=== PATIENT | female | born 1980 | race Caucasian/White ===

== ENCOUNTER 2021-12-07 13:24 | Emergency (ER) | payer BC, SELFPAY ==
[2021-12-07 13:33] VITALS: BP 139/78; PULSE 56; RESP 18; TEMP 36.6; O2SAT 97; BMI 22.7
--- NOTE | 2021-12-07 13:46 | CRLHL7_ITS ---
For Patients: As a result of the Century Cures Act, medical imaging exams and procedure reports are released immediately into your electronic medical record. You may view this report before your referring provider. If you have questions, please contact your health care provider. INDICATION: COMPARISON: none TECHNIQUE: A CT volumetric acquisition was performed of the brain without IV contrast. Please note that all CT scans at this facility use dose modulation, iterative reconstruction, and/or weight-based dosing when appropriate to reduce radiation dose to as low as reasonably achievable. FINDINGS: The CT images reveal a normal appearance of the cerebral ventricles and basal cisterns. There is no evidence of intracranial hemorrhage, tissue infarction or mass effect. The mastoid air cells and middle ear cavities are clear. The calvarium appears intact. There is normal aeration of the visualized paranasal sinuses. IMPRESSION: Negative head CT. Please note that all CT scans at this facility use dose modulation, iterative reconstruction, and/or weight-based dosing when appropriate to reduce radiation dose to as low as reasonably achievable. Dictated by Bethel Kessler MD @ 12/07/2021 2:31:30 PM (Electronically Signed)
--- NOTE | 2021-12-07 13:47 | ED.GENADULT ---
HPI - General Adult General Chief complaint: Neuro Symptoms/Altered Deficit Stated complaint: Seizure, MS related Time Seen by Provider: 12/07/21 13:27 History of Present Illness HPI narrative: Pt is a 41 year old woman with a history of MS as well as vestibular migraines who presents with frontal headache as well as a 1 second episode of not being able to speak. Speech difficulty has resolved but headache persists. No other neurological symptoms and the headache is typical for her migraines. Pt took Tylenol for her Headache with no improvement. No nause vomiting or photophobia. Related Data Allergies Allergy/AdvReac Type Severity Reaction Status Date / Time codeine Allergy Verified 12/07/21 13:32 Iodinated Contrast Media Allergy Verified 12/07/21 13:32 Review of Systems Status of ROS: Reports: 10 or more systems reviewed and unremarkable except as noted in History and below PFSH PFS Social History Smoking Status: Current every day smoker What tobacco products do you use: cigarettes Do you use any of these nicotine containing products: None How often do you have a drink containing alcohol: never How often do you have six or more drinks on one occasion: Never AUDIT-C Alcohol total score: 0 Non-prescribed substance use: denies use Exam Narrative: Exam Narrative: EXAM GENERAL: Patient appears comfortable and well. EYES: No scleral icterus. THYROID: no thyroid nodules or thyromegaly. LYMPH: No supraclavicular or cervical lymphadenopathy. SKIN: Visible skin seen during exam normal or with benign process only. EXT: No dependent lower extremity pedal edema. HEART: Regular rate and rhythm with no murmurs, rubs, or gallops. LUNGS: Clear to auscultation bilaterally with no crackles or wheezes. ABD: Soft, non tender, non distended. PSYCH: Good eye contact, speech is not pressured. Neurological cranial nerves 2-12 grossly intact need Const: Vital Signs, click to edit/add: Vital Signs - 24 hr 12/07/21 13:33 Temperature 97.8 F Pulse Rate [Pulse Oximeter] 56 L Respiratory Rate 18 Blood Pressure [Le ft Upper Arm] 139/78 Pulse Oximetry 97 Oxygen Delivery Me thod Room Air Course Course Hospital Course: IV started. patient given 30 mg of IV Toradol. CT of the head stat CBC UA Basic metabolic panel pending. Reevaluation(s) Reevaluation #1: Pt feeling better with no return of Neurological Symptoms. Head CT CBC and Basic Panel unremarkable upon my review. Time: 14:55 Vital Signs Vital signs: Initial Vital Signs Temperature 97.8 F 12/07/21 13:33 Temperature Source Temporal Artery Scan 12/07/21 13:33 Pulse Rate 56 L 12/07/21 13:33 Pulse Rhythm 12/07/21 13:33 Respiratory Rate 18 12/07/21 13:33 Blood Pressure 139/78 12/07/21 13:33 Blood Pressure Mean 98 12/07/21 13:33 Pulse Oximetry 97 12/07/21 13:33 Oxygen Delivery Method 12/07/21 13:33 Vital Signs Temperature 97.8 F 12/07/21 13:33 Pulse Rate 56 L 12/07/21 13:33 Respiratory Rate 18 12/07/21 13:33 Blood Pressure 139/78 12/07/21 13:33 Pulse Oximetry 97 12/07/21 13:33 Oxygen Delivery Method 12/07/21 13:33 Temperature 97.8 F 12/07/21 13:33 Pulse Rate 56 L 12/07/21 13:33 Respiratory Rate 18 12/07/21 13:33 Blood Pressure 139/78 12/07/21 13:33 Pulse Oximetry 97 12/07/21 13:33 Oxygen Delivery Method 12/07/21 13:33 Medical Decision Making MDM Narrative Medical decision making narrative: Pt presents with headache and brief 1 second aphasia. Workup unremarkable as above. Pt feeling fine and would like to go back to work. Symptoms likely related to MS or Vestibular Migraines Advised pt Neuro follow up needed Lab Data Labs: Lab Results 12/07/21 12/07/21 Range/Units 13:59 13:59 WBC 4.95 (4.50-11.00) K/uL RBC 4.11 (4.00-5.20) m/uL Hgb 12.4 (12.0-16.0) gm/dL Hct 37.1 (33.0-51.0) % MCV 90 (80-100) fL MCH 30 (26-34) pg MCHC 33 (32-36) gm/dL RDW Coeff of Alfredo 13.6 (11.5-15.5) % Plt Count 289 (140-440) K/uL Neut % (Auto) 84.5 H (42.0-72.0) % Lymph % (Auto) 4.0 L (20-44) % [place] % (Auto) 8.7 (0.0-11.0) % Eos % (Auto) 2.2 (0.0-7.0) % Baso % (Auto) 0.4 (0.0-3.0) % Neut # (Auto) 4.20 (1.7-7.0) K/uL Lymph # (Auto) 0.20 L (0.90-2.90) K/uL [place] # (Auto) 0.40 (0.00-0.90) K/UL Eos # (Auto) 0.11 (0.00-0.50) K/uL Baso # (Auto) 0.02 (0.00-0.30) K/uL Abs Immat Gran (auto) 0.01 (0.00-0.30) K/uL Sodium 135 (135-149) mmol/L Potassium 3.9 (3.6-5.1) mmol/L Chloride 103 (96-114) mmol/L Carbon Dioxide 27 (20-32) mmol/L BUN 13 (5-24) mg/dL Creatinine 0.9 (0.5-1.5) mg/dL Estimated Creat Clear 71.03 Estimated GFR 82 ml/min Glucose 93 (60-115) mg/dL Calcium 8.3 L (8.4-10.6) mg/dL Discharge Plan Discharge Clinical Impression: Migraine Patient Disposition: Home, Self-Care Condition: Stable Instructions: Migraine Headache (ED) Additional Instructions: Resume previous Meds Report any changes in symptoms Follow up with your Neurologist Activity Level: No Restrictions Discharge Diet: Regular Stand Alone Forms: General [employer] Info Instructions
[2021-12-07 14:10] LABS: Basophils Absolute Auto 0.02 K/uL (0.00-0.30); Basophils Percent Auto 0.4 % (0.0-3.0); Eosinophils Absolute Auto 0.11 K/uL (0.00-0.50); Eosinophils Percent Auto 2.2 % (0.0-7.0); Hematocrit 37.1 % (33.0-51.0); Hemoglobin* 12.4 gm/dL (12.0-16.0); Immature Granulocytes Abs Auto 0.01 K/uL (0.00-0.30); Mean Corpuscular HGB Conc 33 gm/dL (32-36); Mean Corpuscular Hemoglobin 30 pg (26-34); Mean Corpuscular Volume 90 fL (80-100); Monocytes Percent Auto 8.7 % (0.0-11.0); Neutrophils Percent Auto 84.5 % (42.0-72.0); Platelet Count* 289 K/uL (140-440); RDW Coefficient of Variation % 13.6 % (11.5-15.5); Red Blood Count 4.11 m/uL (4.00-5.20); White Blood Count* 4.95 K/uL (4.50-11.00)
[2021-12-07 14:17] LABS: Slide Review Reflex No
[2021-12-07 14:25] LABS: Chloride* 103 mmol/L (96-114); Potassium* 3.9 mmol/L (3.6-5.1); Sodium* 135 mmol/L (135-149)
[2021-12-07] MEDS: KETOROLAC 30 MG/ML inj IM (14:25)
[2021-12-07 14:28] LABS: Blood Urea Nitrogen* 13 mg/dL (5-24); Carbon Dioxide* 27 mmol/L (20-32); Creatinine* 0.9 mg/dL (0.5-1.5); Est. Creatinine Clearance* 71.03; Estimated Glomerular Filt Rate 82 ml/min
[2021-12-07 14:29] LABS: Calcium* 8.3 mg/dL (8.4-10.6); Glucose* 93 mg/dL (60-115)
[2021-12-07 14:30] VITALS: BP 132/83; PULSE 52; O2SAT 98
== END 2021-12-07 15:18 | disposition home or self-care (01) ==
PROVIDERS: Emergency Provider Internal Medicine
DX: R51.9 Headache, unspecified (principal)
CPT/HCPCS: 36415; 70450; 80048; 85025; 96372; 99283; 99284; J1885

== ENCOUNTER 2022-01-06 16:05 | Outpatient (CLI) | payer BC, SELFPAY | END 2022-01-06 16:06 | disposition home or self-care (01) | DX: R30.0 Dysuria (principal); M54.50 Low back pain, unspecified | CPT/HCPCS: 87086 ==

== ENCOUNTER 2022-02-09 15:12 | Outpatient (CLI) | payer BC, SELFPAY | END 2022-02-09 15:13 | disposition home or self-care (01) | PROVIDERS: Visit Provider Physician Assistant | DX: Z01.419 Encounter for gynecological examination (general) (routine) without abnormal findings (principal); N93.8 Other specified abnormal uterine and vaginal bleeding; Z12.4 Encounter for screening for malignant neoplasm of cervix | CPT/HCPCS: 84443; 87624; 88175 ==

== ENCOUNTER 2022-02-13 15:52 | Outpatient (CLI) | payer BC, SELFPAY ==
--- NOTE | 2022-02-13 16:00 | CRLHL7_ITS ---
For Patients: As a result of the Century Cures Act, medical imaging exams and procedure reports are released immediately into your electronic medical record. You may view this report before your referring provider. If you have questions, please contact your health care provider. INDICATION: ABNORMAL UTERINE BLEEDING COMPARISON: none TECHNIQUE: 2D bartlett scale and color Doppler images were acquired of the pelvis using a transabdominal and transvaginal approach. FINDINGS: Sonographic images demonstrate a normal size and smooth outer contour of the uterus. Uterus measures 9.8 cm in length by 5.6 cm in AP diameter by 6.1 cm in transverse dimension. The myometrium has a heterogeneous echotexture. Posterior uterine fundal intramural fibroid is present measuring 1.3 x 1.0 x 1.4 cm. An anterior mid intramural fibroid is also present measuring 1.6 x 1.3 x 1.6 cm. The endometrial lining appears diffusely thickened and measures 16 mm in composite thickness. The right ovary measures 2.9 x 1.7 x 1.8 cm in size and the left ovary measures 4.7 x 3.0 x 2.8 cm. The ovaries demonstrate normal arterial and venous blood flow on color Doppler analysis. Complex left ovarian cyst is present with hypoechoic internal echoes measuring 3.3 x 2.2 x 2.4 cm. Moderate pelvic free fluid is present. IMPRESSION: Diffusely thickened endometrium measuring 16 millimeters. At least 2 intramural fibroids measuring up to 1.6 cm. Hemorrhagic left ovarian cyst measuring 3.3 cm with moderate pelvic free fluid. Dictated by Bethel Kessler MD @ 02/16/2022 8:55:58 AM (Electronically Signed)
== END 2022-02-13 15:53 | disposition home or self-care (01) ==
LOC: US 15:53
PROVIDERS: Visit Provider Physician Assistant
DX: N93.9 Abnormal uterine and vaginal bleeding, unspecified (principal); D25.1 Intramural leiomyoma of uterus; R93.89 Abnormal findings on diagnostic imaging of other specified body structures; N83.202 Unspecified ovarian cyst, left side
CPT/HCPCS: 76830; 76856; 93976

== ENCOUNTER 2022-03-24 13:50 | Outpatient (CLI) | payer BC, SELFPAY | END 2022-03-24 13:51 | disposition home or self-care (01) | LOC: NFLDREF 13:52 | PROVIDERS: Visit Provider Family Medicine | DX: L65.9 Nonscarring hair loss, unspecified (principal) | CPT/HCPCS: 84443 ==

== ENCOUNTER 2022-03-31 18:36 | Emergency (ER) | payer BC, SELFPAY ==
[2022-03-31 18:55] VITALS: BP 129/79; PULSE 69; RESP 18; TEMP 36.6; O2SAT 97; BMI 23.2
--- NOTE | 2022-03-31 19:11 | ED.BACK ---
HPI - Back Pain/Injury General Chief Complaint: Back Injury/Pain Stated Complaint: Lower Back Pain Time Seen by Provider: 03/31/22 18:43 History of Present Illness HPI Narrative: This 42-year-old female comes in reporting pain in her right lower back since yesterday. She does not report any injury event or strenuous activity. She does not have a prior history of back pain specifically but does state that she has multiple sclerosis. She also reports a history of urinary tract infections. She does not report any symptoms of dysuria. She was seen yesterday at the [facility] if for some maneuvers to treat vertigo symptoms. There was no injury event in that appointment that triggered these symptoms. She states that the pain seems to be worse when moving to a sitting or standing position. Related Data Home Medications Medication Instructions Recorded Confirmed amantadine HCl 100 mg capsule 100 mg PO QDAY 01/06/22 03/24/22 erenumab-aooe 140 mg/mL 140 mg subcut 01/06/22 03/24/22 subcutaneous auto-injector (Aimovig Autoinjector) fexofenadine 180 mg tablet 180 mg PO Q24H 01/06/22 03/24/22 fingolimod 0.5 mg capsule (Gilenya) 0.5 mg PO QDAY 01/06/22 03/24/22 fluoxetine 20 mg capsule 40 mg PO TID 01/06/22 03/24/22 Allergies Allergy/AdvReac Type Severity Reaction Status Date / Time codeine Allergy Severe Anaphylaxis Verified 03/31/22 19:24 Iodinated Contrast Media Allergy Intermediate Hives Verified 03/31/22 19:24 Review of Systems Status of ROS: Reports: 10 or more systems reviewed and unremarkable except as noted in History and below Narrative: Constitutional: No fevers, no weight gain or loss. Eyes: No discharge. No vision changes. HENT: No congestion, no sore throat, no ear pain. Cardiovascular: No chest pain, no palpitations. Respiratory: No shortness of breath, no wheezes, no cough. Gastrointestinal: No abdominal pain, no vomiting, no diarrhea. Genitourinary: No dysuria, no hematuria. Musculoskeletal: Normal range of motion. Right lower back pain as described above. Skin: No rashes, no pruritis. Neurological: No dizziness, weakness, sensory change, speech change. Endo/Heme/Allergies: No bruising or bleeding. No polydipsia. Pysch: no suicidality, no anxiety, no insomnia. All other systems reviewed and are negative. 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 E cigarette use. No alcohol use. No recreational drug use. No concerns for safety or abuse. Smoking Status: Current every day smoker What tobacco products do you use: cigarettes Smoking quit date/years: >15 years ago Do you use any of these nicotine containing products: None Second hand tobacco smoke exposure: Yes How often do you have a drink containing alcohol: never How often do you have six or more drinks on one occasion: Never AUDIT-C Alcohol total score: 0 Non-prescribed substance use: denies use Little interest or pleasure in doing things: not at all Feeling down, depressed, or hopeless: not at all Exam Narrative: Exam Narrative: Constitutional: Well-developed, well-nourished, no acute distress. HEENT: Normocephalic, atraumatic. Neck: Normal range of motion. Nontender. Supple. Heart: Regular. No murmurs. Normal rate. Intact distal pulses. Lungs: Clear to auscultation. No chest discomfort. No wheezes, rhonchi, or rales. Abdomen: Normal bowel sounds. Nontender. No rebound tenderness. Genitalia: Deferred. Back: No midline tenderness. Normal range of motion. Tenderness in the right lower back. No pain when percussing over the right kidney. Extremities: Normal range of motion. No injury. Skin: Intact. No rash. Warm. No erythema or pallor. Neurologic: No altered sensation. No weakness. Alert and oriented. Psychiatric: No suicidality. No anxiety or depression. No insomnia. Nursing notes and vitals signs are reviewed. Const: Vital Signs, click to edit/add: Vital Signs - 24 hr 03/31/22 18:55 Temperature 97.8 F Pulse Rate [Right Pulse Oximeter] 69 Respiratory Rate 18 Blood Pressure [Ri ght Upper Arm] 129/79 Pulse Oximetry 97 Oxygen Delivery Me thod Room Air Course Vital Signs Vital signs: Initial Vital Signs Temperature 97.8 F 03/31/22 18:55 Temperature Source Temporal Artery Scan 03/31/22 18:55 Pulse Rate 69 03/31/22 18:55 Respiratory Rate 18 03/31/22 18:55 Blood Pressure 129/79 03/31/22 18:55 Blood Pressure Mean 95 03/31/22 18:55 Blood Pressure Position Sitting 03/31/22 18:55 Pulse Oximetry 97 03/31/22 18:55 Oxygen Delivery Method 03/31/22 18:55 Vital Signs Temperature 97.8 F 03/31/22 18:55 Pulse Rate 69 03/31/22 18:55 Respiratory Rate 18 03/31/22 18:55 Blood Pressure 129/79 03/31/22 18:55 Pulse Oximetry 97 03/31/22 18:55 Oxygen Delivery Method 03/31/22 18:55 Temperature 97.8 F 03/31/22 18:55 Pulse Rate 69 03/31/22 18:55 Respiratory Rate 18 03/31/22 18:55 Blood Pressure 129/79 03/31/22 18:55 Pulse Oximetry 97 03/31/22 18:55 Oxygen Delivery Method 03/31/22 18:55 MDM - Back Pain/Injury MDM Narrative Medical decision making narrative: This patient comes in with right-sided low back pain. She states that she does have recurrent urinary tract infections. She did take a peridium tablet earlier today. He urinalysis results show evidence of nitrites but her microscopic white blood cell and red blood cell counts are normal. This does appear to be a urinary tract infection and results can be skewed with the peridium that she took earlier. She received a prescription for Keflex and Toradol. Lab Data Labs: Lab Results 03/31/22 Range/Units 19:11 Urine Color [place] A (Yellow) Urine Appearance Cloudy A (Clear) Urine pH 6.0 (5.0-8.5) Ur Specific [place] 1.010 (1.000-1.030) Urine Protein Negative (Negative) Urine Glucose (UA) Trace A (Negative) Urine Ketones Negative (Negative) Urine Blood 2+ A (Negative) Urine Nitrite Positive A (Negative) Urine Bilirubin Negative (Negative) Urine Urobilinogen 1.0 (0.2-1.0) Ur Leukocyte Esterase Negative (Negative) Urine RBC 0-2 (0-2) Urine WBC 0-2 (0-5) Ur Squamous Epith Cells Few (None-Few) Urine Bacteria Few A (None) Discharge Plan Discharge Clinical Impression: Urinary tract infection Patient Disposition: Home, Self-Care Condition: Stable Additional Instructions: Take medication as prescribed. Follow up with MD or return if worsening. Prescriptions: No Action amantadine HCl 100 mg capsule 100 mg PO QDAY Aimovig Autoinjector 140 mg/mL auto-injector 140 mg subcut Gilenya 0.5 mg capsule 0.5 mg PO QDAY fexofenadine 180 mg tablet 180 mg PO Q24H fluoxetine 20 mg capsule 40 mg PO TID Follow Up/Referrals: Provider,Not a Local [Primary Care Provider] - Stand Alone Forms: [employer] Info Instructions
[2022-03-31 19:48] LABS: Appearance Urine Cloudy (Clear); Bilirubin Urine Negative (Negative); Blood Urine 2+ (Negative); Color Urine Orange (Yellow); Glucose Urine Trace (Negative); Ketones Urine Negative (Negative); Leukocyte Esterase Urine Negative (Negative); Nitrite Urine Positive (Negative); Protein Urine Negative (Negative)
[2022-03-31 20:15] VITALS: BP 118/78; PULSE 69; RESP 18; TEMP 36.6
[2022-03-31 20:18] LABS: Bacteria Urine Few; RBC Urine 0-2 (0-2); Squamous Epithelial Cell Urine Few (None-Few); WBC Urine 0-2 (0-5)
[2022-03-31 20:40] VITALS: BP 118/78; PULSE 69; RESP 18; TEMP 36.6; O2SAT 97
== END 2022-03-31 20:32 | disposition home or self-care (01) ==
PROVIDERS: Emergency Provider Emergency Medicine Emergency Medical Services
DX: N39.0 Urinary tract infection, site not specified (principal)
CPT/HCPCS: 81001; 87086; 99283; 99284

== ENCOUNTER 2022-04-16 07:48 | Day surgery (SDC) | payer BC, SELFPAY ==
--- NOTE | 2022-04-16 08:01 | SUR.PREOP ---
HOme COVID negative confirmed by advertising copywriter.
[2022-04-16 08:18] VITALS: BMI 23.3
[2022-04-16 08:40] VITALS: BP 126/70; PULSE 80; RESP 16; TEMP 37; O2SAT 97
[2022-04-16] MEDS: SODIUM CHLORIDE 0.9 % (FLUSH) 10 ML SYRINGE IVF (08:43)
[2022-04-16] MEDS: LACTATED RINGERS 1000 ML 1,000 ML 100 ML IV (08:43)
[2022-04-16 08:44] LABS: Hemoglobin* 12.4 gm/dL (12.0-16.0)
--- NOTE | 2022-04-16 08:58 | P.GYNPRC_ITS ---
Procedure Note Time Seen by Provider: 08:30 Date Seen: 04/16/22 Procedure Details: Preoperative diagnosis: 42 year-old with with abnormal uterine bleeding likely 2/2 to fibroids. Postoperative diagnosis: Same Procedure: Hysteroscopy, dilation and curettage. Anesthesia: Conscious sedation with paracervical block. Surgeon: Nicole Noe MD Estimated blood loss: <5 mL UOP: 20 mL Fluid deficit: 300 mL Specimen: Endometrial curettings to pathology. Findings: Exam under anesthesia: Cervix palpates normal. Uterus: retroverted position, 8 week size, mobile, without nodularity/masses palpable. Adnexa were without fullness or nodularity. On hysteroscopy: Fluffy endometrium without obvious polyps or fibroid. Procedure: Chinedu was taken to the operating where conscious sedation was found to be adequate. She was placed in the dorsal lithotomy position. An exam under a nesthesia was performed with findings stated above. She was then prepped and draped in normal sterile manner. A bivalve metal speculum was placed in the vaginal canal. The cervix and vaginal canal appear normal. A paracervical block was placed using 1% Lidocaine: 4-5 mL injected at the 12, 4 and 8 o'clock positions on the cervix. The anterior lip of the cervix was then grasped with a long tenaculum clamp. The cervix was dilated to [place] 6. The uterus sounded to 9 cm. The hysteroscope advanced into the uterus and a diagnostic hysteroscopy was performed with findings stated above. Normal saline was used as the insufflation medium. The hysteroscope was then removed. A sharp curettage was performed until a gritty texture was noted. The hysteroscope was then readvanced into the uterus and documented a normal appearing uterine cavity. Fluid deficit at the end of the procedure 300 mL. The hysteroscope and tenaculum clamp were removed from the uterus and cervix. Excellent hemostasis noted. Nothing was used for hemostasis. The patient tolerated the procedure well. Sponge, lap and instruments counts were correct at the end of the procedure. The patient was awakened from anesthesia and taken to the recovery area in stable condition.
[2022-04-16 09:07] LABS: HCG Qualitative Serum* Negative (Negative)
[2022-04-16] MEDS: LIDOCAINE 0.5%-EPI 1:200,000 50 ML VIAL INJECTION (09:38)
--- NOTE | 2022-04-16 09:38 | SUR.OPER ---
Glasses sent back with patient in there chart.
--- NOTE | 2022-04-16 10:21 | W.ANESCHARGE ---
Anesthesia Charges Start Date/Time Anesthesia Start Date: 04/16/22 Anesthesia Start Time: 09:16 Stop Date/Time Anesthesia Stop Date: 04/16/22 Anesthesia Stop Time: 10:20 Summary Emergency: No
[2022-04-16 10:22] VITALS: BP 124/69; PULSE 60; RESP 16; TEMP 36.9; O2SAT 98
[2022-04-16 10:30] VITALS: BP 142/77; PULSE 48; RESP 16; O2SAT 100
--- NOTE | 2022-04-16 10:37 | W.ANESCHARGE ---
Anesthesia Charges Start Date/Time Anesthesia Start Date: 04/16/22 Anesthesia Start Time: 09:16 Stop Date/Time Anesthesia Stop Date: 04/16/22 Anesthesia Stop Time: 10:20 Summary Emergency: No
[2022-04-16 10:45] VITALS: BP 153/76; PULSE 50; RESP 16; TEMP 36.9; O2SAT 100
[2022-04-16 11:00] VITALS: BP 143/75; PULSE 45; RESP 16; O2SAT 100
[2022-04-16 11:15] VITALS: BP 144/70; PULSE 50; RESP 16; TEMP 36.9; O2SAT 100
== END 2022-04-16 11:41 | disposition home or self-care (01) ==
PROVIDERS: PCP Family Medicine; Visit Provider Obstetrics & Gynecology
PROC: 0UDB8ZZ Extraction of Endometrium, Via Natural or Artificial Opening Endoscopic (ICD-10-PCS; CPT 58558; principal; 2022-04-16 08:45)
DX: N93.8 Other specified abnormal uterine and vaginal bleeding (principal)
CPT/HCPCS: 58558; 00952; 36415; 81025; 84703; 85018; 88305; J1100; J1885; J2250; J2405; J2704; J3010; J3490; J7120

== ENCOUNTER 2022-05-28 19:48 | Emergency (ER) | payer BC, SELFPAY ==
[2022-05-28 19:55] VITALS: BP 131/77; PULSE 61; RESP 16; TEMP 36.1; O2SAT 99
--- NOTE | 2022-05-28 20:04 | ED.GENADULT ---
HPI - General Adult General Time Seen by Provider: 20:04 <Sonia Dueñas MD - Last Filed: 06/03/22 01:46> Date Seen: 05/28/22 <Sonia Dueñas MD - Last Filed: 06/03/22 01:46> Chief complaint: Abdominal Pain <Sonia Dueñas MD - Last Filed: 06/03/22 01:46> Stated complaint: UTI <Sonia Dueñas MD - Last Filed: 06/03/22 01:46> Time Seen by Provider: 05/28/22 19:52 <Sonia Dueñas MD - Last Filed: 06/03/22 01:46> Source: patient and RN notes reviewed <Sonia Dueñas MD - Last Filed: 06/03/22 01:46> Mode of arrival: ambulatory <Sonia Dueñas MD - Last Filed: 06/03/22 01:46> Limitations: no limitations <Sonia Dueñas MD - Last Filed: 06/03/22 01:46> History of Present Illness HPI narrative: Patient is a 42-year-old female ambulatory into the ED with pelvic discomfort. About a day and half to 2 days ago she started having some lower abdominal pain, felt like she had to urinate but was only going small amounts. She has had UTIs before and this feels similar. She has noted no blood in her urine. She has had no flank pain, no nausea or vomiting, no change in stooling, no fevers or chills. She does have underlying MS. She also reports that she had a D&C here about 3 weeks ago for bleeding for 2 months. She states the bleeding has diminished but she is still bleeding daily but much less. She is using about a tampon a day now. She also has had a history of ovarian cysts per report. Her significant other has had a vasectomy, denies any chance for . She does feel something is going on in the pelvic area. Review of a pelvic ultrasound done on 02/13/22 with impressions below: Diffusely thickened endometrium measuring 16 millimeters. At least 2 intramural fibroids measuring up to 1.6 cm. Hemorrhagic left ovarian cyst measuring 3.3 cm with moderate pelvic free fluid. Patient proceeded to have a hysteroscopy and D&C on 04/16/2022 here at [place]. The pathology showed menstrual changes, nothing concerning. In review of her records she had a normal TSH in both January and February of last year. Thus, do not feel that TSH needs to be repeated tonight. <Sonia Dueñas MD - Last Filed: 06/03/22 01:46> Related Data Home medications: Home Medications Medication Instructions Recorded Confirmed amantadine HCl 100 mg capsule 100 mg PO QDAY 01/06/22 05/01/22 erenumab-aooe 140 mg/mL 140 mg subcut 01/06/22 05/01/22 subcutaneous auto-injector (Aimovig Autoinjector) fexofenadine 180 mg tablet 180 mg PO Q24H 01/06/22 05/01/22 fingolimod 0.5 mg capsule (Gilenya) 0.5 mg PO QDAY 01/06/22 05/01/22 Previous Rx's Medication Instructions Recorded fluoxetine 20 mg capsule 60 mg PO QDAY #90 caps 04/02/22 <Sonia Dueñas MD - Last Filed: 06/03/22 01:46> Allergies/adverse reactions: Allergies Allergy/AdvReac Type Severity Reaction Status Date / Time codeine Allergy Severe Anaphylaxis Verified 05/01/22 11:41 Iodinated Contrast Media Allergy Intermediate Hives Verified 05/01/22 11:41 <Sonia Dueñas MD - Last Filed: 06/03/22 01:46> Review of Systems Status of ROS: Reports: 6 or more systems reviewed and unremarkable except as noted in History and below <Sonia Dueñas MD - Last Filed: 06/03/22 01:46> [facility] Medical History: Medical History Alopecia 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 E cigarette use. No alcohol use. No recreational drug use. No concerns for safety or abuse. Smoking Status: Current every day smoker What tobacco products do you use: cigarettes Smoking quit date/years: >15 years ago Do you use any of these nicotine containing products: None Second hand tobacco smoke exposure: Yes How often do you have a drink containing alcohol: monthly or less How often do you have six or more drinks on one occasion: Never AUDIT-C Alcohol total score: 1 Non-prescribed substance use: denies use Caffeine: Yes Little interest or pleasure in doing things: not at all Feeling down, depressed, or hopeless: not at all <Sonia Dueñas MD - Last Filed: 06/03/22 01:46> Exam Const: Vital Signs, click to edit/add: Vital Signs - 24 hr 05/28/22 19:55 Temperature 96.9 F L Pulse Rate [Left P ulse Oximeter] 61 Respiratory Rate 16 Blood Pressure [Ri ght Upper Arm] 131/77 Pulse Oximetry 99 Oxygen Delivery Me thod Room Air <Sonia Dueñas MD - Last Filed: 06/03/22 01:46> Vital Signs, click to edit/add: Vital Signs - 24 hr 05/28/22 19:55 Temperature 96.9 F L Pulse Rate [Left P ulse Oximeter] 61 Respiratory Rate 16 Blood Pressure [Ri ght Upper Arm] 131/77 Pulse Oximetry 99 Oxygen Delivery Me thod Room Air <Brianne Saez MD - Last Filed: 05/28/22 22:20> Documenting provider has reviewed patient's vital signs: yes <Sonia Dueñas MD - Last Filed: 06/03/22 01:46> Common normals: no apparent distress, oriented x3, no limitations, healthy appearing, alert and well nourished <Sonia Dueñas MD - Last Filed: 06/03/22 01:46> General appearance: cooperative, comfortable, well kempt and well developed <Sonia Dueñas MD - Last Filed: 06/03/22 01:46> Nutritional appearance: thin <Sonia Dueñas MD - Last Filed: 06/03/22 01:46> HENMT: Common normals: normocephalic, head/scalp atraumatic and hearing grossly normal bilaterally <Sonia Dueñas MD - Last Filed: 06/03/22 01:46> Head and scalp: normocephalic and atraumatic <Sonia Dueñas MD - Last Filed: 06/03/22 01:46> Eye: Common normals: PERRL, EOMs intact bilaterally, conjunctivae normal and no scleral icterus <Sonia Dueñas MD - Last Filed: 06/03/22 01:46> Conjunctiva: conjunctiva(e) normal <Sonia Dueñas MD - Last Filed: 06/03/22 01:46> Pupil: PERRL <Sonia Dueñas MD - Last Filed: 06/03/22 01:46> Neck & C-Spine: Common normals: full ROM, no lymphadenopathy, supple, no meningeal signs, no JVD and thyroid normal <Sonia Dueñas MD - Last Filed: 06/03/22 01:46> Thyroid: thyroid normal <Sonia Dueñas MD - Last Filed: 06/03/22 01:46> Resp: Common normals: normal respiratory effort, no retractions, no use of accessory muscles and clear to auscultation bilaterally <MD Uriah Holman Last Filed: 06/03/22 01:46> Auscultation: clear to auscultation bilaterally <Sonia Dueñas MD - Last Filed: 06/03/22 01:46> Cardio: Common normals: no JVD, regular rate, regular rhythm, S1 normal heart sound, S2 normal heart sound, no gallops, no clicks, no murmurs and no rub <Sonia Dueñas MD - Last Filed: 06/03/22 01:46> Rate: regular rate <Sonia Dueñas MD - Last Filed: 06/03/22 01:46> Rhythm: regular rhythm <Sonia Dueñas MD - Last Filed: 06/03/22 01:46> Heart sounds: S1 normal and S2 normal <Sonia Dueñas MD - Last Filed: 06/03/22 01:46> GI: Common normals: Normal to inspection, nondistended, normoactive bowel sounds present, soft to palpation, no hepatosplenomegaly and no masses <MD Uriah Holman Last Filed: 06/03/22 01:46> Palpation: soft and no hepatosplenomegaly <Sonia Dueñas MD - Last Filed: 06/03/22 01:46> Other: She has some mild suprapubic tenderness without rebound or guarding, has more concentrated tenderness in the left lower quadrant in the pelvic area but do not appreciate any mass. Right lower quadrant seemingly not tender at all. <MD Uriah Holman Last Filed: 06/03/22 01:46> : Common normals: no CVA tenderness <Sonia Dueñas MD - Last Filed: 06/03/22 01:46> Bladder/kidney exam: no CVA tenderness <MD Uriah Holman Last Filed: 06/03/22 01:46> Back & Pelvis: Common normals: no CVA tenderness <MD Uriah Holman Last Filed: 06/03/22 01:46> Neuro: Common normals: oriented x3 <MD Uriah Holman Last Filed: 06/03/22 01:46> Sensorium/orientation: alert <Sonia Dueñas MD - Last Filed: 06/03/22 01:46> Meningeal signs: no meningeal signs <Sonia Dueñas MD - Last Filed: 06/03/22 01:46> Psych: Appearance: well kempt <Sonia Dueñas MD - Last Filed: 06/03/22 01:46> Course Course Hospital Course: Urinary tract infection is certainly in the diagnosis. With multiple sclerosis I did think of neurogenic bladder and we can have nursing staff just perform a bladder scan quickly to rule out urinary retention. She has had a history of ovarian cyst in with the concentrated left lower quadrant tenderness, do think that is a possibility here. She had a D and C at the end of March, do think a pelvic ultrasound is in order to rule out underlying pathology. Will do appropriate labs, she has already given us a specimen for urinalysis. She is hemodynamically stable and comfortable. She had use some Advil earlier but declines any need for pain medicine at this time. <Sonia Dueñas MD - Last Filed: 06/03/22 01:46> Reevaluation(s) Reevaluation #1: Nursing staff reports postvoid residual less than 2 mL, thus no retention. <Sonia Dueñas MD - Last Filed: 06/03/22 01:46> Time: 20:22 <Sonia Dueñas MD - Last Filed: 06/03/22 01:46> Reevaluation #2: Am signing this patient off to Dr. Saez to follow up the ultrasound and possible antibiotics if there are no other findings to suggest something else other than UTI. She except sign-out. Will let the patient know of the plan. HCG qualitative and the pelvic ultrasound as well as a urine culture are pending. <Sonia Dueñas MD - Last Filed: 06/03/22 01:46> Time: 21:07 <Sonia Dueñas MD - Last Filed: 06/03/22 01:46> Vital Signs Vital signs: Initial Vital Signs Temperature 96.9 F L 05/28/22 19:55 Temperature Source Temporal Artery Scan 05/28/22 19:55 Pulse Rate 61 05/28/22 19:55 Pulse Rhythm 05/28/22 19:55 Respiratory Rate 16 05/28/22 19:55 Blood Pressure 131/77 05/28/22 19:55 Blood Pressure Mean 95 05/28/22 19:55 Blood Pressure Position Sitting 05/28/22 19:55 Pulse Oximetry 99 05/28/22 19:55 Oxygen Delivery Method 05/28/22 19:55 Vital Signs Temperature 96.9 F L 05/28/22 19:55 Pulse Rate 61 05/28/22 19:55 Respiratory Rate 16 05/28/22 19:55 Blood Pressure 131/77 05/28/22 19:55 Pulse Oximetry 99 05/28/22 19:55 Oxygen Delivery Method 05/28/22 19:55 Temperature 96.9 F L 05/28/22 19:55 Pulse Rate 61 05/28/22 19:55 Respiratory Rate 16 05/28/22 19:55 Blood Pressure 131/77 05/28/22 19:55 Pulse Oximetry 99 05/28/22 19:55 Oxygen Delivery Method 05/28/22 19:55 <Sonia Dueñas MD - Last Filed: 06/03/22 01:46> Initial Vital Signs Temperature 96.9 F L 05/28/22 19:55 Temperature Source Temporal Artery Scan 05/28/22 19:55 Pulse Rate 61 05/28/22 19:55 Pulse Rhythm 05/28/22 19:55 Respiratory Rate 16 05/28/22 19:55 Blood Pressure 131/77 05/28/22 19:55 Blood Pressure Mean 95 05/28/22 19:55 Blood Pressure Position Sitting 05/28/22 19:55 Pulse Oximetry 99 05/28/22 19:55 Oxygen Delivery Method 05/28/22 19:55 Vital Signs Temperature 96.9 F L 05/28/22 19:55 Pulse Rate 61 05/28/22 19:55 Respiratory Rate 16 05/28/22 19:55 Blood Pressure 131/77 05/28/22 19:55 Pulse Oximetry 99 05/28/22 19:55 Oxygen Delivery Method 05/28/22 19:55 Temperature 96.9 F L 05/28/22 19:55 Pulse Rate 61 05/28/22 19:55 Respiratory Rate 16 05/28/22 19:55 Blood Pressure 131/77 05/28/22 19:55 Pulse Oximetry 99 05/28/22 19:55 Oxygen Delivery Method 05/28/22 19:55 <Brianne Saez MD - Last Filed: 05/28/22 22:20> Medical Decision Making MDM Narrative Medical decision making narrative: Counseled patient on findings. Consistent with urinary tract infection. Culture ordered. Will start Keflex. Discussed imaging findings with patient. She still has a thickened endometrium, signs of a polyp. She will make a follow-up as soon as possible with her supervisor electron tube processing discuss long-term plan. Alarm symptoms reviewed as indications to come back to the ED. If still symptomatic after 48 hours, would be suspicious of her gynecological issues actually causing the pain. <Brianne Saez MD - Last Filed: 05/28/22 22:20> Lab Data Lab results reviewed: Yes I reviewed the patient's lab results <Sonia Dueñas MD - Last Filed: 06/03/22 01:46> Labs: Lab Results 05/28/22 05/28/22 05/28/22 Range/Units 20:03 20:26 20:26 WBC 4.79 (4.50-11.00) K/uL RBC 4.44 (4.00-5.20) m/uL Hgb 13.6 (12.0-16.0) gm/dL Hct 40.1 (33.0-51.0) % MCV 90 (80-100) fL MCH 31 (26-34) pg MCHC 34 (32-36) gm/dL RDW Coeff of Alfredo 15.3 (11.5-15.5) % Plt Count 294 (140-440) K/uL Neut % (Auto) 86.0 H (42.0-72.0) % Lymph % (Auto) 3.3 L (20-44) % [place] % (Auto) 9.0 (0.0-11.0) % Eos % (Auto) 1.3 (0.0-7.0) % Baso % (Auto) 0.2 (0.0-3.0) % Neut # (Auto) 4.10 (1.7-7.0) K/uL Lymph # (Auto) 0.20 L (0.90-2.90) K/uL [place] # (Auto) 0.40 (0.00-0.90) K/UL Eos # (Auto) 0.06 (0.00-0.50) K/uL Baso # (Auto) 0.01 (0.00-0.30) K/uL Sodium 136 (135-149) mmol/L Potassium 3.7 (3.6-5.1) mmol/L Chloride 103 (96-114) mmol/L Carbon Dioxide 25 (20-32) mmol/L BUN 14 (5-24) mg/dL Creatinine 1.0 (0.5-1.5) mg/dL Estimated GFR 72 ml/min Glucose 86 (60-115) mg/dL Lactate (0.5-1.9) mmol/L Calcium 8.9 (8.4-10.6) mg/dL HCG, Qual (Negative) Urine Color Yellow (Yellow) Urine Appearance Clear (Clear) Urine pH 7.0 (5.0-8.5) Ur Specific [place] 1.025 (1.000-1.030) Urine Protein Trace A (Negative) Urine Glucose (UA) Negative (Negative) Urine Ketones Trace A (Negative) Urine Blood 3+ A (Negative) Urine Nitrite Negative (Negative) Urine Bilirubin Negative (Negative) Urine Urobilinogen 0.2 (0.2-1.0) Ur Leukocyte Esterase Trace A (Negative) Urine RBC 5-10 A (0-2) Urine WBC 5-10 A (0-5) Ur Squamous Epith Cells Few (None-Few) Urine Bacteria Many A (None) 05/28/22 05/28/22 Range/Units 20:26 20:26 WBC (4.50-11.00) K/uL RBC (4.00-5.20) m/uL Hgb (12.0-16.0) gm/dL Hct (33.0-51.0) % MCV (80-100) fL MCH (26-34) pg MCHC (32-36) gm/dL RDW Coeff of Alfredo (11.5-15.5) % Plt Count (140-440) K/uL Neut % (Auto) (42.0-72.0) % Lymph % (Auto) (20-44) % [place] % (Auto) (0.0-11.0) % Eos % (Auto) (0.0-7.0) % Baso % (Auto) (0.0-3.0) % Neut # (Auto) (1.7-7.0) K/uL Lymph # (Auto) (0.90-2.90) K/uL [place] # (Auto) (0.00-0.90) K/UL Eos # (Auto) (0.00-0.50) K/uL Baso # (Auto) (0.00-0.30) K/uL Sodium (135-149) mmol/L Potassium (3.6-5.1) mmol/L Chloride (96-114) mmol/L Carbon Dioxide (20-32) mmol/L BUN (5-24) mg/dL Creatinine (0.5-1.5) mg/dL Estimated GFR ml/min Glucose (60-115) mg/dL Lactate 0.9 (0.5-1.9) mmol/L Calcium (8.4-10.6) mg/dL HCG, Qual Negative (Negative) Urine Color (Yellow) Urine Appearance (Clear) Urine pH (5.0-8.5) Ur Specific [place] (1.000-1.030) Urine Protein (Negative) Urine Glucose (UA) (Negative) Urine Ketones (Negative) Urine Blood (Negative) Urine Nitrite (Negative) Urine Bilirubin (Negative) Urine Urobilinogen (0.2-1.0) Ur Leukocyte Esterase (Negative) Urine RBC (0-2) Urine WBC (0-5) Ur Squamous Epith Cells (None-Few) Urine Bacteria (None) <Sonia Dueñas MD - Last Filed: 06/03/22 01:46> Lab Results 05/28/22 05/28/22 05/28/22 Range/Units 20:03 20:26 20:26 WBC 4.79 (4.50-11.00) K/uL RBC 4.44 (4.00-5.20) m/uL Hgb 13.6 (12.0-16.0) gm/dL Hct 40.1 (33.0-51.0) % MCV 90 (80-100) fL MCH 31 (26-34) pg MCHC 34 (32-36) gm/dL RDW Coeff of Alfredo 15.3 (11.5-15.5) % Plt Count 294 (140-440) K/uL Neut % (Auto) 86.0 H (42.0-72.0) % Lymph % (Auto) 3.3 L (20-44) % [place] % (Auto) 9.0 (0.0-11.0) % Eos % (Auto) 1.3 (0.0-7.0) % Baso % (Auto) 0.2 (0.0-3.0) % Neut # (Auto) 4.10 (1.7-7.0) K/uL Lymph # (Auto) 0.20 L (0.90-2.90) K/uL [place] # (Auto) 0.40 (0.00-0.90) K/UL Eos # (Auto) 0.06 (0.00-0.50) K/uL Baso # (Auto) 0.01 (0.00-0.30) K/uL Sodium 136 (135-149) mmol/L Potassium 3.7 (3.6-5.1) mmol/L Chloride 103 (96-114) mmol/L Carbon Dioxide 25 (20-32) mmol/L BUN 14 (5-24) mg/dL Creatinine 1.0 (0.5-1.5) mg/dL Estimated GFR 72 ml/min Glucose 86 (60-115) mg/dL Lactate (0.5-1.9) mmol/L Calcium 8.9 (8.4-10.6) mg/dL HCG, Qual (Negative) Urine Color Yellow (Yellow) Urine Appearance Clear (Clear) Urine pH 7.0 (5.0-8.5) Ur Specific [place] 1.025 (1.000-1.030) Urine Protein Trace A (Negative) Urine Glucose (UA) Negative (Negative) Urine Ketones Trace A (Negative) Urine Blood 3+ A (Negative) Urine Nitrite Negative (Negative) Urine Bilirubin Negative (Negative) Urine Urobilinogen 0.2 (0.2-1.0) Ur Leukocyte Esterase Trace A (Negative) Urine RBC 5-10 A (0-2) Urine WBC 5-10 A (0-5) Ur Squamous Epith Cells Few (None-Few) Urine Bacteria Many A (None) 02/02/23 02/02/23 Range/Units 20:26 20:26 WBC (4.50-11.00) K/uL RBC (4.00-5.20) m/uL Hgb (12.0-16.0) gm/dL Hct (33.0-51.0) % MCV (80-100) fL MCH (26-34) pg MCHC (32-36) gm/dL RDW Coeff of Alfredo (11.5-15.5) % Plt Count (140-440) K/uL Neut % (Auto) (42.0-72.0) % Lymph % (Auto) (20-44) % [place] % (Auto) (0.0-11.0) % Eos % (Auto) (0.0-7.0) % Baso % (Auto) (0.0-3.0) % Neut # (Auto) (1.7-7.0) K/uL Lymph # (Auto) (0.90-2.90) K/uL [place] # (Auto) (0.00-0.90) K/UL Eos # (Auto) (0.00-0.50) K/uL Baso # (Auto) (0.00-0.30) K/uL Sodium (135-149) mmol/L Potassium (3.6-5.1) mmol/L Chloride (96-114) mmol/L Carbon Dioxide (20-32) mmol/L BUN (5-24) mg/dL Creatinine (0.5-1.5) mg/dL Estimated GFR ml/min Glucose (60-115) mg/dL Lactate 0.9 (0.5-1.9) mmol/L Calcium (8.4-10.6) mg/dL HCG, Qual Negative (Negative) Urine Color (Yellow) Urine Appearance (Clear) Urine pH (5.0-8.5) Ur Specific [place] (1.000-1.030) Urine Protein (Negative) Urine Glucose (UA) (Negative) Urine Ketones (Negative) Urine Blood (Negative) Urine Nitrite (Negative) Urine Bilirubin (Negative) Urine Urobilinogen (0.2-1.0) Ur Leukocyte Esterase (Negative) Urine RBC (0-2) Urine WBC (0-5) Ur Squamous Epith Cells (None-Few) Urine Bacteria (None) <Brianne Saez MD - Last Filed: 05/28/22 22:20> Imaging Data Pelvic ultrasound: Attestation: I have reviewed the pertinent imaging results. <Brianne Saez MD - Last Filed: 05/28/22 22:20> My impression: Thickened endometrium <Brianne aSez MD - Last Filed: 05/28/22 22:20> Radiologist's impression: IMPRESSION: Multi fibroid uterus with a 2 cm right fundal submucosal fibroid. Distended endometrium with several echogenic foci within the fundal portion. These may represent polyps. Consider direct visualization for further evaluation. Unremarkable ovaries without evidence for torsion or adnexal mass. Small amount of free fluid in the pelvic cul-de-sac, likely physiologic. <Brianne Saez MD - Last Filed: 05/28/22 22:20> Critical Care Time Critical Care Time Critical Care Time: No <Sonia Dueñas MD - Last Filed: 06/03/22 01:46> Discharge Plan Discharge Clinical Impression: UTI (urinary tract infection) <Sonia Dueñas MD - Last Filed: 06/03/22 01:46> Patient Disposition: Home, Self-Care <Sonia Dueñas MD - Last Filed: 06/03/22 01:46> Condition: Stable <Sonia Dueñas MD - Last Filed: 06/03/22 01:46> Instructions: Urinary Tract Infection in Women (DC) <Sonia Dueñas MD - Last Filed: 06/03/22 01:46> Additional Instructions: As we discussed, your symptoms seem most consistent with a bladder infection in your urine is suspicious for this. We will culture this and if we need to change her antibiotic, we will call. There are also several findings on your ultrasound that make me concerned that your still going to have issues with bleeding. It looks like there is a polyp, you still have a fibroid and the lining of the uterus is still a little thick even after your procedure. Please make a follow-up with her supervisor electron tube processing to discuss this. It is not urgent but you guys should start to work on a long-term plan. It is okay to take Tylenol and/or ibuprofen and [id number] Uristat or similar medications to help with the discomfort. I Encourage you to drink plenty of fluids for a goal of clear looking urine. If you are not improving over the next couple days, are worsening with fever/increasing urinary symptoms/abdominal pain, do recommend re-evaluation. hospital superintendent your antibiotics from the vending machine in the lobby with the code that you have been given. <Sonia Dueñas MD - Last Filed: 06/03/22 01:46> Activity Level: Activity as Tolerated <Sonia Dueñas MD - Last Filed: 06/03/22 01:46> Activity as Tolerated <Brianne Saez MD - Last Filed: 05/28/22 22:20> Discharge Diet: Regular <Sonia Dueñas MD - Last Filed: 06/03/22 01:46> Regular <Brianne Saez MD - Last Filed: 05/28/22 22:20> Prescriptions: No Action amantadine HCl 100 mg capsule 100 mg PO QDAY Aimovig Autoinjector 140 mg/mL auto-injector 140 mg subcut Gilenya 0.5 mg capsule 0.5 mg PO QDAY fexofenadine 180 mg tablet 180 mg PO Q24H fluoxetine 20 mg capsule 60 mg PO QDAY Qty: 90 0RF Rx Instructions: Patient to take 3 caps by mouth daily <Sonia Dueñas MD - Last Filed: 06/03/22 01:46> Follow Up/Referrals: Bethel Yang MD [Staff Physician] - <Sonia Dueñas MD - Last Filed: 06/03/22 01:46> Stand Alone Forms: MyHealth Info Instructions <Sonia Dueñas MD - Last Filed: 06/03/22 01:46>
[2022-05-28 20:09] LABS: Appearance Urine Clear (Clear); Bilirubin Urine Negative (Negative); Blood Urine 3+ (Negative); Color Urine Yellow (Yellow); Glucose Urine Negative (Negative); Ketones Urine Trace (Negative); Leukocyte Esterase Urine Trace (Negative); Nitrite Urine Negative (Negative); Protein Urine Trace (Negative); Specific Gravity Urine 1.025 (1.000-1.030); Urobilinogen Urine 0.2 (0.2-1.0)
--- NOTE | 2022-05-28 20:13 | CRLHL7_ITS ---
For Patients: As a result of the Century Cures Act, medical imaging exams and procedure reports are released immediately into your electronic medical record. You may view this report before your referring provider. If you have questions, please contact your health care provider. INDICATION: TECHNIQUE: Ultrasound pelvis transabdominal and transvaginal for better assessment or to better visualize the endometrium. Real-time sonographic images with spectral and color Doppler imaging of the ovaries were obtained. COMPARISON: Pelvic ultrasound 02/13/2022. FINDINGS: Uterus: 9.6 x 6.0 x 6.6 cm. 2 cm right fundal submucosal fibroid. 1.4 cm left fundal intramural fibroid. Retroflexed position. Endometrium: Transvaginal imaging was performed to better evaluate the endometrium. Endometrial thickness measures 1.7 cm. Contains several echogenic foci throughout the fundal portion with questionable associated internal vascular flow. Right ovary measures 5.0 x 2.2 x 3.9 cm. Left ovary measures 5.0 x 1.6 x 2.4 cm. No ovarian or adnexal masses. Normal arterial and venous blood flow is demonstrated in both ovaries. Cul-de-sac: Small amount of simple free fluid in the pelvic cul-de-sac.. IMPRESSION: Multi fibroid uterus with a 2 cm right fundal submucosal fibroid. Distended endometrium with several echogenic foci within the fundal portion. These may represent polyps. Consider direct visualization for further evaluation. Unremarkable ovaries without evidence for torsion or adnexal mass. Small amount of free fluid in the pelvic cul-de-sac, likely physiologic. Dictated by Stanley Gamez MD @ 05/28/2022 10:07:32 PM (Electronically Signed)
[2022-05-28 20:24] LABS: Squamous Epithelial Cell Urine Few (None-Few)
[2022-05-28 20:25] LABS: Bacteria Urine Many
[2022-05-28 20:30] LABS: Lactate* 0.9 mmol/L (0.5-1.9)
[2022-05-28 20:32] LABS: Basophils Absolute Auto 0.01 K/uL (0.00-0.30); Basophils Percent Auto 0.2 % (0.0-3.0); Eosinophils Absolute Auto 0.06 K/uL (0.00-0.50); Eosinophils Percent Auto 1.3 % (0.0-7.0); Hematocrit 40.1 % (33.0-51.0); Hemoglobin* 13.6 gm/dL (12.0-16.0); Immature Granulocytes Abs Auto 0.01 K/uL (0.00-0.30); Immature Granulocytes Pct Auto 0.2 %; Lymphocytes Percent Auto 3.3 % (20-44); Mean Corpuscular HGB Conc 34 gm/dL (32-36); Mean Corpuscular Hemoglobin 31 pg (26-34); Mean Corpuscular Volume 90 fL (80-100); Platelet Count* 294 K/uL (140-440); RDW Coefficient of Variation % 15.3 % (11.5-15.5); Red Blood Count 4.44 m/uL (4.00-5.20); White Blood Count* 4.79 K/uL (4.50-11.00)
[2022-05-28 20:34] LABS: Slide Review Reflex No
[2022-05-28 20:45] LABS: Chloride* 103 mmol/L (96-114); Sodium* 136 mmol/L (135-149)
[2022-05-28 20:46] LABS: Potassium* 3.7 mmol/L (3.6-5.1)
[2022-05-28 20:48] LABS: Carbon Dioxide* 25 mmol/L (20-32); Estimated Glomerular Filt Rate 72 ml/min
[2022-05-28 20:49] LABS: Blood Urea Nitrogen* 14 mg/dL (5-24); Calcium* 8.9 mg/dL (8.4-10.6); Glucose* 86 mg/dL (60-115)
[2022-05-28 21:13] LABS: HCG Qualitative Serum* Negative (Negative)
== END 2022-05-28 22:31 | disposition home or self-care (01) ==
PROVIDERS: Emergency Provider Family Medicine
DX: N39.0 Urinary tract infection, site not specified (principal)
CPT/HCPCS: 36415; 76830; 76856; 80048; 81001; 83605; 84703; 85025; 87086; 93976; 99284; 99285

== ENCOUNTER 2022-06-23 15:10 | Outpatient (CLI) | payer BC, SELFPAY | END 2022-06-23 15:11 | disposition home or self-care (01) | LOC: NFLDREF 15:12 | PROVIDERS: PCP Family Medicine; Visit Provider Family Medicine | DX: R30.0 Dysuria (principal) | CPT/HCPCS: 87086 ==

== ENCOUNTER 2022-08-19 11:18 | Emergency (ER) | payer BC, SELFPAY ==
[2022-08-19 11:42] VITALS: BP 132/84; PULSE 58; RESP 16; TEMP 36.6; O2SAT 99; BMI 23.9
--- NOTE | 2022-08-19 12:06 | ED.DENTAL ---
HPI - Dental/Oral General Chief complaint: Dental/Oral/Mouth Injury/Pain Stated complaint: tooth ache Time Seen by Provider: 08/19/22 11:42 History of Present Illness HPI Narrative: This 42-year-old female comes in reporting left lower posterior dental pain over the past couple weeks but much worse in the past day. She states that she has had pain like this in the past and did benefit from an antibiotic. She attempted to call her dentist for an appointment and was told that there were no appointments available until 2 months from now. So she came to the emergency department. She does not report any fevers. She has otherwise been in good health. Related Data Home Medications Medication Instructions Recorded Confirmed amantadine HCl 100 mg capsule 100 mg PO QDAY 01/06/22 06/23/22 erenumab-aooe 140 mg/mL 140 mg subcut 01/06/22 06/23/22 subcutaneous auto-injector (Telespree Autoinjector) fexofenadine 180 mg tablet 180 mg PO Q24H 01/06/22 06/23/22 fingolimod 0.5 mg capsule ([employer]) 0.5 mg PO QDAY 01/06/22 06/23/22 Previous Rx's Medication Instructions Recorded fluoxetine 20 mg capsule 60 mg PO QDAY #270 caps 06/23/22 amoxicillin 500 mg capsule 500 mg PO TID 10 days #30 caps 08/19/22 ketorolac 10 mg tablet 10 mg PO Q8H 5 days #15 tabs 08/19/22 Allergies Allergy/AdvReac Type Severity Reaction Status Date / Time codeine Allergy Severe Anaphylaxis Verified 06/23/22 14:28 Iodinated Contrast Media Allergy Intermediate Hives Verified 06/23/22 14:28 Review of Systems Status of ROS: Reports: 10 or more systems reviewed and unremarkable except as noted in History and below Narrative: Constitutional: No fevers, no weight gain or loss. Eyes: No discharge. No vision changes. HENT: No congestion, no sore throat. She reports dental pain on the left side that seems to radiate a bit toward her ear. Cardiovascular: No chest pain, no palpitations. Respiratory: No shortness of breath, no wheezes, no cough. Gastrointestinal: No abdominal pain, no vomiting, no diarrhea. Genitourinary: No dysuria, no hematuria. Musculoskeletal: Normal range of motion. Skin: No rashes, no pruritis. Neurological: No dizziness, weakness, sensory change, speech change. Endo/Heme/Allergies: No bruising or bleeding. No polydipsia. Pysch: no suicidality, no anxiety, no insomnia. All other systems reviewed and are negative. [facility] Medical History (Updated 08/19/22 @ 12:10 by Isaak Sainz MD) Demyelinating disease of central nervous system ?G37.9 - Demyelinating disease of central nervous system, unspecified (ICD-10) Depression with anxiety ?F41.8 - Other specified anxiety disorders (ICD-10) Dysfunctional uterine bleeding ?N93.8 - Other specified abnormal uterine and vaginal bleeding (ICD-10) History of CVA (cerebrovascular accident) (2017) ?Z86.73 - Personal history of transient ischemic attack (TIA), and cerebral infarction without residual deficits (ICD-10) Multiple sclerosis (2017) ?G35 - Multiple sclerosis (ICD-10) Tobacco abuse ?Z72.0 - Tobacco use (ICD-10) Vestibular migraine (2020) ?G43.809 - Other migraine, not intractable, without status migrainosus (ICD-10) Surgical History (Updated 06/23/22 @ 16:43 by Zakiya Hirsch MD) History of (2011) ?Z98.891 - History of uterine scar from previous surgery (ICD-10) History of dilation and curettage (~03/2022) ?Z98.890 - Other specified postprocedural states (ICD-10) Family History Family/Other Adopted Social History (Updated 06/23/22 @ 16:45 by Zakiya Hirsch MD) 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 Walks a lot at work over 10,000 steps daily College degree. No alcohol use. No recreational drug use. No concerns for safety or abuse. Smoking Status: Current every day smoker What tobacco products do you use: cigarettes Smoking quit date/years: >15 years ago Do you use any of these nicotine containing products: None Second hand tobacco smoke exposure: Yes How often do you have a drink containing alcohol: monthly or less How often do you have six or more drinks on one occasion: Never AUDIT-C Alcohol total score: 1 Non-prescribed substance use: denies use Caffeine: Yes Little interest or pleasure in doing things: not at all Feeling down, depressed, or hopeless: not at all Exam Narrative: Exam Narrative: Constitutional: Well-developed, well-nourished, no acute distress. HEENT: Normocephalic, atraumatic. Dental exam shows no sign of fractured tooth or obvious sign of abscess. Neck: Normal range of motion. Nontender. Supple. Heart: Regular. No murmurs. Normal rate. Intact distal pulses. Lungs: Clear to auscultation. No chest discomfort. No wheezes, rhonchi, or rales. Abdomen: Normal bowel sounds. Nontender. No rebound tenderness. Genitalia: Deferred. Back: No midline tenderness. Normal range of motion. Extremities: Normal range of motion. No injury. Skin: Intact. No rash. Warm. No erythema or pallor. Neurologic: No altered sensation. No weakness. Alert and oriented. Psychiatric: No suicidality. No anxiety or depression. No insomnia. Nursing notes and vitals signs are reviewed. Const: Vital Signs, click to edit/add: Vital Signs - 24 hr 08/19/22 11:42 Temperature 97.9 F Pulse Rate [Left P ulse Oximeter] 58 L Respiratory Rate 16 Blood Pressure [Le ft Upper Arm] 132/84 Pulse Oximetry 99 Oxygen Delivery Me thod Room Air Course Vital Signs Vital signs: Initial Vital Signs Temperature 97.9 F 08/19/22 11:42 Temperature Source Temporal Artery Scan 08/19/22 11:42 Pulse Rate 58 L 08/19/22 11:42 Pulse Rhythm Regular 08/19/22 11:42 Pulse Strength 3+ Normal 08/19/22 11:42 Respiratory Rate 16 08/19/22 11:42 Blood Pressure 132/84 08/19/22 11:42 Blood Pressure Mean 100 08/19/22 11:42 Blood Pressure Position Sitting 08/19/22 11:42 Pulse Oximetry 99 08/19/22 11:42 Oxygen Delivery Method Room Air 08/19/22 11:42 Vital Signs Temperature 97.9 F 08/19/22 11:42 Pulse Rate 58 L 08/19/22 11:42 Respiratory Rate 16 08/19/22 11:42 Blood Pressure 132/84 08/19/22 11:42 Pulse Oximetry 99 08/19/22 11:42 Oxygen Delivery Method Room Air 08/19/22 11:42 Temperature 97.9 F 08/19/22 11:42 Pulse Rate 58 L 08/19/22 11:42 Respiratory Rate 16 08/19/22 11:42 Blood Pressure 132/84 08/19/22 11:42 Pulse Oximetry 99 08/19/22 11:42 Oxygen Delivery Method Room Air 08/19/22 11:42 MDM - Dental/Oral MDM Narrative Medical decision making narrative: This patient comes in with dental pain as described above. She did attempt to get into her dentist but no appointments were available for a couple months according to her report. She did agree to a E nerve block of the inferior alveolar nerve. Using bupivacaine 0.25% a total of 1 mL was injected into this area. The patient also received prescription for amoxicillin and Toradol. She understands that she will need to connect with a dentist for more accurate and long-lasting diagnosis and treatment. Discharge Plan Discharge Clinical Impression: Pain, dental Patient Disposition: Home, Self-Care Condition: Unchanged Additional Instructions: Take medication as needed and indicated. Follow up with dentist as soon as possible. Prescriptions: New amoxicillin 500 mg capsule 500 mg PO TID 10 Days Qty: 30 0RF ketorolac 10 mg tablet 10 mg PO Q8H 5 Days Qty: 15 0RF No Action amantadine HCl 100 mg capsule 100 mg PO QDAY Aimovig Autoinjector 140 mg/mL auto-injector 140 mg subcut Gilenya 0.5 mg capsule 0.5 mg PO QDAY fexofenadine 180 mg tablet 180 mg PO Q24H fluoxetine 20 mg capsule 60 mg PO QDAY Qty: 270 4RF Rx Instructions: Patient to take 3 caps by mouth daily Follow Up/Referrals: Zakiya Hirsch MD [Primary Care Provider] - Stand Alone [facility] Info [facility]
== END 2022-08-19 12:22 | disposition home or self-care (01) ==
LOC: ED 12:15
PROVIDERS: Emergency Provider Emergency Medicine Emergency Medical Services; PCP Family Medicine
DX: K08.89 Other specified disorders of teeth and supporting structures (principal)
CPT/HCPCS: 99283; 99284

== ENCOUNTER 2022-08-20 14:32 | Emergency (ER) | payer BC, SELFPAY ==
[2022-08-20 15:08] VITALS: BP 129/82; PULSE 64; RESP 16; TEMP 36.3; O2SAT 99; BMI 23.9
--- NOTE | 2022-08-20 17:39 | ED.DENTAL ---
HPI - Dental/Oral General Chief complaint: Dental/Oral/Mouth Injury/Pain Stated complaint: Tooth pain Time Seen by Provider: 08/20/22 15:16 History of Present Illness HPI Narrative: This 42-year-old female has dental pain in the left lower posterior part of her mandible. She was seen by me yesterday with similar circumstances and did receive a dental block using Marcaine. She was able to arrange an appointment with a dentist tomorrow but returns today requesting a repeat injection. She has been taking Toradol and [id number] medications for symptomatic relief. Related Data Home Medications Medication Instructions Recorded Confirmed amantadine HCl 100 mg capsule 100 mg PO QDAY 01/06/22 06/23/22 erenumab-aooe 140 mg/mL 140 mg subcut 01/06/22 06/23/22 subcutaneous auto-injector (Aimovig Autoinjector) fexofenadine 180 mg tablet 180 mg PO Q24H 01/06/22 06/23/22 fingolimod 0.5 mg capsule ([employer]) 0.5 mg PO QDAY 01/06/22 06/23/22 Previous Rx's Medication Instructions Recorded fluoxetine 20 mg capsule 60 mg PO QDAY #270 caps 06/23/22 amoxicillin 500 mg capsule 500 mg PO TID 10 days #30 caps 08/19/22 ketorolac 10 mg tablet 10 mg PO Q8H 5 days #15 tabs 08/19/22 Allergies Allergy/AdvReac Type Severity Reaction Status Date / Time codeine Allergy Severe Anaphylaxis Verified 06/23/22 14:28 Iodinated Contrast Media Allergy Intermediate Hives Verified 06/23/22 14:28 Review of Systems Status of ROS: Reports: 10 or more systems reviewed and unremarkable except as noted in History and below Narrative: Constitutional: No fevers, no weight gain or loss. Eyes: No discharge. No vision changes. HENT: No congestion, no sore throat. Dental pain as described above. Cardiovascular: No chest pain, no palpitations. Respiratory: No shortness of breath, no wheezes, no cough. Gastrointestinal: No abdominal pain, no vomiting, no diarrhea. Genitourinary: No dysuria, no hematuria. Musculoskeletal: Normal range of motion. Skin: No rashes, no pruritis. Neurological: No dizziness, weakness, sensory change, speech change. Endo/Heme/Allergies: No bruising or bleeding. No polydipsia. Pysch: no suicidality, no anxiety, no insomnia. All other systems reviewed and are negative. [facility] Medical History (Updated 08/20/22 @ 17:42 by Isaak Sainz MD) Demyelinating disease of central nervous system ?G37.9 - Demyelinating disease of central nervous system, unspecified (ICD-10) Depression with anxiety ?F41.8 - Other specified anxiety disorders (ICD-10) Dysfunctional uterine bleeding ?N93.8 - Other specified abnormal uterine and vaginal bleeding (ICD-10) History of CVA (cerebrovascular accident) (2017) ?Z86.73 - Personal history of transient ischemic attack (TIA), and cerebral infarction without residual deficits (ICD-10) Multiple sclerosis (2017) ?G35 - Multiple sclerosis (ICD-10) Tobacco abuse ?Z72.0 - Tobacco use (ICD-10) Vestibular migraine (2020) ?G43.809 - Other migraine, not intractable, without status migrainosus (ICD-10) Surgical History (Updated 06/23/22 @ 16:43 by Zakiya Hirsch MD) History of (2011) ?Z98.891 - History of uterine scar from previous surgery (ICD-10) History of dilation and curettage (~03/2022) ?Z98.890 - Other specified postprocedural states (ICD-10) Family History Family/Other Adopted Social History (Updated 06/23/22 @ 16:45 by Zakiya Hirsch MD) 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 Walks a lot at work over 10,000 steps daily College degree. No alcohol use. No recreational drug use. No concerns for safety or abuse. Smoking Status: Current every day smoker What tobacco products do you use: cigarettes Smoking quit date/years: >15 years ago Do you use any of these nicotine containing products: None Second hand tobacco smoke exposure: Yes How often do you have a drink containing alcohol: monthly or less How often do you have six or more drinks on one occasion: Never AUDIT-C Alcohol total score: 1 Non-prescribed substance use: denies use Caffeine: Yes Little interest or pleasure in doing things: not at all Feeling down, depressed, or hopeless: not at all service: No Exam Narrative: Exam Narrative: Constitutional: Well-developed, well-nourished, no acute distress. HEENT: Normocephalic, atraumatic. Pain in the left lower row of teeth posteriorly. No sign of abscess. Neck: Normal range of motion. Nontender. Supple. Heart: Intact distal pulses. Lungs: No chest discomfort. No wheezes, rhonchi, or rales. Abdomen: Nontender. Back: Normal range of motion. Extremities: Normal range of motion. No injury. Skin: Intact. No rash. Warm. No erythema or pallor. Neurologic: No altered sensation. No weakness. Alert and oriented. Psychiatric: No suicidality. No anxiety or depression. No insomnia. Nursing notes and vitals signs are reviewed. Const: Vital Signs, click to edit/add: Vital Signs - 24 hr 08/20/22 15:08 Temperature 97.3 F L Pulse Rate [Pulse Oximeter] 64 Respiratory Rate 16 Blood Pressure [Ri ght Upper Arm] 129/82 Pulse Oximetry 99 Oxygen Delivery Me thod Room Air Course Vital Signs Vital signs: Initial Vital Signs Temperature 97.3 F L 08/20/22 15:08 Temperature Source Temporal Artery Scan 08/20/22 15:08 Pulse Rate 64 08/20/22 15:08 Respiratory Rate 16 08/20/22 15:08 Blood Pressure 129/82 08/20/22 15:08 Blood Pressure Mean 97 08/20/22 15:08 Blood Pressure Position Sitting 08/20/22 15:08 Pulse Oximetry 99 08/20/22 15:08 Oxygen Delivery Method Room Air 08/20/22 15:08 Vital Signs Temperature 97.3 F L 08/20/22 15:08 Pulse Rate 64 08/20/22 15:08 Respiratory Rate 16 08/20/22 15:08 Blood Pressure 129/82 08/20/22 15:08 Pulse Oximetry 99 08/20/22 15:08 Oxygen Delivery Method Room Air 08/20/22 15:08 Temperature 97.3 F L 08/20/22 15:08 Pulse Rate 64 08/20/22 15:08 Respiratory Rate 16 08/20/22 15:08 Blood Pressure 129/82 08/20/22 15:08 Pulse Oximetry 99 08/20/22 15:08 Oxygen Delivery Method Room Air 08/20/22 15:08 MDM - Dental/Oral MDM Narrative Medical decision making narrative: This patient comes in with dental pain requesting a dental block injection again. She does have an appointment with a dentist tomorrow. I did inject around the left inferior alveolar nerve using Marcaine 0.25%. This brought sufficient anesthesia. Discharge Plan Discharge Clinical Impression: Pain, dental Patient Disposition: Home, Self-Care Condition: Improved Additional Instructions: Continue with current medications as prescribed. Follow-up with dentist tomorrow as scheduled. Prescriptions: No Action amantadine HCl 100 mg capsule 100 mg PO QDAY Aimovig Autoinjector 140 mg/mL auto-injector 140 mg subcut Gilenya 0.5 mg capsule 0.5 mg PO QDAY fexofenadine 180 mg tablet 180 mg PO Q24H fluoxetine 20 mg capsule 60 mg PO QDAY Qty: 270 4RF Rx Instructions: Patient to take 3 caps by mouth daily amoxicillin 500 mg capsule 500 mg PO TID 10 Days Qty: 30 0RF ketorolac 10 mg tablet 10 mg PO Q8H 5 Days Qty: 15 0RF Follow Up/Referrals: Zakiya Hirsch MD [Primary Care Provider] - Stand Alone Forms: [employer] [facility] [employer] Info Instructions
[2022-08-20 17:57] VITALS: BP 145/94; PULSE 55; RESP 16; O2SAT 99
== END 2022-08-20 18:00 | disposition home or self-care (01) ==
LOC: ED 17:51
PROVIDERS: Emergency Provider Emergency Medicine Emergency Medical Services; PCP Family Medicine
DX: K08.89 Other specified disorders of teeth and supporting structures (principal)
CPT/HCPCS: 64450; 99283; 99284

== ENCOUNTER 2023-01-19 15:11 | Outpatient (CLI) | payer BC, SELFPAY | END 2023-01-19 15:12 | disposition home or self-care (01) | PROVIDERS: PCP Family Medicine; Visit Provider Internal Medicine | DX: R63.5 Abnormal weight gain (principal) | CPT/HCPCS: 80053; 80061; 84443 ==

== ENCOUNTER 2023-04-29 10:49 | Emergency (ER) | payer BC, SELFPAY ==
[2023-04-29 11:05] VITALS: BP 121/79; PULSE 65; RESP 16; TEMP 37.8; O2SAT 96; BMI 29.2
[2023-04-29 12:06] LABS: PCR FLU A Negative PCR FLU A (Negative); PCR FLU B Negative PCR FLU B (Negative); PCR RSV Negative PCR RSV (Negative)
[2023-04-29 12:12] LABS: SARS PCR* POSITIVE SARS-CoV-2 (Negative)
--- NOTE | 2023-04-29 12:45 | ED.GENADULT ---
HPI - General Adult General Chief complaint: Cough Stated complaint: body aches Time Seen by Provider: 04/29/23 12:38 History of Present Illness HPI narrative: This 43-year-old female comes in reporting generalized malaise with cough that began yesterday. She did test for COVID yesterday at home with a negative result. She arrives here with normal vital signs. Her temperature is borderline at 100.0? F. she has multiple sclerosis. She reports generalized aches and pains. Related Data Home Medications Medication Instructions Recorded Confirmed amantadine HCl 100 mg capsule 100 mg PO QDAY 01/06/22 04/29/23 erenumab-aooe 140 mg/mL 140 mg subcut 01/06/22 01/19/23 subcutaneous auto-injector (Aimovig Autoinjector) fexofenadine 180 mg tablet 180 mg PO Q24H 01/06/22 04/29/23 fingolimod 0.5 mg capsule ([employer]) 0.5 mg PO QDAY 01/06/22 04/29/23 Previous Rx's Medication Instructions Recorded fluoxetine 20 mg capsule 60 mg (3 x 20 mg) PO QDAY #270 caps 06/23/22 ketorolac 10 mg tablet 10 mg PO Q8H 5 days #15 tabs 08/19/22 methylprednisolone 4 mg tablets in See Rx Instructions PO .COMPLEX 04/29/23 a dose pack (Medrol (Colton)) #21 ea tramadol 50 mg tablet 50 mg PO Q6H PRN pain #20 tabs 04/29/23 Allergies Allergy/AdvReac Type Severity Reaction Status Date / Time codeine Allergy Severe Anaphylaxis Verified 04/29/23 11:12 Iodinated Contrast Media Allergy Intermediate Hives Verified 04/29/23 11:12 Review of Systems Status of ROS: Reports: 10 or more systems reviewed and unremarkable except as noted in History and below Narrative: Constitutional: No fevers, no weight gain or loss. Eyes: No discharge. No vision changes. HENT: No congestion, no sore throat, no ear pain. Cardiovascular: No chest pain, no palpitations. Respiratory: No shortness of breath, no wheezes. She reports a cough. Gastrointestinal: No abdominal pain, no vomiting, no diarrhea. Genitourinary: No dysuria, no hematuria. Musculoskeletal: Normal range of motion. Skin: No rashes, no pruritis. Neurological: No dizziness, weakness, sensory change, speech change. Endo/Heme/Allergies: No bruising or bleeding. No polydipsia. Pysch: no suicidality, no anxiety, no insomnia. All other systems reviewed and are negative. [facility] Medical History (Updated 04/29/23 @ 12:48 by Isaak Sainz MD) Weight gain ?R63.5 - Abnormal weight gain (ICD-10) Tobacco abuse ?Z72.0 - Tobacco use (ICD-10) Demyelinating disease of central nervous system ?G37.9 - Demyelinating disease of central nervous system, unspecified (ICD-10) Dysfunctional uterine bleeding ?N93.8 - Other specified abnormal uterine and vaginal bleeding (ICD-10) History of CVA (cerebrovascular accident) (2017) ?Z86.73 - Personal history of transient ischemic attack (TIA), and cerebral infarction without residual deficits (ICD-10) Vestibular migraine (2020) ?G43.809 - Other migraine, not intractable, without status migrainosus (ICD-10) Depression with anxiety ?F41.8 - Other specified anxiety disorders (ICD-10) Multiple sclerosis (2018) ?G35 - Multiple sclerosis (ICD-10) Surgical History (Updated 06/23/22 @ 16:43 by Zakiya Hirsch MD) History of dilation and curettage (~03/2022) ?Z98.890 - Other specified postprocedural states (ICD-10) History of (2011) ?Z98.891 - History of uterine scar from previous surgery (ICD-10) Family History Family/Other Adopted Social History (Updated 06/23/22 @ 16:45 by Zakiya Hirsch MD) 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 Walks a lot at work over 10,000 steps daily College degree. No alcohol use. No recreational drug use. No concerns for safety or abuse. Smoking Status: Former smoker Do you use any of these nicotine containing products: None Second hand tobacco smoke exposure: No How often do you have a drink containing alcohol: never How often do you have six or more drinks on one occasion: Never AUDIT-C Alcohol total score: 0 Non-prescribed substance use: denies use Caffeine: Yes Little interest or pleasure in doing things: not at all Feeling down, depressed, or hopeless: not at all service: No Exam Narrative: Exam Narrative: Constitutional: Well-developed, well-nourished, no acute distress. HEENT: Normocephalic, atraumatic. Neck: Normal range of motion. Nontender. Supple. Heart: Regular. No murmurs. Normal rate. Intact distal pulses. Lungs: Clear to auscultation. No chest discomfort. No wheezes, rhonchi, or rales. Abdomen: Normal bowel sounds. Nontender. No rebound tenderness. Genitalia: Deferred. Back: No midline tenderness. Normal range of motion. Extremities: Normal range of motion. No injury. Skin: Intact. No rash. Warm. No erythema or pallor. Neurologic: No altered sensation. No weakness. Alert and oriented. Psychiatric: No suicidality. No anxiety or depression. No insomnia. Nursing notes and vitals signs are reviewed. Const: Vital Signs, click to edit/add: Vital Signs - 24 hr 04/29/23 11:05 Temperature 100.0 F H Pulse Rate [Right Pulse Oximeter] 65 Respiratory Rate 16 Blood Pressure [Ri ght Upper Arm] 121/79 Pulse Oximetry 96 Oxygen Delivery Me thod Room Air Course Vital Signs Vital signs: Initial Vital Signs Temperature 100.0 F H 04/29/23 11:05 Temperature Source Temporal Artery Scan 04/29/23 11:05 Pulse Rate 65 04/29/23 11:05 Respiratory Rate 16 04/29/23 11:05 Blood Pressure 121/79 04/29/23 11:05 Blood Pressure Mean 93 04/29/23 11:05 Blood Pressure Position Sitting 04/29/23 11:05 Pulse Oximetry 96 04/29/23 11:05 Oxygen Delivery Method Room Air 04/29/23 11:05 Vital Signs Temperature 100.0 F H 04/29/23 11:05 Pulse Rate 65 04/29/23 11:05 Respiratory Rate 16 04/29/23 11:05 Blood Pressure 121/79 04/29/23 11:05 Pulse Oximetry 96 04/29/23 11:05 Oxygen Delivery Method Room Air 01/04/24 11:05 Temperature 100.0 F H 04/29/23 11:05 Pulse Rate 65 04/29/23 11:05 Respiratory Rate 16 04/29/23 11:05 Blood Pressure 121/79 04/29/23 11:05 Pulse Oximetry 96 04/29/23 11:05 Oxygen Delivery Method Room Air 04/29/23 11:05 Medical Decision Making MDM Narrative Medical decision making narrative: This patient comes in with upper respiratory symptoms and generalized malaise. Nasal pharyngeal swab returns positive for COVID. The patient has reassuring vital signs. She did receive a prescription for Medrol Dosepak and tramadol. A return to work note is also provided. Lab Data Labs: Lab Results 04/29/23 Range/Units 11:13 SARS-CoV-2 (PCR) POSITIVE SARS-CoV-2 A (Negative) Influenza Type A (PCR) Negative PCR FLU A (Negative) Influenza Type B (PCR) Negative PCR FLU B (Negative) RSV (PCR) Negative PCR RSV (Negative) Discharge Plan Discharge Clinical Impression: COVID-19 Patient Disposition: Home, Self-Care Condition: Stable Additional Instructions: Take medications as prescribed. Use [id number] medicines also as needed and directed. Follow up with MD return if worsening. Prescriptions: New tramadol 50 mg tablet 50 mg PO Q6H PRN (Reason: pain) Qty: 20 0RF methylprednisolone [Medrol (Colton)] 4 mg tablets,dose pack See Rx Instructions .ROUTE .COMPLEX Qty: 21 0RF Rx Instructions: orally per package directions No Action amantadine HCl 100 mg capsule 100 mg PO QDAY Aimovig Autoinjector 140 mg/mL auto-injector 140 mg subcut Gilenya 0.5 mg capsule 0.5 mg PO QDAY fexofenadine 180 mg tablet 180 mg PO Q24H fluoxetine 20 mg capsule 60 mg PO QDAY Qty: 270 4RF Rx Instructions: Patient to take 3 caps by mouth daily ketorolac 10 mg tablet 10 mg PO Q8H 5 Days Qty: 15 0RF Follow Up/Referrals: Zakiya Hirsch MD [Primary Care Provider] - Stand Alone [facility]
== END 2023-04-29 12:59 | disposition home or self-care (01) ==
PROVIDERS: Emergency Provider Emergency Medicine Emergency Medical Services; PCP Family Medicine
DX: U07.1 COVID-19 (principal)
CPT/HCPCS: 87631; 99283; 99284

== ENCOUNTER 2023-08-29 22:08 | Emergency (ER) | payer BC, SELFPAY ==
[2023-08-29 22:23] VITALS: BP 133/82; PULSE 57; RESP 18; TEMP 36.4; O2SAT 99; BMI 27.5
[2023-08-29 22:44] LABS: Appearance Urine Clear (Clear); Bilirubin Urine Negative (Negative); Blood Urine Negative (Negative); Color Urine Yellow (Yellow); Glucose Urine Negative (Negative); Ketones Urine Trace (Negative); Leukocyte Esterase Urine Negative (Negative); Nitrite Urine Negative (Negative); Protein Urine Negative (Negative); Specific Gravity Urine >= 1.030 (1.000-1.030); Urobilinogen Urine 0.2 (0.2-1.0); pH Urine 5.5 (5.0-8.5)
[2023-08-29 22:51] LABS: Calcium Oxalate Crystals Urine Many; RBC Urine 0-2 (0-2); WBC Urine 0-2 (0-5)
--- NOTE | 2023-08-30 00:01 | ED.GENADULT ---
HPI - General Adult General Chief complaint: Back Injury/Pain Stated complaint: Lower back pain, suspected kidney infection Time Seen by Provider: 08/29/23 23:31 History of Present Illness HPI narrative: Low mid intense back pain, started a couple hours ago. Fells she may have a UTI . 43-year-old woman presenting to the emergency department complaint of low back pain. Denies radicular pain. Admittedly seems to be worse with movement. No trauma. Seems to have begun with a rotational movement? Frequency? No dysuria but thinks that must be having urinary tract infection. No fever. No hematuria. History of multiple sclerosis Related Data Home Medications ?Medication ?Instructions ?Recorded ?Confirmed amantadine HCl 100 mg capsule 100 mg PO QDAY 01/06/22 08/29/23 erenumab-aooe 140 mg/mL 140 mg subcut .1 01/06/22 08/29/23 subcutaneous auto-injector (Aimovig Autoinjector) fexofenadine 180 mg tablet 180 mg PO Q24H 01/06/22 08/29/23 fingolimod 0.5 mg capsule (NonaboxenProdigo Solutions) 0.5 mg PO QDAY 01/06/22 08/29/23 Previous Rx's ?Medication ?Instructions ?Recorded fluoxetine 20 mg capsule 60 mg (3 x 20 mg) PO QDAY #270 caps 06/23/22 ketorolac 10 mg tablet 10 mg PO Q8H 5 days #15 tabs 08/19/22 methylprednisolone 4 mg tablets in See Rx Instructions PO .COMPLEX 04/29/23 a dose pack (Medrol (Colton)) #21 ea tramadol 50 mg tablet 50 mg PO Q6H PRN pain #20 tabs 04/29/23 Allergies Allergy/AdvReac Type Severity Reaction Status Date / Time codeine Allergy Severe Anaphylaxis Verified 08/29/23 22:28 Iodinated Contrast Media Allergy Intermediate Hives Verified 08/29/23 22:28 Review of Systems Status of ROS: Reports: 6 or more systems reviewed and unremarkable except as noted in History and below [facility] Medical History (Updated 09/14/23 @ 00:00 by Background Daemon) Weight gain ?R63.5 - Abnormal weight gain (ICD-10) Tobacco abuse ?Z72.0 - Tobacco use (ICD-10) Demyelinating disease of central nervous system ?G37.9 - Demyelinating disease of central nervous system, unspecified (ICD-10) Dysfunctional uterine bleeding ?N93.8 - Other specified abnormal uterine and vaginal bleeding (ICD-10) History of CVA (cerebrovascular accident) (2017) ?Z86.73 - Personal history of transient ischemic attack (TIA), and cerebral infarction without residual deficits (ICD-10) Vestibular migraine (2020) ?G43.809 - Other migraine, not intractable, without status migrainosus (ICD-10) Depression with anxiety ?F41.8 - Other specified anxiety disorders (ICD-10) Multiple sclerosis (2018) ?G35 - Multiple sclerosis (ICD-10) Surgical History History of dilation and curettage (~03/2022) ?Z98.890 - Other specified postprocedural states (ICD-10) History of (2011) ?Z98.891 - History of uterine scar from previous surgery (ICD-10) Family History Family/Other Adopted Social History (Updated 06/23/22 @ 16:45 by Zakiya Hirsch MD) 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 Walks a lot at work over 10,000 steps daily College degree. No alcohol use. No recreational drug use. No concerns for safety or abuse. Smoking Status: Former smoker Do you use any of these nicotine containing products: None Second hand tobacco smoke exposure: No How often do you have a drink containing alcohol: never How often do you have six or more drinks on one occasion: Never AUDIT-C Alcohol total score: 0 Non-prescribed substance use: denies use Caffeine: Yes Little interest or pleasure in doing things: not at all Feeling down, depressed, or hopeless: not at all service: No Exam Narrative: Exam Narrative: Pleasant. Appears little uncomfortable. Breathing easily. Heart is in slower rate. Lungs appear to be clear. Abdomen is soft and be little sore in the right mid abdomen but most sore in the area surrounding and within the right sacroiliac joint. No piriformis pain. No greater trochanter pain. Skin is warm and dry without evidence of trauma, rash, erythema. No swelling. Raising the right leg causes more discomfort. Const: Vital Signs, click to edit/add: Vital Signs - 24 hr 08/29/23 22:23 Temperature 97.5 F L Pulse Rate [Pulse Oximeter] 57 L Respiratory Rate 18 Blood Pressure [Ri ght Upper Arm] 133/82 Pulse Oximetry 99 Oxygen Delivery Me thod Room Air Documenting provider has reviewed patient's vital signs: yes Course Vital Signs Vital signs: Initial Vital Signs Temperature 97.5 F L 08/29/23 22:23 Temperature Source Temporal Artery Scan 08/29/23 22:23 Pulse Rate 57 L 08/29/23 22:23 Pulse Rhythm Regular 08/29/23 22:23 Respiratory Rate 18 08/29/23 22:23 Blood Pressure 133/82 08/29/23 22:23 Blood Pressure Mean 99 08/29/23 22:23 Blood Pressure Position Sitting 08/29/23 22:23 Pulse Oximetry 99 08/29/23 22:23 Oxygen Delivery Method Room Air 08/29/23 22:23 Vital Signs Temperature 97.5 F L 08/29/23 22:23 Pulse Rate 57 L 08/29/23 22:23 Respiratory Rate 18 08/29/23 22:23 Blood Pressure 133/82 08/29/23 22:23 Pulse Oximetry 99 08/29/23 22:23 Oxygen Delivery Method Room Air 08/29/23 22:23 Temperature 98.0 F 08/30/23 00:29 Pulse Rate 65 08/30/23 00:29 Respiratory Rate 18 08/30/23 00:29 Blood Pressure 125/78 08/30/23 00:29 Pulse Oximetry 99 08/30/23 00:28 Oxygen Delivery Method Room Air 08/30/23 00:28 Medications Administered Medications: Discontinued Medications Generic Name Dose Route Start Last Admin Trade Name Freq PRN Reason Stop Dose Admin Ibuprofen 600 mg 08/30/23 00:17 08/30/23 00:24 Ibuprofen 200 Mg Tablet PO 08/30/23 00:18 600 mg ONCE ONE Administration Lidocaine 1 patch 08/30/23 00:15 08/30/23 00:20 Lidocaine 5% Patch TRANSDERMA 08/30/23 00:16 1 patch ONCE ONE Administration Protocol Medical Decision Making MDM Narrative Medical decision making narrative: I think this pain is more musculoskeletal. Understand concerns given history of MS that might have urinary tract infection. Mechanism of exacerbation seems to also apply SI joint. Does not have radicular symptoms to suggest more discogenic in origin. Without trauma I do not think necessitates imaging at this time. She would also like to avoid prednisone as does like how makes her feel and I think reserve more for MS flares. Urinalysis is resulted without evidence of infection. Given ibuprofen and placed lidocaine patch See patient discharge plan for further discussion/plan Medical Records Medical records reviewed: Yes I reviewed the patient's medical records Lab Data Lab results reviewed: Yes I reviewed the patient's lab results Labs: Lab Results 08/29/23 Range/Units 22:35 Urine Color Yellow (Yellow) Urine Appearance Clear (Clear) Urine pH 5.5 (5.0-8.5) Ur Specific [place] >= 1.030 (1.000-1.030) Urine Protein Negative (Negative) Urine Glucose (UA) Negative (Negative) Urine Ketones Trace A (Negative) Urine Blood Negative (Negative) Urine Nitrite Negative (Negative) Urine Bilirubin Negative (Negative) Urine Urobilinogen 0.2 (0.2-1.0) Ur Leukocyte Esterase Negative (Negative) Urine RBC 0-2 (0-2) Urine WBC 0-2 (0-5) Ur Squamous Epith Cells None (None-Few) Calcium Oxalate Crystal Many A (None) Urine Bacteria None (None) Discharge Plan Discharge Clinical Impression: Pain of right sacroiliac joint Patient Disposition: Home, Self-Care Condition: Stable Additional Instructions: If this lidocaine patch is helpful, you can purchase more [id number]. Can take up to 800 mg of ibuprofen or up to 1000 mg of acetaminophen per dose. Alternative to the ibuprofen might be up to 500 mg naproxen per dose 2 times daily. I prescribed a small quantity of [place] from [facility]. Remember that each tablet of [place] contains 325 mg of acetaminophen. Also prescribing Flexeril from [facility]. Understandably you would prefer not to have any prednisone. See handout on sacroiliac joint pain. Consider doing these exercises regularly for some weeks. Consider ice packs to this area as I think that is a joint that is the origin of your pain. Might apply them 2 - 3 times daily over the next few days. Prescriptions: No Action amantadine HCl 100 mg capsule 100 mg PO QDAY Aimovig Autoinjector 140 mg/mL auto-injector 140 mg subcut .1 Gilenya 0.5 mg capsule 0.5 mg PO QDAY fexofenadine 180 mg tablet 180 mg PO Q24H fluoxetine 20 mg capsule 60 mg PO QDAY Qty: 270 4RF Rx Instructions: Patient to take 3 caps by mouth daily ketorolac 10 mg tablet 10 mg PO Q8H 5 Days Qty: 15 0RF tramadol 50 mg tablet 50 mg PO Q6H PRN (Reason: pain) Qty: 20 0RF methylprednisolone [Medrol (Colton)] 4 mg tablets,dose pack See Rx Instructions .ROUTE .COMPLEX Qty: 21 0RF Rx Instructions: orally per package directions Follow Up/Referrals: Zakiya Hirsch MD [Primary Care Provider] - Stand Alone Forms: [facility] Info Instructions
[2023-08-30] MEDS: LIDOCAINE 5% PATCH 1 PATCH TRANSDERMA (00:20)
[2023-08-30] MEDS: IBUPROFEN 200 MG TABLET 600 MG PO (00:24)
[2023-08-30 00:28] VITALS: BP 125/78; PULSE 65; RESP 18; TEMP 36.7; O2SAT 99
[2023-08-30 00:29] VITALS: BP 125/78; PULSE 65; RESP 18; TEMP 36.7
--- OUTSIDE RECORDS SUMMARY | 2023-08-30 00:32 | XMS_ITS | Encounter Summary ---
Author Name Unknown Organization [facility] Address [address] [place] [address] Care Team Providers Care Inpatient Pharmacist Name Role Phone Elsewhere, Pcp Primary Care Provider Unavailabl e Encounter Details Date Type Department Care Team (Late st Contact Info) Description 06/09/2017 Historic Ophthalmology HX ARZ NO MAPPING Jacques Alejandre M.D. 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 - 06/09/2017 12:29 PM MST Result Type: OPH Subsequent Visit Result Date: 09 June 2017 12:29 MST Result Status: Auth (Verified) Result Title: Ophthalmology Note* Performed By: Hill HAMILTON (Ophthalmology)Jacques on 09 June 2017 12:38 MST Verified By: Hill HAMILTON (Ophthalmology)Jacques on 09 June 2017 12:38 MST *Final* Ophthalmology Note* Patient: ADIA ALVAREZ Age: 37 years Sex: Female : 1980 Author: Hill HAMILTON (Ophthalmology)Jacques Visit Information Visit type: Ophthalmology Visit Information 09-Jun-2017 12:26 MST Ophthalmology Visit Type Other: 4 Mo Gilenya use. Pt states I notice no VA problems . Physical Examination Oph Visual Acuity Distance 09-Jun-2017 12:26 [facility] Distance Acuity Right 20/20 Distance Acuity Left 20/20 Distance Correction Right With glasses Distance Correction Left With glasses Pupil Size Right 09-Jun-2017 12:26 [facility] Pupil Size Right 4mm Pupil Reactivity Right 09-Jun-2017 12:26 [facility] Pupil Reactivity Right 2+ Pupil Size Left 09-Jun-2017 12:26 [facility] Pupil Size Left 4mm Pupil Reactivity Left 09-Jun-2017 12:26 [facility] Pupil Reactivity Left 2+ Afferent Pupil Defect Right 09-Jun-2017 12:26 [facility] APD Right No afferent defect Afferent Pupil Defect Left 09-Jun-2017 12:26 [facility]ST APD Left No afferent defect Motility Ocular Motility 09-Jun-2017 12:26 [facility] Ocular Motility full in both eyes and the eyes are straight Visual claros Oph Visual Field 09-Jun-2017 12:26 [facility] Visual Field Other: SEE HVF Oph Intraocular Pressure 09-Jun-2017 12:26 [facility] IOP Right 12 IOP Left 12 IOP Instrument Used Right Applanation IOP Instrument Used Left Applanation Oph Dilation 09-Jun-2017 12:26 [facility] Dilation Right Eye 1% tropicamide, 2.5% phenylephrine Dilation Left Eye 1% tropicamide, 2.5% phenylephrine Mental status exam/ ready to learn: Oriented to person, place and time, Alert and appears ready to learn. Slit lamp exam: Right eye Conjunctiva: Normal conjunctiva, lids and lashes. Cornea: normal tear film, clear epithelium, stroma and clear endothelium. Anterior chamber: Normal anterior chamber and iris with no cell or flare. Iris: Normal iris. Lens: Clear lens, normal capsule, cortex and nucleus. Vitreous: Normal vitreous. . Left eye Conjunctiva: Normal conjunctiva, lids and lashes. Cornea: normal tear film, clear epithelium, stroma and clear endothelium. Anterior chamber: Normal anterior chamber and iris with no cell or flare. Iris: Normal iris. Lens: Clear lens, normal capsule, cortex and nucleus. Vitreous: Normal vitreous. . Fundus exam: Right eye Optic nerve: Normal optic nerve with good rim. Macula: Normal macula and RPE. Retinal vessels: Normal retinal vessels. Peripheral retina: Normal peripheral retina. . Left eye Optic nerve: Normal optic nerve with good rim. Macula: Normal macula and RPE. Retinal vessels: Normal retinal vessels. Peripheral retina: Normal peripheral retina. . Optic nerve drawing: . Assessment Gilenya Use no retinal abnormalities monitor for change Disc @ risk ?prior episode of neuritis OD stable findings/vision recheck 6 mos. This document has images extracted. Reference: [id number] AL MERCHANDISING MANAGER documented in this encounter Plan of Treatment Upcoming Encounters Date Type Department Care Team (Late st Contact Info) Description 08/31/2023 8:30 AM CDT Infusion Department of Infusion Therapy in [address] [phone] Norma Vu M.D., Ph.D. [address] [place] [phone] documented as of this encounter Visit Diagnoses Not on filedocumented in this encounter Additional Health Concerns Infection Onset Date Last Indicated Resolved Time Protective Environment 05/14/2023 05/14/2023 documented as of this encounter Care Teams Inpatient Pharmacist Relationship Specialty Start Date End Date Elsewhere, Pcp PCP - General Internal Medicine 03/30/23 documented as of this encounter
--- OUTSIDE RECORDS SUMMARY | 2023-08-30 00:32 | XMS_ITS | Encounter Summary ---
Author Name Unknown Organization [facility] Address [address] [place] [address] Care Team Providers Care Smoke Tester Name Role Phone Elsewhere, Pcp Primary Care Provider Unavailabl e Encounter Details Date Type Department Care Team (Late st Contact Info) Description 12/09/2017 Historic Ophthalmology HX ARZ NO MAPPING Meli Serrano O.D. [address] [place] [address] Social History Tobacco Use Types Packs/Day Years Used Date Smoking Tobacco: Every Day Sex and Gender Information Value Date Recorded Sex Assigned at Female 03/24/2018 11:07 AM LOPPER Gender Identity Female 05/22/2020 11:48 AM LOPPER Sexual Orientation Straight 03/24/2018 11 :07 AM LOPPER documented as of this encounter Consult Notes * Meli Serrano O.D. - 12/09/2017 11:01 AM MST Result Type: OPH Consult Result Date: 09 December 2017 11:01 MST Result Status: Auth (Verified) Result Title: Ophthalmology Note* Performed By: Meli Serrano OD on 09 December 2017 11:19 MST Verified By: Meli Serrano OD on 09 December 2017 11:19 MST *Final* Ophthalmology Note* Patient: ADIA BEARD Age: 37 years Sex: Female : 1980 Author: Meli Serrano OD Visit Information Visit type: Ophthalmology Visit Information 09-Dec-2017 10:43 MST Ophthalmology Visit Type Other: Eye exam for MS History of Present Illness pt is taking high risk med Gilenya. no complaints. no gtts. pt would like an updated glasses rx. . Histories Current medications: (Selected) Outpatient Medications Ordered Perform Medication Reconciliation: 1 Each, MISC, ONCE Prescriptions Prescribed Gilenya 0.5 mg oral capsule: 0.5 mg, 1 Cap, PO, Daily, 90 Cap, 1 Refill(s) diclofenac sodium 50 mg oral enteric coated tablet: 50 mg, 1 Tab, PO, ONCE, with food may repeat in4 hours do not take on more than 8 days per month, PRN: Headache, 30 Tab, 0 Refill(s) naratriptan 2.5 mg oral tablet: 2.5 mg, 1 Tab, PO, Daily, may repeat dose once in 4 hours, PRN: formigraine headache, 9 Tab, 11 Refill(s) prochlorperazine 5 mg oral tablet: See Instructions, 1 Tab PO TID PRN do not take more than 3 days per week., PRN: Dizziness, 36 Tab, 3 Refill(s) sertraline 25 mg oral tablet: See Instructions, Start 1/2 tab PO daily. Increase by 1/2 tab q7d to 2 tab daily. If needed and tolerated, increase by 1 tab q14 days to max 4 tabs daily., 180 Tab, 5 Refill(s) Documented Medications Documented fexofenadine 180 mg oral tablet: 180 mg, 1 Tab, PO, Daily, otc allergy med. Allergies: Allergic Reactions (Selected) Severity Not Documented Contrast Dye- No reactions were documented. Tylenol with Codeine- No reactions were documented.. Family History: Patient was adopted. . Procedure history: No active procedure history items have been selected or recorded.. Social History Social & Psychosocial Habits Tobacco 10/06/2016 Use_REQUIRED: Current every day smoker Type: Cigarettes Previous treatment: None Ready to change: Yes Concerns about tobacco use in household: No . Problem list: Problems (ST) No Active or Resolved Problems , No Active or Resolved Problems . Physical Examination Oph Visual Acuity Distance 09-Dec-2017 10:43 MST Distance Acuity Right 20/20, -1 Distance Acuity Left 20/20, -1 Distance Correction Right With glasses Distance Correction Left With glasses Eyeglass/Contact lens measurements Oph Single Vision Measurement 09-Dec-2017 10:43 MST Distance Right -3.75 +2.50 x 171 Distance Left -2.25 +1.75 x 010 , Oph Manifest Refraction 09-Dec-2017 10:43 MST Manifest Refraction Right -4.00 +2.50 x 167 = 20/25 Manifest Refraction Left -2.25 +1.75 x 007 = 20/25 Pupil Size Right 09-Dec-2017 10:43 MST Pupil Size Right 4mm Pupil Reactivity Right 09-Dec-2017 10:43 MST Pupil Reactivity Right 3+ Pupil Size Left 09-Dec-2017 10:43 MST Pupil Size Left 4mm Pupil Reactivity Left 09-Dec-2017 10:43 MST Pupil Reactivity Left 3+ Afferent Pupil Defect Right 09-Dec-2017 10:43 MST APD Right No afferent defect Afferent Pupil Defect Left 09-Dec-2017 10:43 MST APD Left No afferent defect Motility Ocular Motility 09-Dec-2017 10:43 MST Ocular Motility full in both eyes and the eyes are straight Visual claros Oph Visual Field 09-Dec-2017 10:43 MST Visual Field normal by confrontation Oph Intraocular Pressure 09-Dec-2017 10:43 MST IOP Right 15 IOP Left 16 IOP Instrument Used Right Applanation IOP Instrument Used Left Applanation Oph Dilation 09-Dec-2017 10:43 MST Dilation Right Eye 1% tropicamide, 2.5% phenylephrine Dilation Left Eye 2.5% phenylephrine, 1% tropicamide Slit lamp exam: Right eye Conjunctiva: Normal [...] lens, normal capsule, cortex and nucleus. Vitreous: + peripheral floaters. . Fundus exam: Right eye Optic nerve: Normal optic nerve with good rim, Cup to disc ratio 0.1. Macula: Normal macula and RPE. Retinal vessels: Normal retinal vessels. Peripheral retina: Normal peripheral retina. . Left eye Optic nerve: Normal optic nerve with good rim, Cup to disc ratio 0.1. Macula: Normal macula and RPE. Retinal vessels: Normal retinal vessels. Peripheral retina: Normal peripheral retina. . Assessment Problem List All Problems High Risk Medication / SNOMED CT [id number] / Confirmed Plan Return to clinic: Gilenya Use no retinal abnormalities, normal macula on HRT today monitor for change Disc @ risk ?prior episode of neuritis OS RNFL thinning on HRT, temporal OS stable findings/vision recheck 6 mos, DFE, HRT. Refractive error: OD: -4.00+2.49x454 OS: -2.25+1.08g137 . Reference: [id number] documented in this encounter Plan of Treatment Upcoming Encounters Date Type Department Care Team (Late st Contact Info) Description 08/31/2023 8:30 AM CDT Infusion Department of Infusion Therapy in [address] [phone] Norma Vu M.D., Ph.D. [address] [place] [phone] documented as of this encounter Visit Diagnoses Not on filedocumented in this encounter Additional Health Concerns Infection Onset Date Last Indicated Resolved Time Protective Environment 05/14/2023 05/14/2023 documented as of this encounter Care Teams Smoke Tester Relationship Specialty Start Date End Date Elsewhere, Pcp PCP - General Internal Medicine 03/30/23 documented as of this encounter
--- OUTSIDE RECORDS SUMMARY | 2023-08-30 00:32 | XMS_ITS | Encounter Summary ---
Author Name Unknown Organization [facility] Address [address] [place] [address] Care Team Providers Care Tank Truck Loader Name Role Phone Elsewhere, Pcp Primary Care Provider Unavailabl e Encounter Details Date Type Department Care Team (Late st Contact Info) Description 05/13/2023 Orders Only Department of Neurology in [place], [place] [address] [place] [phone] Norma Vu M.D., Ph.D. [address] [place] [phone] Social History Tobacco Use Types Packs/Day Years Used Date Smoking Tobacco: Former Cigarettes 0.5 27 0 05/28/1999 - 07/06/2022 Smokeless Tobacco: Never Alcohol Use Standard Drinks/Week Comments Not Currently 0 (1 standard drink = 0.6 oz pur e alcohol) Humiliation, Afraid, Rape, and Kick questionnair e Answer Date Recorded Within the last year, have y ou been afraid of your partner or ex-partner? No 02/19/2022 Within the last year, have y ou been humiliated or emotionally abused in other ways by your partner or ex-partner? No Within the last year, have y ou been kicked, hit, slapped, or otherwise physically hurt by your partner or ex-partner? No 02/19/2022 Within the last year, have y ou been raped or forced to have any kind of sexual activity by your partner or ex-partner? No 02/19/2022 Social Connection and Isolat ion Panel [NHANES] Answer Date Recorded In a typical week, how many times do you talk on the phone with family, friends, or neighbors? More than three times a week 02/19/2022 How often do you get togethe r with friends or relatives? Patient declined 02/19/2022 How often do you attend chur ch or yarsani services? Patient declined 02/19/2022 Do you belong to any clubs o r organizations such as mormonism groups, unions, fraternal or athletic groups, or school groups? No 02/19/2022 How often do you attend meet ings of the clubs or organizations you belong to? Never 02/19/2022 Are you , , di vorced, , never , or living with a partner? 02/19/2022 AUDIT-C Answer Date Recorded Q1: How often do you have a drink containing alc ohol? Never 02/19/2022 Average Number of Drinks Not on file 022 Frequency of Binge Drinking Not on file 01/25 Overall Financial Resource Strain (CARDIA) Answe r Date Recorded How hard is it for you to pa y for the very basics like food, housing, medical care, and heating? Not hard at all 03/31/2023 [facility] - Occupational Stress Questionnaire Answer Date Recorded Do you feel stress - tense, restless, nervous, or anxious, or unable to sleep at night because your mind is troubled all the time - these days? Not at all 02/19/2022 Exercise Vital Sign Answer Date Recorde d On average, how many days pe r week do you engage in moderate to strenuous exercise (like a brisk walk)? 7 days 03/31/2023 On average, how many minutes do you engage in exercise at this level? 150+ min 03/31/2023 Hunger Vital Sign Answer Date Recorded Within the past 12 months, y ou worried that your food would run out before you got the money to buy more. Never true 03/31/20 23 Within the past 12 months, t he food you bought just didn't last and you didn't have money to get more. Never true 03/31/2023 PRAPARE - Transportation Answer Date Re corded In the past 12 months, has l ack of transportation kept you from medical appointments or from getting medications? No 09/2022 In the past 12 months, has l ack of transportation kept you from meetings, work, or from getting things needed for daily living? No 03/31/2023 Nutrition Answer Date Recorded Nutrition: EVOO Fat Source No 03/31 On average, how many serving s of fruits and vegetables do you eat per day (serving size is equal to 1 cup or approximately the size of a tennis ball)? 0-2 03/31/2023 Dental Answer Date Recorded Dental: Regular Dentist No 02/20/20 Employment Answer Date Recorded Employment status Employed and actively working without restrictions 03/31/2023 Housing Stability Answer Date Recorded What is your living situation today? I have a [facility] place to live 03/31/2023 Education Answer Date Recorded What is the highest level of school you have completed or the highest degree you have received? Associate degree: occupational, technical, or vocational program 10/01/2018 Sex and Gender Information Value Date Recorded Sex Assigned at Female 03/24/2018 11:07 AM LINE DIRECTOR Gender Identity Female 05/22/2020 11:48 AM LINE DIRECTOR Sexual Orientation Straight 03/24/2018 11 :07 AM LINE DIRECTOR documented as of this encounter Plan of Treatment Upcoming Encounters Date Type Department Care Team (Late st Contact Info) Description 08/31/2023 8:30 AM CDT Infusion Department of Infusion Therapy in [address] [phone] Norma Vu M.D., Ph.D. [address] [place] [phone] documented as of this encounter Visit Diagnoses Not on filedocumented in this encounter Additional Health Concerns Infection Onset Date Last Indicated Resolved Time Protective Environment 05/14/2023 05/14/2023 documented as of this encounter Care Teams Tank Truck Loader Relationship Specialty Start Date End Date Elsewhere, Pcp PCP - General Internal Medicine 03/30/23 documented as of this encounter
--- OUTSIDE RECORDS SUMMARY | 2023-08-30 00:32 | XMS_ITS | Encounter Summary ---
Author Name Unknown Organization [facility] Address [address] [place] [address] Care Team Providers Care Histopathologist Name Role Phone Elsewhere, Pcp Primary Care Provider Unavailabl e Reason for Visit * Reason Comments Med Refill Encounter Details Date Type Department Care Team (Late st Contact Info) Description 07/06/2023 Refill Department of Neurology in [place], [place] [address] [place] [phone] Norma Vu M.D., Ph.D. [address] [place] [phone] Med Refill Social History Tobacco Use Types Packs/Day Years [...] often do you attend chur ch or adventism services? Patient declined 02/19/2022 Do you belong to any clubs o r organizations such as sikh groups, unions, fraternal or athletic groups, or [...] and heating? Not hard at all 03/31/2023 [facility] - Occupational Stress [...] medical appointments or from getting medications? No 12/0 09/2022 In the past 12 months, has [...] your living situation today? I have a [facility] place to live 03/31/2023 Education Answer Date Recorded What is the highest level of school you have completed or the highest degree you have received? Associate degree: occupational, technical, or vocational program 10/01/2018 Sex and Gender Information Value Date Recorded Sex Assigned at Female 03/24/2018 11:07 AM DEICER REPAIRER Gender Identity Female 05/22/2020 11:48 AM DEICER REPAIRER Sexual Orientation Straight 03/24/2018 11 :07 AM DEICER REPAIRER documented as of this encounter Plan of Treatment Upcoming Encounters Date Type Department Care Team (Late st Contact Info) Description 08/31/2023 8:30 AM CDT Infusion Department of Infusion Therapy in [address] [phone] Norma Vu M.D., Ph.D. [address] [place] [phone] documented as of this encounter Visit Diagnoses Diagnosis Fatigue Dizziness documented in this encounter Additional Health Concerns Infection Onset Date Last Indicated Resolved Time Protective Environment 05/14/2023 05/14/2023 documented as of this encounter Care Teams Histopathologist Relationship Specialty Start Date End Date Elsewhere, Pcp PCP - General Internal Medicine 03/30/23 documented as of this encounter
--- OUTSIDE RECORDS SUMMARY | 2023-08-30 00:32 | XMS_ITS | Encounter Summary ---
Author Name Unknown Organization [facility] Address [address] [place] [address] Care Team Providers Care Volleyball Player Name Role Phone Elsewhere, Pcp Primary Care Provider Unavailabl e Encounter Details Date Type Department Care Team (Late st Contact Info) Description 02/05/2017 Historic Ophthalmology HX ARZ NO MAPPING Jacques Alejnadre M.D. [address] [place] [address] Social History Tobacco Use Types Packs/Day Years Used Date Smoking Tobacco: Never Assessed Sex and Gender Information Value Date Recorded Sex Assigned at Female 03/24/2018 11:07 AM CABIN SERVICE AGENT Gender Identity Female 05/22/2020 11:48 AM CABIN SERVICE AGENT Sexual Orientation Straight 03/24/2018 11 :07 AM CABIN SERVICE AGENT documented as of this encounter Consult Notes * Jacques Alejandre M.D. - 02/05/2017 1:52 PM MST Result Type: OPH Consult Result Date: 05 February 2017 13:52 MST Result Status: Auth (Verified) Result Title: Ophthalmology Note* Performed By: Hill HAMILTON (Ophthalmology)Jacques on 05 February 2017 14:01 MST Verified By: Hill HAMILTON (Ophthalmology)Jacques on 05 February 2017 14:01 MST *Final* Ophthalmology Note* Patient: ADIA ALVAREZ Age: 36 years Sex: Female : 1980 Author: Hill HAMILTON (Ophthalmology)Jacques Visit Information Visit type: Ophthalmology Visit Information 05-Feb-2017 13:10 MST Ophthalmology Visit Type Other: Last exam 1 yr. Gilenya use for 2.5mo. Pt states I notice no VA problems . Physical Examination Oph Visual Acuity Distance 05-Feb-2017 13:10 [facility] Distance Acuity Right 20/20 Distance Acuity Left 20/20 Distance Correction Right With glasses Distance Correction Left With glasses Pupil Size Right 05-Feb-2017 13:10 [facility] Pupil Size Right 4mm Pupil Reactivity Right 05-Feb-2017 13:10 [facility] Pupil Reactivity Right 2+ Pupil Size Left 05-Feb-2017 13:10 [facility] Pupil Size Left 4mm Pupil Reactivity Left 05-Feb-2017 13:10 [facility] Pupil Reactivity Left 2+ Afferent Pupil Defect Right 05-Feb-2017 13:10 [facility] APD Right No afferent defect Afferent Pupil Defect Left 05-Feb-2017 13:10 [facility] APD Left No afferent defect Motility Ocular Motility 05-Feb-2017 13:10 [facility] Ocular Motility full in both eyes and the eyes are straight Visual claros Oph Visual Field 05-Feb-2017 13:10 [facility] Visual Field normal by confrontation Oph Intraocular Pressure 05-Feb-2017 13:10 [facility] IOP Right 16 IOP Left 16 IOP Instrument Used Right Applanation IOP Instrument Used Left Applanation Oph Dilation 05-Feb-2017 13:10 [facility] Dilation Right Eye 1% tropicamide, 2.5% phenylephrine [...] @ risk ?prior episode of neuritis OD disc pix taken as baseline recheck 4 mos. This document has images extracted. Reference: [id number] documented in this encounter Plan of Treatment Upcoming Encounters Date Type Department Care Team (Late st Contact Info) Description 08/31/2023 8:30 AM CDT Infusion Department of Infusion Therapy in [address] [phone] Norma Vu M.D., Ph.D. [address] [place] [phone] documented as of this encounter Visit Diagnoses Not on filedocumented in this encounter Additional Health Concerns Infection Onset Date Last Indicated Resolved Time Protective Environment 05/14/2023 05/14/2023 documented as of this encounter Care Teams Volleyball Player Relationship Specialty Start Date End Date Elsewhere, Pcp PCP - General Internal Medicine 03/30/23 documented as of this encounter
--- OUTSIDE RECORDS SUMMARY | 2023-08-30 00:32 | XMS_ITS | Referral Summary ---
Author Name Unknown Organization [facility] Address [address] [place] [address] Care Team Providers Care Cement Sprayer Helper Name Role Phone Elsewhere, Pcp Primary Care Provider Unavailabl e Source Comments Patient records contain information from all sites at [facility]. For routine questions regarding patient records, call [phone] during business hours, M-F 8:00 AM - 5:00 PM Central Time. Record requests for emergency care only can be directed to [phone] at any time.[facility] Encounters Date Type Department Care Team Description 07/06/2023 Refill Department of Neurology in [place], [place] [address] [place] [phone] Norma Vu M.D., Ph.D. Med Refill from Last 3 Months Allergies Active Allergy Reactions Criticality Noted Date Comments Acetaminophen-Codeine Anaphylaxis High 01/12/2022 Trouble breathing Codeine Angioedema (Reselect Reaction) Medium 09/03/2016 None specified Diatrizoate Meglumine Hives (Reselect Reaction) 05/14/2014 Pt got one hive on belly from [facility] 350-pt can be pre treated and given VISI for future exams Iodinated Contrast Media Other (see comments) Medium None specified Medications Medication Sig Dispensed Refills Start Date End Date Status fexofenadine (ASHLEY) 180 mg tablet Take 1 tablet by mouth daily. 09/03/2016 Active diclofenac sodium (VOLTAREN) 50 mg EC tablet Take 1 tablet as needed for up to 1 dose. May repeat in 4 hours. Do not take more than 8 days in a month. Take with food. 20 tablet 3 02/20/2019 Active sertraline (ZOLOFT) 100 mg tablet Take 1 tablet (100 mg total) by mouth daily. 90 tablet 1 06/12/2019 Active Additional Information Patient not taking.Reported on 03/30/2023 naratriptan (AMERGE) 2.5 mg tablet TAKE 1 TABLET ORALLY AT ONSET OF MIGRAINE, MAY REPEAT DOSE ONCE IN 4 HOURS FOR MIGRAINE.MAXIMUM 10 DAYS PER MONTH. 24 tablet 1 07/12/2019 Active FLUoxetine (PROzac) 40 mg capsule Take 1 capsule (40 mg total) by mouth daily. 30 capsule 3 07/30/2020 Active Additional Information Patient not taking.Reported on 03/30/2023 FLUoxetine (PROzac) 20 mg capsule Take 3 capsules (60 mg total) by mouth daily. 90 capsule 04/13/2022 Active fingolimod (GILENYA) 0.5 mg capsule TAKE ONE CAPSULE BY MOUTH ONCE DAILY 30 capsule 10 10/20/2022 Active Aimovig Autoinjector 140 mg/mL injection INJECT THE CONTENTS OF 1 AUTOINJECTOR PEN UNDER THE SKIN EVERY 30 DAYS 3 mL 3 01/14/2023 Active amantadine (SYMMETREL) 100 mg tablet Take 1 tablet (100 mg total) by mouth daily. 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 Patient declined 02/19/2022 Do you belong to any clubs o r organizations such as jew groups, unions, fraternal or athletic groups, or [...] and heating? Not hard at all 03/31/2023 [facility] - Occupational [...] the money to buy more. Never true 12/06/20 23 Within the past 12 months, t [...] your living situation today? I have a [facility] place to live 03/31/2023 Education Answer Date Recorded What is the highest level of school you have completed or the highest degree you have received? Associate degree: occupational, technical, or vocational program 10/01/2018 Sex and Gender Information Value Date Recorded Sex Assigned at Female 03/24/2018 11:07 AM DIRECTOR DECISION SUPPORT Gender Identity Female 05/22/2020 11:48 AM DIRECTOR DECISION SUPPORT Sexual Orientation Straight 03/24/2018 11 :07 AM DIRECTOR DECISION SUPPORT Last Filed Vital Signs Vital Sign Reading Time Taken Comments Blood Pressure 122/81 10/06/2018 10:48 AM MST Pulse 60 10/06/2018 10:48 AM MST Temperature 36.9 ??C (98.4 ??F) 03/30/2022 3:06 PM CS T Respiratory Rate 16 08/13/2017 3:40 PM MST Oxygen Saturation - - Inhaled Oxygen Concentration - - Weight 78 kg (171 lb 15.3 oz) 03/31/2023 2:55 PM DIRECTOR DECISION SUPPORT Height 162.5 cm (5' 3.98) 03/31/2023 2:55 PM CS T Body Mass Index 29.54 03/31/2023 2:55 PM DIRECTOR DECISION SUPPORT Plan of Treatment Upcoming Encounters Date Type Department Care Team (Late st Contact Info) Description 08/31/2023 8:30 AM CDT Infusion Department of Infusion Therapy in [address] [phone] Norma Vu M.D., Ph.D. [address] [place] [address] Procedures Procedure Name Priority Date/Time Associated Diagnosis Comments HCV AB SCRN W/REFLEX TO HCV PCR, S Routine 03/31/2023 4:36 PM DIRECTOR DECISION SUPPORT Multiple Sclerosis (HCC) HIV-1/-2 AG AND AB SCREEN, PLASMA Routine 03/31/2023 4:36 PM DIRECTOR DECISION SUPPORT Multiple Sclerosis (HCC) LIPID PANEL, S Routine 03/31/2023 4:36 PM DIRECTOR DECISION SUPPORT Multiple Sclerosis (HCC) from Last 3 Months or Most Recently Relevant to Health Maintenance Results * HIV-1/-2 Ag and Ab Screen, Plasma (03/31/2023 4:36 PM DIRECTOR DECISION SUPPORT) HIV-1/-2 Ag and Ab Screen, P Negative Negative 03/31/2023 8:46 PM DIRECTOR DECISION SUPPORT [facility] Comment: Negative result does not rule out HIV infection. If exposure to HIV infection occurred <14 days ago, contact the laboratory to request addition of HIV-1/HIV-2 RNA detection, Plasma (HIP12). Blood (Blood, Venous) 03/31/2023 4:36 PM DIRECTOR DECISION SUPPORT 03/31/2023 8:05 PM DIRECTOR DECISION SUPPORT Norma uV M.D., Ph.D. LAB MICROBIOL OGY - BLOOD ORDERABLES [facility] [address] [place] [address] [facility] [address] [place] [address] * (ABNORMAL) Lipid Panel (03/31/2023 4:36 PM DIRECTOR DECISION SUPPORT) Pathologist [facility] Triglycerides 447(H) mg/dL 03/31/2023 5:24 PM DIRECTOR DECISION SUPPORT [facility] Comment: ----REFERENCE VALUE---- Normal: <150 mg/dL Borderline High: 150-199 mg/dL High: 200-499 mg/dL Very High: > or =500 mg/dL Cholesterol, Total 286(H) mg/dL 2022 5:24 PM DIRECTOR DECISION SUPPORT [facility] Comment: ----REFERENCE VALUE---- Desirable: < 200 mg/dL Borderline High: 200 - 239 mg/dL High: > or = 240 mg/dL Cholesterol, LDL, Calculated 148(H) mg/dL 03/31/2023 5:24 PM DIRECTOR DECISION SUPPORT [facility] Comment: ----REFERENCE VALUE---- Desirable: <100 mg/dL Above Desirable: 100-129 mg/dL Borderline High: 130-159 mg/dL High: 160-189 mg/dL Very High: >=190 mg/dL ----ADDITIONAL INFORMATION---- LDL cholesterol calculated using the Obrien/NIH equation. Cholesterol, HDL, S 55 >=50 mg/dL 03/31/2023 5:24 PM DIRECTOR DECISION SUPPORT DTL Cholesterol, Non-HDL, Calculated 231(H) mg/dL 03/31/2023 5:24 PM DIRECTOR DECISION SUPPORT [facility] Comment: ----REFERENCE VALUE---- Desirable: <130 mg/dL Above Desirable: 130-159 mg/dL Borderline High: 160-189 mg/dL High: 190-219 mg/dL Very High: > or =220 mg/dL Fasting (8 HR or more) No 03/31/2023 4:53 PM DIRECTOR DECISION SUPPORT DTL Blood (Blood, Venous) 03/31/2023 4:36 PM DIRECTOR DECISION SUPPORT 03/31/2023 4:53 PM DIRECTOR DECISION SUPPORT Norma Vu M.D., Ph.D. LAB BLOOD ADD -ON [facility] [address] [place] [address], [place] [facility] [address] [place] [address] * HCV Ab Scrn w/Reflex to HCV PCR, Serum (03/31/2023 4:36 PM DIRECTOR DECISION SUPPORT) HCV Ab Screen, S Negative Negative 03/31/2023 10:10 PM DIRECTOR DECISION SUPPORT [facility] Comment:Arznws-og-bodula rat io is <1.00. Blood (Blood, Venous) 03/31/2023 4:36 PM DIRECTOR DECISION SUPPORT 03/31/2023 8:05 PM DIRECTOR DECISION SUPPORT Norma Vu M.D., Ph.D. LAB MICROBIOL OGY - BLOOD ORDERABLES [facility] [address] [place] [address] [facility] [address] [place] [address] from Last 3 Months or Most Recently Relevant to Health Maintenance Additional Health Concerns Infection Onset Date Last Indicated Protective Environment 05/14/2023 4 Care Teams Cement Sprayer Helper Relationship Specialty Start Date End Date Elsewhere, Pcp PCP - General Internal Medicine 03/30/23
--- OUTSIDE RECORDS SUMMARY | 2023-08-30 00:32 | XMS_ITS ---
Author Name Unknown Organization [facility] Address [address] [place] [address] Care Team Providers Care Filling Mixer Name Role Phone Unavailable Unavailable Unavailable Surgery Details Not on file Complications Check Surgery Details section. Procedure Estimated Blood Loss Check Surgery Details section. Procedure Findings Check Surgery Details section. Procedure Specimens Taken Check Surgery Details section.
--- OUTSIDE RECORDS SUMMARY | 2023-08-30 00:32 | XMS_ITS | Clinical Summary ---
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 For routine questions regarding patient records, call [phone] during business hours, M-F 8:00 AM - 5:00 PM Central Time. Record requests for emergency care only can be directed to [phone] at any time.[facility] Allergies Active Allergy Reactions Criticality Noted Date [...] 04/15/2023 Demyelinating Disease Central Nervous System Other Custodial Current Drug Therapy 11/03/2018 Encounters Date Type Department Care Team Description 07/06/2023 Refill Department of Neurology in [place], [place] [address] [place] [address] Norma Vu M.D., Ph.D. Med Refill from Last 3 Months Social History Tobacco Use Types Packs/Day Years [...] How often do you attend chur or holiness services? Patient declined 02/19/2022 Do you belong to any clubs o r organizations such as yarsani groups, unions, fraternal or athletic groups, or [...] and heating? Not hard at all 03/31/2023 [facility] [place] [facility] - Occupational Stress [...] your living situation today? I have a [facility] place to live 03/31/2023 Education Answer Date Recorded What is the highest level of school you have completed or the highest degree you have received? Associate degree: occupational, technical, or vocational program 10/01/2018 Sex and Gender Information Value Date Recorded Sex Assigned at Female 03/24/2018 11:07 AM INFORMATION WRITER Gender Identity Female 05/22/2020 11:48 AM INFORMATION WRITER Sexual Orientation Straight 03/24/2018 11 :07 AM INFORMATION WRITER Last Filed Vital Signs Vital Sign Reading Time Taken Comments Blood Pressure 122/81 10/06/2018 10:48 AM MST Pulse 60 10/06/2018 10:48 AM MST Temperature 36.9 ??C (98.4 ??F) 03/30/2022 3:06 PM CS T Respiratory Rate 16 08/13/2017 3:40 PM MST Oxygen Saturation - - Inhaled Oxygen Concentration - - Weight 78 kg (171 lb 15.3 oz) 03/31/2023 2:55 PM INFORMATION WRITER Height 162.5 cm (5' 3.98) 03/31/2023 2:55 PM CS T Body Mass Index 29.54 03/31/2023 2:55 PM INFORMATION WRITER Plan of Treatment Upcoming Encounters Date Type Department Care Team (Late st Contact Info) Description 08/31/2023 8:30 AM CDT Infusion Department of Infusion Therapy in [address] [id number] Norma Vu M.D., Ph.D. [address] [place] [address] Health Maintenance Due Date Last Done Comments Mammogram 1980 COVID-19 Vaccine (#1) 1985 Pneumococcal vaccine (0-64 years) (1 of 2 - PCV) 1986 Hepatitis B Vaccines (1 of 3 - 19+ 3-dose series) 1999 Zoster Vaccines (1 of 2) 1999 Cervical Cancer Screening 01/18/2017 01/18/2014 Influenza Vaccine (#1) 2023 01/18/2014, 2005 Depression Screening (Annual PHQ-2) 04/26/2023 Lipid (Cholesterol) Screening 03/31/2028 03/31/2023 DTaP,Tdap,and Td Vaccines (8 - Td or Tdap) 04/10/2032 04/10/2022, 07/23/2011, 11/15/1985, Additional history exists HIV Screening Completed 03/31/2023 Hepatitis C Screening Completed 03/31/2023 HPV Vaccines Aged Out No longer eligi ble based on patient's age to complete this topic Procedures Procedure Name Priority Date/Time Associated Diagnosis Comments HCV AB SCRN W/REFLEX TO HCV PCR, S Routine 03/31/2023 4:36 PM INFORMATION WRITER Multiple Sclerosis (HCC) HIV-1/-2 AG AND AB SCREEN, PLASMA Routine 03/31/2023 4:36 PM INFORMATION WRITER Multiple Sclerosis (HCC) LIPID PANEL, S Routine 03/31/2023 4:36 PM INFORMATION WRITER Multiple Sclerosis (HCC) from Last 3 Months or Most Recently Relevant to Health Maintenance Results * HIV-1/-2 Ag and Ab Screen, Plasma (03/31/2023 4:36 PM INFORMATION WRITER) HIV-1/-2 Ag and Ab Screen, P Negative Negative 03/31/2023 8:46 PM INFORMATION WRITER [facility] Comment: Negative result does not rule out HIV infection. If exposure to HIV infection occurred <14 days ago, contact the laboratory to request addition of HIV-1/HIV-2 RNA detection, Plasma (HIP12). Blood (Blood, Venous) 03/31/2023 4:36 PM INFORMATION WRITER 03/31/2023 8:05 PM INFORMATION WRITER Norma Vu M.D., Ph.D. LAB MICROBIOL OGY - BLOOD ORDERABLES [facility] [address] [place] [address] [facility] [address] [place] [address] * (ABNORMAL) Lipid Panel (03/31/2023 4:36 PM INFORMATION WRITER) Triglycerides 447(H) mg/dL 03/31/2023 5:24 PM INFORMATION WRITER DTL Comment: ----REFERENCE VALUE---- Normal: <150 mg/dL Borderline High: 150-199 mg/dL High: 200-499 mg/dL Very High: > or =500 mg/dL Cholesterol, Total 286(H) mg/dL 2022 5:24 PM INFORMATION WRITER DTL Comment: ----REFERENCE VALUE---- Desirable: < 200 mg/dL Borderline High: 200 - 239 mg/dL High: > or = 240 mg/dL Cholesterol, LDL, Calculated 148(H) mg/dL 03/31/2023 5:24 PM INFORMATION WRITER DTL Comment: ----REFERENCE VALUE---- Desirable: <100 mg/dL Above Desirable: 100-129 mg/dL Borderline High: 130-159 mg/dL High: 160-189 mg/dL Very High: >=190 mg/dL ----ADDITIONAL INFORMATION---- LDL cholesterol calculated using the Obrien/NIH equation. Cholesterol, HDL, S 55 >=50 mg/dL 03/31/2023 5:24 PM INFORMATION WRITER DTL Cholesterol, Non-HDL, Calculated 231(H) mg/dL 03/31/2023 5:24 PM INFORMATION WRITER DTL Comment: ----REFERENCE VALUE---- Desirable: <130 mg/dL Above Desirable: 130-159 mg/dL Borderline High: 160-189 mg/dL High: 190-219 mg/dL Very High: > or =220 mg/dL Fasting (8 HR or more) No 03/31/2023 4:53 PM INFORMATION WRITER DTL Blood (Blood, Venous) 03/31/2023 4:36 PM INFORMATION WRITER 03/31/2023 4:53 PM INFORMATION WRITER Norma Vu M.D., Ph.D. LAB BLOOD ADD -ON Performing Organization Address City/[facility]/ZIP Co de Phone Number [facility] [address] [place] [address], [facility] [place] [address] [place] [address] * HCV Ab Scrn w/Reflex to HCV PCR, Serum (03/31/2023 4:36 PM INFORMATION WRITER) Pathologist [facility] HCV Ab Screen, S Negative Negative 03/31/2023 10:10 PM INFORMATION WRITER [facility] Comment:Rzzfgp-rx-hbusri rat io is <1.00. Blood (Blood, Venous) 03/31/2023 4:36 PM INFORMATION WRITER 03/31/2023 8:05 PM INFORMATION WRITER Norma Vu M.D., Ph.D. LAB MICROBIOL OGY - BLOOD ORDERABLES Performing Organization Address City/[facility]/[place]UST Co de Phone Number [facility] [address] [place] [address] [facility] [address] [place] [phone] from Last 3 Months or Most Recently Relevant to Health Maintenance Additional Health Concerns Infection Onset Date Last Indicated Protective Environment 05/14/2023 4 Care Teams [employer] Experimental Mechanic Relationship Specialty Start Date End Date Elsewhere, Pcp PCP - General Internal Medicine 03/30/23
== END 2023-08-30 00:34 | disposition home or self-care (01) ==
LOC: ED 08-30 00:31
PROVIDERS: Emergency Provider Family Medicine; PCP Family Medicine
DX: M53.3 Sacrococcygeal disorders, not elsewhere classified (principal)
CPT/HCPCS: 81001; 99283; 99284; A9270

== ENCOUNTER 2023-09-25 14:56 | Outpatient (CLI) | payer BC, SELFPAY ==
--- OUTSIDE RECORDS SUMMARY | 2023-10-11 00:59 | XMS_ITS | Clinical Summary ---
Author Organization [facility] Address [address] [place] [address] Care Team Providers Care Com Writer Name Role Phone Elsewhere, Pcp Primary Care Provider Unavailabl e Source Comments Patient records contain information from all sites at [facility]. For routine questions regarding patient records, call [phone] during business hours, M-F 8:00 AM - 5:00 PM Central Time. Record requests for emergency care only can be directed to [phone] at any time.[facility] Allergies Active Allergy Reactions Criticality Noted Date [...] tablet Take 1 tablet by mouth daily. 7 Active naratriptan (AMERGE) 2.5 mg tablet TAKE 1 TABLET ORALLY AT ONSET OF MIGRAINE, MAY REPEAT DOSE ONCE IN 4 HOURS FOR MIGRAINE.MAXIMUM 10 DAYS PER MONTH. 24 tablet 1 0 Active FLUoxetine (PROzac) 20 mg capsule Take 3 capsules (60 mg total) by mouth daily. 90 capsule 2 Active Aimovig Autoinjector 140 mg/mL injection INJECT THE CONTENTS OF 1 AUTOINJECTOR PEN UNDER THE SKIN EVERY 30 DAYS 3 mL 3 3 Active cyclobenzaprine (FLEXERIL) 10 mg tablet Take 10 mg by mouth 3 (three) times a day as needed for muscle spasms. Active amantadine (SYMMETREL) 100 mg capsuleIndicatio ns:Fatigue,Dizzi ness take one capsule by mouth once daily 30 capsule 2 4 Active prochlorperazine (COMPAZINE) 10 mg tabletIndication s:Migraine Headache Take 1 tablet (10 mg total) by mouth 3 (three) times a day as needed for nausea (or headache rescue). 20 tablet 11 4 10/07/19 25 Active naratriptan (AMERGE) 2.5 mg tabletIndication s:Chronic Migraine Take 1 tablet (2.5 mg total) by mouth 2 (two) times a day as needed (severe headache). Limit use to no more than 9 days a month. 12 tablet 3 4 Active diclofenac sodium (VOLTAREN) 50 mg EC tablet Take 1 tablet as needed for up to 1 dose. May repeat in 4 hours. Do not take more than 8 days in a month. Take with food. 20 tablet 3 9 10/07/19 24 Discontinued(Th erapy completed) sertraline (ZOLOFT) 100 mg tablet Take 1 tablet (100 mg total) by mouth daily. 90 tablet 1 0 10/07/19 24 Discontinued(Th erapy completed) FLUoxetine (PROzac) 40 mg capsule Take 1 capsule (40 mg total) by mouth daily. 30 capsule 3 1 10/07/19 24 Discontinued(Du plicate order) fingolimod (GILENYA) 0.5 mg capsule TAKE ONE CAPSULE BY MOUTH ONCE DAILY 30 capsule 10 3 09/14/19 24 Discontinued(Al ternate therapy) amantadine (SYMMETREL) 100 mg tablet Take 1 tablet (100 mg total) by mouth daily. 30 tablet 2 3 10/07/19 24 Discontinued(Du plicate order) amantadine (SYMMETREL) 100 mg capsuleIndicatio ns:Fatigue,Dizzi ness take one capsule by mouth once daily 30 capsule 2 4 10/04/19 24 Discontinued HYDROcodone-acet aminophen (NORCO) 5-325 mg per tablet Take 1-2 tablets by mouth every 4 (four) hours as needed for pain. 10/07/19 24 Discontinued(Th erapy completed) Active Problems Problem Noted Date Diagnosed Date Multiple Sclerosis 04/15/2023 Demyelinating Disease Central Nervous System Other Snf Current Drug Therapy 11/03/2018 Encounters Date Type Department Care Team Description 10/08/2023 Clinical Communication Department of Neurology in [place], [place] [address] [place] [address] Manuel Alonzo M.D. 10/07/2023 1:00 PM CDT Comprehensive Visit Department of Neurology in [place], [place] [address] [place] [address] Norma uV M.D., Ph.D. Cornelio Perdomo M.D. Headache Unspecified; Chronic Migraine; Vertigo Benign Paroxysmal Positional Bilateral; Neuralgia; Migraine Headache 10/04/2023 Orders Only Department of Neurology in [place], [place] [address] [place] [address] Norma Vu M.D., Ph.D. Migraine Headache (Primary Dx) 09/30/2023 Refill Department of Neurology in [place], [place] [address] [place] [address] Norma Vu M.D., Ph.D. Med Refill 09/14/2023 10:00 AM CDT Infusion Department of Infusion Therapy in [address] [phone] Norma Vu M.D., Ph.D. Multiple Sclerosis (HCC) (Primary Dx) 08/31/2023 8:30 AM CDT Infusion Department of Infusion Therapy in [address] [address] Norma Vu M.D., Ph.D. Multiple Sclerosis (HCC) (Primary Dx) from Last 3 Months Social History Tobacco [...] declined 02/19/2022 How often do you attend [facility] or taoism services? Patient declined 02/19/2022 Do you belong to any clubs o r organizations such as restoration groups, unions, fraternal or athletic groups, or [...] and heating? Not hard at all 03/31/2023 PHQ-2 Answer Date Recorded PHQ-2 Score 0 10/07/2023 [facility] of Occupat ional Health - [...] things needed for daily living? No 03/31/2023 Depression Answer Date Recor ded PHQ-9 Total Score (max 27) 8 10/06 Nutrition Answer Date Recorded On average, how many serving s of [...] Sex Assigned at Female 03/24/2018 11:07 AM GOVERNOR ASSEMBLER Gender Identity Female 05/22/2020 11:48 AM GOVERNOR ASSEMBLER Sexual Orientation Straight 03/24/2018 11 :07 AM GOVERNOR ASSEMBLER Last Filed Vital Signs Vital Sign Reading Time Taken Comments Blood Pressure 129/86 10/07/2023 12:30 PM CDT Pulse 78 10/07/2023 12:30 PM CDT Temperature 36.6 ??C (97.9 ??F) 09/14/2023 10:10 AM C DT Respiratory Rate 16 09/14/2023 2:34 PM CDT Oxygen Saturation 97% 09/14/2023 10:10 AM CDT Inhaled Oxygen Concentration - - Weight 81.7 kg (180 lb 1.9 oz) 10/07/2023 12:30 PM CDT Height 163.8 cm (5' 4.49) 10/07/2023 12:30 PM C DT Body Mass Index 30.45 10/07/2023 12:30 PM CDT Plan of Treatment Upcoming Encounters Date Type Department Care Team (Late st Contact Info) Description 10/21/2023 9:00 AM CDT Appointment Department of Radiology in [address] [phone] Cornelio Perdomo M.D. [address] [place] [phone] Discharge Disposition: Home or Self Care Health Maintenance Due Date Last Done Comments Mammogram 1980 COVID-19 Vaccine (#1) 1985 Pneumococcal vaccine (0-64 years) (1 of 2 - PCV) 1986 Hepatitis B Vaccines (1 of 3 - 19+ 3-dose series) 1999 Zoster Vaccines (1 of 2) 1999 Cervical Cancer Screening 01/18/2017 01/18/2014 Influenza Vaccine (#1) 2023 01/18/2014, 2005 Lipid (Cholesterol) Screening 03/31/2028 03/31/2023 DTaP,Tdap,and Td Vaccines (8 - Td or Tdap) 04/10/2032 04/10/2022, 07/23/2011, 11/15/1985, Additional history exists HIV Screening Completed 03/31/2023 Hepatitis C Screening Completed 03/31/2023 Depression Screening (Annual PHQ-2) Completed 10/07/2023 HPV Vaccines Aged Out No longer eligi ble based on patient's age to complete this topic Procedures Procedure Name Priority Date/Time Associated Diagnosis Comments HCV AB SCRN W/REFLEX TO HCV PCR, S Routine 03/31/2023 4:36 PM GOVERNOR ASSEMBLER Multiple Sclerosis (HCC) HIV-1/-2 AG AND AB SCREEN, PLASMA Routine 03/31/2023 4:36 PM GOVERNOR ASSEMBLER Multiple Sclerosis (HCC) LIPID PANEL, S Routine 03/31/2023 4:36 PM GOVERNOR ASSEMBLER Multiple Sclerosis (HCC) from Last 3 Months or Most Recently Relevant to Health Maintenance Results * HIV-1/-2 Ag and Ab Screen, Plasma (03/31/2023 4:36 PM GOVERNOR ASSEMBLER) Pathologist [facility] HIV-1/-2 Ag and Ab Screen, P Negative Negative 03/31/2023 8:46 PM GOVERNOR ASSEMBLER [facility] Comment: Negative result does not rule out HIV infection. If exposure to HIV infection occurred <14 days ago, contact the laboratory to request addition of HIV-1/HIV-2 RNA detection, Plasma (HIP12). Blood (Blood, Venous) 03/31/2023 4:36 PM GOVERNOR ASSEMBLER 03/31/2023 8:05 PM GOVERNOR ASSEMBLER Norma Vu M.D., Ph.D. LAB MICROBIOL OGY - BLOOD ORDERABLES [facility] [address] [place] [address] [facility] [address] [place] [address] * (ABNORMAL) Lipid Panel (03/31/2023 4:36 PM GOVERNOR ASSEMBLER) Pathologist [facility] Triglycerides 447(H) mg/dL 03/31/2023 5:24 PM GOVERNOR ASSEMBLER DTL Comment: ----REFERENCE VALUE---- Normal: <150 mg/dL Borderline High: 150-199 mg/dL High: 200-499 mg/dL Very High: > or =500 mg/dL Cholesterol, Total 286(H) mg/dL 2022 5:24 PM GOVERNOR ASSEMBLER DTL Comment: ----REFERENCE VALUE---- Desirable: < 200 mg/dL Borderline High: 200 - 239 mg/dL High: > or = 240 mg/dL Cholesterol, LDL, Calculated 148(H) mg/dL 03/31/2023 5:24 PM GOVERNOR ASSEMBLER DTL Comment: ----REFERENCE VALUE---- Desirable: <100 mg/dL Above Desirable: 100-129 mg/dL Borderline High: 130-159 mg/dL High: 160-189 mg/dL Very High: >=190 mg/dL ----ADDITIONAL INFORMATION---- LDL cholesterol calculated using the Obrien/NIH equation. Cholesterol, HDL, S 55 >=50 mg/dL 03/31/2023 5:24 PM GOVERNOR ASSEMBLER DTL Cholesterol, Non-HDL, Calculated 231(H) mg/dL 03/31/2023 5:24 PM GOVERNOR ASSEMBLER DTL Comment: ----REFERENCE VALUE---- Desirable: <130 mg/dL Above Desirable: 130-159 mg/dL Borderline High: 160-189 mg/dL High: 190-219 mg/dL Very High: > or =220 mg/dL Fasting (8 HR or more) No 03/31/2023 4:53 PM GOVERNOR ASSEMBLER DT Blood (Blood, Venous) 03/31/2023 4:36 PM GOVERNOR ASSEMBLER 03/31/2023 4:53 PM GOVERNOR ASSEMBLER Norma Vu M.D., Ph.D. LAB BLOOD ADD -ON [facility] [address] [place] [address], [facility] [address] [place] [address] * HCV Ab Scrn w/Reflex to HCV PCR, Serum (03/31/2023 4:36 PM GOVERNOR ASSEMBLER) HCV Ab Screen, S Negative Negative 03/31/2023 10:10 PM GOVERNOR ASSEMBLER [facility] Comment:Ivqjhm-sl-txlvdv rat io is <1.00. Blood (Blood, Venous) 03/31/2023 4:36 PM GOVERNOR ASSEMBLER 03/31/2023 8:05 PM GOVERNOR ASSEMBLER Norma Vu M.D., Ph.D. LAB MICROBIOL OGY - BLOOD ORDERABLES [facility] [address] [place] [address] [facility] [address] [place] [address] from Last 3 Months or Most Recently Relevant to Health Maintenance Additional Health Concerns Infection Onset Date Last Indicated Protective Environment 05/14/2023 Care Teams Com Writer Relationship Specialty Start Date End Date Elsewhere, Pcp PCP - General Internal Medicine 03/30/23
--- OUTSIDE RECORDS SUMMARY | 2023-10-11 01:00 | XMS_ITS | Encounter Summary ---
Author Organization [facility] Address [address] [place] [id number] Care Team Providers Care Hand Baseball Sewer Name Role Phone Elsewhere, Pcp Primary Care Provider Unavailabl e Reason for Visit * Reason Comments Outpatient Infusion Ocrevus * Episode Based Medications (Routine) - Authorized Specialty Diagnoses / Procedures Referred By Contac t Referred To Contact Diagnoses Multiple Sclerosis (HCC) Procedures OR OCRELIZUMAB 1 MG INJ Norma Vu M.D., Ph.D. [address] [place] [phone] [facility] Region Referral ID Status Reason Start Date Expiration Date V isits Requested Visits Authorized [id number] Authorized 05/13/2023 04/25/2024 4 4 Encounter Details Date Type Department Care Team (Late st Contact Info) Description 09/14/2023 10:00 AM CDT Infusion Department of Infusion Therapy in [address] [phone] Norma Vu M.D., Ph.D. [address] [place] [phone] Multiple Sclerosis (HCC) (Primary Dx) Social History [...] declined 02/19/2022 How often do you attend [facility] or rastafarian services? Patient declined 02/19/2022 Do you belong to any clubs o r organizations such as amish groups, unions, fraternal or athletic groups, or [...] and heating? Not hard at all 03/31/2023 [facility] [place] Occup[facility] ional Health - Occupational Stress [...] living? No 03/31/2023 Nutrition Answer Date Recorded On average, how [...] your living situation today? I have a [facility] place to live 03/31/2023 Education Answer Date Recorded What is the highest level of school you have completed or the highest degree you have received? Associate degree: occupational, technical, or vocational program 10/01/2018 Sex and Gender Information Value Date Recorded Sex Assigned at Female 03/24/2018 11:07 AM TILE MECHANIC HELPER Gender Identity Female 05/22/2020 11:48 AM TILE MECHANIC HELPER Sexual Orientation Straight 03/24/2018 11 :07 AM TILE MECHANIC HELPER documented as of this encounter Last Filed [...] AM CDT Appointment Department of Radiology in [address] [phone] Cornelio Perdomo M.D. [address] [place] [address] Discharge Disposition: Home or Self Care documented as of this encounter Visit Diagnoses [...] documented as of this encounter Care Teams Hand Baseball Sewer Relationship Specialty Start Date End Date Elsewhere, Pcp PCP - General Internal Medicine 03/30/23 documented as of this encounter
--- OUTSIDE RECORDS SUMMARY | 2023-10-11 01:00 | XMS_ITS | Encounter Summary ---
Author Organization [facility] Address [address] [place] [address] Care Team Providers Care Marketing Agent Name Role Phone Elsewhere, Pcp Primary Care Provider Unavailabl e Reason for Visit * Reason Comments Med Refill Encounter Details Date Type Department Care Team (Late st Contact Info) Description 07/06/2023 Refill Department of Neurology in [place], [place] [address] [place] [phone] Norma Vu M.D., Ph.D. [address] [place] [address] Med Refill Social History Tobacco Use Types [...] often do you attend chur ch or yazidism services? Patient declined 02/19/2022 Do you belong to any clubs o r organizations such as taoism groups, unions, fraternal or athletic groups, or [...] and heating? Not hard at all 03/31/2023 [facility] Occupat ionme Health - Occupational Stress Questionnaire Answer Date [...] your living situation today? I have a [facility] place to live 03/31/2023 Education Answer Date Recorded What is the highest level of school you have completed or the highest degree you have received? Associate degree: occupational, technical, or vocational program 10/01/2018 Sex and Gender Information Value Date Recorded Sex Assigned at Female 03/24/2018 11:07 AM APARTMENT HOTEL MANAGER Gender Identity Female 05/22/2020 11:48 AM APARTMENT HOTEL MANAGER Sexual Orientation Straight 03/24/2018 11 :07 AM APARTMENT HOTEL MANAGER documented as of this encounter Plan of Treatment Upcoming Encounters Date Type Department Care Team (Late st Contact Info) Description 10/21/2023 9:00 AM CDT Appointment Department of Radiology in [address] [phone] Cornelio Perdomo M.D. [address] [place] [phone] Discharge Disposition: Home or Self Care documented as of this encounter Visit Diagnoses Diagnosis Fatigue Dizziness documented in this encounter Additional Health Concerns Infection Onset Date Last Indicated Resolved Time Protective Environment 05/14/2023 05/14/2023 documented as of this encounter Care Teams Marketing Agent Relationship Specialty Start Date End Date Elsewhere, Pcp PCP - General Internal Medicine 03/30/23 documented as of this encounter
--- OUTSIDE RECORDS SUMMARY | 2023-10-11 01:00 | XMS_ITS | Encounter Summary ---
Author Organization [facility] Address [address] [place] [phone] Care Team Providers Care Set Up Operator Name Role Phone Elsewhere, Pcp Primary Care Provider Unavailabl e Reason for Visit * Reason Comments Outpatient Infusion ocrevus * Episode Based Medications (Routine) - Authorized Specialty Diagnoses / Procedures Referred By Contac t Referred To Contact Diagnoses Multiple Sclerosis (HCC) Procedures [place] OCRELIZUMAB 1 MG INJ Norma Vu M.D., Ph.D. [address] [place] [phone] [facility] Region Referral ID Status Reason Start Date Expiration Date V isits Requested Visits Authorized [id number] Authorized 05/13/2023 04/25/2024 4 4 Encounter Details Date Type Department Care Team (Late st Contact Info) Description 08/31/2023 8:30 AM CDT Infusion Department of Infusion Therapy in [address] [phone] Norma Vu M.D., Ph.D. [address] [place] [phone] Multiple Sclerosis (HCC) (Primary Dx) Social History [...] declined 02/19/2022 How often do you attend [facility] or taoist services? Patient declined 02/19/2022 Do you belong to any clubs o r organizations such as bahai groups, unions, fraternal or athletic groups, or [...] and heating? Not hard at all 03/31/2023 [facility] of Occupat ional Health - Occupational Stress [...] your living situation today? I have a [facility] place to live 03/31/2023 Education Answer Date Recorded What is the highest level of school you have completed or the highest degree you have received? 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 * Ocrelizumab (By injection) (Cypriot) documented in this encounter Plan of Treatment Upcoming Encounters Date Type Department Care Team (Late st Contact Info) Description 10/21/2023 9:00 AM CDT Appointment Department of Radiology in [address] [phone] Cornelio Perdomo M.D. [address] [place] [address] Discharge Disposition: Home or Self Care documented [...] documented as of this encounter Care Teams Set Up Operator Relationship Specialty Start Date End Date Elsewhere, Pcp PCP - General Internal Medicine 03/30/23 documented as of this encounter
--- OUTSIDE RECORDS SUMMARY | 2023-10-11 01:00 | XMS_ITS | Encounter Summary ---
Author Organization [facility] Address [address] [place] [address] Care Team Providers Care Grain Mixer Name Role Phone Elsewhere, Pcp Primary Care Provider Unavailabl e Encounter Details Date Type Department Care Team (Late st Contact Info) Description 02/05/2017 Historic Ophthalmology HX ARZ NO MAPPING Jacques Alejandre M.D. 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 This document has images extracted. Reference: [id number] documented in this encounter Plan of Treatment Upcoming Encounters Date Type Department Care Team (Late st Contact Info) Description 10/21/2023 9:00 AM CDT Appointment Department of Radiology in [address] [phone] Cornelio Perdomo M.D. [address] [place] [phone] Discharge Disposition: Home or Self Care documented as of this encounter Visit Diagnoses Not on filedocumented in this encounter Additional Health Concerns Infection Onset Date Last Indicated Resolved Time Protective Environment 05/14/2023 05/14/2023 documented as of this encounter Care Teams Grain Mixer Relationship Specialty Start Date End Date Elsewhere, Pcp PCP - General Internal Medicine 03/30/23 documented as of this encounter
--- OUTSIDE RECORDS SUMMARY | 2023-10-11 01:00 | XMS_ITS | Encounter Summary ---
Author Organization [facility] Address [address] [place] [address] Care Team Providers Care Manager Surgery Name Role Phone Elsewhere, Pcp Primary Care Provider Unavailabl e Reason for Referral * Outpatient (Routine) - Authorized Specialty Diagnoses / Procedures Referred By Suma zamora Referred To Contact Diagnoses Neuralgia Procedures PM Nerve Block injection Supraorbital; Non-Guided PM Nerve Block injection Supraorbital; Non-Guided Cornelio Perdomo M.D. [address] [place] [phone] [facility] Referral ID Status Reason Start Date Expiration Date V isits Requested Visits Authorized [id number] Authorized 10/07/2023 10/06/2024 1 1 * Outpatient (Routine) - Authorized Specialty Diagnoses / Procedures Referred By Suma zamora Referred To Contact Diagnoses Neuralgia Procedures PM Nerve Block injection Other; auriculotempral; Non-Guided; Left PM Nerve Block injection Other; auriculotempral; Non-Guided; Right Cornelio Perdomo M.D. [address] [place] [phone] [facility] Referral ID Status Reason Start Date Expiration Date V isits Requested Visits Authorized [id number] Authorized 10/07/2023 10/06/2024 1 1 * Outpatient (Routine) - Authorized Specialty Diagnoses / Procedures Referred By Contac t Referred To Contact Neurology Diagnoses Headache Unspecified Chronic Migraine Vertigo Neuralgia Migraine Headache Cornelio Perdomo M.D. [address] [place] [phone] [facility] Referral ID Status Reason Start Date Expiration Date V isits Requested Visits Authorized [id number] Authorized 10/07/2023 04/07/2025 1 1 * Medication Prior Authorization - Pending Review Specialty Diagnoses / Procedures Referred By Contac t Referred To Contact Diagnoses Chronic Migraine Cornelio Perdomo M.D. [address] [place] [phone] Referral ID Status Reason Start Date Expiration Date V isits Requested Visits Authorized [id number] Pending Review 10/07/2023 10/06/2024 1 1 * Outpatient (Routine) - Authorized Specialty Diagnoses / Procedures Referred By Contac t Referred To Contact Diagnoses Vertigo Procedures Vestibular rehabilitation therapy PT/OT Cornelio Perdomo M.D. [address] [place] [phone] [facility] Referral ID Status Reason Start Date Expiration Date V isits Requested Visits Authorized [id number] Authorized 10/07/2023 10/06/2024 1 1 * MRI/CAT/PET Scan (Routine) - Authorized Specialty Diagnoses / Procedures Referred By Contac t Referred To Contact Radiology Diagnoses Headache Unspecified Procedures MR Brain Venogram without and with IV Contrast Cornelio Perdomo M.D. [address] [place] [phone] [facility] Referral ID Status Reason Start Date Expiration Date V isits Requested Visits Authorized [id number] Authorized 10/07/2023 10/06/2024 1 1 * MRI/CAT/PET Scan (Routine) - Authorized Specialty Diagnoses / Procedures Referred By Suma zamora Referred To Contact Radiology Diagnoses Headache Unspecified Procedures MR Brain without and with IV Contrast Cornelio Perdomo M.D. [address] [place] [phone] [facility] Referral ID Status Reason Start Date Expiration Date V isits Requested Visits Authorized [id number] Authorized 10/07/2023 10/06/2024 1 1 Reason for Visit * Outpatient (Routine) - Closed Specialty Diagnoses / Procedures Referred By Suma zamora Referred To Contact Neurology Diagnoses Migraine Headache Norma Vu M.D., Ph.D. [address] [place] [phone] [facility] Referral ID Status Reason Start Date Expiration Date Visits Re quested Visits Authorized [id number] Closed 10/04/2023 04/04/2025 1 1 Encounter Details Date Type Department Care Team (Latest Contact Info) Description 10/07/2023 1:00 PM CDT Comprehensive Visit Department of Neurology in [place], [place] [address] [place] [phone] Norma Vu M.D., Ph.D. [address] [place] [phone] Cornelio Perdomo M.D. [address] [place] [phone] Headache Unspecified; Chronic Migraine; Vertigo Benign Paroxysmal Positional Bilateral; Neuralgia; Migraine Headache Social History Tobacco Use Types Packs/Day Years [...] declined 02/19/2022 How often do you attend [facility] or [employer] services? Patient declined 02/19/2022 Do you belong to any clubs o r organizations such as gnosticist groups, unions, fraternal or athletic groups, or [...] Answer Date Recorded PHQ-2 Score 0 10/07/2023 [facility] - Occupational Stress [...] your living situation today? I have a [facility] place to live 03/31/2023 Education Answer Date Recorded What is the highest level of school you have completed or the highest degree you have received? Associate degree: occupational, technical, or vocational program 10/01/2018 Sex and Gender Information Value Date Recorded Sex Assigned at Female 03/24/2018 11:07 AM [employer] Gender Identity Female 05/22/2020 11:48 AM [employer] Sexual Orientation Straight 03/24/2018 11 :07 AM [employer] documented as of this encounter Last Filed Vital Signs Vital Sign Reading Time Taken Comments Blood Pressure 129/86 10/07/2023 12:30 PM CDT Pulse 78 10/07/2023 12:30 PM CDT Temperature - - Respiratory Rate - - Oxygen Saturation - - Inhaled Oxygen Concentration - - Weight 81.7 kg (180 lb 1.9 oz) 10/07/2023 12:30 PM CDT Height 163.8 cm (5' 4.49) 10/07/2023 12:30 PM C DT Body Mass Index 30.45 10/07/2023 12:30 PM CDT documented in this encounter Progress Notes * Zeferino Jerome - 10/07/2023 1:00 PM CDT SUBJECTIVE CHIEF COMPLAINT / REASON FOR VISIT: Ms. Beard is a 43 y.o.right handed female who was evaluated today for headaches. HISTORY OF PRESENT ILLNESS: Past medical history is significant for BPPV, multiple sclerosis, and chronic migraine. She has been on AIMOVIG for over a year now and this has been very effective for her, effectively reducing her migraines and headaches to 0 or 1 a month. Recently, she transitioned from fingolimod toOcrevus for multiple sclerosis treatment. Her first dose of Ocrevus was on 08/30 and after that, she began experiencing a continuous moderate to severe headache that has not disappeared. She has taken Advil 800mg every day and tried Naratriptan once during this time. The only relief she has gotten was two weeks ago, when she was sent to the ED for vertigo symptoms and received a migraine cocktail. Unfortunately, the next day her headache symptoms came back. She describes her current headache as localizing to the left temporal region. This sometimes spreads to the frontal region, but never is bilateral or on the right. Pain is worsened with bright lightsand movement, but not with sound, smell, Valsalva maneuvers, or positional change. She does not have associated nausea apart from the vertigo episode two weeks ago. She usually has visual auras before the start of her migraines, but this current headache was not associated with a visual aura. It ispressure-like at times and throbbing at other times. Regarding her dizziness, she has had problems with BPPV in the past. After being treated with the Kathy maneuver in 03/2022, she says her symptoms had improved immensely. However, two weeks ago whileat work she had sudden onset vertigo and dizziness. She vomited multiple times and was sent to the ED. She was given an unknown cocktail of medications and her symptoms improved. However, since then biju moreno returns when she lays supine. These episodes last between 30-60 seconds before resolving. She does not experience vertigo when she turns from side to side in bed however. At baseline, she is not dizzy or lightheaded. Her headaches began to occur about 3 week(s) ago.In describing the headaches today, she says they tend to start bilaterally and tend to start in the frontal region. The quality of the head pain is pressure-like with throbbing. She estimates the maximal intensity of her headaches to be 8 out of 10 on a scale in which 0 out of ten signifies no pain and 10 out of 10 signifies the worst pain imaginable. The headaches are sometimes associated with nausea, vomiting, sensitivity to light and sensitivity to sound and no cranial autonomic symptoms. She experiences vertigo. Once established, her headaches are generally worsened by coughing/sneezing/bending over/straining and routine mental activity (e.g. concentrating, reading). Untreated or ineffectively treated headaches may persist for 7 day(s) and the most severe headaches may last up to 2 day(s). Ms. Beard experiences a visual disturbance prior to or in the early phase of her headaches that last more than 1 hour but less than 3 hours. Patient reports that she experiences mixing up words or having difficulty expressing thoughts at the start of headaches and it lasts for more than 1 hour but less than 3 hours.At times during her headaches and on the same side as the head pain she experiences none of these. The patient notes that flickering or glaring lights tends to trigger her headaches. The patient rates the severity and disability of average headaches as 3 out of 3 in severity. Over the past 4 weeks she reports having a headache for 20 days out of 28. CURRENT HEADACHE TREATMENTS: The patient has used the following headache acute treatments in the last 4 weeks: ibuprofen (Advil, Motrin) at a dose of 400 to 2400 mg daily for headaches only. Naratriptan (Amerge) at a dose of less than 2.5 mg less often than monthly for headaches only. The patient has used the following headache preventative treatments in the last 4 weeks: Fluoxetine (Prozac, Sarafem) at a dose of less than 40 mg. Taken for More than 1 Year. Improvement noted? - Yes. Tolerated? - Yes. Magnesium at a dose of 400mg. Taken for More than 1 Year. Improvement noted? - Yes. Tolerated? - Yes. Erenumab (Aimovig) at a dose of 140 mg monthly. Taken for more than 1 year. Improvement noted? - Yes. Tolerated? - Yes. Non medication treatments tried include Aimovig. PRIOR HEADACHE TREATMENTS: The patient has tried the following acute (abortive) treatments in the past: acetaminophen (Tylenol) for headaches only. The patient has tried following headache preventative treatments in the past: Amitriptyline (Vanatrip, Elavil, Endep) Improvement noted? - No. Nortriptyline (Pamelor, Aventyl HCL) Improvement noted? - No. Protriptyline (Vivactil) Improvement noted? - No. Topiramate (Topamax) Taken for days. Tolerated? - No. Sertaline (Zoloft) at a dose of 50 to 200 mg. Taken for more than 1 year. Venlafaxine (Effexor) Tolerated? - No. Botulinum toxin (Botox) at a dose of don't know. Taken for days. Improvement noted? - No. Tolerated? - No. The following portions of the patient's history were reviewed and updated as appropriate: current medications, family history, medical history, social history, surgical history, and problem list. REVIEW OF SYSTEMS: REVIEW OF SYSTEMS OBJECTIVE PHYSICAL EXAM For details of the neurologic examination, please see the neurologic examination form. Mental Status Patient is awake, alert, oriented to person, time and place, and able to engage in the history and examination. There are no concerns for problems with expressive or receptive language, attention span or concentration, recent/remote memory, or fund of knowledge. General Appearance: Appears stated age no apparent distress. Language: Normal Motor Speech: Normal Reflexes Right Left Corneal V,VII Snout Sucking 0 Pharynx IX, X 0 Jaw V 0 Biceps C56 0 0 Brachioradialis C56 0 0 Triceps C678 0 Roshan Epigastric T6-9 Hypogastric T11-L1 Cremasteric L12 0 Quadriceps L234 0 0 Gastroc. Soleus 0 Clonus (ankle) Hamstr. Int L45 S12 Hamstr. Ext L5 S12 Anal S34 Bulbocav. S34 withdrawal Babinski flexor Chaddock General Motor Survey Face: Normal Posture: Normal Walk on toes: 0 on the right and 0 on the left Walk on heels: 0 on the right and 0 on the left Arm swin on the right and 0 on the left Drift: 0 on the right and 0 on the left Gait: Normal Straight away: 0 On turns: 0 Tandem: 0 Station: Standin Romber Sittin Coordination: Pzozaf-Gftq-Xrlzli with Eyes Open: 0 on the right and 0 on the left Gynhxe-Ysst-Sxcpng with Eyes Closed: 0 on the right and 0 on the left Heel to knee: 0 on the right and 0 on the left Alternating Motion Rate: Hands: 0 on the right and 0 on the left Fingers: 0 on the right and 0 on the left Feet: 0 on the right and 0 on the left Muscle Tone: Head/Neck: 0 Term: 0 Move: 0 Static: 0 Rest: 0 Right Upper Extremity: 0 Term: 0 Move: 0 Static: 0 Rest: 0 Right Lower Extremity: 0 Term: 0 Move: 0 Static: 0 Rest: 0 Left Upper Extremity: 0 Term: 0 Move: 0 Static: 0 Rest: 0 Left Lower Extremity: 0 Term: 0 Move: 0 Static: 0 Rest: 0 Cranial Nerves Visual Acuity: 0 on the right and 0 on the left Fundus: normal on the right and normal on the left Ptosis: 0 on the right and 0 on the left III-IV-: normal on the right and normal on the left Field Confrontation: Field Confrontation Comments: Normal Nystagmus: Nystagmus Comments: None Eye Movements: Eye Movement Comments: Normal Right PUPILS Left Size Shape REFLEXES 0 Light 0 Consensual Accommodation Hearin on the right and 0 on the left Muscle: All normal in strength and size Right Left Comment Fascic Size Strength Strength Size Fascic Comment 0 Temporal-Masseter 0 Pterygoid 0 Forehead 0 0 Orbic oculi 0 0 Mouth (retraction) 0 0 Palate-Pharynx 0 0 Sternomastoid 0 0 Trapezius 0 0 Tongue 0 Neck flexors Neck extensors Right Left Comment Fascic Size Strength Strength Size Fascic Comment Muscle Bulk Uppers 0 Ext rotat. (supraascap) 0 Pector. Ollie. (pector) 0 Deltoid (axill) 0 0 Biceps (musculocut.) 0 Brachioradial (radial) Supinator (radial) Pronator teres (median) 0 Triceps (radial) 0 Wrist ext. (radial) Wrist flex. (med & uln) 0 Digit ext. (radial) 0 Digit flex. (med. & uln) 0 Thenar (med) 0 0 Hypothenar (uln) 0 0 Interossei (uln) 0 Abdomen Rectal sphinct. Right Left Comment Fascic Size Strength Strength Size Fascic Comment Muscle Bulk Lowers 0 Iliopsoas (femoral) 0 0 Adduct. thigh (obtur) 0 0 Abduct. thigh (sup glut) 0 Gluteus max. (inf glut) 0 Quadriceps (femor) 0 0 Hamstrings (sciat) 0 0 Anter. tibial (peron) 0 0 Toe ext. (peron) 0 0 Ext. ryan. long (peron) 0 0 Peronei (peron) 0 0 Post. tibial (tib) 0 Toe flex. (tib) 0 Gastroc. Soleus (tib) 0 Sensory Large and small fiber modalities normal except as noted below or on the image Papito-Hallpike maneuver was positive bilaterally with associated onset of vertical nystagmus. ASSESSMENT / PLAN Ms. Beard is a 43 y.o. female presenting with new onset headache in the setting of MS, chronic migraine previously well-controlled on Aimovig, and BPPV. Treatment Recommendations over the next few months: For further investigation of Ms. Beard's headaches or comorbid disorders I am suggesting additional testing which includes: MRI Brain and MRV Cerebral Recommended therapies for acute treatment of moderate to severe headache: Naratriptan (Amerge) and Prochlorperazine Preventative therapies recommended: Erenumab (Aimovig) This is a new-onset headache that has some similarities with her previous migraine. However, given the unrelenting nature of this headache and slightly different presentation, we will want to rule out secondary causes of headache, including cerebral venous sinus thrombosis and CSF leak. We have ordered a MRI brain and MRV and will follow up with her on those results. In the meantime, she should continue her Aimovig as it has been extremely effective for her chronicmigraine in the past. We have refilled her prescription for naratriptan, which she can try up to 9 days in a month. We have prescribed compazine, which can be helpful in aborting migraines as well. Finally, we have ordered a supraorbital nerve block to target the location of her headache. If her headache does not improve with these methods, she can consider DHE injections. If she has associated autonomic symptoms, we can consider indomethacin for potential hemicrania continua diagnosis. 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 We have given her a handout on Kathy maneuvers for treatment and have referredher to vestibular rehab. Patient education: The patient was ready to learn and had no apparent learning barriers. Their learning preferences include listening. The diagnosis and treatment plans were explained and the patientexpressed understanding of the content. documented in this encounter Consult Notes * Cornelio Perdomo M.D. - 10/07/2023 1:00 PM CDT SUBJECTIVE REFERRAL SOURCE Norma Vu M.D., Ph.D. CHIEF COMPLAINT / REASON FOR VISIT Ms. Beard is a 43 y.o.right handed female who was evaluated today for headaches. 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 I have reviewed the patient's history of present illness, past medical and surgical history, medication, allergies, social history, family history, and the comprehensive impression and plan extensively with Luly Jerome. In addition, I have had the opportunity to interview and examine the patient myself. We have discussed the patient's care in detail and I agree with the assessment and recommendations as outlined in the clinical note for today's date. HISTORY OF PRESENT ILLNESS She reports a longstanding history of chronic migraine. She has been on Aimovig since 2018 and has noted significant reduction of her migraines. She was having daily migraines prior to Aimovig. Whileon Aimovig she had been experiencing, at most, one or two mild headache days per month. However on August 30 she developed a headache that has been constant ever since (with the exception of one day after she received treatment in an emergency department). The headache is relatively similar to her prior experience of migraines. Her headaches are left-sided over the temporal and frontal region. Pain is pressure- like in quality and sometimes throbbing. Headaches will reach a 5-6/10 in intensity and may be associated with photophobia and nausea. She denies phonophobia, osmophobia, or vomiting. Headaches are worsened by activity. She denies Valsalva headache, postural headaches, fever, chills, sweats, or unintended weight loss.She denies tinnitus or pulsatile tinnitus She has been experiencing vertigo with lying supine. This will last from 30-60 seconds. She has a prior history of benign paroxysmal positional vertigo. She has been employing the Kathy maneuver at home however this has not been helpful. Her headaches began to occur about 3 week(s) ago.In describing the headaches today, she says they tend to start bilaterally and tend to start in the frontal region. The quality of the head pain is pressure-like with throbbing. She estimates the maximal intensity of her headaches to be 8 out of 10 on a scale in which 0 out of ten signifies no pain and 10 out of 10 signifies the worst pain imaginable. The headaches are sometimes associated with nausea, vomiting, sensitivity to light and sensitivity to sound and no cranial autonomic symptoms. She experiences vertigo. Once established, her headaches are generally worsened by coughing/sneezing/bending over/straining and routine mental activity (e.g. concentrating, reading). Untreated or ineffectively treated headaches may persist for 7 day(s) and the most severe headaches may last up to 2 day(s). Ms. Beard experiences a visual disturbance prior to or in the early phase of her headaches that last more than 1 hour but less than 3 hours. Patient reports that she experiences mixing up words or having difficulty expressing thoughts at the start of headaches and it lasts for more than 1 hour but less than 3 hours.At times during her headaches and on the same side as the head pain she experiences none of these. The patient notes that flickering or glaring lights tends to trigger her headaches. The patient rates the severity and disability of average headaches as 3 out of 3 in severity. Over the past 4 weeks she reports having a headache for 20 days out of 28. CURRENT HEADACHE TREATMENTS: The patient has used the following headache acute treatments in the last 4 weeks: ibuprofen (Advil, Motrin) at a dose of 400 to 2400 mg daily for headaches only. The patient has used the following headache preventative treatments in the last 4 weeks: Fluoxetine (Prozac, Sarafem) at a dose of less than 40 mg. Taken for More than 1 Year. Improvement noted? - Yes. Tolerated? - Yes. Magnesium at a dose of 400mg. Taken for More than 1 Year. Improvement noted? - No. Tolerated? - No. Erenumab (Aimovig) at a dose of 140 mg monthly. Taken for more than 1 year. Improvement noted? - Yes. Tolerated? - Yes. PRIOR HEADACHE TREATMENTS: The patient has tried the following acute (abortive) treatments in the past: Naratriptan (Amerge) at a dose of 2.5 to 7.5 mg less often than monthly for headaches only. Rizatriptan (Maxalt) at a dose of 10 to 30 mg 1 to 2 days per week for headaches only. The patient has tried following headache preventative treatments in the past: Amitriptyline (Vanatrip, Elavil, Endep) at a dose of 40 to 150 mg. Taken for 1 - 2 months. Improvement noted? - No. Tolerated? - No. Nortriptyline (Pamelor, Aventyl HCL) at a dose of 40 to 100 mg. Taken for 1 - 2 months. Improvementnoted? - No. Tolerated? - No. Protriptyline (Vivactil) at a dose of 10 to 60 mg. Taken for 1 - 2 months. Improvement noted? - No.Tolerated? - No. Gabapentin (Neurontin) at a dose of less than 900 mg. Taken for 1 - 2 months. Improvement noted? - No. Tolerated? - No. Topiramate (Topamax) at a dose of 75 to 200 mg. Taken for 2 - 12 months. Improvement noted? - No. Tolerated? - No. Venlafaxine (Effexor) at a dose of 37.5 to 150 mg. Taken for 2 - 12 months. Improvement noted? - No. Tolerated? - No. Botulinum toxin (Botox) at a dose of more than 150 units. Taken for 2 - 12 months. Improvement noted? - No. Tolerated? - Yes. The following portions of the patient's history were reviewed and updated as appropriate: allergies, current medications, family history, medical history, social history, surgical history, and problem list. OBJECTIVE PHYSICAL EXAMINATION I have reviewed vital signs as recorded in the EPIC record. On limited neurologic examination there did not appear to be any papilledema. There is prominent tenderness over the left supraorbital and left auriculotemporal nerves. Papito-Hallpike maneuver is positive bilaterally. ASSESSMENT / PLAN Ms. Beard's clinical history and neurological examination today suggest that she suffers from the following diagnoses for which I am suggesting the listed diagnostics and therapy: #1 New onset daily headache, side locked to the left, migraine features, rule out secondary causes,possible developing new daily persistent headache versus chronic migraine #2 Chronic Migraine #3 Vertigo Benign Paroxysmal Positional Bilateral #4 Neuralgia #5 Migraine Headache The presence of the above comorbid diagnoses increases the complexity of the management of the patient's headaches. Mrs. Beard is a 43-year-old lady with longstanding history of chronic migraine which has been verywell controlled on Aimovig. However she is experienced daily headaches since August 30 which may be indicative of a superimposed new daily persistent headache. However secondary causes need to be ruled out. Treatment Recommendations over the next few months: For further investigation of Ms. Churchs headaches or comorbid disorders I am suggesting additional testing which includes: MRI Brain and MRV Cerebral, left supraorbital and auriculotemporal nerve blocks and vestibular rehab for suspected bilateral BPPV. Recommended therapies for acute treatment of moderate to severe headache: Naratriptan (Amerge) and Prochlorperazine Preventative therapies recommended: Erenumab (Aimovig) I would suggest she continue Aimovig 140 mg monthly. I will see her back after testing. Could consider indomethacin to rule out hemicrania continua the above treatment strategies are not effective. Ms. Beard was given written instructions for the dosing and titration and the common side effects of these medications. I attempted to answer any questions that she had regarding her headaches and the proposed treatment. Patient education: The patient was ready to learn and had no apparent learning barriers. Their learning preferences include listening. The diagnosis and treatment plans were explained and the patientexpressed understanding of the content. documented in this encounter Plan of Treatment Upcoming Encounters Date Type Department Care Team ([facility] st Contact Info) Description 10/21/2023 9:00 AM CDT Appointment Department of Radiology in [address] [phone] Cornelio Perdomo M.D. [address] [place] [address] Discharge Disposition: Home or Self Care Scheduled Orders Name Type Priority Associated Diagnoses Orde r Schedule MR Brain without and with IV Contrast Imaging RAD - Routine (most inpatients and all outpatients) Headache Unspecified Expected: 10/07/2023, Expires: 10/06/2024 MR Brain Venogram without and with IV Contrast Imaging RAD - Routine (most inpatients and all outpatients) Headache Unspecified Expected: 10/07/2023, Expires: 01/06/2025 Scheduled Referrals Name Type Priority Associated Diagnoses Orde r Schedule Neurology office visit (clinic) Outpatient Referral Routine Headache Unspecified Chronic Migraine Vertigo Benign Paroxysmal Positional Bilateral Neuralgia Migraine Headache Expected: 10/07/2023 (Approximate), Expires: 01/06/2025 documented as of this encounter Visit Diagnoses Diagnosis Headache Unspecified Chronic Migraine Vertigo Benign Paroxysmal Positional Bilateral Neuralgia Migraine Headache documented in this encounter Additional Health Concerns Infection Onset Date Last Indicated Resolved Time Protective Environment 05/14/2023 05/14/2023 Assessment Noted Time PHQ-9 Depression Total Score: 8 10/07/19 24 12:30 PM CDT documented as of this encounter Care Teams Manager Surgery Relationship Specialty Start Date End Date Elsewhere, Pcp PCP - General Internal Medicine 03/30/23 documented as of this encounter
--- OUTSIDE RECORDS SUMMARY | 2023-10-11 01:00 | XMS_ITS | Encounter Summary ---
Author Organization [facility] Address [address] [place] [address] Care Team Providers Care Parts Counter Associate Name Role Phone Elsewhere, Pcp Primary Care Provider Unavailabl e Encounter Details Date Type Department Care Team (Late st Contact Info) Description 10/08/2023 Clinical Communication Department of Neurology in [place], [place] [address] [place] [address] Manuel Alonzo M.D. [address] [place] [phone] Social History Tobacco Use Types Packs/Day Years [...] How often do you attend chur or latter day services? Patient declined 02/19/2022 Do you belong to any clubs o r organizations such as restorationism groups, unions, fraternal or athletic groups, or [...] Answer Date Recorded PHQ-2 Score 0 10/07/2023 [facility] of Occupat ional Health - Occupational Stress [...] your living situation today? I have a [facility] place to live 03/31/2023 Education Answer Date Recorded What is the highest level of school you have completed or the highest degree you have received? Associate degree: occupational, technical, or vocational program 10/01/2018 Sex and Gender Information Value Date Recorded Sex Assigned at Female 03/24/2018 11:07 AM MONOGRAM MAKER Gender Identity Female 05/22/2020 11:48 AM MONOGRAM MAKER Sexual Orientation Straight 03/24/2018 11 :07 AM MONOGRAM MAKER documented as of this encounter Plan of Treatment Upcoming Encounters Date Type Department Care Team (Late st Contact Info) Description 10/21/2023 9:00 AM CDT Appointment Department of Radiology in [address] [phone] Cornelio Perdomo M.D. [address] [place] [phone] Discharge Disposition: Home or Self Care documented as of this encounter Visit Diagnoses Not on filedocumented in this encounter Additional Health Concerns Infection Onset Date Last Indicated Resolved Time Protective Environment 05/14/2023 05/14/2023 Assessment Noted Time PHQ-9 Depression Total Score: 8 10/07/19 24 12:30 PM CDT documented as of this encounter Care Teams Parts Counter Associate Relationship Specialty Start Date End Date Elsewhere, Pcp PCP - General Internal Medicine 03/30/23 documented as of this encounter
--- OUTSIDE RECORDS SUMMARY | 2023-10-11 01:00 | XMS_ITS | Encounter Summary ---
Author Organization [facility] Address [address] [place] [address] Care Team Providers Care Veterinary Practice Manager Name Role Phone Elsewhere, Pcp Primary Care Provider Unavailabl e Reason for Visit * Reason Comments Med Refill Encounter Details Date Type Department Care Team (Late st Contact Info) Description 09/30/2023 Refill Department of Neurology in [place], [place] [address] [place] [phone] Norma Vu M.D., Ph.D. [address] [place] [address] Med Refill Social History Tobacco Use Types [...] often do you attend chur ch or zoroastrian services? Patient declined 02/19/2022 Do you belong to any clubs o r organizations such as jewish groups, unions, fraternal or athletic groups, or [...] and heating? Not hard at all 03/31/2023 [facility] of Occupat ionma Health - Occupational Stress Questionnaire Answer Date [...] your living situation today? I have a [facility] place to live 03/31/2023 Education Answer Date Recorded What is the highest level of school you have completed or the highest degree you have received? Associate degree: occupational, technical, or vocational program 10/01/2018 Sex and Gender Information Value Date Recorded Sex Assigned at Female 03/24/2018 11:07 AM HOLLOCK MAKER Gender Identity Female 05/22/2020 11:48 AM HOLLOCK MAKER Sexual Orientation Straight 03/24/2018 11 :07 AM HOLLOCK MAKER documented as of this encounter Plan of Treatment Upcoming Encounters Date Type Department Care Team (Late st Contact Info) Description 10/21/2023 9:00 AM CDT Appointment Department of Radiology in [address] [phone] Cornelio Perdomo M.D. [address] [place] [address] Discharge Disposition: Home or Self Care documented as of this encounter Visit Diagnoses Diagnosis Fatigue Dizziness documented in this encounter Additional Health Concerns Infection Onset Date Last Indicated Resolved Time Protective Environment 05/14/2023 05/14/2023 documented as of this encounter Care Teams Veterinary Practice Manager Relationship Specialty Start Date End Date Elsewhere, Pcp PCP - General Internal Medicine 03/30/23 documented as of this encounter
--- OUTSIDE RECORDS SUMMARY | 2023-10-11 01:00 | XMS_ITS | Encounter Summary ---
Author Organization [facility] Address [address] [place] [address] Care Team Providers Care Table Maker Name Role Phone Elsewhere, Pcp Primary Care Provider Unavailabl e Encounter Details Date Type Department Care Team (Late st Contact Info) Description 06/09/2017 Historic Ophthalmology HX ARZ NO MAPPING Jacques Alejandre M.D. [address] [place] [address] Social History Tobacco Use Types Packs/Day Years Used Date Smoking Tobacco: Never Assessed Sex and Gender Information Value Date Recorded Sex Assigned at Female 03/24/2018 11:07 AM CIVIL ENGINEERING DESIGN DRAFTSPERSON Gender Identity Female 05/22/2020 11:48 AM CIVIL ENGINEERING DESIGN DRAFTSPERSON Sexual Orientation Straight 03/24/2018 11 :07 AM CIVIL ENGINEERING DESIGN DRAFTSPERSON documented as of this encounter Progress Notes [...] Examination Oph Visual Acuity Distance 09-Jun-2017 12:26 [facility] Distance Acuity Right 20/20 Distance Acuity Left 20/20 Distance Correction Right With glasses Distance Correction Left With glasses Pupil Size Right 09-Jun-2017 12:26 [facility] Pupil Size Right 4mm Pupil Reactivity Right 09-Jun-2017 12:26 [facility] Pupil Reactivity Right 2+ Pupil Size Left 09-Jun-2017 12:26 [facility] Pupil Size Left 4mm Pupil Reactivity Left 09-Jun-2017 12:26 [facility] Pupil Reactivity Left 2+ Afferent Pupil Defect Right 09-Jun-2017 12:26 [facility] APD Right No afferent defect Afferent Pupil Defect Left 09-Jun-2017 12:26 [facility] APD Left No afferent defect Motility Ocular Motility 09-Jun-2017 12:26 [facility] Ocular Motility full in both eyes and the eyes are straight Visual claros Oph Visual Field 09-Jun-2017 12:26 [facility] Visual Field Other: SEE HVF Oph Intraocular Pressure 09-Jun-2017 12:26 [facility] IOP Right 12 IOP Left 12 IOP Instrument Used Right Applanation IOP Instrument Used Left Applanation Oph Dilation 09-Jun-2017 12:26 [facility] Dilation Right Eye 1% tropicamide, 2.5% phenylephrine [...] mos. This document has images extracted. Reference: [id number] L ENGINEERING DESIGN DRAFTSPERSON documented in this encounter Plan of Treatment Upcoming Encounters Date Type Department Care Team (Late st Contact Info) Description 10/21/2023 9:00 AM CDT Appointment Department of Radiology in [address] [phone] Cornelio Perdomo M.D. [address] [place] [phone] Discharge Disposition: Home or Self Care documented as of this encounter Visit Diagnoses Not on filedocumented in this encounter Additional Health Concerns Infection Onset Date Last Indicated Resolved Time Protective Environment 05/14/2023 05/14/2023 documented as of this encounter Care Teams Table Maker Relationship Specialty Start Date End Date Elsewhere, Pcp PCP - General Internal Medicine 03/30/23 documented as of this encounter
--- OUTSIDE RECORDS SUMMARY | 2023-10-11 01:00 | XMS_ITS | Referral Summary ---
Author Organization [facility] Address [address] [place] [address] Care Team Providers Care Yard Switcher Name Role Phone Elsewhere, Pcp Primary Care Provider Unavailabl e Source Comments Patient records contain information from all sites at [facility]. For routine questions regarding patient records, call [phone] during business hours, M-F 8:00 AM - 5:00 PM Central Time. Record requests for emergency care only can be directed to [phone] at any time.[facility] Encounters Date Type Department Care Team Description 10/08/2023 Clinical Communication Department of Neurology in [place], [place] [address] [place] [address] Manuel Alonzo M.D. 10/07/2023 1:00 PM CDT Comprehensive Visit Department of Neurology in [place], [place] [address] [place] [address] Norma Vu M.D., Ph.D. Cornelio Perdomo M.D. Headache Unspecified; Chronic Migraine; Vertigo Benign Paroxysmal Positional Bilateral; Neuralgia; Migraine Headache 10/04/2023 Orders Only Department of Neurology in [place], [place] [address] [place] [address] Norma Vu M.D., Ph.D. Migraine Headache (Primary Dx) 09/30/2023 Refill Department of Neurology in [place], [place] [address] [place] [address] Norma Vu M.D., Ph.D. Med Refill 09/14/2023 10:00 AM CDT Infusion Department of Infusion Therapy in [address] [phone] Norma Vu M.D., Ph.D. Multiple Sclerosis (HCC) (Primary Dx) 08/31/2023 8:30 AM CDT Infusion Department of Infusion Therapy in [address] [address] Norma Vu M.D., Ph.D. Multiple Sclerosis (HCC) (Primary Dx) from Last 3 Months Allergies Active Allergy [...] food. 20 tablet 3 9 10/07/19 24 Discontinued( erapy completed) sertraline (ZOLOFT) 100 mg tablet Take 1 tablet (100 mg total) by mouth daily. 90 tablet 1 0 10/07/19 24 Discontinued( erapy completed) FLUoxetine (PROzac) 40 mg capsule [...] hours as needed for pain. 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 or presybeterian services? Patient declined 02/19/2022 Do you belong to any clubs o r organizations such as latter day groups, unions, fraternal or athletic groups, or [...] Answer Date Recorded PHQ-2 Score 0 10/07/2023 [facility] of Occupat ional Health - Occupational [...] your living situation today? I have a [facility] place to live 03/31/2023 Education Answer Date Recorded What is the highest level of school you have completed or the highest degree you have received? Associate degree: occupational, technical, or vocational program 10/01/2018 Sex and Gender Information Value Date Recorded Sex Assigned at Female 03/24/2018 11:07 AM ASSURANCE SOURCING MANAGER Gender Identity Female 05/22/2020 11:48 AM ASSURANCE SOURCING MANAGER Sexual Orientation Straight 03/24/2018 11 :07 AM ASSURANCE SOURCING MANAGER Last Filed Vital Signs Vital Sign Reading [...] CDT Appointment Department of Radiology in [address] [phone] Cornelio Perdomo M.D. [address] [place] [phone] Discharge Disposition: Home or Self Care Procedures Procedure Name Priority Date/Time Associated Diagnosis Comments HCV AB SCRN W/REFLEX TO HCV PCR, S Routine 03/31/2023 4:36 PM ASSURANCE SOURCING MANAGER Multiple Sclerosis (HCC) HIV-1/-2 AG AND AB SCREEN, PLASMA Routine 03/31/2023 4:36 PM ASSURANCE SOURCING MANAGER Multiple Sclerosis (HCC) LIPID PANEL, S Routine 03/31/2023 4:36 PM ASSURANCE SOURCING MANAGER Multiple Sclerosis (HCC) from Last 3 Months or Most Recently Relevant to Health Maintenance Results * HIV-1/-2 Ag and Ab Screen, Plasma (03/31/2023 4:36 PM ASSURANCE SOURCING MANAGER) HIV-1/-2 Ag and Ab Screen, P Negative Negative 03/31/2023 8:46 PM ASSURANCE SOURCING MANAGER [facility] Comment: Negative result does not rule out HIV infection. If exposure to HIV infection occurred <14 days ago, contact the laboratory to request addition of HIV-1/HIV-2 RNA detection, Plasma (HIP12). Blood (Blood, Venous) 03/31/2023 4:36 PM ASSURANCE SOURCING MANAGER 03/31/2023 8:05 PM ASSURANCE SOURCING MANAGER Norma Vu M.D., Ph.D. LAB MICROBIOL OGY - BLOOD ORDERABLES [facility] [address] [place] [address] [facility] [address] [place] [address] * (ABNORMAL) Lipid Panel (03/31/2023 4:36 PM ASSURANCE SOURCING MANAGER) Triglycerides 447(H) mg/dL 03/31/2023 5:24 PM ASSURANCE SOURCING MANAGER DTL Comment: ----REFERENCE VALUE---- Normal: <150 mg/dL Borderline High: 150-199 mg/dL High: 200-499 mg/dL Very High: > or =500 mg/dL Cholesterol, Total 286(H) mg/dL 2022 5:24 PM ASSURANCE SOURCING MANAGER DTL Comment: ----REFERENCE VALUE---- Desirable: < 200 mg/dL Borderline High: 200 - 239 mg/dL High: > or = 240 mg/dL Cholesterol, LDL, Calculated 148(H) mg/dL 03/31/2023 5:24 PM ASSURANCE SOURCING MANAGER DTL Comment: ----REFERENCE VALUE---- Desirable: <100 mg/dL Above Desirable: 100-129 mg/dL Borderline High: 130-159 mg/dL High: 160-189 mg/dL Very High: >=190 mg/dL ----ADDITIONAL INFORMATION---- LDL cholesterol calculated using the Obrien/NIH equation. Cholesterol, HDL, S 55 >=50 mg/dL 03/31/2023 5:24 PM ASSURANCE SOURCING MANAGER DTL Cholesterol, Non-HDL, Calculated 231(H) mg/dL 03/31/2023 5:24 PM ASSURANCE SOURCING MANAGER DTL Comment: ----REFERENCE VALUE---- Desirable: <130 mg/dL Above Desirable: 130-159 mg/dL Borderline High: 160-189 mg/dL High: 190-219 mg/dL Very High: > or =220 mg/dL Fasting (8 HR or more) No 03/31/2023 4:53 PM ASSURANCE SOURCING MANAGER DTL Blood (Blood, Venous) 03/31/2023 4:36 PM ASSURANCE SOURCING MANAGER 03/31/2023 4:53 PM ASSURANCE SOURCING MANAGER Norma Vu M.D., Ph.D. LAB BLOOD ADD -ON [facility] [address] [place] [address], [facility] DTL [facility] [address] [place] [address] * HCV Ab Scrn w/Reflex to HCV PCR, Serum (03/31/2023 4:36 PM ASSURANCE SOURCING MANAGER) HCV Ab Screen, S Negative Negative 03/31/2023 10:10 PM ASSURANCE SOURCING MANAGER [facility] Comment:Huqtkc-[id number] rat io is <1.00. Blood (Blood, Venous) 03/31/2023 4:36 PM ASSURANCE SOURCING MANAGER 03/31/2023 8:05 PM ASSURANCE SOURCING MANAGER Norma Vu M.D., Ph.D. LAB MICROBIOL OGY - BLOOD ORDERABLES [facility] [address] [place] [address] [facility] [address] [place] [address] from Last 3 Months or Most Recently Relevant to Health Maintenance Additional Health Concerns Infection Onset Date Last Indicated Protective Environment 05/14/2023 4 Care Teams Yard Switcher Relationship Specialty Start Date End Date Elsewhere, Pcp PCP - General Internal Medicine 12/5/23
--- OUTSIDE RECORDS SUMMARY | 2023-10-11 01:00 | XMS_ITS ---
Author Organization [facility] Address [address] [place] [address] Care Team Providers Care Supervisor Abattoir Name Role Phone Unavailable Unavailable Unavailable Surgery Details Not on file Complications Check Surgery Details section. Procedure Estimated Blood Loss Check Surgery Details section. Procedure Findings Check Surgery Details section. Procedure Specimens Taken Check Surgery Details section.
--- OUTSIDE RECORDS SUMMARY | 2023-10-11 01:00 | XMS_ITS | Encounter Summary ---
Author Organization [facility] Address [address] [place] [address] Care Team Providers Care Finance Accounting Internship Name Role Phone Elsewhere, Pcp Primary Care Provider Unavailabl e Encounter Details Date Type Department Care Team (Late st Contact Info) Description 12/09/2017 Historic Ophthalmology HX ARZ NO MAPPING Meli Serrano O.D. [address] [place] [address] Social History Tobacco Use Types Packs/Day Years Used Date Smoking Tobacco: Every Day Sex and Gender Information Value Date Recorded Sex Assigned at Female 03/24/2018 11:07 AM WINDOW SYSTEMS ADMINISTRATOR Gender Identity Female 05/22/2020 11:48 AM WINDOW SYSTEMS ADMINISTRATOR Sexual Orientation Straight 03/24/2018 11 :07 AM WINDOW SYSTEMS ADMINISTRATOR documented as of this encounter Consult Notes [...] Medications Ordered Perform Medication Reconciliation: 1 [facility] Prescriptions Prescribed Gilenya 0.5 mg oral [...] Problems High Risk Medication / SNOMED CT [id number] / Confirmed Plan Return to clinic: Gilenya Use no retinal abnormalities, normal macula on HRT today monitor for change Disc @ risk ?prior episode of neuritis OS RNFL thinning on HRT, temporal OS stable findings/vision recheck 6 mos, DFE, HRT. Refractive error: OD: [id number] OS: -[id number] . Reference: [id number] documented in this encounter Plan of Treatment Upcoming Encounters Date Type Department Care Team (Late st Contact Info) Description 10/21/2023 9:00 AM CDT Appointment Department of Radiology in [address] [phone] Cornelio Perdomo M.D. [address] [place] [phone] Discharge Disposition: Home or Self Care documented as of this encounter Visit Diagnoses Not on filedocumented in this encounter Additional Health Concerns Infection Onset Date Last Indicated Resolved Time Protective Environment 05/14/2023 05/14/2023 documented as of this encounter Care Teams Finance Accounting Internship Relationship Specialty Start Date End Date Elsewhere, Pcp PCP - General Internal Medicine 03/30/23 documented as of this encounter
--- OUTSIDE RECORDS SUMMARY | 2023-10-11 01:00 | XMS_ITS | Encounter Summary ---
Author Organization [facility] Address [address] [place] [address] Care Team Providers Care Medical Dermatologist Name Role Phone Elsewhere, Pcp Primary Care Provider Unavailabl e Reason for Referral * Outpatient (Routine) - Closed Specialty Diagnoses / Procedures Referred By Suma t Referred To Contact Neurology Diagnoses Migraine Headache Norma Vu M.D., Ph.D. [address] [place] [phone] [facility] Referral ID Status Reason Start Date Expiration Date Visits Re quested Visits Authorized [id number] Closed 10/04/2023 04/04/2025 1 1 Encounter Details Date Type Department Care Team (Late st Contact Info) Description 10/04/2023 Orders Only Department of Neurology in [place], [place] [address] [place] [phone] Norma Vu M.D., Ph.D. [address] [place] [phone] Migraine Headache (Primary Dx) Social History Tobacco Use Types [...] declined 02/19/2022 How often do you attend [facility] or yazidism services? Patient declined 02/19/2022 Do you belong to any clubs o r organizations such as oriental orthodox groups, unions, fraternal or athletic groups, or [...] and heating? Not hard at all 03/31/2023 [facility] of Occupat ional Health - Occupational Stress [...] your living situation today? I have a [facility] place to live 03/31/2023 Education Answer Date Recorded What is the highest level of school you have completed or the highest degree you have received? Associate degree: occupational, technical, or vocational program 10/01/2018 Sex and Gender Information Value Date Recorded Sex Assigned at Female 03/24/2018 11:07 AM ROCK LOADER Gender Identity Female 05/22/2020 11:48 AM ROCK LOADER Sexual Orientation Straight 03/24/2018 11 :07 AM ROCK LOADER documented as of this encounter Plan of Treatment Upcoming Encounters Date Type Department Care Team (Late st Contact Info) Description 10/21/2023 9:00 AM CDT Appointment Department of Radiology in [address] [phone] Cornelio Perdomo M.D. [address] [place] [address] Discharge Disposition: Home or Self Care Scheduled Referrals Name Type Priority Associated Diagnoses Orde r Schedule Neurology - Headache consult (clinic) Outpatient Referral Routine Migraine Headache Expected: 10/04/2023, Expires: 01/03/2025 documented as of this encounter Visit Diagnoses Diagnosis Migraine Headache- Primary documented in this encounter Additional Health Concerns Infection Onset Date Last Indicated Resolved Time Protective Environment 05/14/2023 05/14/2023 documented as of this encounter Care Teams Medical Dermatologist Relationship Specialty Start Date End Date Elsewhere, Pcp PCP - General Internal Medicine 03/30/23 documented as of this encounter
== END 2023-09-25 14:57 | disposition home or self-care (01) ==
LOC: AMB 10-11 00:56
PROVIDERS: PCP Family Medicine; Visit Provider Family Medicine
DX: R51.9 Headache, unspecified (principal); R42 Dizziness and giddiness
CPT/HCPCS: A0425; A0429

== ENCOUNTER 2023-09-25 15:21 | Emergency (ER) | payer BC, SELFPAY ==
[2023-09-25 15:27] VITALS: BP 128/59; PULSE 61; RESP 18; TEMP 35.7; O2SAT 92; BMI 29.2
--- NOTE | 2023-09-25 15:43 | ED_ITS ---
HPI - General Adult General Time Seen by Provider: 15:44 Date Seen: 09/25/23 Chief complaint: Dizziness/Vertigo Stated complaint: Dizziness Time Seen by Provider: 09/25/23 15:27 Source: patient, EMS and RN notes reviewed Mode of arrival: EMS Limitations: no limitations History of Present Illness HPI narrative: Patient is a 43-year-old female brought in by ambulance from work at [employer] where she developed headache and dizziness, described as spinning type sensation. She has history of his tubular migraines. She was working, developed headache, the dizziness ensued after and was severe. She did have an emesis prior to me seeing her, headache is now resolved. She still feeling dizzy. These vestibular migraines have been diagnosed, seemed to have worsened since she started a new injectable medicine for her multiple sclerosis. She had that about 1-2 weeks ago. She was on Aimovig which was helping her vestibular migraines but the new medicine maybe seems to be blocking it some. No noted visual or hearing changes. As far as her MS, denies any baseline underlying chronic neurologic changes. She notes no numbness tingling weakness. This seems to be typical for her vestibular migraine. Did ask her how about a history of a TIA that listed in 2018 in the chart, cannot find any further information on this, her MS was also listed that year. She cannot give me any further details on this, is unaware that she has ever had a stroke. She knows that she has the MS and vestibular migraines. Has not been sick with anything, no fevers or chills. Nursing staff let me know that patient did not want to get out of clothes into gown as movement makes her feel worse. She had emesis after moving from EMS stretcher to ED bed. She admits that she has been having increased headaches as of late thought to be due to medication issues, just has been using Tylenol and ibuprofen. She does have a history of vestibular migraines but has not had 1 for a while now, the headache she has been having as of late have not been vestibular in nature. The headache started in than when she was just sitting there, had severe dizziness or spinning sensation and was significantly symptomatic from it. Holding still did help. Related Data Home Medications ?Medication ?Instructions ?Recorded ?Confirmed amantadine HCl 100 mg capsule 100 mg PO QDAY 01/06/22 08/29/23 erenumab-aooe 140 mg/mL 140 mg subcut .1 01/06/22 08/29/23 subcutaneous auto-injector (Aimovig Autoinjector) fexofenadine 180 mg tablet 180 mg PO Q24H 01/06/22 08/29/23 fingolimod 0.5 mg capsule ([employer]) 0.5 mg PO QDAY 01/06/22 08/29/23 Previous Rx's ?Medication ?Instructions ?Recorded ketorolac 10 mg tablet 10 mg PO Q8H 5 days #15 tabs 08/19/22 methylprednisolone 4 mg tablets in See Rx Instructions PO .COMPLEX 04/29/23 a dose pack (Medrol ([place])) #21 ea tramadol 50 mg tablet 50 mg PO Q6H PRN pain #20 tabs 04/29/23 fluoxetine 20 mg capsule 60 mg (3 x 20 mg) PO QDAY #270 caps 09/23/23 Allergies Allergy/AdvReac Type Severity Reaction Status Date / Time codeine Allergy Severe Anaphylaxis Verified 08/29/23 22:28 Iodinated Contrast Media Allergy Intermediate Hives Verified 08/29/23 22:28 Review of Systems Status of ROS: Reports: 6 or more systems reviewed and unremarkable except as noted in History and below [facility] Medical History Weight gain ?R63.5 - Abnormal weight gain (ICD-10) Tobacco abuse ?Z72.0 - Tobacco use (ICD-10) Demyelinating disease of central nervous system ?G37.9 - Demyelinating disease of central nervous system, unspecified (ICD- 10) Dysfunctional uterine bleeding ?N93.8 - Other specified abnormal uterine and vaginal bleeding (ICD-10) History of CVA (cerebrovascular accident) (2018) ?Z86.73 - Personal history of transient ischemic attack (TIA), and cerebral infarction without residual deficits (ICD-10) Vestibular migraine (2020) ?G43.809 - Other migraine, not intractable, without status migrainosus (ICD- 10) Depression with anxiety ?F41.8 - Other specified anxiety disorders (ICD-10) Multiple sclerosis (2018) ?G35 - Multiple sclerosis (ICD-10) Surgical History History of dilation and curettage (~03/2022) ?Z98.890 - Other specified postprocedural states (ICD-10) History of (2011) ?Z98.891 - History of uterine scar from previous surgery (ICD-10) Family History Family/Other Adopted Social History 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 Walks a lot at work over 10,000 steps daily College degree. No alcohol use. No recreational drug use. No concerns for safety or abuse. Smoking Status: Former smoker Do you use any of these nicotine containing products: None Second hand tobacco smoke exposure: No How often do you have a drink containing alcohol: never How often do you have six or more drinks on one occasion: Never AUDIT-C Alcohol total score: 0 Non-prescribed substance use: denies use Caffeine: Yes Little interest or pleasure in doing things: not at all Feeling down, depressed, or hopeless: not at all service: No Exam Const: Vital Signs, click to edit/add: Vital Signs - 24 hr 09/25/23 15:27 09/25/23 17:22 09/25/23 18:44 Temperature 96.3 F L Pulse Rate [Pulse Oximeter] 61 64 61 Respiratory Rate 18 16 16 Blood Pressure [Ri t Upper Arm] 128/59 L 123/66 133/80 Pulse Oximetry 92 64 L 99 Oxygen Delivery Me thod Room Air Room Air Room Air This 43-year-old female is alert, interactive, no apparent distress. She was in itially keep her eyes closed, had an emesis bag. She has glasses, she will open her eyes, pupils are equal and round, extraocular muscles intact, note no nystagmus. Symmetrical facial function, speech is normal. Neck is supple. Lungs are clear, good air entry. CV regular rate and rhythm, no murmur, normal S1-S2, no S3-S4. Abdomen is soft, nontender. Strength is 5/5 and symmetric in hands arms, shoulders. Strength is 5/5 and symmetric throughout her feet, ankles and legs. She has normal light touch sensation. No tremor or dysmetria noted at this time. Did not have ask her to ambulate at this point. Documenting provider has reviewed patient's vital signs: yes Course Course ED Course: Will establish an IV, treat patient symptomatically with Zofran for nausea, 2.5 mg IV Valium for presumed vestibular migraine. Will give her some IV fluids with this. We will see how she responds. We do not have any capacity to do MRI here at this time. Patient also has MS, possible history of a CVA before. May need to consider talking to Neurology and neuro imaging potentially if she does not improve at these minimal treatments for vestibular migraine. Reevaluation(s) Time of Reevaluation #1: 16:38 Reevaluation #1: Patient is still feeling some dizziness, this is confirmed as a spinning sensation, overall improved. Is certainly not as bad as when it 1st came on. Her headache is gone. Nausea has improved, just had an emesis about 5 minutes ago. The Zofran was given about a 1/2 hour ago, 2.5 mg Valium given about almost an hour ago. She is better but still having the spinning sensation. She can lift her head off the pillow now without making her feel significantly worse. Headache is still gone. Will give her a subsequent 2.5 mg Valium IV, no concern for any airway compromise or sedation at this point. Will also give her some oral meclizine. Will touch base with Neurology. Time of Reevaluation #2: 16:56 Reevaluation #2: Reviewed with patient that we will be proceeding with head imaging as recommended by Neurology. She was in agreement with this plan. She will need hydrocortisone and Benadryl ordered as she has IV contrast allergy with hives. Time of Reevaluation #3: 18:09 Reevaluation #3: Patient is feeling much better, she is looking at her phone. Reviewed with her that her head CT shows no acute abnormality. She is wondering if she needs to complete the CTA , reviewed with her that this is the only way we can make sure that there is no thrombosis. I cannot force her to do the testing but it is recommended by Neurology. She does agree to stay and have this done. Additional Reevaluation(s): 7:48 p.m.: Reviewed normal pre them CTA reports with patient. She has been up ambulatory in the ER, feeling better. We will discharge to home. Discussed follow-up, she feels like she will likely contact her neurologist this coming week. Consultations Consultation #1: Spoke with Stroke Neurology Dr. Lorenzo at [place]. Reviewed the case with her. She does believe that this is probably software support representative of a vestibular migraine but did recommend that I proceed with head CT and then CT angio of her head and neck just to ensure no occlusion and posterior circulation. Reviewed with her that I do not have MRI capacity at this time. Time: 16:48 Vital Signs Vital signs: Initial Vital Signs Temperature 96.3 F L 09/25/23 15:27 Temperature Source Temporal Artery Scan 09/25/23 15:27 Pulse Rate 61 09/25/23 15:27 Respiratory Rate 18 09/25/23 15:27 Blood Pressure 128/59 L 09/25/23 15:27 Blood Pressure Mean 82 09/25/23 15:27 Blood Pressure Position Supine 09/25/23 15:27 Pulse Oximetry 92 09/25/23 15:27 Oxygen Delivery Method Room Air 09/25/23 15:27 Vital Signs Temperature 96.3 F L 09/25/23 15:27 Pulse Rate 61 09/25/23 15:27 Respiratory Rate 18 09/25/23 15:27 Blood Pressure 128/59 L 09/25/23 15:27 Pulse Oximetry 92 09/25/23 15:27 Oxygen Delivery Method Room Air 09/25/23 15:27 Temperature 96.3 F L 09/25/23 15:27 Pulse Rate 61 09/25/23 18:44 Respiratory Rate 16 09/25/23 18:44 Blood Pressure 133/80 09/25/23 18:44 Pulse Oximetry 99 09/25/23 18:44 Oxygen Delivery Method Room Air 09/25/23 18:44 Medications Administered Medications: Discontinued Medications Generic Name Dose Route Start Last Admin Trade Name Freq PRN Reason Stop Dose Admin Diazepam 2.5 mg 09/25/23 15:44 09/25/23 16:05 Diazepam 5 Mg/Ml Inj IV 09/25/23 15:45 2.5 mg ONCE ONE Administration Diazepam 2.5 mg 09/25/23 16:40 09/25/23 17:51 Diazepam 5 Mg/Ml Inj IV 09/25/23 16:41 Not Given ONCE ONE Diphenhydramine HCl 50 mg 09/25/23 17:07 09/25/23 17:49 Diphenhydramine 50 Mg/Ml Inj IVP 09/25/23 17:08 50 mg ONCE ONE Administration Hydrocortisone Sodium Succinate 200 mg 09/25/23 17:07 09/25/23 17:42 Hydrocortisone Sod Succinate 50 Mg/Ml Inj IVP 09/25/23 17:08 200 mg ONCE ONE Administration Lactated Ringer's 1,000 mls @ 1,000 mls/hr 09/25/23 15:44 09/25/23 17:06 Lactated Ringers 1000 Ml IV 09/25/23 16:43 Infused .Q1H ONE Infusion Meclizine HCl 25 mg 09/25/23 16:40 09/25/23 17:35 Meclizine Hcl 25 Mg Tablet PO 09/25/23 16:41 25 mg ONCE ONE Administration Ondansetron HCl 4 mg 09/25/23 15:57 09/25/23 16:05 Ondansetron 2 Mg/Ml Inj IVP 09/25/23 15:58 4 mg ONCE ONE Administration Medical Decision Making Lab Data Lab results reviewed: Yes I reviewed the patient's lab results Labs: Lab Results 09/25/23 Range/Units 16:05 WBC 7.76 (4.50-11.00) K/uL RBC 4.37 (4.00-5.20) m/uL Hgb 11.3 L (12.0-16.0) gm/dL Hct 35.4 (33.0-51.0) % MCV 81 (80-100) fL MCH 26 (26-34) pg MCHC 32 (32-36) gm/dL RDW Coeff of Alfredo 14.9 (11.5-15.5) % Plt Count 389 (140-440) K/uL Neut % (Auto) 87.1 H (42.0-72.0) % Lymph % (Auto) 5.2 L (20-44) % [place] % (Auto) 5.7 (0.0-11.0) % Eos % (Auto) 1.4 (0.0-7.0) % Baso % (Auto) 0.3 (0.0-3.0) % Neut # (Auto) 6.80 (1.7-7.0) K/uL Lymph # (Auto) 0.40 L (0.90-2.90) K/uL [place] # (Auto) 0.40 (0.00-0.90) K/UL Eos # (Auto) 0.11 (0.00-0.50) K/uL Baso # (Auto) 0.02 (0.00-0.30) K/uL Abs Immat Gran (auto) 0.02 (0.00-0.30) K/uL Imm/Tot Granulo (auto) 0.3 % Sodium 135 (135-149) mmol/L Potassium 3.6 (3.6-5.1) mmol/L Chloride 105 (96-114) mmol/L Carbon Dioxide 21 (20-32) mmol/L Anion Gap 9 (7-15) mEq/L BUN 12 (5-24) mg/dL Creatinine 0.9 (0.5-1.5) mg/dL Estimated Creat Clear 69.60 Estimated GFR 81 ml/min Glucose 121 H (60-115) mg/dL Calcium 8.6 (8.4-10.6) mg/dL Magnesium 2.3 (1.5-2.6) mg/dL Total Bilirubin 0.5 (0.1-1.5) mg/dL AST 25 (12-35) U/L ALT 20 (4-35) U/L Alkaline Phosphatase 109 (40-150) U/L Total Protein 7.7 (6.0-8.3) g/dL Albumin 4.6 (3.3-5.0) g/dL Imaging Data CT scan - head: Attestation: I have reviewed the pertinent imaging results. Radiologist's impression: Patient: ADIA ALVAREZ Facility:?[facility] Patient ID:?[id number] Site Patient ID:?[id number]. Site :?[id number] Study:?CT-Head W/O-09/25/2023 5:19:17 PM Ordering Physician:Dea Scott Final Report: INDICATION: Dizziness. COMPARISON: None available. TECHNIQUE: Noncontrast CT head. FINDINGS: Normal brain parenchymal morphology. No acute intracranial hemorrhage, acute infarct, mass effect, or fracture. No midline shift. No abnormal ventricular dilatation. Normal calvarium and skull base. Visualized paranasal sinuses mastoid air cells are clear. Normal orbits bilaterally. IMPRESSION: 1. No acute intracranial abnormality. Please note that all CT scans at this facility use dose modulation, iterative reconstruction, and/or weight-based dosing when appropriate to reduce radiation dose to as low as reasonably achievable. Dictated by Suresh Wahl MD @ 09/25/2023 5:22:29 PM (Electronic Signature) CT- Other: Attestation: I have reviewed the pertinent imaging results. Radiologist's impression: Patient: ADIA ALVAREZ Facility:?[facility] Patient ID:?[id number] Site Patient ID:?[id number]. Site :?[id number] Study:?CT-Neck Angio W/IV ONLY-09/25/2023 6:43:05 PM Ordering Physician:?Spenser Scott Preliminary Report: INDICATION: Dizziness. COMPARISON: None. FINDINGS: CTA head: 1. Bilateral carotid siphons and mohegan Mcl[place] are patent. 2. Major bilateral intracranial artery circulations patent with no focal high-g rade stenosis, large with occlusion or aneurysm. 3. Patent right dominant vertebrobasilar system. CTA neck: 1. Patent bilateral carotid artery circulations from the origin to the skullbase. No focal stenosis. 2. Patent bilateral vertebral circulations from the origin to the vertebrobasilar junction. No high-grade stenosis or dissection. The right vertebral artery is dominant. Other: Normal soft tissues of the neck. Lung apices are clear. Dictated by Suresh Wahl MD @ 09/25/2023 7:38:38 PM Read by:?Suresh Wahl MD @09/25/2023 7:38:49 PM Discharge Plan Discharge Clinical Impression: Vestibular migraine Patient Disposition: Home, Self-Care Condition: Stable Instructions: Migraine Headache (ED) Additional Instructions: Go home and rest, drink plenty of fluids. It is important to stay hydrated with headache disorders. Follow-up with primary provider next week, possibly your neurologist if you have ongoing concerns with headaches, further issues with vestibular migraine. Activity Level: Activity as Tolerated Prescriptions: No Action amantadine HCl 100 mg capsule 100 mg PO QDAY Aimovig Autoinjector 140 mg/mL auto-injector 140 mg subcut .1 Gilenya 0.5 mg capsule 0.5 mg PO QDAY fexofenadine 180 mg tablet 180 mg PO Q24H ketorolac 10 mg tablet 10 mg PO Q8H 5 Days Qty: 15 0RF tramadol 50 mg tablet 50 mg PO Q6H PRN (Reason: pain) Qty: 20 0RF methylprednisolone [Medrol ([place])] 4 mg tablets,dose pack See Rx Instructions .ROUTE .COMPLEX Qty: 21 0RF Rx Instructions: orally per package directions fluoxetine 20 mg capsule 60 mg PO QDAY Qty: 270 0RF Rx Instructions: Patient to take 3 caps by mouth daily Follow Up/Referrals: Zakiya Hirsch MD [Primary Care Provider] - Stand Alone [facility] Info Instructions
[2023-09-25] MEDS: diazePAM 5 MG/ML inj 2.5 MG IV (16:05)
[2023-09-25] MEDS: ONDANSETRON 2 MG/ML inj 4 MG IVP (16:05)
[2023-09-25] MEDS: LACTATED RINGERS 1000 ML 1,000 ML IV (16:09)
[2023-09-25 16:13] LABS: Basophils Absolute Auto 0.02 K/uL (0.00-0.30); Basophils Percent Auto 0.3 % (0.0-3.0); Eosinophils Absolute Auto 0.11 K/uL (0.00-0.50); Eosinophils Percent Auto 1.4 % (0.0-7.0); Hematocrit 35.4 % (33.0-51.0); Hemoglobin* 11.3 gm/dL (12.0-16.0); Immature Granulocytes Abs Auto 0.02 K/uL (0.00-0.30); Immature Granulocytes Pct Auto 0.3 %; Lymphocytes Percent Auto 5.2 % (20-44); Mean Corpuscular HGB Conc 32 gm/dL (32-36); Mean Corpuscular Hemoglobin 26 pg (26-34); Mean Corpuscular Volume 81 fL (80-100); Monocytes Percent Auto 5.7 % (0.0-11.0); Neutrophils Percent Auto 87.1 % (42.0-72.0); Platelet Count* 389 K/uL (140-440); RDW Coefficient of Variation % 14.9 % (11.5-15.5); Red Blood Count 4.37 m/uL (4.00-5.20); White Blood Count* 7.76 K/uL (4.50-11.00)
[2023-09-25 16:19] LABS: Slide Review Reflex No
[2023-09-25 16:26] LABS: Albumin* 4.6 g/dL (3.3-5.0); Chloride* 105 mmol/L (96-114); Potassium* 3.6 mmol/L (3.6-5.1); Sodium* 135 mmol/L (135-149)
[2023-09-25 16:28] LABS: Bilirubin Total* 0.5 mg/dL (0.1-1.5); Creatinine* 0.9 mg/dL (0.5-1.5); Estimated Glomerular Filt Rate 81 ml/min
[2023-09-25 16:29] LABS: Alanine Aminotransferase* 20 U/L (4-35); Alkaline Phosphatase* 109 U/L (40-150); Aspartate Amino Transferase* 25 U/L (12-35); Blood Urea Nitrogen* 12 mg/dL (5-24); Calcium* 8.6 mg/dL (8.4-10.6); Carbon Dioxide* 21 mmol/L (20-32); Glucose* 121 mg/dL (60-115); Magnesium* 2.3 mg/dL (1.5-2.6); Total Protein* 7.7 g/dL (6.0-8.3)
[2023-09-25 16:31] LABS: Anion Gap 9 mEq/L (7-15)
--- OUTSIDE RECORDS SUMMARY | 2023-09-25 16:34 | XMS_ITS | Encounter Summary ---
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 [address] [place] [address] Med Refill Social History Tobacco Use Types [...] often do you attend chur ch or mandaeism services? Patient declined 02/19/2022 Do you belong to any clubs o r organizations such as confucianism groups, unions, fraternal or athletic groups, or [...] and heating? Not hard at all 03/31/2023 [facility]nc Health - Occupational Stress Questionnaire Answer Date [...] your living situation today? I have a [facility] place to live 03/31/2023 Education Answer Date Recorded What is the highest level of school you have completed or the highest degree you have received? Associate degree: occupational, technical, or vocational program 10/01/2018 Sex and Gender Information Value Date Recorded Sex Assigned at Female 03/24/2018 11:07 AM STATISTICAL METHODS TEACHER Gender Identity Female 05/22/2020 11:48 AM STATISTICAL METHODS TEACHER Sexual Orientation Straight 03/24/2018 11 :07 AM STATISTICAL METHODS TEACHER documented as of this encounter Plan of Treatment Not on file documented as of this encounter Visit Diagnoses Diagnosis Fatigue Dizziness documented in this encounter Additional Health Concerns Infection Onset Date Last Indicated Resolved Time Protective Environment 05/14/2023 05/14/2023 documented as of this encounter Care Teams Defence Force Member Other Ranks Relationship Specialty Start Date End Date Elsewhere, Pcp PCP - General Internal Medicine 03/30/23 documented as of this encounter
--- OUTSIDE RECORDS SUMMARY | 2023-09-25 16:34 | XMS_ITS | Encounter Summary ---
Author Organization [facility] Address [address] [place] [address] Care Team Providers Care Order Manager Name Role Phone Elsewhere, Pcp Primary Care Provider Unavailabl e Encounter Details Date Type Department Care Team (Late st Contact Info) Description 02/05/2017 Historic Ophthalmology HX ARZ NO MAPPING Jacques Alejandre M.D. [address] [place] [address] Social History Tobacco Use Types Packs/Day Years Used Date Smoking Tobacco: Never Assessed Sex and Gender Information Value Date Recorded Sex Assigned at Female 03/24/2018 11:07 AM BAND CUTTING MACHINE OPERATOR Gender Identity Female 05/22/2020 11:48 AM BAND CUTTING MACHINE OPERATOR Sexual Orientation Straight 03/24/2018 11 :07 AM BAND CUTTING MACHINE OPERATOR documented as of this encounter Consult Notes [...] Examination Oph Visual Acuity Distance 05-Feb-2017 13:10 [facility] Distance Acuity Right 20/20 Distance Acuity Left 20/20 Distance Correction Right With glasses Distance Correction Left With glasses Pupil Size Right 05-Feb-2017 13:10 [facility] Pupil Size Right 4mm Pupil Reactivity Right 05-Feb-2017 13:10 [facility] Pupil Reactivity Right 2+ Pupil Size Left 05-Feb-2017 13:10 [facility] Pupil Size Left 4mm Pupil Reactivity Left 05-Feb-2017 13:10 [facility] Pupil Reactivity Left 2+ Afferent Pupil Defect Right 05-Feb-2017 13:10 [facility] APD Right No afferent defect Afferent Pupil Defect Left 05-Feb-2017 13:10 [facility] APD Left No afferent defect Motility Ocular Motility 05-Feb-2017 13:10 [facility] Ocular Motility full in both eyes and the eyes are straight Visual claros Oph Visual Field 05-Feb-2017 13:10 [facility] Visual Field normal by confrontation Oph Intraocular Pressure 05-Feb-2017 13:10 [facility] IOP Right 16 IOP Left 16 IOP Instrument Used Right Applanation IOP Instrument Used Left Applanation Oph Dilation 05-Feb-2017 13:10 [facility] Dilation Right Eye 1% tropicamide, 2.5% [...] mos. This document has images extracted. Reference: [id number] documented in this encounter Plan of Treatment Not on file documented as of this encounter Visit Diagnoses Not on filedocumented in this encounter Additional Health Concerns Infection Onset Date Last Indicated Resolved Time Protective Environment 05/14/2023 05/14/2023 documented as of this encounter Care Teams Order Manager Relationship Specialty Start Date End Date Elsewhere, Pcp PCP - General Internal Medicine 03/30/23 documented as of this encounter
--- OUTSIDE RECORDS SUMMARY | 2023-09-25 16:34 | XMS_ITS ---
Author Organization [facility] Address [address] [place] [address] Care Team Providers Care Service Tech/Welder Name Role Phone Unavailable Unavailable Unavailable Surgery Details Not on file Complications Check Surgery Details section. Procedure Estimated Blood Loss Check Surgery Details section. Procedure Findings Check Surgery Details section. Procedure Specimens Taken Check Surgery Details section.
--- OUTSIDE RECORDS SUMMARY | 2023-09-25 16:34 | XMS_ITS | Encounter Summary ---
Author Organization [facility] Address [address] [place] [address] Care Team Providers Care Golf Professional Name Role Phone Elsewhere, Pcp Primary Care Provider Unavailabl e Encounter Details Date Type Department Care Team (Late st Contact Info) Description 06/09/2017 Historic Ophthalmology HX ARZ NO MAPPING Jacques Alejandre M.D. [address] [place] [address] Social History Tobacco Use Types Packs/Day Years Used Date Smoking Tobacco: Never Assessed Sex and Gender Information Value Date Recorded Sex Assigned at Female 03/24/2018 11:07 AM VOICE INTERCEPT TECHNICIAN Gender Identity Female 05/22/2020 11:48 AM VOICE INTERCEPT TECHNICIAN Sexual Orientation Straight 03/24/2018 11 :07 AM VOICE INTERCEPT TECHNICIAN documented as of this encounter Progress Notes [...] Examination Oph Visual Acuity Distance 09-Jun-2017 12:26 [facility] Distance Acuity Right 20/20 Distance Acuity Left 20/20 Distance Correction Right With glasses Distance Correction Left With glasses Pupil Size Right 09-Jun-2017 12:26 [facility] Pupil Size Right 4mm Pupil Reactivity Right 09-Jun-2017 12:26 [facility] Pupil Reactivity Right 2+ Pupil Size Left 09-Jun-2017 12:26 [facility] Pupil Size Left 4mm Pupil Reactivity Left 09-Jun-2017 12:26 [facility] Pupil Reactivity Left 2+ Afferent Pupil Defect Right 09-Jun-2017 12:26 [facility] APD Right No afferent defect Afferent Pupil Defect Left 09-Jun-2017 12:26 [facility] APD Left No afferent defect Motility Ocular Motility 09-Jun-2017 12:26 [facility] Ocular Motility full in both eyes and the eyes are straight Visual claros Oph Visual Field 09-Jun-2017 12:26 [facility] Visual Field Other: SEE HVF Oph Intraocular Pressure 09-Jun-2017 12:26 [facility] IOP Right 12 IOP Left 12 IOP Instrument Used Right Applanation IOP Instrument Used Left Applanation Oph Dilation 09-Jun-2017 12:26 [facility] Dilation Right Eye 1% tropicamide, 2.5% [...] mos. This document has images extracted. Reference: [id number] E INTERCEPT TECHNICIAN documented in this encounter Plan of Treatment Not on file documented as of this encounter Visit Diagnoses Not on filedocumented in this encounter Additional Health Concerns Infection Onset Date Last Indicated Resolved Time Protective Environment 05/14/2023 05/14/2023 documented as of this encounter Care Teams Golf Professional Relationship Specialty Start Date End Date Elsewhere, Pcp PCP - General Internal Medicine 03/30/23 documented as of this encounter
--- OUTSIDE RECORDS SUMMARY | 2023-09-25 16:34 | XMS_ITS | Encounter Summary ---
Author Organization [facility] Address [address] [place] [id number] Care Team Providers Care Federal Law Clerk Name Role Phone Elsewhere, Pcp Primary Care Provider Unavailabl e Reason for Visit * Reason Comments Outpatient Infusion Ocrevus * Episode Based Medications (Routine) - Authorized Specialty Diagnoses / Procedures Referred By Contac t Referred To Contact Diagnoses Multiple Sclerosis (HCC) Procedures [place] OCRELIZUMAB 1 MG INJ Norma Vu M.D., Ph.D. [address] [place] [phone] [facility] Region Referral ID Status Reason Start Date Expiration Date V isits Requested Visits Authorized [id number] Authorized 05/13/2023 04/25/2024 4 4 Encounter Details Date Type Department Care Team (Late st Contact Info) Description 09/14/2023 10:00 AM CDT Infusion Department of Infusion Therapy in [address] [phone] Norma Vu M.D., Ph.D. [address] [place] [phone] Multiple Sclerosis (HCC) (Primary Dx) Social History Tobacco Use Types Packs/Day Years [...] declined 02/19/2022 [facility] you attend [facility] or [facility] services? Patient declined 02/19/2022 Do you belong to any clubs o r organizations such as sikhism groups, unions, fraternal or athletic groups, or [...] and heating? Not hard at all 03/31/2023 [facility] [place] of Occupat ional Health - Occupational Stress [...] your living situation today? I have a [facility] place to live 03/31/2023 Education Answer Date Recorded What is the highest level of school you have completed or the highest degree you have received? Associate degree: occupational, technical, or vocational program 10/01/2018 Sex and Gender Information Value Date Recorded Sex Assigned at Female 03/24/2018 11:07 AM SALON SHAMPOO ASSISTANT Gender Identity Female 05/22/2020 11:48 AM SALON SHAMPOO ASSISTANT Sexual Orientation Straight 03/24/2018 11 :07 AM SALON SHAMPOO ASSISTANT documented as of this encounter Last Filed Vital Signs Vital Sign Reading Time Taken Comments Blood Pressure 132/73 09/14/2023 2:34 PM CDT Pulse 78 09/14/2023 2:34 PM CDT Temperature 36.6 ??C (97.9 ??F) 09/14/2023 10:10 AM C DT Respiratory Rate 16 09/14/2023 2:34 PM CDT Oxygen Saturation 97% 09/14/2023 10:10 AM CDT Inhaled Oxygen Concentration - - Weight - - Height - - Body Mass Index - - documented in this encounter Plan of Treatment Not on file documented as of this encounter Visit Diagnoses Diagnosis Multiple Sclerosis (HCC)- Primary documented in this encounter Administered Medications Inactive Administered Medications - up to 3 most recent administrations Medication Order MAR Action Action Date Dose Rate Site acetaminophen tablet 650 mg (TYLENOL) 650 mg, oral, Once, On Wed09/14/23 at 1030, For 1 dose Given 09/14/2023 10:16 AM CDT 650 mg diphenhydrAMINE capsule 25 mg (BENADRYL) 25 mg, oral, Once, On Wed09/14/23 at 1030, For 1 dose Given 09/14/2023 10:16 AM CDT 25 mg methylPREDNISolone sod succinate (PF) injection 100 mg (SOLU-Medrol) 100 mg, intravenous, Once, On Wed09/14/23 at 1030, For 1 dose, Activate vial to a final concentration of 62.5 mg/mL Given 09/14/2023 10:21 AM CDT 100 mg ocrelizumab 300 mg in NaCl 0.9% IVPB (OCREVUS) 300 mg, intravenous, Once, On Wed09/14/23 at 1030, For 1 dose, Initial 2 doses: Duration: 2.5 hours or longer. Start at 30 mL per hour, then increase by 30 mL per hour every 30 minutes to a maximum of 180 mL per hour. Handle with care. Do not shake or tube. Administer via 0.2 micron in-line filter. Rate/Dose Change 09/14/2023 1:17 PM CDT 180 mL/hr Rate/Dose Change 09/14/2023 12:47 PM CDT 150 mL /hr Rate/Dose Change 09/14/2023 12:17 PM CDT 120 mL /hr documented in this encounter Additional Health Concerns Infection Onset Date Last Indicated Resolved Time Protective Environment 05/14/2023 05/14/2023 documented as of this encounter Care Teams Federal Law Clerk Relationship Specialty Start Date End Date Elsewhere, Pcp PCP - General Internal Medicine 03/30/23 documented as of this encounter
--- OUTSIDE RECORDS SUMMARY | 2023-09-25 16:34 | XMS_ITS | Referral Summary ---
Author Organization [facility] Address [address] [place] [address] Care Team Providers Care Manager Loan Name Role Phone Elsewhere, Pcp Primary Care Provider Unavailabl e Source Comments Patient records contain information from all sites at [facility]. For routine questions regarding patient records, call [phone] during business hours, M-F 8:00 AM - 5:00 PM Central Time. Record requests for emergency care only can be directed to [phone] at any time.[facility] Encounters Date Type Department Care Team Description 09/14/2023 10:00 AM CDT Infusion Department of Infusion Therapy in [address] [phone] Norma Vu M.D., Ph.D. Multiple Sclerosis (HCC) (Primary Dx) 08/31/2023 8:30 AM CDT Infusion Department of Infusion Therapy in [address] [phone] Norma Vu M.D., Ph.D. Multiple Sclerosis (HCC) (Primary Dx) 07/06/2023 Refill Department of Neurology in [place], [place] [address] [place] [address] Norma Vu M.D., Ph.D. Med Refill from [...] by mouth daily. 90 capsule 04/13/2022 Active Aimovig Autoinjector 140 mg/mL injection INJECT THE CONTENTS OF 1 AUTOINJECTOR PEN UNDER THE SKIN EVERY 30 DAYS 3 mL 3 01/14/2023 Active amantadine (SYMMETREL) 100 mg tablet Take 1 tablet (100 mg total) by mouth daily. 30 tablet 2 03/31/2023 Active amantadine (SYMMETREL) 100 mg capsuleIndication s:Fatigue,Dizzine ss take one capsule by mouth once daily 30 capsule 2 07/12/2023 Active cyclobenzaprine (FLEXERIL) 10 mg tablet Take 10 mg by mouth 3 (three) times a day as needed for muscle spasms. Active HYDROcodone-aceta minophen (NORCO) 5-325 mg per tablet Take 1-2 tablets by mouth every 4 (four) hours as needed for pain. 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 Patient declined 02/19/2022 Do you belong to any clubs o r organizations such as zoroastrianism groups, unions, fraternal or athletic groups, or [...] and heating? Not hard at all 03/31/2023 [facility] [place] of Occupat ional Health - Occupational Stress [...] Date Recorded Dental: Regular Dentist No 02/20/20 22 Employment Answer Date Recorded Employment status Employed and actively working without restrictions 03/31/2023 Housing Stability Answer Date Recorded What is your living situation today? I have a [facility] place to live 03/31/2023 Education Answer Date Recorded What is the highest level of school you have completed or the highest degree you have received? Associate degree: occupational, technical, or vocational program 10/01/2018 Sex and Gender Information Value Date Recorded Sex Assigned at Female 03/24/2018 11:07 AM DRIVING SCHOOL INSTRUCTOR Gender Identity Female 05/22/2020 11:48 AM DRIVING SCHOOL INSTRUCTOR Sexual Orientation Straight 03/24/2018 11 :07 AM DRIVING SCHOOL INSTRUCTOR Last Filed Vital Signs Vital Sign Reading Time Taken Comments Blood Pressure 132/73 09/14/2023 2:34 PM CDT Pulse 78 09/14/2023 2:34 PM CDT Temperature 36.6 ??C (97.9 ??F) 09/14/2023 10:10 AM C DT Respiratory Rate 16 09/14/2023 2:34 PM CDT Oxygen Saturation 97% 09/14/2023 10:10 AM CDT Inhaled Oxygen Concentration - - Weight 78 kg (171 lb 15.3 oz) 03/31/2023 2:55 PM DRIVING SCHOOL INSTRUCTOR Height 162.5 cm (5' 3.98) 03/31/2023 2:55 PM CS T Body Mass Index 29.54 03/31/2023 2:55 PM DRIVING SCHOOL INSTRUCTOR Plan of Treatment Not on file Procedures Procedure Name Priority Date/Time Associated Diagnosis Comments HCV AB SCRN W/REFLEX TO HCV PCR, S Routine 03/31/2023 4:36 PM DRIVING SCHOOL INSTRUCTOR Multiple Sclerosis (HCC) HIV-1/-2 AG AND AB SCREEN, PLASMA Routine 03/31/2023 4:36 PM DRIVING SCHOOL INSTRUCTOR Multiple Sclerosis (HCC) LIPID PANEL, S Routine 03/31/2023 4:36 PM DRIVING SCHOOL INSTRUCTOR Multiple Sclerosis (HCC) from Last 3 Months or Most Recently Relevant to Health Maintenance Results * HIV-1/-2 Ag and Ab Screen, Plasma (03/31/2023 4:36 PM DRIVING SCHOOL INSTRUCTOR) Pathologist [facility] HIV-1/-2 Ag and Ab Screen, P Negative Negative 03/31/2023 8:46 PM DRIVING SCHOOL INSTRUCTOR [facility] Comment: Negative result does not rule out HIV infection. If exposure to HIV infection occurred <14 days ago, contact the laboratory to request addition of HIV-1/HIV-2 RNA detection, Plasma (HIP12). Blood (Blood, Venous) 03/31/2023 4:36 PM DRIVING SCHOOL INSTRUCTOR 03/31/2023 8:05 PM DRIVING SCHOOL INSTRUCTOR Norma Vu M.D., Ph.D. LAB MICROBIOL OGY - BLOOD ORDERABLES [facility]PE [address] [place] [address] [facility] [address] [place] [address] * (ABNORMAL) Lipid Panel (03/31/2023 4:36 PM DRIVING SCHOOL INSTRUCTOR) Triglycerides 447(H) mg/dL 03/31/2023 5:24 PM DRIVING SCHOOL INSTRUCTOR DTL Comment: ----REFERENCE VALUE---- Normal: <150 mg/dL Borderline High: 150-199 mg/dL High: 200-499 mg/dL Very High: > or =500 mg/dL Cholesterol, Total 286(H) mg/dL 2022 5:24 PM DRIVING SCHOOL INSTRUCTOR DTL Comment: ----REFERENCE VALUE---- Desirable: < 200 mg/dL Borderline High: 200 - 239 mg/dL High: > or = 240 mg/dL Cholesterol, LDL, Calculated 148(H) mg/dL 03/31/2023 5:24 PM DRIVING SCHOOL INSTRUCTOR DTL Comment: ----REFERENCE VALUE---- Desirable: <100 mg/dL Above Desirable: 100-129 mg/dL Borderline High: 130-159 mg/dL High: 160-189 mg/dL Very High: >=190 mg/dL ----ADDITIONAL INFORMATION---- LDL cholesterol calculated using the Obrien/NIH equation. Cholesterol, HDL, S 55 >=50 mg/dL 03/31/2023 5:24 PM DRIVING SCHOOL INSTRUCTOR DTL Cholesterol, Non-HDL, Calculated 231(H) mg/dL 03/31/2023 5:24 PM DRIVING SCHOOL INSTRUCTOR DTL Comment: ----REFERENCE VALUE---- Desirable: <130 mg/dL Above Desirable: 130-159 mg/dL Borderline High: 160-189 mg/dL High: 190-219 mg/dL Very High: > or =220 mg/dL Fasting (8 HR or more) No 03/31/2023 4:53 PM DRIVING SCHOOL INSTRUCTOR DTL Blood (Blood, Venous) 03/31/2023 4:36 PM DRIVING SCHOOL INSTRUCTOR 03/31/2023 4:53 PM DRIVING SCHOOL INSTRUCTOR Norma Vu M.D., Ph.D. LAB BLOOD ADD -ON [facility] [address] [place] [address], [place] DTL [facility] [address] [place] [address] * HCV Ab Scrn w/Reflex to HCV PCR, Serum (03/31/2023 4:36 PM DRIVING SCHOOL INSTRUCTOR) Pathologist [facility] HCV Ab Screen, S Negative Negative 03/31/2023 10:10 PM DRIVING SCHOOL INSTRUCTOR [facility] Comment:Sgsxel-jg-ensoih rat io is <1.00. Blood (Blood, Venous) 03/31/2023 4:36 PM DRIVING SCHOOL INSTRUCTOR 03/31/2023 8:05 PM DRIVING SCHOOL INSTRUCTOR Norma Vu M.D., Ph.D. LAB MICROBIOL OGY - BLOOD ORDERABLES [facility] [address] [place] [address] [facility] [address] [place] [address] from Last 3 Months or Most Recently Relevant to Health Maintenance Additional Health Concerns Infection Onset Date Last Indicated Protective Environment 05/14/2023 4 Care Teams Manager Loan Relationship Specialty Start Date End Date Elsewhere, Pcp PCP - General Internal Medicine 03/30/23
--- OUTSIDE RECORDS SUMMARY | 2023-09-25 16:34 | XMS_ITS | Encounter Summary ---
Author Organization [facility] Address [address] [place] [address] Care Team Providers Care Social Security Assessor Name Role Phone Elsewhere, Pcp Primary Care Provider Unavailabl e Encounter Details Date Type Department Care Team (Late st Contact Info) Description 12/09/2017 Historic Ophthalmology HX ARZ NO MAPPING Meli Serrano O.D. [address] [place] [address] Social History Tobacco Use Types Packs/Day Years Used Date Smoking Tobacco: Every Day Sex and Gender Information Value Date Recorded Sex Assigned at Female 03/24/2018 11:07 AM PAPER WRAPPING MACHINE OPERATOR Gender Identity Female 05/22/2020 11:48 AM PAPER WRAPPING MACHINE OPERATOR Sexual Orientation Straight 03/24/2018 11 :07 AM PAPER WRAPPING MACHINE OPERATOR documented as of this encounter [...] 11:19 MST *Final* Ophthalmology Note* Patient: ADIA ALVAREZ [...] Medications Ordered Perform Medication Reconciliation: 1 [facility] Prescriptions Prescribed Gilenya 0.5 mg oral [...] Problems High Risk Medication / SNOMED CT [id number] / Confirmed Plan Return to clinic: Gilenya Use no retinal abnormalities, normal macula on HRT today monitor for change Disc @ risk ?prior episode of neuritis OS RNFL thinning on HRT, temporal OS stable findings/vision recheck 6 mos, DFE, HRT. Refractive error: OD: [id number] OS: -[id number] . Reference: [facility]-[id number] documented in this encounter Plan of Treatment Not on file documented as of this encounter Visit Diagnoses Not on filedocumented in this encounter Additional Health Concerns Infection Onset Date Last Indicated Resolved Time Protective Environment 05/14/2023 05/14/2023 documented as of this encounter Care Teams Social Security Assessor Relationship Specialty Start Date End Date Elsewhere, Pcp PCP - General Internal Medicine 03/30/23 documented as of this encounter
--- OUTSIDE RECORDS SUMMARY | 2023-09-25 16:34 | XMS_ITS | Encounter Summary ---
Author Organization [facility] Address [address] [place] [id number] Care Team Providers Care Mining Detail Draftsperson Name Role Phone Elsewhere, Pcp Primary Care Provider Unavailabl e Reason for Visit * Reason Comments Outpatient Infusion ocrevus * Episode Based Medications (Routine) - Authorized Specialty Diagnoses / Procedures Referred By Contac t Referred To Contact Diagnoses Multiple Sclerosis (HCC) Procedures RI OCRELIZUMAB 1 MG INJ Norma Vu M.D., Ph.D. [address] [place] [phone] [facility] Region Referral ID Status Reason Start Date Expiration Date V isits Requested Visits Authorized [id number] Authorized 05/13/2023 04/25/2024 4 4 Encounter Details Date Type Department Care Team (Late st Contact Info) Description 08/31/2023 8:30 AM CDT Infusion Department of Infusion Therapy in [address] [phone] Norma Vu M.D., Ph.D. [address] [place] [phone] Multiple Sclerosis (HCC) (Primary Dx) Social History [...] declined 02/19/2022 How often do you attend [facility] or zoroastrianism services? Patient declined 02/19/2022 Do you belong to any clubs o r organizations such as tenriism groups, unions, fraternal or athletic groups, or [...] and heating? Not hard at all 03/31/2023 [facility] of Occupat ional Health - Occupational Stress [...] your living situation today? I have a [facility] place to live 03/31/2023 Education Answer Date Recorded What is the highest level of school you have completed or the highest degree you have received? Associate degree: occupational, technical, or vocational program 10/01/2018 Sex and Gender Information Value Date Recorded Sex Assigned at Female 03/24/2018 11:07 AM CLINICAL RESEARCH TECH Gender Identity Female 05/22/2020 11:48 AM CLINICAL RESEARCH TECH Sexual Orientation Straight 03/24/2018 11 :07 AM CLINICAL RESEARCH TECH documented as of this encounter Last Filed Vital Signs Vital Sign Reading Time Taken Comments Blood Pressure 134/77 08/31/2023 12:40 PM CDT Pulse 62 08/31/2023 12:40 PM CDT Temperature 37 ??C (98.6 ??F) 08/31/2023 8:45 AM CDT Respiratory Rate 16 08/31/2023 12:40 PM CDT Oxygen Saturation 97% 08/31/2023 12:40 PM CDT Inhaled Oxygen Concentration - - Weight - - Height - - Body Mass Index - - documented in this encounter Patient Instructions * Attachments The following attachments cannot be sent through Care Everywhere. * Ocrelizumab (By injection) (Rwandan) documented in this encounter Plan of Treatment Not on file documented as of this encounter Visit Diagnoses Diagnosis Multiple Sclerosis (HCC)- Primary documented in this encounter Administered Medications Inactive Administered Medications - up to 3 most recent administrations Medication Order MAR Action Action Date Dose Rate Site acetaminophen tablet 650 mg (TYLENOL) 650 mg, oral, Once, On Wed08/31/23 at 0915, For 1 dose Given 08/31/2023 9:01 AM CDT 650 mg diphenhydrAMINE capsule 25 mg (BENADRYL) 25 mg, oral, Once, On Wed08/31/23 at 0915, For 1 dose Given 08/31/2023 9:01 AM CDT 25 mg methylPREDNISolone sod succinate (PF) injection 100 mg (SOLU-Medrol) 100 mg, intravenous, Once, On Wed08/31/23 at 0915, For 1 dose, Activate vial to a final concentration of 62.5 mg/mL Given 08/31/2023 9:14 AM CDT 100 mg ocrelizumab 300 mg in NaCl 0.9% IVPB (OCREVUS) 300 mg, intravenous, Once, On Wed08/31/23 at 0915, For 1 dose, Initial 2 doses: Duration: 2.5 hours or longer. Start at 30 mL per hour, then increase by 30 mL per hour every 30 minutes to a maximum of 180 mL per hour. Handle with care. Do not shake or tube. Administer via 0.2 micron in-line filter. Rate/Dose Change 08/31/2023 12:20 PM CDT 180 mL/hr Rate/Dose Change 08/31/2023 11:50 AM CDT 150 mL /hr Rate/Dose Change 08/31/2023 11:20 AM CDT 120 mL /hr documented in this encounter Additional Health Concerns Infection Onset Date Last Indicated Resolved Time Protective Environment 05/14/2023 05/14/2023 documented as of this encounter Care Teams Mining Detail Draftsperson Relationship Specialty Start Date End Date Elsewhere, Pcp PCP - General Internal Medicine 03/30/23 documented as of this encounter
--- OUTSIDE RECORDS SUMMARY | 2023-09-25 16:34 | XMS_ITS | Clinical Summary ---
Author Organization [facility] Address [address] [place] [address] Care Team Providers Care Outside Sales Executive Name Role Phone Elsewhere, Pcp Primary Care Provider Unavailabl e Source Comments Patient records contain information from all sites at [facility]. For routine questions regarding patient records, call [phone] during business hours, M-F 8:00 AM - 5:00 PM Central Time. Record requests for emergency care only can be directed to [phone] at any time.[facility] Allergies Active Allergy Reactions Criticality Noted Date [...] MOUTH ONCE DAILY 30 capsule 10 10/20/2022 Discontinue d(Alternate therapy) Active Problems Problem Noted Date Diagnosed Date Multiple Sclerosis 04/15/2023 Demyelinating Disease Central Nervous System Other Custodial Current Drug Therapy 11/03/2018 Encounters Date Type Department Care Team Description 09/14/2023 10:00 AM CDT Infusion Department of Infusion Therapy in [address] [phone] Norma Vu M.D., Ph.D. Multiple Sclerosis (HCC) (Primary Dx) 08/31/2023 8:30 AM CDT Infusion Department of Infusion Therapy in [address] [address] Norma Vu M.D., Ph.D. Multiple Sclerosis (HCC) (Primary Dx) 07/06/2023 Refill Department of Neurology in [place], [place] [address] [place] [address] Norma Vu M.D., Ph.D. Med Refill from [...] declined 02/19/2022 How often do you attend [facility] or quaker services? Patient declined 02/19/2022 Do you belong to any clubs o r organizations such as moravian groups, unions, fraternal or athletic groups, or [...] and heating? Not hard at all 03/31/2023 [facility] of Occupat ional Health - Occupational Stress [...] your living situation today? I have a [facility] place to live 03/31/2023 Education Answer Date Recorded What is the highest level of school you have completed or the highest degree you have received? Associate degree: occupational, technical, or vocational program 10/01/2018 Sex and Gender Information Value Date Recorded Sex Assigned at Female 03/24/2018 11:07 AM ZINC PLATE CUTTER Gender Identity Female 05/22/2020 11:48 AM ZINC PLATE CUTTER Sexual Orientation Straight 03/24/2018 11 :07 AM ZINC PLATE CUTTER Last Filed Vital Signs Vital Sign Reading Time Taken Comments Blood Pressure 132/73 09/14/2023 2:34 PM CDT Pulse 78 09/14/2023 2:34 PM CDT Temperature 36.6 ??C (97.9 ??F) 09/14/2023 10:10 AM C DT Respiratory Rate 16 09/14/2023 2:34 PM CDT Oxygen Saturation 97% 09/14/2023 10:10 AM CDT Inhaled Oxygen Concentration - - Weight 78 kg (171 lb 15.3 oz) 03/31/2023 2:55 PM ZINC PLATE CUTTER Height 162.5 cm (5' 3.98) 03/31/2023 2:55 PM CS T Body Mass Index 29.54 03/31/2023 2:55 PM ZINC PLATE CUTTER Plan of Treatment Health Maintenance Due Date Last Done Comments [...] HCV PCR, S Routine 03/31/2023 4:36 PM ZINC PLATE CUTTER Multiple Sclerosis (HCC) HIV-1/-2 AG AND AB SCREEN, PLASMA Routine 03/31/2023 4:36 PM ZINC PLATE CUTTER Multiple Sclerosis (HCC) LIPID PANEL, S Routine 03/31/2023 4:36 PM ZINC PLATE CUTTER Multiple Sclerosis (HCC) from Last 3 Months or Most Recently Relevant to Health Maintenance Results * HIV-1/-2 Ag and Ab Screen, Plasma (03/31/2023 4:36 PM ZINC PLATE CUTTER) [facility] HIV-1/-2 Ag and Ab Screen, P Negative Negative 03/31/2023 8:46 PM ZINC PLATE CUTTER [facility] Comment: Negative result does not rule out HIV infection. If exposure to HIV infection occurred <14 days ago, contact the laboratory to request addition of HIV-1/HIV-2 RNA detection, Plasma (HIP12). Blood (Blood, Venous) 03/31/2023 4:36 PM ZINC PLATE CUTTER 03/31/2023 8:05 PM ZINC PLATE CUTTER Norma Vu M.D., Ph.D. LAB MICROBIOL OGY - BLOOD ORDERABLES [facility] [address] [place] [address] [facility] [address] [place] [address] * (ABNORMAL) Lipid Panel (03/31/2023 4:36 PM ZINC PLATE CUTTER) [facility] Triglycerides 447(H) mg/dL 03/31/2023 5:24 PM ZINC PLATE CUTTER DTL Comment: ----REFERENCE VALUE---- Normal: <150 mg/dL Borderline High: 150-199 mg/dL High: 200-499 mg/dL Very High: > or =500 mg/dL Cholesterol, Total 286(H) mg/dL 2022 5:24 PM ZINC PLATE CUTTER DTL Comment: ----REFERENCE VALUE---- Desirable: < 200 mg/dL Borderline High: 200 - 239 mg/dL High: > or = 240 mg/dL Cholesterol, LDL, Calculated 148(H) mg/dL 03/31/2023 5:24 PM ZINC PLATE CUTTER DTL Comment: ----REFERENCE VALUE---- Desirable: <100 mg/dL Above Desirable: 100-129 mg/dL Borderline High: 130-159 mg/dL High: 160-189 mg/dL Very High: >=190 mg/dL ----ADDITIONAL INFORMATION---- LDL cholesterol calculated using the Obrien/NIH equation. Cholesterol, HDL, S 55 >=50 mg/dL 03/31/2023 5:24 PM ZINC PLATE CUTTER DTL Cholesterol, Non-HDL, Calculated 231(H) mg/dL 03/31/2023 5:24 PM ZINC PLATE CUTTER DTL Comment: ----REFERENCE VALUE---- Desirable: <130 mg/dL Above Desirable: 130-159 mg/dL Borderline High: 160-189 mg/dL High: 190-219 mg/dL Very High: > or =220 mg/dL Fasting (8 HR or more) No 03/31/2023 4:53 PM ZINC PLATE CUTTER DT Blood (Blood, Venous) 03/31/2023 4:36 PM ZINC PLATE CUTTER 03/31/2023 4:53 PM ZINC PLATE CUTTER Norma Vu M.D., Ph.D. LAB BLOOD ADD -ON Performing Organization Address City/[facility]/ZIP Co de Phone Number [address] [address], [address] [address] * HCV Ab Scrn w/Reflex to HCV PCR, Serum (03/31/2023 4:36 PM ZINC PLATE CUTTER) HCV Ab Screen, S Negative Negative 03/31/2023 10:10 PM ZINC PLATE CUTTER [facility] Comment:Nmixio-lo-ufskgl rat io is <1.00. Blood (Blood, Venous) 03/31/2023 4:36 PM ZINC PLATE CUTTER 03/31/2023 8:05 PM ZINC PLATE CUTTER Norma Vu M.D., Ph.D. LAB MICROBIOL OGY - BLOOD ORDERABLES [facility] [address] [place] [address] [facility] [address] [place] [address] from Last 3 Months or Most Recently Relevant to Health Maintenance Additional Health Concerns Infection Onset Date Last Indicated Protective Environment 05/14/2023 Care Teams Outside Sales Executive Relationship Specialty Start Date End Date Elsewhere, Pcp PCP - General Internal Medicine 03/30/23
--- NOTE | 2023-09-25 16:50 | CRLHL7_ITS ---
For Patients: As a result of the Century Cures Act, medical imaging exams and procedure reports are released immediately into your electronic medical record. You may view this report before your referring provider. If you have questions, please contact your health care provider. INDICATION: Dizziness. TECHNIQUE: CTA neck with contrast bolus tracking, 3D angiographic rendering using maximum intensity projection (MIP) and images permanently archived. FINDINGS: There is no significant carotid artery stenosis or dissection. There is no significant vertebral artery stenosis or dissection. The soft tissues of the neck are within normal limits. The cervical spine is in normal alignment. IMPRESSION: Unremarkable neck CTA. Please note that all CT scans at this facility use dose modulation, iterative reconstruction, and/or weight-based dosing when appropriate to reduce radiation dose to as low as reasonably achievable. Dictated by Eros Orlando MD @ 09/25/2023 9:04:08 PM (Electronically Signed)
--- NOTE | 2023-09-25 16:50 | CRLHL7_ITS ---
For Patients: As a result of the Century Cures Act, medical imaging exams and procedure reports are released immediately into your electronic medical record. You may view this report before your referring provider. If you have questions, please contact your health care provider. INDICATION: Dizziness. TECHNIQUE: CTA head with contrast bolus tracking, 3D angiographic rendering using maximum intensity projection (MIP) and images permanently archived. FINDINGS: There is normal opacification of the intracranial vasculature. There is no large vessel occlusion. No aneurysm is identified. IMPRESSION: Unremarkable head CTA. Please note that all CT scans at this facility use dose modulation, iterative reconstruction, and/or weight-based dosing when appropriate to reduce radiation dose to as low as reasonably achievable. Dictated by Eros Orlando MD @ 09/25/2023 9:03:11 PM (Electronically Signed)
--- NOTE | 2023-09-25 16:51 | CRLHL7_ITS ---
For Patients: As a result of the Century Cures Act, medical imaging exams and procedure reports are released immediately into your electronic medical record. You may view this report before your referring provider. If you have questions, please contact your health care provider. INDICATION: Dizziness. COMPARISON: None available. TECHNIQUE: Noncontrast CT head. FINDINGS: Normal brain parenchymal morphology. No acute intracranial hemorrhage, acute infarct, mass effect, or fracture. No midline shift. No abnormal ventricular dilatation. Normal calvarium and skull base. Visualized paranasal sinuses mastoid air cells are clear. Normal orbits bilaterally. IMPRESSION: 1. No acute intracranial abnormality. Please note that all CT scans at this facility use dose modulation, iterative reconstruction, and/or weight-based dosing when appropriate to reduce radiation dose to as low as reasonably achievable. Dictated by Suresh Wahl MD @ 09/25/2023 5:22:29 PM (Electronically Signed)
[2023-09-25 17:22] VITALS: BP 123/66; PULSE 64; RESP 16; O2SAT 64
[2023-09-25] MEDS: MECLIZINE HCL 25 MG TABLET PO (17:35)
[2023-09-25] MEDS: HYDROCORTISONE SOD SUCCINATE 50 MG/ML inj 200 MG IVP (17:42)
[2023-09-25] MEDS: diphenhydrAMINE 50 MG/ML inj IVP (17:49)
[2023-09-25 18:44] VITALS: BP 133/80; PULSE 61; RESP 16; O2SAT 99
== END 2023-09-25 20:26 | disposition home or self-care (01) ==
PROVIDERS: Emergency Provider Family Medicine; PCP Family Medicine
DX: G43.109 Migraine with aura, not intractable, without status migrainosus (principal)
CPT/HCPCS: 36415; 70450; 70496; 70498; 80053; 83735; 85025; 94761; 96374; 96375; 99284; A9270; J1200; J1720; J2405; J3360; J7120; Q9967

== ENCOUNTER 2023-10-26 13:35 | Outpatient (CLI) | payer BC, SELFPAY ==
--- OUTSIDE RECORDS SUMMARY | 2023-10-26 13:38 | XMS_ITS | Encounter Summary ---
Author Organization [facility] Address [address] [place] [id number] Care Team Providers Care Templer Head Name Role Phone Elsewhere, Pcp Primary Care Provider Unavailabl e Reason for Referral * Outpatient (Routine) - Authorized Specialty Diagnoses / Procedures Referred By Suma zamora Referred To Contact Diagnoses Headache Chronic Procedures Headache nerve block - Neurology Manuel Alonzo M.D. [address] [place] [phone] [facility] Referral ID Status Reason Start Date Expiration Date V isits Requested Visits Authorized [id number] Authorized 10/12/2023 10/11/2024 1 1 Encounter Details Date Type Department Care Team (Late st Contact Info) Description 10/08/2023 Clinical Communication Department of Neurology in [place], [place] [address] [place] [phone] Manuel Alonzo M.D. [address] [place] [phone] Social History Tobacco Use Types Packs/Day Years [...] How often do you attend chur or baptist services? Patient declined 02/19/2022 Do you belong to any clubs o r organizations such as confucianist groups, unions, fraternal or athletic groups, or [...] Answer Date Recorded PHQ-2 Score 0 10/07/2023 [facility] [place] [facility] Occupat ional Health - Occupational Stress [...] your living situation today? I have a [facility] place to live 03/31/2023 Education Answer Date Recorded What is the highest level of school you have completed or the highest degree you have received? Associate degree: occupational, technical, or vocational program 10/01/2018 Sex and Gender Information Value Date Recorded Sex Assigned at Female 03/24/2018 11:07 AM DEPUTY FIRE CHIEF Gender Identity Female 05/22/2020 11:48 AM DEPUTY FIRE CHIEF Sexual Orientation Straight 03/24/2018 11 :07 AM DEPUTY FIRE CHIEF documented as of this encounter Plan of Treatment Upcoming Encounters Date Type Department Care Team (Latest Contact Info) Description 10/26/2023 3:30 PM CDT Procedure visit Department of Neurology in [place], [place] [address] [place] [address] Manuel Alonzo M.D. [address] [place] [address] Discharge Disposition: Home or Self Care documented as of this encounter Visit Diagnoses Diagnosis Headache Chronic- Primary Chronic Migraine- Primary documented in this encounter Additional Health Concerns Infection Onset Date Last Indicated Resolved Time Protective Environment 05/14/2023 05/14/2023 Assessment Noted Time PHQ-9 Depression Total Score: 8 10/07/19 24 12:30 PM CDT documented as of this encounter Care Teams Templer Head Relationship Specialty Start Date End Date Elsewhere, Pcp PCP - General Internal Medicine 03/30/23 documented as of this encounter
--- OUTSIDE RECORDS SUMMARY | 2023-10-26 13:38 | XMS_ITS | Referral Summary ---
Author Organization [facility] Address [address] [place] [id number] Care Team Providers Care Tractor Expert Name Role Phone Elsewhere, Pcp Primary Care Provider Unavailabl e Source Comments Patient records contain information from all sites at [facility]. For routine questions regarding patient records, call [phone] during business hours, M-F 8:00 AM - 5:00 PM Central Time. Record requests for emergency care only can be directed to [phone] at any time.[facility] Encounters Date Type Department Care Team Description 10/21/2023 8:39 AM CDT - 10/21/2023 11:59 PM CDT Hospital Encounter Department of Radiology in [address] [phone] Cornelio Perdomo M.D. Headache Unspecified Discharge Disposition: Home or Self Care 10/20/2023 Orders Only Department of Neurology in [place], [place] [address] [place] [phone] Cornelio Perdomo M.D. 10/15/2023 Clinical Communication Department of Neurology in [place], [place] [address] [place] [phone] Cornelio Perdomo M.D. RX APPEAL DENIAL (Naratriptan ) 10/11/2023 Clinical Communication Department of Neurology in [place], [place] [address] [place] [phone] Cornelio Perdomo M.D. Rx Denial (NARATRIPTAN HCL 2.5MG) 10/08/2023 Clinical Communication Department of Neurology in [place], [place] [address] [place] [phone] Manuel Alonzo M.D. 10/07/2023 1:00 PM CDT Comprehensive Visit Department of Neurology in [place], [place] [address] [place] [address] Norma Vu M.D., Ph.D. Cornelio Perdomo M.D. Headache Unspecified; Chronic Migraine; Vertigo Benign Paroxysmal Positional Bilateral; Neuralgia; Migraine Headache 10/04/2023 Orders Only Department of Neurology in [place], [place] [address] [place] [address] Norma Vu M.D., Ph.D. Migraine Headache (Primary Dx) 09/30/2023 Refill Department of Neurology in [place], [place] [address] [place] [address] Norma Vu M.D., Ph.D. Med Refill 09/14/2023 10:00 AM CDT Infusion Department of Infusion Therapy in [address] [phone] Norma Vu M.D., Ph.D. Multiple Sclerosis (HCC) (Primary Dx) 08/31/2023 8:30 AM CDT Infusion Department of Infusion Therapy in [address] [phone] Norma Vu M.D., Ph.D. Multiple Sclerosis (HCC) [...] 20 tablet 11 4 10/07/19 25 Active SUMAtriptan (Imitrex) 100 mg tabletIndication s:Chronic Migraine Take 1 tablet (100 mg total) by mouth as needed for migraine. May repeat dose once in 2 hours if migraine is unresolved. Do not exceed 200 mg in 24 hours. 18 tablet 11 4 Active diclofenac sodium (VOLTAREN) 50 mg [...] 3 1 10/07/19 24 Discontinued(Du plicate order) amantadine (SYMMETREL) 100 mg tablet Take 1 [...] for pain. 10/07/19 24 Discontinued(Th erapy completed) naratriptan (AMERGE) 2.5 mg tabletIndication s:Chronic Migraine Take 1 tablet (2.5 mg total) by mouth 2 (two) times a day as needed (severe headache). Limit use to no more than 9 days a month. 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 Patient declined 02/19/2022 Do you belong to any clubs o r organizations such as pentecostal groups, unions, fraternal or athletic groups, or [...] Answer Date Recorded PHQ-2 Score 0 10/07/2023 [facility] Occupat ional Health - [...] your living situation today? I have a [facility] place to live 03/31/2023 Education Answer Date Recorded What is the highest level of school you have completed or the highest degree you have received? Associate degree: occupational, technical, or vocational program 10/01/2018 Sex and Gender Information Value Date Recorded Sex Assigned at Female 03/24/2018 11:07 AM DIRECTOR ONLINE MARKETING Gender Identity Female 05/22/2020 11:48 AM DIRECTOR ONLINE MARKETING Sexual Orientation Straight 03/24/2018 11 :07 AM DIRECTOR ONLINE MARKETING Last Filed Vital Signs Vital Sign Reading [...] CDT Procedure visit Department of Neurology in [address] [phone] Manuel [place] [address] (work) Discharge Disposition: Home or Self Care Procedures Procedure Name Priority Date/Time Associated Diagnosis Comments MR BRAIN VENOGRAM WITHOUT AND WITH IV CONTRAST RAD - Routine (most inpatients and all outpatients) 10/21/2023 9:35 AM CDT Headache Unspecified MR BRAIN WITHOUT AND WITH IV CONTRAST RAD - Routine (most inpatients and all outpatients) 10/21/2023 9:35 AM CDT Headache Unspecified HCV AB SCRN W/REFLEX TO HCV PCR, S Routine 03/31/2023 4:36 PM DIRECTOR ONLINE MARKETING Multiple Sclerosis (HCC) HIV-1/-2 AG AND AB SCREEN, PLASMA Routine 03/31/2023 4:36 PM DIRECTOR ONLINE MARKETING Multiple Sclerosis (HCC) LIPID PANEL, S Routine 03/31/2023 4:36 PM DIRECTOR ONLINE MARKETING Multiple Sclerosis (HCC) from Last 3 Months or Most Recently Relevant to Health Maintenance Results * MR Brain Venogram without and with IV Contrast (10/21/2023 9:35 AM CDT) Anatomical Region Laterality Modality Head, Brain, Neuroradiology RST LOS, Neuroradiology ARZ LOS, Neuroradiology FLA LOS N/A Magnetic Resonance Impressions 10/21/2023 10:58 AM CDT 1. A structural cause for patient's headache is not identified. No significant interval change from 03/25/2023. Narrative 10/21/2023 10:58 AM CDT EXAM: MR BRAIN WITHOUT AND WITH IV CONTRAST, MR BRAIN VENOGRAM WITHOUT AND WITH IV CONTRAST COMPARISON:03/25/2023 brain MRI FINDINGS: BRAIN: No acute infarction or intracranial hemorrhage. No abnormal susceptibility artifact. No mass lesion or pathologic enhancement. There is no significant interval change in patchy and multifocal signal abnormality in the periventricular and deep cerebral white matter consistent with patient's known demyelinating disease. Mild parenchymal volume loss diffusely. Stable ventricles. Normal midline anatomy. Normal appearance of the sella. A structural cause for patient's headache not identified. VENOGRAM: No evidence of dural venous sinus thrombosis. The dural venous sinuses are patent without significant stenosis of the transverse sinuses. Procedure Note Hernan Monsalve M.D. - 10/21/2023 EXAM: MR BRAIN WITHOUT AND WITH IV CONTRAST, MR BRAIN VENOGRAM WITHOUT ANDWITH IV CONTRAST COMPARISON:03/25/2023 brain MRI FINDINGS: BRAIN: No acute infarction or intracranial hemorrhage. No abnormal susceptibilityartifact. No mass lesion or pathologic enhancement. There is nosignificant interval change in patchy and multifocal signal abnormality inthe periventricular and deep cerebral white matter consistent with patient's known demyelinating disease. Mild parenchymal volume loss diffusely. Stable ventricles. Normal midline anatomy. Normal appearance of the sella. A structural cause for patient's headache not identified. VENOGRAM: No evidence of dural venous sinus thrombosis. The dural venoussinuses are patent without significant stenosis of the transversesinuses. IMPRESSION: 1. A structural cause for patient's headache is not identified. Nosignificant interval change from 03/25/2023. Cornelio Perdomo M.D. [facility] MRI PROCEDURES * MR Brain without and with IV Contrast (10/21/2023 9:35 AM CDT) Anatomical Region Laterality Modality Head, Brain, Neuroradiology RST LOS, Neuroradiology ARZ LOS, Neuroradiology FLA LOS N/A Magnetic Resonance Impressions 10/21/2023 10:58 AM CDT 1. A structural cause for patient's headache is not identified. No significant interval change from 03/25/2023. Narrative 10/21/2023 10:58 AM CDT EXAM: MR BRAIN WITHOUT AND WITH IV CONTRAST, MR BRAIN VENOGRAM WITHOUT AND WITH IV CONTRAST COMPARISON:03/25/2023 brain MRI FINDINGS: BRAIN: No acute infarction or intracranial hemorrhage. No abnormal susceptibility artifact. No mass lesion or pathologic enhancement. There is no significant interval change in patchy and multifocal signal abnormality in the periventricular and deep cerebral white matter consistent with patient's known demyelinating disease. Mild parenchymal volume loss diffusely. Stable ventricles. Normal midline anatomy. Normal appearance of the sella. A structural cause for patient's headache not identified. VENOGRAM: No evidence of dural venous sinus thrombosis. The dural venous sinuses are patent without significant stenosis of the transverse sinuses. Procedure Note Hernan Monsalve M.D. - 10/21/2023 EXAM: MR BRAIN WITHOUT AND WITH IV CONTRAST, MR BRAIN VENOGRAM WITHOUT ANDWITH IV CONTRAST COMPARISON:03/25/2023 brain MRI FINDINGS: BRAIN: No acute infarction or intracranial hemorrhage. No abnormal susceptibilityartifact. No mass lesion or pathologic enhancement. There is nosignificant interval change in patchy and multifocal signal abnormality inthe periventricular and deep cerebral white matter consistent with patient's known demyelinating disease. Mild parenchymal volume loss diffusely. Stable ventricles. Normal midline anatomy. Normal appearance of the sella. A structural cause for patient's headache not identified. VENOGRAM: No evidence of dural venous sinus thrombosis. The dural venoussinuses are patent without significant stenosis of the transversesinuses. IMPRESSION: 1. A structural cause for patient's headache is not identified. Nosignificant interval change from 03/25/2023. Cornelio Perdomo M.D. G MRI PROCEDURES * HIV-1/-2 Ag and Ab Screen, Plasma (03/31/2023 4:36 PM DIRECTOR ONLINE MARKETING) Pathologist [facility] HIV-1/-2 Ag and Ab Screen, P Negative Negative 03/31/2023 8:46 PM DIRECTOR ONLINE MARKETING [facility] Comment: Negative result does not rule out HIV infection. If exposure to HIV infection occurred <14 days ago, contact the laboratory to request addition of HIV-1/HIV-2 RNA detection, Plasma (HIP12). Blood (Blood, Venous) 03/31/2023 4:36 PM DIRECTOR ONLINE MARKETING 03/31/2023 8:05 PM DIRECTOR ONLINE MARKETING Norma Vu M.D., Ph.D. LAB MICROBIOL OGY - BLOOD ORDERABLES [facility] [address] [place] [address] [facility] [address] [place] [address] * (ABNORMAL) Lipid Panel (03/31/2023 4:36 PM DIRECTOR ONLINE MARKETING) Pathologist [facility] Triglycerides 447(H) mg/dL 03/31/2023 5:24 PM DIRECTOR ONLINE MARKETING [facility] Comment: ----REFERENCE VALUE---- Normal: <150 mg/dL Borderline High: 150-199 mg/dL High: 200-499 mg/dL Very High: > or =500 mg/dL Cholesterol, Total 286(H) mg/dL 2022 5:24 PM DIRECTOR ONLINE MARKETING [facility] Comment: ----REFERENCE VALUE---- Desirable: < 200 mg/dL Borderline High: 200 - 239 mg/dL High: > or = 240 mg/dL Cholesterol, LDL, Calculated 148(H) mg/dL 03/31/2023 5:24 PM DIRECTOR ONLINE MARKETING [facility] Comment: ----REFERENCE VALUE---- Desirable: <100 mg/dL Above Desirable: 100-129 mg/dL Borderline High: 130-159 mg/dL High: 160-189 mg/dL Very High: >=190 mg/dL ----ADDITIONAL INFORMATION---- LDL cholesterol calculated using the Obrien/NIH equation. Cholesterol, HDL, S 55 >=50 mg/dL 03/31/2023 5:24 PM DIRECTOR ONLINE MARKETING [facility] Cholesterol, Non-HDL, Calculated 231(H) mg/dL 03/31/2023 5:24 PM DIRECTOR ONLINE MARKETING [facility] Comment: ----REFERENCE VALUE---- Desirable: <130 mg/dL Above Desirable: 130-159 mg/dL Borderline High: 160-189 mg/dL High: 190-219 mg/dL Very High: > or =220 mg/dL Fasting (8 HR or more) No 03/31/2023 4:53 PM DIRECTOR ONLINE MARKETING [facility] Blood (Blood, Venous) 03/31/2023 4:36 PM DIRECTOR ONLINE MARKETING 03/31/2023 4:53 PM DIRECTOR ONLINE MARKETING Norma Vu M.D., Ph.D. LAB BLOOD ADD -ON [facility] [address] [place] [address], [place] [facility] [address] [place] [address] * HCV Ab Scrn w/Reflex to HCV PCR, Serum (03/31/2023 4:36 PM DIRECTOR ONLINE MARKETING) HCV Ab Screen, S Negative Negative 03/31/2023 10:10 PM DIRECTOR ONLINE MARKETING [facility] Comment:Xghfzu-ed-dddsii rat io is <1.00. Blood (Blood, Venous) 03/31/2023 4:36 PM DIRECTOR ONLINE MARKETING 03/31/2023 8:05 PM DIRECTOR ONLINE MARKETING Norma Vu M.D., Ph.D. LAB MICROBIOL OGY - BLOOD ORDERABLES [facility] [address] [place] [address] [facility] [address] [place] [address] from Last 3 Months or Most Recently Relevant to Health Maintenance Additional Health Concerns Infection Onset Date Last Indicated Protective Environment 05/14/2023 Care Teams Tractor Expert Relationship Specialty Start Date End Date Elsewhere, Pcp PCP - General Internal Medicine 03/30/23
--- OUTSIDE RECORDS SUMMARY | 2023-10-26 13:38 | XMS_ITS | Encounter Summary ---
Author Organization [facility] Address [address] [place] [address] Care Team Providers Care Geological Scout Name Role Phone Elsewhere, Pcp Primary Care Provider Unavailabl e Reason for Visit * Reason Onset Date Comments RX APPEAL DENIAL 10/15/2023 Naratriptan Encounter Details Date Type Department Care Team (Latest Contact Info) Description 10/15/2023 Clinical Communication Department of Neurology in [place], [place] [address] [place] [address] Cornelio Perdomo M.D. [address] [place] [address] RX APPEAL DENIAL (Naratriptan ) Social History Tobacco Use Types Packs/Day Years [...] often do you attend chur ch or pentecostalism services? Patient declined 02/19/2022 Do you belong to any clubs o r organizations such as uatsdin groups, unions, fraternal or athletic groups, or [...] Answer Date Recorded PHQ-2 Score 0 10[facility]07[facility] Questionnaire Answer [...] Sex Assigned at Female 03/24/2018 11:07 AM STUDENT SPECIALIST Gender Identity Female 05/22/2020 11:48 AM STUDENT SPECIALIST Sexual Orientation Straight 03/24/2018 11 :07 AM STUDENT SPECIALIST documented as of this encounter Plan of Treatment Upcoming Encounters Date Type Department Care Team (Latest Contact Info) Description 10/26/2023 3:30 PM CDT Procedure visit Department of Neurology in [address] [phone] Manuel Alonzo M.D. [address] [place] [address] Discharge Disposition: Home or Self Care documented as of this encounter Visit Diagnoses Not on filedocumented in this encounter Additional Health Concerns Infection Onset Date Last Indicated Resolved Time Protective Environment 05/14/2023 05/14/2023 Assessment Noted Time PHQ-9 Depression Total Score: 8 10/07/19 24 12:30 PM CDT documented as of this encounter Care Teams Geological Scout Relationship Specialty Start Date End Date Elsewhere, Pcp PCP - General Internal Medicine 03/30/23 documented as of this encounter
--- OUTSIDE RECORDS SUMMARY | 2023-10-26 13:38 | XMS_ITS | Encounter Summary ---
Author Organization [facility] Address [address] [place] [address] Care Team Providers Care Dominatrix Name Role Phone Elsewhere, Pcp Primary Care Provider Unavailabl e Reason for Referral * Outpatient (Routine) - Authorized Specialty Diagnoses / Procedures Referred By Suma zamora Referred To Contact Diagnoses Neuralgia Procedures PM Nerve Block injection Supraorbital; Non-Guided PM Nerve Block injection Supraorbital; Non-Guided Cornelio Perdomo M.D. [address] [place] [address] [facility] Referral ID Status Reason Start Date Expiration Date V isits Requested Visits Authorized [id number] Authorized 10/07/2023 10/06/2024 1 1 * Outpatient (Routine) - Authorized Specialty Diagnoses / Procedures Referred By Suma zamora Referred To Contact Diagnoses Neuralgia Procedures PM Nerve Block injection Other; auriculotempral; Non-Guided; Left PM Nerve Block injection Other; auriculotempral; Non-Guided; Right Cornelio Perdomo M.D. [address] [place] [address] [facility] Referral ID Status Reason Start Date Expiration Date V isits Requested Visits Authorized [id number] Authorized 10/07/2023 10/06/2024 1 1 * Outpatient (Routine) - Authorized Specialty Diagnoses / Procedures Referred By Contac t Referred To Contact Neurology Diagnoses Headache Unspecified Chronic Migraine Vertigo Neuralgia Migraine Headache Cornelio Perdomo M.D. [address] [place] [phone] [facility] Referral ID Status Reason Start Date Expiration Date V isits Requested Visits Authorized [id number] Authorized 10/07/2023 04/07/2025 1 1 * Outpatient (Routine) - Authorized Specialty Diagnoses / Procedures Referred By Contac t Referred To Contact Diagnoses Vertigo Procedures Vestibular rehabilitation therapy PT/OT Cornelio Perdomo M.D. [address] [place] [phone] [facility] Referral ID Status Reason Start Date Expiration Date V isits Requested Visits Authorized [id number] Authorized 10/07/2023 10/06/2024 1 1 * MRI/CAT/PET Scan (Routine) - Closed Specialty Diagnoses / Procedures Referred By Contac t Referred To Contact Radiology Diagnoses Headache Unspecified Procedures MR Brain Venogram without and with IV Contrast Cornelio Perdomo M.D. [address] [place] [phone] [facility] Referral ID Status Reason Start Date Expiration Date Visits Re quested Visits Authorized [id number] Closed 10/07/2023 10/06/2024 1 1 * MRI/CAT/PET Scan (Routine) - Closed Specialty Diagnoses / Procedures Referred By Contac t Referred To Contact Radiology Diagnoses Headache Unspecified Procedures MR Brain without and with IV Contrast Cornelio Perdomo M.D. [address] [place] [phone] [facility] Referral ID Status Reason Start Date Expiration Date Visits Re quested Visits Authorized [id number] Closed 10/07/2023 10/06/2024 1 1 Reason for Visit * Outpatient (Routine) - Closed Specialty Diagnoses / Procedures Referred By Suma zamora Referred To Contact Neurology Diagnoses Migraine Headache Norma Vu M.D., Ph.D. [address] [place] [phone] [facility] Referral ID Status Reason Start Date Expiration Date Visits Re quested Visits Authorized [id number] Closed 10/04/2023 04/04/2025 1 1 Encounter Details Date Type Department Care Team (Latest Contact Info) Description 10/07/2023 1:00 PM CDT Comprehensive Visit Department of Neurology in [place], [place] [address] [place] [phone] Norma Vu M.D., Ph.D. [address] [place] [phone] Cornelio Perdomo M.D. [address] [place] [phone] Headache Unspecified; Chronic Migraine; Vertigo Benign Paroxysmal [...] How often do you attend chur or mandaen services? Patient declined 02/19/2022 Do you belong to any clubs o r organizations such as nondenominational groups, unions, fraternal or athletic groups, or [...] Answer Date Recorded PHQ-2 Score 0 10/07/2023 [facility] - Occupational Stress [...] your living situation today? I have a [facility] place to live 03/31/2023 Education Answer Date Recorded What is the highest level of school you have completed or the highest degree you have received? Associate degree: occupational, technical, or vocational program 10/01/2018 Sex and Gender Information Value Date Recorded Sex Assigned at Female 03/24/2018 11:07 AM RIGGING SLINGER Gender Identity Female 05/22/2020 11:48 AM RIGGING SLINGER Sexual Orientation Straight 03/24/2018 11 :07 AM RIGGING SLINGER documented as of this encounter Last Filed [...] and her symptoms improved. However, since then v ertigo returns when she lays supine. These episodes [...] Tandem: 0 Station: Standin Romber Sittin Coordination: Vfgxwf-Yudw-Vdmzjt with Eyes Open: 0 on the right and 0 on the left Ntxnzs-Lcdk-Rimizw with Eyes Closed: 0 on the right [...] hemicrania continua diagnosis. 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 I have reviewed the patient's [...] the left supraorbital and left auriculotemporal nerves. [place]-Hallpike maneuver is positive bilaterally. ASSESSMENT / PLAN [...] CDT Procedure visit Department of Neurology in [address] [phone] Manuel Alonzo M.D. [address] [place] [phone] Discharge Disposition: Home or Self Care Scheduled Referrals Name Type Priority Associated Diagnoses Orde r Schedule Neurology office visit (clinic) Outpatient Referral Routine Headache Unspecified Chronic Migraine Vertigo Benign Paroxysmal Positional Bilateral Neuralgia Migraine Headache Expected: 10/07/2023 (Approximate), Expires: 01/06/2025 documented as of this encounter Results * MR Brain Venogram without and with IV Contrast (10/21/2023 9:35 AM CDT) Anatomical Region Laterality Modality Head, Brain, Neuroradiology [facility], Neuroradiology [facility], Neuroradiology [facility] N/A Magnetic Resonance Impressions 10/21/2023 10:58 AM [...] of the transverse sinuses. Procedure Note Hernan Monaslve M.D. - 10/21/2023 EXAM: MR BRAIN WITHOUT [...] interval change from 03/25/2023. Cornelio Perdomo M.D. [facility] MRI PROCEDURES * MR Brain without and with IV Contrast (10/21/2023 9:35 AM CDT) Anatomical Region Laterality Modality Head, Brain, Neuroradiology [facility], Neuroradiology [facility] Magnetic Resonance Impressions 10/21/2023 10:58 AM [...] identified. Nosignificant interval change from 03/25/2023. Cornelio JETT MRI PROCEDURES documented in this encounter Visit Diagnoses Diagnosis Headache Unspecified Chronic Migraine Vertigo Benign Paroxysmal Positional Bilateral Neuralgia Migraine Headache Headache Unspecified Chronic Migraine- Primary documented in this encounter Additional Health Concerns Infection Onset Date Last Indicated Resolved Time Protective Environment 05/14/2023 05/14/2023 Assessment Noted Time PHQ-9 Depression Total Score: 8 10/07/19 24 12:30 PM CDT documented as of this encounter Care Teams Dominatrix Relationship Specialty Start Date End Date Elsewhere, Pcp PCP - General Internal Medicine 03/30/23 documented as of this encounter
--- OUTSIDE RECORDS SUMMARY | 2023-10-26 13:38 | XMS_ITS | Encounter Summary ---
Author Organization [facility] Address [address] [place] [address] Care Team Providers Care Counter Checker Name Role Phone Elsewhere, Pcp Primary Care Provider Unavailabl e Reason for Referral * MRI/CAT/PET Scan (Routine) - Closed Specialty Diagnoses / Procedures Referred By Contac t Referred To Contact Radiology Diagnoses Headache Unspecified Procedures MR Brain Venogram without and with IV Contrast Cornelio Perdomo M.D. [address] [place] [phone] [facility] Referral ID Status Reason Start Date Expiration Date Visits Re quested Visits Authorized [id number] Closed 10/07/2023 10/06/2024 1 1 * MRI/CAT/PET Scan (Routine) - Closed Specialty Diagnoses / Procedures Referred By Contac t Referred To Contact Radiology Diagnoses Headache Unspecified Procedures MR Brain without and with IV Contrast Cornelio Perdomo M.D. [address] [place] [phone] [facility] Referral ID Status Reason Start Date Expiration Date Visits Re quested Visits Authorized [id number] Closed 10/07/2023 10/06/2024 1 1 Reason for Visit * MRI/CAT/PET Scan (Routine) - Closed Specialty Diagnoses / Procedures Referred By Contac t Referred To Contact Radiology Diagnoses Headache Unspecified Procedures MR Brain Venogram without and with IV Contrast Cornelio Perdomo M.D. [address] [place] [phone] [facility] Referral ID Status Reason Start Date Expiration Date Visits Re quested Visits Authorized [id number] Closed 10/07/2023 10/06/2024 1 1 Encounter Details Date Type Department Care Team (Latest Contact Info) Description 10/21/2023 8:39 AM CDT - 10/21/2023 11:59 PM CDT Hospital Encounter Department of Radiology in [address] [phone] Cornelio Perdomo M.D. [address] [place] [address] Headache Unspecified Discharge Disposition: Home or Self Care Social History Tobacco Use Types Packs/Day Years [...] declined 02/19/2022 How often do you attend [facility] or evangelical services? Patient declined 02/19/2022 Do you belong to any clubs o r organizations such as jehovah's witness groups, unions, fraternal or athletic groups, or [...] Answer Date Recorded PHQ-2 Score 0 10/07/2023 [facility]at ional [facility] - Occupational Stress Questionnaire Answer Date Recorded [...] your living situation today? I have a [facility] place to live 03/31/2023 Education Answer Date Recorded What is the highest level of school you have completed or the highest degree you have received? Associate degree: occupational, technical, or vocational program 10/01/2018 Sex and Gender Information Value Date Recorded Sex Assigned at Female 03/24/2018 11:07 AM GAS STATION SERVICE ATTENDANT Gender Identity Female 05/22/2020 11:48 AM GAS STATION SERVICE ATTENDANT Sexual Orientation Straight 03/24/2018 11 :07 AM GAS STATION SERVICE ATTENDANT documented as of this encounter Medications at Time of Discharge Medication Sig Dispensed Refills Start Date End Date Aimovig Autoinjector 140 mg/mL injection INJECT THE CONTENTS OF 1 AUTOINJECTOR PEN UNDER THE SKIN EVERY 30 DAYS 3 mL 3 01/14/2023 amantadine (SYMMETREL) 100 mg capsuleIndications:Fa tigue,Dizziness take one capsule by mouth once daily 30 capsule 2 10/04/2023 cyclobenzaprine (FLEXERIL) 10 mg tablet Take 10 mg by mouth 3 (three) times a day as needed for muscle spasms. fexofenadine (ASHLEY) 180 mg tablet Take 1 tablet by mouth daily. 09/03/2016 FLUoxetine (PROzac) 20 mg capsule Take 3 capsules (60 mg total) by mouth daily. 90 capsule 04/13/2022 naratriptan (AMERGE) 2.5 mg tablet TAKE 1 TABLET ORALLY AT ONSET OF MIGRAINE, MAY REPEAT DOSE ONCE IN 4 HOURS FOR MIGRAINE.MAXIMUM 10 DAYS PER MONTH. 24 tablet 1 07/12/2019 prochlorperazine (COMPAZINE) 10 mg tabletIndications:Jose Juan evangelist Headache Take 1 tablet (10 mg total) by mouth 3 (three) times a day as needed for nausea (or headache rescue). 20 tablet 11 10/07/2023 10/06/2024 SUMAtriptan (Imitrex) 100 mg tabletIndications:Chr onic Migraine Take 1 tablet (100 mg total) by mouth as needed for migraine. May repeat dose once in 2 hours if migraine is unresolved. Do not exceed 200 mg in 24 hours. 18 tablet 11 10/18/2023 documented as of this encounter Plan of Treatment Upcoming Encounters Date Type Department Care Team (Latest Contact Info) Description 10/26/2023 3:30 PM CDT Procedure visit Department of Neurology in [place], [place] [address] [place] [phone] Manuel Alonzo M.D. [address] [place] [phone] Discharge Disposition: Home or Self Care documented as of this encounter Procedures Procedure Name Priority Date/Time Associated Diagnosis Comments MR BRAIN VENOGRAM WITHOUT AND WITH IV CONTRAST RAD - Routine (most inpatients and all outpatients) 10/21/2023 9:35 AM CDT Headache Unspecified MR BRAIN WITHOUT AND WITH IV CONTRAST RAD - Routine (most inpatients and all outpatients) 10/21/2023 9:35 AM CDT Headache Unspecified documented in this encounter Results * MR Brain Venogram [...] interval change from 03/25/2023. Cornelio Perdomo M.D. [facility] MRI PROCEDURES * MR Brain without and [...] interval change from 03/25/2023. Cornelio Perdomo M.D. [place] MRI PROCEDURES documented in this encounter Visit Diagnoses Diagnosis Headache Unspecified Chronic Migraine- Primary documented in this encounter Administered Medications Inactive Administered Medications - up to 3 most recent administrations Medication Order MAR Action Action Date Dose Rate Site gadobutrol injection 7.5 mL (Gadavist) 7.5 mL, intravenous, Once in imaging, contrast, Starting on Cristel 10/21/23 at 0935, For 1 dose, Intrathecal doses greater than 0.25 mL not recommended. Given 10/21/2023 9:35 AM CDT 7.5 mL documented in this encounter Additional Health Concerns Infection Onset Date Last Indicated Resolved Time Protective Environment 05/14/2023 05/14/2023 Assessment Noted Time PHQ-9 Depression Total Score: 8 10/07/19 24 12:30 PM CDT documented as of this encounter Care Teams Counter Checker Relationship Specialty Start Date End Date Elsewhere, Pcp PCP - General Internal Medicine 03/30/23 documented as of this encounter
--- OUTSIDE RECORDS SUMMARY | 2023-10-26 13:38 | XMS_ITS ---
Author Organization [facility] Address [address] [place] [address] Care Team Providers Care Product Marketing Specialist Name Role Phone Unavailable Unavailable Unavailable Surgery Details Not on file Complications Check Surgery Details section. Procedure Estimated Blood Loss Check Surgery Details section. Procedure Findings Check Surgery Details section. Procedure Specimens Taken Check Surgery Details section.
--- OUTSIDE RECORDS SUMMARY | 2023-10-26 13:38 | XMS_ITS | Clinical Summary ---
Author Organization [facility] Address [address] [place] [address] Care Team Providers Care Ibm Bpm Developer Name Role Phone Elsewhere, Pcp Primary Care Provider Unavailabl e Source Comments Patient records contain information from all sites at [facility]. For routine questions regarding patient records, call [phone] during business hours, M-F 8:00 AM - 5:00 PM Central Time. Record requests for emergency care only can be directed to [phone] at any time.[facility] Allergies Active Allergy [...] System Other Prison Current Drug Therapy 11/03/2018 Encounters Date Type Department Care Team Description 10/21/2023 8:39 AM CDT - 10/21/2023 11:59 PM CDT Hospital Encounter Department of Radiology in [address] [phone] Cornelio Perdomo M.D. Headache Unspecified Discharge Disposition: Home or Self Care 10/20/2023 Orders Only Department of Neurology in [place], [place] [address] [place] [phone] Cornelio Perdomo M.D. 10/15/2023 Clinical Communication Department of Neurology in [place], [place] [address] [place] [phone] Cornelio Perdomo M.D. RX APPEAL DENIAL (Naratriptan ) 10/11/2023 Clinical Communication Department of Neurology in [place], [place] [address] [place] [phone] Cornelio Perdomo M.D. Rx Denial (NARATRIPTAN HCL 2.5MG) 10/08/2023 Clinical Communication Department of Neurology in [place], [place] [address] [place] [phone] Manuel Alonzo M.D. 10/07/2023 1:00 PM CDT Comprehensive Visit Department of Neurology in [place], [place] [address] [place] [phone] Norma Vu M.D., Ph.D. Cornelio Perdomo M.D. Headache Unspecified; Chronic Migraine; Vertigo Benign Paroxysmal Positional Bilateral; Neuralgia; Migraine Headache 10/04/2023 Orders Only Department of Neurology in [place], [place] [address] [place] [phone] Norma Vu M.D., Ph.D. Migraine Headache (Primary Dx) 09/30/2023 Refill Department of Neurology in [place], [place] [address] [place] [address] Norma Vu M.D., Ph.D. Med Refill 09/14/2023 10:00 AM CDT Infusion Department of Infusion Therapy in [address] [phone] Norma Vu M.D., Ph.D. Multiple Sclerosis (HCC) (Primary Dx) 08/31/2023 8:30 AM CDT Infusion Department of Infusion Therapy in [address] [phone] Norma Vu M.D., Ph.D. Multiple Sclerosis (HCC) [...] often do you attend chur ch or moravian services? Patient declined 02/19/2022 Do you belong to any clubs o r organizations such as religious groups, unions, fraternal or athletic groups, or [...] Answer Date Recorded PHQ-2 Score 0 10/07/2023 [facility] of Occupat ional Health - Occupational [...] living situation today? I have a [facility] place to live 03/31/2023 Education Answer Date Recorded What is the highest level of school you have completed or the highest degree you have received? Associate degree: occupational, technical, or vocational program 10/01/2018 Sex and Gender Information Value Date Recorded Sex Assigned at Female 03/24/2018 11:07 AM INTELLECTUAL PROPERTY COUNSEL Gender Identity Female 05/22/2020 11:48 AM INTELLECTUAL PROPERTY COUNSEL Sexual Orientation Straight 03/24/2018 11 :07 AM INTELLECTUAL PROPERTY COUNSEL Last Filed Vital Signs Vital Sign Reading [...] CDT Procedure visit Department of Neurology in [address] [phone] [place] [address] (work) Discharge Disposition: Home or Self Care Health Maintenance Due Date Last Done Comments Mammogram 1980 COVID-19 Vaccine (#1) 1985 Pneumococcal vaccine (0-64 years) (1 of 2 - PCV) 1986 Hepatitis B Vaccines (1 of 3 - 19+ 3-dose series) 1999 Zoster Vaccines (1 of 2) 1999 Cervical Cancer Screening 01/18/2017 01/18/2014 Influenza Vaccine (#1) 2024 01/18/2014, 2005 Lipid (Cholesterol) Screening 03/31/2028 03/31/2023 [...] HCV PCR, S Routine 03/31/2023 4:36 PM INTELLECTUAL PROPERTY COUNSEL Multiple Sclerosis (HCC) HIV-1/-2 AG AND AB SCREEN, PLASMA Routine 03/31/2023 4:36 PM INTELLECTUAL PROPERTY COUNSEL Multiple Sclerosis (HCC) LIPID PANEL, S Routine 03/31/2023 4:36 PM INTELLECTUAL PROPERTY COUNSEL Multiple Sclerosis (HCC) from Last 3 Months [...] interval change from 03/25/2023. Cornelio Perdomo M.D. [facility] MRI PROCEDURES * MR Brain without and with IV Contrast (10/21/2023 9:35 AM CDT) Anatomical Region Laterality Modality Head, Brain, Neuroradiology RST [facility], Neuroradiology ARZ [facility], Neuroradiology FLA [facility] N/A Magnetic Resonance Impressions 10/21/2023 10:58 [...] 03/25/2023. Cornelio Perdomo M.D. [place] [facility] PROCEDURES * HIV-1/-2 Ag and Ab Screen, Plasma (03/31/2023 4:36 PM INTELLECTUAL PROPERTY COUNSEL) Pathologist [facility] HIV-1/-2 Ag and Ab Screen, P Negative Negative 03/31/2023 8:46 PM INTELLECTUAL PROPERTY COUNSEL [facility] Comment: Negative result does not rule out HIV infection. If exposure to HIV infection occurred <14 days ago, contact the laboratory to request addition of HIV-1/HIV-2 RNA detection, Plasma (HIP12). Blood (Blood, Venous) 03/31/2023 4:36 PM INTELLECTUAL PROPERTY COUNSEL 03/31/2023 8:05 PM INTELLECTUAL PROPERTY COUNSEL Norma Vu M.D., Ph.D. LAB MICROBIOL OGY - BLOOD ORDERABLES [facility] [address] [place] [address] [facility] [address] [place] [address] * (ABNORMAL) Lipid Panel (03/31/2023 4:36 PM INTELLECTUAL PROPERTY COUNSEL) [facility] Triglycerides 447(H) mg/dL 03/31/2023 5:24 PM INTELLECTUAL PROPERTY COUNSEL [facility] Comment: ----REFERENCE VALUE---- Normal: <150 mg/dL Borderline High: 150-199 mg/dL High: 200-499 mg/dL Very High: > or =500 mg/dL Cholesterol, Total 286(H) mg/dL 2022 5:24 PM INTELLECTUAL PROPERTY COUNSEL [facility] Comment: ----REFERENCE VALUE---- Desirable: < 200 mg/dL Borderline High: 200 - 239 mg/dL High: > or = 240 mg/dL Cholesterol, LDL, Calculated 148(H) mg/dL 03/31/2023 5:24 PM INTELLECTUAL PROPERTY COUNSEL [facility] Comment: ----REFERENCE VALUE---- Desirable: <100 mg/dL Above Desirable: 100-129 mg/dL Borderline High: 130-159 mg/dL High: 160-189 mg/dL Very High: >=190 mg/dL ----ADDITIONAL INFORMATION---- LDL cholesterol calculated using the Obrien/NIH equation. Cholesterol, HDL, S 55 >=50 mg/dL 03/31/2023 5:24 PM INTELLECTUAL PROPERTY COUNSEL [facility] Cholesterol, Non-HDL, Calculated 231(H) mg/dL 03/31/2023 5:24 PM INTELLECTUAL PROPERTY COUNSEL [facility] Comment: ----REFERENCE VALUE---- Desirable: <130 mg/dL Above Desirable: 130-159 mg/dL Borderline High: 160-189 mg/dL High: 190-219 mg/dL Very High: > or =220 mg/dL Fasting (8 HR or more) No 03/31/2023 4:53 PM INTELLECTUAL PROPERTY COUNSEL [facility] Blood (Blood, Venous) 03/31/2023 4:36 PM INTELLECTUAL PROPERTY COUNSEL 03/31/2023 4:53 PM INTELLECTUAL PROPERTY COUNSEL Norma Vu M.D., Ph.D. LAB BLOOD ADD -ON Performing Organization Address City/[facility]/ZIP Co de Phone Number [facility] [address] [place] [address], [facility] [address] [place] [address] * HCV Ab Scrn w/Reflex to HCV PCR, Serum (03/31/2023 4:36 PM INTELLECTUAL PROPERTY COUNSEL) Pathologist [facility] HCV Ab Screen, S Negative Negative 03/31/2023 10:10 PM INTELLECTUAL PROPERTY COUNSEL [facility] Comment:Wikfug-hu-zsujog rat io is <1.00. Blood (Blood, Venous) 03/31/2023 4:36 PM INTELLECTUAL PROPERTY COUNSEL 03/31/2023 8:05 PM INTELLECTUAL PROPERTY COUNSEL Norma Vu M.D., Ph.D. LAB MICROBIOL OGY - BLOOD ORDERABLES Performing Organization Address City/[facility]/ZIP Co de Phone Number [facility] [address] [place] [address] [facility] [address] [place] [address] from Last 3 Months or Most Recently Relevant to Health Maintenance Additional Health Concerns Infection Onset Date Last Indicated Protective Environment 05/14/2023 Care Teams Ibm Bpm Developer Relationship Specialty Start Date End Date Elsewhere, Pcp PCP - General Internal Medicine 03/30/23
--- OUTSIDE RECORDS SUMMARY | 2023-10-26 13:38 | XMS_ITS | Encounter Summary ---
Author Organization [facility] Address [address] [place] [address] Care Team Providers Care Chemical Compounder Helper Name Role Phone Elsewhere, Pcp Primary Care Provider Unavailabl e Reason for Visit * Reason Onset Date Comments Rx Denial 10/11/2023 NARATRIPTAN HCL 2.5MG Encounter Details Date Type Department Care Team (Latest Contact Info) Description 10/11/2023 Clinical Communication Department of Neurology in [place], [place] [address] [place] [phone] Marlon Hannah M.D. [address] [place] [phone] Rx Denial (NARATRIPTAN HCL 2.5MG) Social History Tobacco Use Types Packs/Day Years [...] How often do you attend chur or restorationist services? Patient declined 02/19/2022 Do you belong to any clubs o r organizations such as druze groups, unions, fraternal or athletic groups, or [...] Answer Date Recorded PHQ-2 Score 0 10/07/2023 [facility] of Occupat ional Health [...] living situation today? I have a [facility] place to live 03/31/2023 Education Answer Date Recorded What is the highest level of school you have completed or the highest degree you have received? Associate degree: occupational, technical, or vocational program 10/01/2018 Sex and Gender Information Value Date Recorded Sex Assigned at Female 03/24/2018 11:07 AM IV RN Gender Identity Female 05/22/2020 11:48 AM IV RN Sexual Orientation Straight 03/24/2018 11 :07 AM IV RN documented as of this encounter Miscellaneous Notes * Addendum Note - Marlon Hannah M.D. - 10/18/2023 10:10 AM CDTAddended by: MARLON HANNAH on: 10/18/2023 10:10 AM Modules accepted: Orders documented in this encounter Plan of Treatment Upcoming Encounters Date Type Department Care Team (Latest Contact Info) Description 10/26/2023 3:30 PM CDT Procedure visit Department of Neurology in [address] [phone] Manuel Alonzo M.D. [address] [place] [address] Discharge Disposition: Home or Self Care documented as of this encounter Visit Diagnoses Diagnosis Chronic Migraine- Primary Chronic Migraine- Primary documented in this encounter Additional Health Concerns Infection Onset Date Last Indicated Resolved Time Protective Environment 05/14/2023 05/14/2023 Assessment Noted Time PHQ-9 Depression Total Score: 8 10/07/19 24 12:30 PM CDT documented as of this encounter Care Teams Chemical Compounder Helper Relationship Specialty Start Date End Date Elsewhere, Pcp PCP - General Internal Medicine 03/30/23 documented as of this encounter
--- OUTSIDE RECORDS SUMMARY | 2023-10-26 13:38 | XMS_ITS | Encounter Summary ---
Author Organization [facility] Address [address] [place] [address] Care Team Providers Care Energy Broker Name Role Phone Elsewhere, Pcp Primary Care Provider Unavailabl e Encounter Details Date Type Department Care Team (Late st Contact Info) Description 10/20/2023 Orders Only Department of Neurology in [place], [place] [address] [place] [phone] Cornelio Perdomo M.D. [address] [place] [phone] Social History Tobacco Use Types Packs/Day Years [...] How often do you attend chur or hindu services? Patient declined 02/19/2022 Do you belong [...] Answer Date Recorded PHQ-2 Score 0 10/07/2023 [facility] of Occupat ional Health - Occupational Stress [...] your living situation today? I have a [facility] place to live 03/31/2023 Education Answer Date Recorded What is the highest level of school you have completed or the highest degree you have received? Associate degree: occupational, technical, or vocational program 10/01/2018 Sex and Gender Information Value Date Recorded Sex Assigned at Female 03/24/2018 11:07 AM EMT PARAMEDIC Gender Identity Female 05/22/2020 11:48 AM EMT PARAMEDIC Sexual Orientation Straight 03/24/2018 11 :07 AM EMT PARAMEDIC documented as of this encounter Plan of Treatment Upcoming Encounters Date Type Department Care Team (Latest Contact Info) Description 10/26/2023 3:30 PM CDT Procedure visit Department of Neurology in [address] [phone] Manuel Alonzo M.D. [address] [place] [phone] Discharge Disposition: Home or Self Care documented as of this encounter Visit Diagnoses Not on filedocumented in this encounter Additional Health Concerns Infection Onset Date Last Indicated Resolved Time Protective Environment 05/14/2023 05/14/2023 Assessment Noted Time PHQ-9 Depression Total Score: 8 10/07/19 24 12:30 PM CDT documented as of this encounter Care Teams Energy Broker Relationship Specialty Start Date End Date Elsewhere, Pcp PCP - General Internal Medicine 03/30/23 documented as of this encounter
--- OUTSIDE RECORDS SUMMARY | 2023-10-26 13:38 | XMS_ITS | Encounter Summary ---
Author Organization [facility] Address [address] [place] [address] Care Team Providers Care Physical Science Aide Name Role Phone Elsewhere, Pcp Primary Care Provider Unavailabl e Reason for Referral * Outpatient (Routine) - Closed Specialty Diagnoses / Procedures Referred By Suma t Referred To Contact Neurology Diagnoses Migraine Headache Norma Vu M.D., Ph.D. [address] [place] [phone] [facility] Referral ID Status Reason Start Date Expiration Date Visits Re quested Visits Authorized [id number] Closed 10/04/2023 04/04/2025 1 1 Encounter Details Date Type Department Care Team (Late st Contact Info) Description 10/04/2023 Orders Only Department of Neurology in [place], [place] [address] [place] [phone] Norma Vu M.D., Ph.D. [address] [place] [phone] Migraine Headache (Primary Dx) Social History Tobacco [...] declined 02/19/2022 How often do you attend [facility] or adventism services? Patient declined 02/19/2022 Do [...] and heating? Not hard at all 03/31/2023 [facility] of Occupat ional Health - Occupational Stress [...] your living situation today? I have a [facility] place to live 03/31/2023 Education Answer Date Recorded What is the highest level of school you have completed or the highest degree you have received? Associate degree: occupational, technical, or vocational program 10/01/2018 Sex and Gender Information Value Date Recorded Sex Assigned at Female 03/24/2018 11:07 AM PAYROLL ANALYST Gender Identity Female 05/22/2020 11:48 AM PAYROLL ANALYST Sexual Orientation Straight 03/24/2018 11 :07 AM PAYROLL ANALYST documented as of this encounter Plan of Treatment Upcoming Encounters Date Type Department Care Team (Latest Contact Info) Description 10/26/2023 3:30 PM CDT Procedure visit Department of Neurology in [place], [place] [phone] Manuel Alonzo M.D. [address] [place] [address] Discharge Disposition: Home or Self Care Scheduled Referrals Name Type Priority Associated Diagnoses Orde r Schedule Neurology - Headache consult (clinic) Outpatient Referral Routine Migraine Headache Expected: 10/04/2023, Expires: 01/03/2025 documented as of this encounter Visit Diagnoses Diagnosis Migraine Headache- Primary Chronic Migraine- Primary documented in this encounter Additional Health Concerns Infection Onset Date Last Indicated Resolved Time Protective Environment 05/14/2023 05/14/2023 documented as of this encounter Care Teams Physical Science Aide Relationship Specialty Start Date End Date Elsewhere, Pcp PCP - General Internal Medicine 03/30/23 documented as of this encounter
--- OUTSIDE RECORDS SUMMARY | 2023-10-26 13:38 | XMS_ITS | Encounter Summary ---
Author Organization [facility] Address [address] [place] [address] Care Team Providers Care Ambulance Operations Supervisor Name Role Phone Elsewhere, Pcp Primary Care Provider Unavailabl e Reason for Visit * Reason Comments Med Refill Encounter Details Date Type Department Care Team (Late st Contact Info) Description 09/30/2023 Refill Department of Neurology in [place], [place] [address] [place] [phone] Norma Vu M.D., Ph.D. [address] [place] [phone] Med Refill Social History Tobacco Use Types [...] often do you attend chur ch or advent services? Patient declined 02/19/2022 Do you belong to any clubs o r organizations such as cheondoism groups, unions, fraternal or athletic groups, or [...] and heating? Not hard at all 03/31/2023 [facility] Occupat ionks Health - Occupational Stress Questionnaire Answer Date [...] medical appointments or from getting medications? No 120 09/2022 In the past 12 months, has [...] your living situation today? I have a [facility] place to live 03/31/2023 Education Answer Date Recorded What is the highest level of school you have completed or the highest degree you have received? Associate degree: occupational, technical, or vocational program 10/01/2018 Sex and Gender Information Value Date Recorded Sex Assigned at Female 03/24/2018 11:07 AM TRACK LAYING MACHINE OPERATOR Gender Identity Female 05/22/2020 11:48 AM TRACK LAYING MACHINE OPERATOR Sexual Orientation Straight 03/24/2018 11 :07 AM TRACK LAYING MACHINE OPERATOR documented as of this encounter Plan of Treatment Upcoming Encounters Date Type Department Care Team (Latest Contact Info) Description 10/26/2023 3:30 PM CDT Procedure visit Department of Neurology in [address] [phone] Manuel Alonzo M.D. [address] [place] [address] Discharge Disposition: Home or Self Care documented as of this encounter Visit Diagnoses Diagnosis Fatigue Dizziness Chronic Migraine- Primary documented in this encounter Additional Health Concerns Infection Onset Date Last Indicated Resolved Time Protective Environment 05/14/2023 05/14/2023 documented as of this encounter Care Teams Ambulance Operations Supervisor Relationship Specialty Start Date End Date Elsewhere, Pcp PCP - General Internal Medicine 03/30/23 documented as of this encounter
--- OUTSIDE RECORDS SUMMARY | 2023-10-26 13:39 | XMS_ITS | Encounter Summary ---
Author Organization [facility] Address [address] [place] [address] Care Team Providers Care Security Control Assessor Name Role Phone Elsewhere, Pcp Primary Care Provider Unavailabl e Encounter Details Date Type Department Care Team (Late st Contact Info) Description 02/05/2017 Historic Ophthalmology HX ARZ NO MAPPING Jacques Alejandre M.D. [address] [place] [address] Social History Tobacco Use Types Packs/Day Years Used Date Smoking Tobacco: Never Assessed Sex and Gender Information Value Date Recorded Sex Assigned at Female 03/24/2018 11:07 AM BAGGAGE AGENT SUPERVISOR Gender Identity Female 05/22/2020 11:48 AM BAGGAGE AGENT SUPERVISOR Sexual Orientation Straight 03/24/2018 11 :07 AM BAGGAGE AGENT SUPERVISOR documented as of this encounter Consult Notes [...] Examination Oph Visual Acuity Distance 05-Feb-2017 13:10 [facility] Distance Acuity Right 20/20 Distance Acuity Left 20/20 Distance Correction Right With glasses Distance Correction Left With glasses Pupil Size Right 05-Feb-2017 13:10 [facility] Pupil Size Right 4mm Pupil Reactivity Right 05-Feb-2017 13:10 [facility] Pupil Reactivity Right 2+ Pupil Size Left 05-Feb-2017 13:10 [facility] Pupil Size Left 4mm Pupil Reactivity Left 05-Feb-2017 13:10 [facility] Pupil Reactivity Left 2+ Afferent Pupil Defect Right 05-Feb-2017 13:10 [facility] APD Right No afferent defect Afferent Pupil Defect Left 05-Feb-2017 13:10 [facility] APD Left No afferent defect Motility Ocular Motility 05-Feb-2017 13:10 [facility] Ocular Motility full in both eyes and the eyes are straight Visual claros Oph Visual Field 05-Feb-2017 13:10 [facility] Visual Field normal by confrontation Oph Intraocular Pressure 05-Feb-2017 13:10 [facility] IOP Right 16 IOP Left 16 IOP Instrument Used Right Applanation IOP Instrument Used Left Applanation Oph Dilation 05-Feb-2017 13:10 [facility] Dilation Right Eye 1% tropicamide, 2.5% [...] mos. This document has images extracted. Reference: [id number] documented in this encounter Plan of Treatment Upcoming Encounters Date Type Department Care Team (Latest Contact Info) Description 10/26/2023 3:30 PM CDT Procedure visit Department of Neurology in [address] [phone] Manuel Alonzo M.D. 200 [place] [address] Discharge Disposition: Home or Self Care documented as of this encounter Visit Diagnoses Not on filedocumented in this encounter Additional Health Concerns Infection Onset Date Last Indicated Resolved Time Protective Environment 05/14/2023 05/14/2023 documented as of this encounter Care Teams Security Control Assessor Relationship Specialty Start Date End Date Elsewhere, Pcp PCP - General Internal Medicine 03/30/23 documented as of this encounter
--- OUTSIDE RECORDS SUMMARY | 2023-10-26 13:39 | XMS_ITS | Encounter Summary ---
Author Organization [facility] Address [address] [place] [address] Care Team Providers Care Business Services Vice President Name Role Phone Elsewhere, Pcp Primary Care Provider Unavailabl e Encounter Details Date Type Department Care Team (Late st Contact Info) Description 12/09/2017 Historic Ophthalmology HX ARZ NO MAPPING Meli Serrano O.D. [address] [place] [address] Social History Tobacco Use Types Packs/Day Years Used Date Smoking Tobacco: Every Day Sex and Gender Information Value Date Recorded Sex Assigned at Female 03/24/2018 11:07 AM ROUTE RIDER SUPERVISOR Gender Identity Female 05/22/2020 11:48 AM ROUTE RIDER SUPERVISOR Sexual Orientation Straight 03/24/2018 11 :07 AM ROUTE RIDER SUPERVISOR documented as of this encounter Consult [...] Medications Ordered Perform Medication Reconciliation: 1 [facility] Prescriptions Prescribed Gilenya 0.5 [...] Problems High Risk Medication / SNOMED CT [id number] / Confirmed Plan Return to clinic: Gilenya Use no retinal abnormalities, normal macula on HRT today monitor for change Disc @ risk ?prior episode of neuritis OS RNFL thinning on HRT, temporal OS stable findings/vision recheck 6 mos, DFE, HRT. Refractive error: OD: -[id number] OS: -[id number] . Reference: [id number] documented in this encounter Plan of Treatment Upcoming Encounters Date Type Department Care Team (Latest Contact Info) Description 10/26/2023 3:30 PM CDT Procedure visit Department of Neurology in [address] [phone] Manuel Alonzo M.D. [address] [place] [address] Discharge Disposition: Home or Self Care documented as of this encounter Visit Diagnoses Not on filedocumented in this encounter Additional Health Concerns Infection Onset Date Last Indicated Resolved Time Protective Environment 05/14/2023 05/14/2023 documented as of this encounter Care Teams Business Services Vice President Relationship Specialty Start Date End Date Elsewhere, Pcp PCP - General Internal Medicine 03/30/23 documented as of this encounter
--- OUTSIDE RECORDS SUMMARY | 2023-10-26 13:39 | XMS_ITS | Encounter Summary ---
Author Organization [facility] Address [address] [place] [address] Care Team Providers Care Collection Teller Name Role Phone Elsewhere, Pcp Primary Care Provider Unavailabl e Reason for Visit * Reason Comments Outpatient Infusion Ocrevus * Episode Based Medications (Routine) - Authorized Specialty Diagnoses / Procedures Referred By Contac t Referred To Contact Diagnoses Multiple Sclerosis (HCC) Procedures [place] OCRELIZUMAB 1 MG INJ Norma Vu M.D., Ph.D. [address] [place] [phone] [facility] Region Referral ID Status Reason Start Date Expiration Date V isits Requested Visits Authorized [id number] Authorized 05/13/2023 04/25/2024 4 4 Encounter Details Date Type Department Care Team (Late st Contact Info) Description 09/14/2023 10:00 AM CDT Infusion Department of Infusion Therapy in [address] [phone] Norma Vu M.D., Ph.D. [address] [place] [phone] Multiple Sclerosis (HCC) (Primary Dx) Social History [...] do you attend [facility] or moravian services? Patient declined 02/19/2022 Do you belong to any clubs o r organizations such as hoahaoism groups, unions, fraternal or athletic groups, or [...] and heating? Not hard at all 03/31/2023 [facility] [place] of Occupat ional Health - Occupational Stress [...] your living situation today? I have a [facility] place to live 03/31/2023 Education Answer Date Recorded What is the highest level of school you have completed or the highest degree you have received? Associate degree: occupational, technical, or vocational program 10/01/2018 Sex and Gender Information Value Date Recorded Sex Assigned at Female 03/24/2018 11:07 AM BINGO FLOATER Gender Identity Female 05/22/2020 11:48 AM BINGO FLOATER Sexual Orientation Straight 03/24/2018 11 :07 AM BINGO FLOATER documented as of this encounter Last Filed [...] CDT Procedure visit Department of Neurology in [place], [place] [address] [place] [phone] Manuel Alonzo M.D. [address] [place] [address] Discharge Disposition: Home or Self Care documented as of this encounter Visit Diagnoses Diagnosis Multiple Sclerosis (HCC)- Primary Chronic Migraine- Primary documented in this [...] documented as of this encounter Care Teams Collection Teller Relationship Specialty Start Date End Date Elsewhere, Pcp PCP - General Internal Medicine 03/30/23 documented as of this encounter
--- OUTSIDE RECORDS SUMMARY | 2023-10-26 13:39 | XMS_ITS | Encounter Summary ---
Author Organization [facility] Address [address] [place] [address] Care Team Providers Care Water Restoration Technician Name Role Phone Elsewhere, Pcp Primary Care Provider Unavailabl e Reason for Visit * Reason Comments Outpatient Infusion ocrevus * Episode Based Medications (Routine) - Authorized Specialty Diagnoses / Procedures Referred By Contac t Referred To Contact Diagnoses Multiple Sclerosis (HCC) Procedures [place] OCRELIZUMAB 1 MG INJ Norma Vu M.D., Ph.D. [address] [place] [phone] [facility] Region Referral ID Status Reason Start Date Expiration Date V isits Requested Visits Authorized [id number] Authorized 05/13/2023 04/25/2024 4 4 Encounter Details Date Type Department Care Team (Late st Contact Info) Description 08/31/2023 8:30 AM CDT Infusion Department of Infusion Therapy in [address] [phone] Norma Vu M.D., Ph.D. [address] [place] [phone] Multiple Sclerosis (HCC) (Primary Dx) Social History [...] do you attend [facility] or tenriism services? Patient declined 02/19/2022 Do you belong to any clubs o r organizations such as buddhism groups, unions, fraternal or athletic groups, or [...] and heating? Not hard at all 03/31/2023 [facility] [place] of Occupat ional Health - Occupational Stress [...] your living situation today? I have a [facility] place to live 03/31/2023 Education Answer Date Recorded What is the highest level of school you have completed or the highest degree you have received? Associate degree: occupational, technical, or vocational program 10/01/2018 Sex and Gender Information Value Date Recorded Sex Assigned at Female 03/24/2018 11:07 AM MACHINE GUN MECHANIC Gender Identity Female 05/22/2020 11:48 AM MACHINE GUN MECHANIC Sexual Orientation Straight 03/24/2018 11 :07 AM MACHINE GUN MECHANIC documented as of this encounter Last Filed [...] through Care Everywhere. * Ocrelizumab (By injection) (Uzbek) documented in this encounter Plan of Treatment Upcoming Encounters Date Type Department Care Team (Latest Contact Info) Description 10/26/2023 3:30 PM CDT Procedure visit Department of Neurology in [place], [place] [address] [place] [phone] Manuel Alonzo M.D. [address] [place] [address] Discharge Disposition: Home or Self Care documented [...] documented as of this encounter Care Teams Water Restoration Technician Relationship Specialty Start Date End Date Elsewhere, Pcp PCP - General Internal Medicine 03/30/23 documented as of this encounter
--- OUTSIDE RECORDS SUMMARY | 2023-10-26 13:39 | XMS_ITS | Encounter Summary ---
Author Organization [facility] Address [address] [place] [address] Care Team Providers Care Hydroelectric Plant Maintainer Name Role Phone Elsewhere, Pcp Primary Care Provider Unavailabl e Encounter Details Date Type Department Care Team (Late st Contact Info) Description 06/09/2017 Historic Ophthalmology HX ARZ NO MAPPING Jacques Alejandre M.D. [address] [place] [address] Social History Tobacco Use Types Packs/Day Years Used Date Smoking Tobacco: Never Assessed Sex and Gender Information Value Date Recorded Sex Assigned at Female 03/24/2018 11:07 AM CONTACT CENTER MANAGER Gender Identity Female 05/22/2020 11:48 AM CONTACT CENTER MANAGER Sexual Orientation Straight 03/24/2018 11 :07 AM CONTACT CENTER MANAGER documented as of this encounter Progress [...] Examination Oph Visual Acuity Distance 09-Jun-2017 12:26 [facility] Distance Acuity Right 20/20 Distance Acuity Left 20/20 Distance Correction Right With glasses Distance Correction Left With glasses Pupil Size Right 09-Jun-2017 12:26 [facility] Pupil Size Right 4mm Pupil Reactivity Right 09-Jun-2017 12:26 [facility] Pupil Reactivity Right 2+ Pupil Size Left 09-Jun-2017 12:26 [facility] Pupil Size Left 4mm Pupil Reactivity Left 09-Jun-2017 12:26 [facility] Pupil Reactivity Left 2+ Afferent Pupil Defect Right 09-Jun-2017 12:26 [facility] APD Right No afferent defect Afferent Pupil Defect Left 09-Jun-2017 12:26 [facility] APD Left No afferent defect Motility Ocular Motility 09-Jun-2017 12:26 [facility] Ocular Motility full in both eyes and the eyes are straight Visual claros Oph Visual Field 09-Jun-2017 12:26 [facility] Visual Field Other: SEE HVF Oph Intraocular Pressure 09-Jun-2017 12:26 [facility] IOP Right 12 IOP Left 12 IOP Instrument Used Right Applanation IOP Instrument Used Left Applanation Oph Dilation 09-Jun-2017 12:26 [facility] Dilation Right Eye 1% tropicamide, 2.5% [...] mos. This document has images extracted. Reference: [id number] ACT CENTER MANAGER documented in this encounter Plan of Treatment Upcoming Encounters Date Type Department Care Team (Latest Contact Info) Description 10/26/2023 3:30 PM CDT Procedure visit Department of Neurology in [address] [phone] Manuel Alonzo M.D. [address] [place] [address] Discharge Disposition: Home or Self Care documented as of this encounter Visit Diagnoses Not on filedocumented in this encounter Additional Health Concerns Infection Onset Date Last Indicated Resolved Time Protective Environment 05/14/2023 05/14/2023 documented as of this encounter Care Teams Hydroelectric Plant Maintainer Relationship Specialty Start Date End Date Elsewhere, Pcp PCP - General Internal Medicine 03/30/23 documented as of this encounter
== END 2023-10-26 13:36 | disposition home or self-care (01) ==
PROVIDERS: PCP Family Medicine; Visit Provider Family Medicine
DX: E78.5 Hyperlipidemia, unspecified (principal)
CPT/HCPCS: 80061

== ENCOUNTER 2023-12-30 10:30 | Outpatient (CLI) | payer BC, SELFPAY ==
--- OUTSIDE RECORDS SUMMARY | 2023-12-30 10:40 | XMS_ITS ---
Author Organization [facility] Address [address] [place] [address] Care Team Providers Care Institutional Aide Name Role Phone Unavailable Unavailable Unavailable Surgery Details Not on file Complications Check Surgery Details section. Procedure Estimated Blood Loss Check Surgery Details section. Procedure Findings Check Surgery Details section. Procedure Specimens Taken Check Surgery Details section.
--- OUTSIDE RECORDS SUMMARY | 2023-12-30 10:40 | XMS_ITS | Clinical Summary ---
Author Organization [facility] Address [address] [place] [address] Care Team Providers Care Java Support Engineer Name Role Phone Elsewhere, Pcp Primary Care Provider Unavailabl e Source Comments Patient records contain information from all sites at [facility]. For routine questions regarding patient records, call [phone] during business hours, M-F 8:00 AM - 5:00 PM Central Time. Record requests for emergency care only can be directed to [phone] at any time.[facility] Allergies Active Allergy Reactions Criticality Noted Date [...] 1 tablet by mouth daily. 09/03/2016 Active naratriptan (AMERGE) 2.5 mg tablet TAKE 1 TABLET ORALLY AT ONSET OF MIGRAINE, MAY REPEAT DOSE ONCE IN 4 HOURS FOR MIGRAINE.MAXIMUM 10 DAYS PER MONTH. 24 tablet 1 07/12/2019 Active FLUoxetine (PROzac) 20 mg capsule Take 3 capsules (60 mg total) by mouth daily. 90 capsule 04/13/2022 Active Aimovig Autoinjector 140 mg/mL injection INJECT THE CONTENTS OF 1 AUTOINJECTOR PEN UNDER THE SKIN EVERY 30 DAYS 3 mL 3 01/14/2023 Active cyclobenzaprine (FLEXERIL) 10 mg tablet Take 10 mg by mouth 3 (three) times a day as needed for muscle spasms. Active amantadine (SYMMETREL) 100 mg capsuleIndications :Fatigue,Dizziness take one capsule by mouth once daily 30 capsule 2 10/04/2023 Active prochlorperazine (COMPAZINE) 10 mg tabletIndications: Migraine Headache Take 1 tablet (10 mg total) by mouth 3 (three) times a day as needed for nausea (or headache rescue). 20 tablet 11 10/07/2023 10/06/2024 Active SUMAtriptan (Imitrex) 100 mg tabletIndications: Chronic Migraine Take 1 tablet (100 mg total) by mouth as needed for migraine. May repeat dose once in 2 hours if migraine is unresolved. Do not exceed 200 mg in 24 hours. 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 EdvenChrista ventura OChantale Dizziness (Primary Dx); Multiple Sclerosis (HCC) 11/10/2023 Clinical Communication Pharmacy Prior [facility] [phone] Lima Mercedes I. 11/02/2023 4:00 PM CDT Telemedicine Department of Neurology in [place], [place] [address] [place] [address] Cornelio Perdomo M.D. Chronic Migraine; Vertigo Benign Paroxysmal Positional Bilateral; Neuralgia; Migraine Headache 10/26/2023 3:30 PM CDT Procedure visit Department of Neurology in [address] [phone] Manuel Alonzo M.D. Chronic Migraine (Primary Dx); Headache Chronic Discharge Disposition: Home or Self Care 10/21/2023 8:39 AM CDT - 10/21/2023 11:59 PM CDT Hospital Encounter Department of Radiology in [address] [phone] Cornelio Perdomo M.D. Headache Unspecified Discharge Disposition: Home or Self Care 10/20/2023 Orders Only Department of Neurology in [place], [place] [address] [place] [phone] Cornelio Perdomo M.D. 10/15/2023 Clinical Communication Department of Neurology in [place], [place] [address] [place] [phone] Cornelio Perdomo M.D. RX APPEAL DENIAL (Naratriptan ) 10/11/2023 Clinical Communication Department of Neurology in [place], [place] [address] [place] [phone] Cornelio Perdomo M.D. Rx Denial (NARATRIPTAN HCL 2.5MG) 10/08/2023 Clinical Communication Department of Neurology in [place], [place] [address] [place] [phone] Manuel Alonzo M.D. 10/07/2023 1:00 PM CDT Comprehensive Visit Department of Neurology in [place], [place] [address] [place] [phone] Norma Vu M.D., Ph.D. Cornelio Pedromo M.D. Headache Unspecified; Chronic Migraine; Vertigo Benign Paroxysmal Positional Bilateral; Neuralgia; Migraine Headache 10/04/2023 Orders Only Department of Neurology in [place], [place] [address] [place] [phone] Norma Vu M.D., Ph.D. Migraine Headache (Primary Dx) 09/30/2023 Refill Department of Neurology in [place], [place] [address] [place] [phone] Norma Vu M.D., Ph.D. Med Refill from Last 3 Months Social History Tobacco Use Types Packs/Day Years Used Date Smoking Tobacco: Former Cigarettes 0.5 27 0 05/28/1999 - 07/06/2022 Smokeless Tobacco: Never Tobacco Cessation:Counseling Given: Not Answered Alcohol Use Standard Drinks/Week Comments Not Currently 0 (1 standard drink = 0.6 oz pur e alcohol) Shyanntion, Afraid, Rape, and Kick questionnair e Answer [...] declined 02/19/2022 How often do you attend [facility] or [facility] services? Patient declined 02/19/2022 Do [...] Answer Date Recorded PHQ-2 Score 0 10/07/2023 [facility] [place] of Occupat ional Health - Occupational Stress [...] your living situation today? I have a [facility] place to live 03/31/2023 Education Answer Date Recorded What is the highest level of school you have completed or the highest degree you have received? Associate degree: occupational, technical, or vocational program 10/01/2018 Sex and Gender Information Value Date Recorded Sex Assigned at Female 03/24/2018 11:07 AM DEPUTY SHERIFF BUILDING GUARD Gender Identity Female 05/22/2020 11:48 AM DEPUTY SHERIFF BUILDING GUARD Sexual Orientation Straight 03/24/2018 11 :07 AM DEPUTY SHERIFF BUILDING GUARD Last Filed Vital Signs Vital Sign Reading [...] Care Team (Late st Contact Info) Description 2024 9:30 AM DEPUTY SHERIFF BUILDING GUARD Infusion Department of Infusion Therapy in [address] [phone] Norma Vu M.D., Ph.D. Health Maintenance Due Date Last Done Comments [...] Procedure Name Priority Date/Time Associated Diagnosis Comments PM NERVE BLOCK INJECTION Routine 10/26/2023 3:30 PM CDT Chronic Migraine PM NERVE BLOCK INJECTION Routine 10/26/2023 3:30 PM CDT Chronic Migraine PM NERVE BLOCK INJECTION Routine 10/26/2023 3:30 PM CDT Chronic Migraine MR BRAIN VENOGRAM WITHOUT AND WITH IV CONTRAST RAD - Routine (most inpatients and all outpatients) 10/21/2023 9:35 AM CDT Headache Unspecified MR BRAIN WITHOUT AND WITH IV CONTRAST RAD - Routine (most inpatients and all outpatients) 10/21/2023 9:35 AM CDT Headache Unspecified HCV AB SCRN W/REFLEX TO HCV PCR, S Routine 03/31/2023 4:36 PM DEPUTY SHERIFF BUILDING GUARD Multiple Sclerosis (HCC) HIV-1/-2 AG AND AB SCREEN, PLASMA Routine 03/31/2023 4:36 PM DEPUTY SHERIFF BUILDING GUARD Multiple Sclerosis (HCC) LIPID PANEL, S Routine 03/31/2023 4:36 PM DEPUTY SHERIFF BUILDING GUARD Multiple Sclerosis (HCC) from Last 3 Months or Most Recently Relevant to Health Maintenance Results * Nerve Block Injection (10/26/2023 3:30 PM CDT) Only the most recent of3 resultswithin the time period is included. Narrative Manuel Alonzo M.D. - 10/26/2023 3:30 PM CDT Manuel Alonzo M.D. ? 10/26/2023 ??3:53 PM Nerve Block Injection Performed by: Manuel Alonzo M.D. Authorized by: Manuel Alonzo M.D. ?? Care team members present 1. Manuel Alonzo M.D. 2. Tameka Bonilla L.P.N. PROCEDURE SUMMARY Indications: neuralgia; headache ?? Body area: head/face/neck Procedure location (head/face/neck nerve): other Other head/face/neck nerve: Right auriculotemporal Other head/face/neck nerve position: supine Needle size: 30 G Needle length: 0.5 in Nerve block type: single injection INJECTED MEDICATIONS: Injection(s), anesthetic agent(s) and/or steroid(s): Total volume of injectate (mL): 1 Total steroid in injectate (mg): 0 ?? 1 mL BUPivacaine 0.5 % (5 mg/mL) PROCEDURE DETAILS Other head/face nerve position description (see below): ?? Temporal artery was palpated anterior to the tragus and injection was performed approximately 2 mm anterior to that with negative aspiration prior to injection Complications: no apparent complications ?? Additional Procedure Comments Discussed that temporary weakness in facial nerve distribution is a potential complication. She tolerated procedure well with report of numbness in the right auriculotemporal distribution. No facial weakness or asymmetry noted immediately after procedure. CONSENT Consent obtained: written (Risks, benefits and alternatives were discussed and a written Informed Consent was obtained. Please see Informed Consent form for further details.) Manuel Alonzo M.D. PROCEDURE/MINOR SURG ICAL ORDERABLES * MR Brain Venogram without and with IV Contrast (10/21/2023 9:35 AM CDT) Anatomical Region Laterality Modality Head, Brain, Neuroradiology RST [facility], Neuroradiology ARZ [facility], Neuroradiology [facility] N/A Magnetic Resonance Impressions 10/21/2023 [...] interval change from 03/25/2023. Cornelio Perdomo M.D. [facility] [place]ED[place] * MR Brain without and with IV Contrast (10/21/2023 9:35 AM CDT) Anatomical Region Laterality Modality Head, Brain, Neuroradiology RST [facility], Neuroradiology ARZ [facility], Neuroradiology FLA [facility] N/A Magnetic Resonance Impressions 10/21/2023 [...] interval change from 03/25/2023. Cornelio Perdomo M.D. IMG MRI PROCEDURES * HIV-1/-2 Ag and Ab Screen, Plasma (03/31/2023 4:36 PM DEPUTY SHERIFF BUILDING GUARD) [facility] HIV-1/-2 Ag and Ab Screen, P Negative Negative 03/31/2023 8:46 PM DEPUTY SHERIFF BUILDING GUARD [facility] Comment: Negative result does not rule out HIV infection. If exposure to HIV infection occurred <14 days ago, contact the laboratory to request addition of HIV-1/HIV-2 RNA detection, Plasma (HIP12). Blood (Blood, Venous) 03/31/2023 4:36 PM DEPUTY SHERIFF BUILDING GUARD 03/31/2023 8:05 PM DEPUTY SHERIFF BUILDING GUARD Norma Vu M.D., Ph.D. LAB MICROBIOL OGY - BLOOD ORDERABLES [facility] [address] [place] [address] [facility] [address] [place] [address] * (ABNORMAL) Lipid Panel (03/31/2023 4:36 PM DEPUTY SHERIFF BUILDING GUARD) [facility] Triglycerides 447(H) mg/dL 03/31/2023 5:24 PM DEPUTY SHERIFF BUILDING GUARD [facility] Comment: ----REFERENCE VALUE---- Normal: <150 mg/dL Borderline High: 150-199 mg/dL High: 200-499 mg/dL Very High: > or =500 mg/dL Cholesterol, Total 286(H) mg/dL 2022 5:24 PM DEPUTY SHERIFF BUILDING GUARD [facility] Comment: ----REFERENCE VALUE---- Desirable: < 200 mg/dL Borderline High: 200 - 239 mg/dL High: > or = 240 mg/dL Cholesterol, LDL, Calculated 148(H) mg/dL 03/31/2023 5:24 PM DEPUTY SHERIFF BUILDING GUARD [facility] Comment: ----REFERENCE VALUE---- Desirable: <100 mg/dL Above Desirable: 100-129 mg/dL Borderline High: 130-159 mg/dL High: 160-189 mg/dL Very High: >=190 mg/dL ----ADDITIONAL INFORMATION---- LDL cholesterol calculated using the Obrien/NIH equation. Cholesterol, HDL, S 55 >=50 mg/dL 03/31/2023 5:24 PM DEPUTY SHERIFF BUILDING GUARD [facility] Cholesterol, Non-HDL, Calculated 231(H) mg/dL 03/31/2023 5:24 PM DEPUTY SHERIFF BUILDING GUARD [facility] Comment: ----REFERENCE VALUE---- Desirable: <130 mg/dL Above Desirable: 130-159 mg/dL Borderline High: 160-189 mg/dL High: 190-219 mg/dL Very High: > or =220 mg/dL Fasting (8 HR or more) No 03/31/2023 4:53 PM DEPUTY SHERIFF BUILDING GUARD [facility] Blood (Blood, Venous) 03/31/2023 4:36 PM DEPUTY SHERIFF BUILDING GUARD 03/31/2023 4:53 PM DEPUTY SHERIFF BUILDING GUARD Norma Vu M.D., Ph.D. LAB BLOOD ADD -ON [facility] - [facility] [address] [place] [address], [facility] [address] [place] [address] * HCV Ab Scrn w/Reflex to HCV PCR, Serum (03/31/2023 4:36 PM DEPUTY SHERIFF BUILDING GUARD) HCV Ab Screen, S Negative Negative 03/31/2023 10:10 PM DEPUTY SHERIFF BUILDING GUARD [facility] Comment:Ifqiqc-[id number] rat io is <1.00. Blood (Blood, Venous) 03/31/2023 4:36 PM DEPUTY SHERIFF BUILDING GUARD 03/31/2023 8:05 PM DEPUTY SHERIFF BUILDING GUARD Norma Vu M.D., Ph.D. LAB MICROBIOL OGY - BLOOD ORDERABLES [facility] [address] [place] [address] [facility] [address] [place] [address] from Last 3 Months or Most Recently Relevant to Health Maintenance Additional Health Concerns Infection Onset Date Last Indicated Protective Environment 05/14/2023 Care Teams Java Support Engineer Relationship Specialty Start Date End Date Elsewhere, Pcp PCP - General Internal Medicine 03/30/23
--- OUTSIDE RECORDS SUMMARY | 2023-12-30 10:40 | XMS_ITS | Encounter Summary ---
Author Organization [facility] Address [address] [place] [phone] Care Team Providers Care Enamel Drier Name Role Phone Elsewhere, Pcp Primary Care Provider Unavailabl e Reason for Referral * Occupational Therapy (Routine) - Authorized Specialty Diagnoses / Procedures Referred By Suma zamora Referred To Contact Diagnoses Dizziness Procedures ENT OT Ongoing Treatment Cornelio Perdomo M.D. [address] [place] [phone] [facility] Referral ID Status Reason Start Date Expiration Date V isits Requested Visits Authorized [id number] Authorized 11/18/2023 04/25/2024 6 6 Reason for Visit * Outpatient (Routine) - Closed Specialty Diagnoses / Procedures Referred By Suma zamora Referred To Contact Diagnoses Multiple Sclerosis (HCC) Procedures Vestibular rehabilitation therapy PT/OT Cornelio Perdomo M.D. [address] [place] [phone] [facility] Referral ID Status Reason Start Date Expiration Date Visits Re quested Visits Authorized [id number] Closed 11/02/2023 11/01/2024 1 1 Encounter Details Date Type Department Care Team (Latest Contact Info) Description 11/18/2023 2:00 PM CDT Clinical Support Department of Otorhinolaryngology in [place], [place] [address] [place] [phone] Cornelio Perdomo M.D. [address] [place] [phone] Christa Do, OLatishaT. [address] [place] [phone] Dizziness (Primary Dx); Multiple Sclerosis (HCC) Social History Tobacco Use Types Packs/Day Years [...] declined 02/19/2022 How often do you attend [facility] or restoration services? Patient declined 02/19/2022 Do you belong [...] Answer Date Recorded PHQ-2 Score 0 10/07/2023 [facility] - Occupational Stress Questionnaire Answer [...] your living situation today? I have a [facility] place to live 03/31/2023 Education Answer Date Recorded What is the highest level of school you have completed or the highest degree you have received? Associate degree: occupational, technical, or vocational program 10/01/2018 Sex and Gender Information Value Date Recorded Sex Assigned at Female 03/24/2018 11:07 AM PHYSIOLOGICAL CHEMIST Gender Identity Female 05/22/2020 11:48 AM PHYSIOLOGICAL CHEMIST Sexual Orientation Straight 03/24/2018 11 :07 AM PHYSIOLOGICAL CHEMIST documented as of this encounter Consult Notes * Christa Do O.T. - 11/18/2023 2:00 PM CDT Occupational Therapy Vestibular Outpatient Evaluation and Treatment By co-signing this note, the provider certifies the therapy being provided to this patient is reasonable and necessary for the diagnosis or treatment of this patient. SUBJECTIVE Patient's Name: Chinedu Beadr Referring Provider: Cornelio Perdomo M.D. Medical Diagnosis: 1. Dizziness 2. 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 Information withinthis note is populated directly from patient responses on the electronic intake form prior to this appointment. Chinedu Beard is a 43 y.o. female who presents to outpatient vestibular therapy for evaluation. Her primary symptom is listed as: Dizziness, . Symptoms are described by the patient as: Spinning,Vertigo, Lightheaded, Foggy, Faint. Symptoms began 6 weeks or greater ago. Symptoms began with a specific activity: Yes. Symptoms are Daily. Overall, symptoms are Staying the same. I've had dizziness like this since I was diagnosed with MS. My dizziness is constant. Balance Screen: Patient has lost balance or fallen in the past year: Yes-4 Patient is concerned about balance in general: No Patient/Caregiver Goals: Learn strategies to reduce symptoms Previous Treatments: Yes Aggravating Factors: Lying down, Sitting up from a lying position, Looking up, Turning your head, Bending over, Relieving Factors: Lying down, Patient goals for this appointment include: Less dizziness with activity, OBJECTIVE Functional Assessment Measures - Tools Patient Specific Functional Scale (PSFS) Activity 1: Work Activity 1 Score: 4 Activity 2: Going shopping Activity 2 Score: 6 Vestibular: Posture: normal Cervical: - normal cervical range of motion Oculomotor Testing: - not assessed today Visual Vertigo Testing: - Not assessed today Motion Sensitivities: - not formally assessed today Positional Testing: - Loaded Mineral Hallpike: - Duration less than 1 minute - Positive left - Nystagmus - torsional - Nystagmus - up beating - Roll Test: - examined and normal Gait: Wide-based Balance Testing: -not assessed today TREATMENT Treatment today consisted of: Patient was educated on occupational therapy examination findings and nature of condition. Education was provided on the role of occupational therapy in treating the condition and the potential benefits and risk associated with treatment. Treatment plan was communicated and initiated with patient. Benign paroxysmal positional vertigo (BPPV) treatment based on exam findings: - left posterior canal canalithiasis (Kathy) RELAY ENGINEER - positive but milder re-testing for BPPV after completion of treatment - 2 repetitions of treatment performed during session - patient experienced vertiginous symptoms and/or nystagmus during treatment at the following times: initial position and return to sit - Vibration utilized on mastoid with second performance Instructed in the following: Access Code: [email or web address] URL: [email or web address] Date: 11/18/2023 Prepared by: Christa Do Exercises - Self-Kathy Maneuver Left Ear - 2 x daily - 7 x weekly BPPV Exercise instructions: - Exercises should be performed twice per day, once in the morning and again in the afternoon. Continue doing exercises twice a day until 3 days go by without symptoms. - Once you have completed an exercise session at home, keep your head in an upright positions for 20 minutes. You can look right or left and move around, but do not tilt your head up or down during that time. - It is important to understand these exercises are a treatment to help you manage BPPV; these exercises are not a cure. It is possible for the loose otoconia to interfere with your balance again. Ifyour symptoms recur, try doing the exercises twice a day again. If you have no improvement within two days of the doing the exercises again, you may need more treatment sessions with your health careprovider. - When done properly, the repositioning exercises are 80-90 percent successful in helping you manage the symptoms of BPPV. Talk to your health care provider about other treatment options if the exercises do not work for you. Patient response to intervention: Patient tolerated intervention well today. Home Exercise Program/Education: Verbal and written instructions for education and home program provided as indicated. The following patient education materials were provided today: [employer]: Text message version sent to patient's phone with videos included Assessment Clinical Impression: Patient presents to vestibular rehabilitation with impairments upon evaluation including: Left posterior canal lithiasis benign paroxysmal positional vertigo. Patient was subsequently treated with canalith repositioning treatment the 2nd treatment incorporated the use of vibration to the mastoid. Idris unsure if treatment was successful and scheduled her for a return visit next week. She was told that if she is feeling better and symptoms have resolved this appointment could be canceled. Rehab Potential: Ms. Beard has good potential to achieve established occupational therapy goals within the time frame outlined below, provided she actively participates in her occupational therapy treatment plan and home program. Occupational Profile and History review: Brief Performance Deficits: 1 - 3 performance deficits Comorbid Conditions: Other (Comment), Neurodegenerative disorder, Mental health disorder (Multiple sclerosis, chronic migraine, generalized anxiety disorder, benign paroxysmal positional vertigo, refer to EMR) Evaluation Complexity: Low Functional Goals and Timeframe's: OT Goal #1: Patient and care provider will verbalize understanding of how to appropriately identifybenign paroxysmal positional vertigo and perform self treatment technique. OT Goal #1 Date: 11/18/23 OT Goal #1 Status: Achieved OT Goal #2: Patient will be able to look up or down, bend forward, and roll over without feeling dizzy. OT Goal #2 Date: 01/19/24 OT Goal #2 Status: Progressing Progress: Progressing toward goals Plan Ms. Beard was educated regarding evaluative findings, diagnosis, prognosis, potential risks and benefits of rehabilitation interventions. A collaborative effort was used to establish goals and plan of care. She was informed of her right to make decisions regarding her care, including refusal of examination or treatment or selection of therapy services from another provider if desired. The treatment plan may be progressed or modified based upon her response to treatment. Treatment Plan: Start of Plan of Care: 11/18/2023 Number of Visits: up to 6 visits OT Duration: 90 days Plan: Continue with current plan OT Plan Comments: Patient will perform self treatment technique twice daily until she has 3 consecutive days without symptoms. Patient was scheduled for a recheck appointment next week. She was told she could call and cancel this appointment if symptoms have resolved. Treatment interventions may include: Treatment Interventions: Therapeutic exercise, Therapeutic functional activity, Neuromuscular re-education, Self-care/home management Other OT Interventions: Canalith repositioning treatment Occupational Therapy Attestation Statement: Patient agrees with the plan of care and goals. Time Spent with Patient Evaluations Eval - Low Complexity: 15 min Therapeutic Interventions Canalith Repositioning (min): 25 min Time Tracking Total Treatment Time (min): 40 min documented in this encounter Plan of Treatment Upcoming Encounters Date Type Department Care Team (Late st Contact Info) Description 2024 9:30 AM PHYSIOLOGICAL CHEMIST Infusion Department of Infusion Therapy in [address] [phone] Norma Vu M.D., Ph.D. documented as of this encounter Visit Diagnoses Diagnosis Dizziness- Primary Multiple Sclerosis (HCC) documented in this encounter Additional Health Concerns Infection Onset Date Last Indicated Resolved Time Protective Environment 05/14/2023 05/14/2023 Assessment Noted Time PHQ-9 Depression Total Score: 8 10/07/19 24 12:30 PM CDT documented as of this encounter Care Teams Enamel Drier Relationship Specialty Start Date End Date Elsewhere, Pcp PCP - General Internal Medicine 03/30/23 documented as of this encounter
--- OUTSIDE RECORDS SUMMARY | 2023-12-30 10:40 | XMS_ITS | Encounter Summary ---
Author Organization [facility] Address [address] [place] [address] Care Team Providers Care Clinical Services Director Name Role Phone Elsewhere, Pcp Primary Care Provider Unavailabl e Encounter Details Date Type Department Care Team (Late st Contact Info) Description 11/10/2023 Clinical Communication Pharmacy Prior Auth [phone] Lima Mercedes I. Social History Tobacco Use Types Packs/Day Years [...] How often do you attend chur or amish services? Patient declined 02/19/2022 Do you belong [...] Answer Date Recorded PHQ-2 Score 0 10/07/2023 [facility] of Occupat ional Health - Occupational [...] your living situation today? I have a [facility] place to live 03/31/2023 Education Answer Date Recorded What is the highest level of school you have completed or the highest degree you have received? Associate degree: occupational, technical, or vocational program 10/01/2018 Sex and Gender Information Value Date Recorded Sex Assigned at Female 03/24/2018 11:07 AM MANAGER DISH Gender Identity Female 05/22/2020 11:48 AM MANAGER DISH Sexual Orientation Straight 03/24/2018 11 :07 AM MANAGER DISH documented as of this encounter Plan of Treatment Upcoming Encounters Date Type Department Care Team (Late st Contact Info) Description 2024 9:30 AM MANAGER DISH Infusion Department of Infusion Therapy in [address] [phone] Norma Vu M.D., Ph.D. documented as of this encounter Visit Diagnoses Not on filedocumented in this encounter Additional Health Concerns Infection Onset Date Last Indicated Resolved Time Protective Environment 05/14/2023 05/14/2023 Assessment Noted Time PHQ-9 Depression Total Score: 8 10/07/19 24 12:30 PM CDT documented as of this encounter Care Teams Clinical Services Director Relationship Specialty Start Date End Date Elsewhere, Pcp PCP - General Internal Medicine 03/30/23 documented as of this encounter
--- OUTSIDE RECORDS SUMMARY | 2023-12-30 10:40 | XMS_ITS | Encounter Summary ---
Author Organization [facility] Address [address] [place] [phone] Care Team Providers Care Photographer News Name Role Phone Elsewhere, Pcp Primary Care Provider Unavailabl e Reason for Visit * Outpatient (Routine) - Closed Specialty Diagnoses / Procedures Referred By Suma t Referred To Contact Neurology Diagnoses Headache Unspecified Chronic Migraine Vertigo Neuralgia Migraine Headache Cornelio Perdomo M.D. [address] [place] [phone] [facility] Referral ID Status Reason Start Date Expiration Date Visits Re quested Visits Authorized [id number] Closed 10/07/2023 04/07/2025 1 1 Encounter Details Date Type Department Care Team (Late st Contact Info) Description 11/02/2023 4:00 PM CDT Telemedicine Department of Neurology in [place], [place] [address] [place] [phone] Cornelio Perdomo M.D. [address] [place] [phone] Chronic Migraine; Vertigo Benign Paroxysmal Positional Bilateral; [...] How often do you attend chur or zoroastrian services? Patient declined 02/19/2022 Do you belong to any clubs o r organizations such as scientology groups, unions, fraternal or athletic groups, or [...] Answer Date Recorded PHQ-2 Score 0 10/07/2023 [facility] [place] of Occupat ional Health - Occupational Stress [...] your living situation today? I have a [facility] place to live 03/31/2023 Education Answer Date Recorded What is the highest level of school you have completed or the highest degree you have received? Associate degree: occupational, technical, or vocational program 10/01/2018 Sex and Gender Information Value Date Recorded Sex Assigned at Female 03/24/2018 11:07 AM SENIOR AIR DIRECTOR Gender Identity Female 05/22/2020 11:48 AM SENIOR AIR DIRECTOR Sexual Orientation Straight 03/24/2018 11 :07 AM SENIOR AIR DIRECTOR documented as of this encounter Progress Notes * Cornelio Perdomo M.D. - 11/02/2023 4:00 PM CDT Consult conducted via real-time audio/video technology by Cornelio Perdomo M.D. in [facility] to the patient in Patient's Home. SUBJECTIVE Mrs. Beard returns for continued evaluation of her headaches. Imaging was negative for structural cause of her headaches. Nerve blocks have been very helpful in eliminating her side locked headaches. She continues on Aimovig for prior history of chronic migraine. ASSESSMENT / PLAN #1 Chronic Migraine #2 Vertigo Benign Paroxysmal Positional Bilateral #3 Neuralgia #4 Migraine Headache I think she would benefit from vestibular rehab for treatment of suspected bilateral benign paroxysmal positional vertigo. PATIENT EDUCATION Ready to learn, no apparent learning barriers were identified. Discussed diagnosis and treatment plan; patient expressed understanding of the content. documented in this encounter Plan of Treatment Upcoming Encounters Date Type Department Care Team (Late st Contact Info) Description 2024 9:30 AM SENIOR AIR DIRECTOR Infusion Department of Infusion Therapy in [address] [phone] Norma Vu M.D., Ph.D. documented as of this encounter Visit Diagnoses Diagnosis Chronic Migraine Vertigo Benign Paroxysmal Positional Bilateral Neuralgia Migraine Headache documented in this encounter Additional Health Concerns Infection Onset Date Last Indicated Resolved Time Protective Environment 05/14/2023 05/14/2023 Assessment Noted Time PHQ-9 Depression Total Score: 8 10/07/19 24 12:30 PM CDT documented as of this encounter Care Teams Photographer News Relationship Specialty Start Date End Date Elsewhere, Pcp PCP - General Internal Medicine 03/30/23 documented as of this encounter
--- OUTSIDE RECORDS SUMMARY | 2023-12-30 10:40 | XMS_ITS | Referral Summary ---
Author Organization [facility] Address [address] [place] [address] Care Team Providers Care Clip Baker Name Role Phone Elsewhere, Pcp Primary Care Provider Unavailabl e Source Comments Patient records contain information from all sites at [facility]. For routine questions regarding patient records, call [phone] during business hours, M-F 8:00 AM - 5:00 PM Central Time. Record requests for emergency care only can be directed to [phone] at any time.[facility] Encounters Date Type Department Care Team Description 11/18/2023 2:00 PM CDT Clinical Support Department of Otorhinolaryngology in [place], [place] [address] [place] [phone] Cornelio Perdomo M.D. Edvenson, Julie R OChantale Dizziness (Primary Dx); Multiple Sclerosis (HCC) 11/10/2023 Clinical Communication Pharmacy Prior [facility] [phone] Lima Mercedes I. 11/02/2023 4:00 PM CDT Telemedicine Department of Neurology in [place], [place] [address] [place] [phone] Cornelio Perdomo M.D. Chronic Migraine; Vertigo Benign Paroxysmal Positional Bilateral; Neuralgia; Migraine Headache 10/26/2023 3:30 PM CDT Procedure visit Department of Neurology in [address] [phone] Manuel Alonzo M.D. Chronic Migraine (Primary Dx); Headache Chronic Discharge Disposition: Home or Self Care 10/21/2023 8:39 AM CDT - 10/21/2023 11:59 PM CDT Hospital Encounter Department of Radiology in [address] [phone] Cornelio Perdomo M.D. Headache Unspecified Discharge Disposition: Home or Self Care 10/20/2023 Orders Only Department of Neurology in [place], [place] [address] [place] [phone] Cornelio Perdomo M.D. 10/15/2023 Clinical Communication Department of Neurology in [place], [place] [address] [place] [phone] Cornelio Perdomo M.D. RX APPEAL DENIAL (Naratriptan ) 10/11/2023 Clinical Communication Department of Neurology in [place], [place] [address] [place] [phone] Cornelio Perdomo M.D. Rx Denial (NARATRIPTAN HCL 2.5MG) 10/08/2023 Clinical Communication Department of Neurology in [place], [place] [address] [place] [phone] Manuel Alonzo M.D. 10/07/2023 1:00 PM CDT Comprehensive Visit Department of Neurology in [place], [place] [address] [place] [phone] Norma Vu M.D., Ph.D. Cornelio Perdomo M.D. Headache Unspecified; Chronic Migraine; Vertigo Benign Paroxysmal Positional Bilateral; Neuralgia; Migraine Headache 10/04/2023 Orders Only Department of Neurology in [place], [place] [address] [place] [phone] Norma Vu M.D., Ph.D. Migraine Headache (Primary Dx) 09/30/2023 Refill Department of Neurology in [address] [phone] Norma Vu M.D., Ph.D. Med Refill from [...] 04/15/2023 Demyelinating Disease Central Nervous System Other [facility] Current Drug Therapy 11/03/2018 Social History Tobacco [...] How often do you attend [facility] or advent services? Patient declined 02/19/2022 Do you belong to any clubs o r organizations such as yazidi groups, unions, fraternal or athletic groups, or [...] Answer Date Recorded PHQ-2 Score 0 10/07/2023 [facility] of Occupat ional Health - Occupational Stress [...] your living situation today? I have a [facility] place to live 03/31/2023 Education Answer Date Recorded What is the highest level of school you have completed or the highest degree you have received? Associate degree: occupational, technical, or vocational program 10/01/2018 Sex and Gender Information Value Date Recorded Sex Assigned at Female 03/24/2018 11:07 AM ELECTRICAL INSTRUMENT REPAIRER Gender Identity Female 05/22/2020 11:48 AM ELECTRICAL INSTRUMENT REPAIRER Sexual Orientation Straight 03/24/2018 11 :07 AM ELECTRICAL INSTRUMENT REPAIRER Last Filed Vital Signs Vital Sign Reading [...] st Contact Info) Description 2024 9:30 AM ELECTRICAL INSTRUMENT REPAIRER Infusion Department of Infusion Therapy in [address] [phone] Norma Vu M.D., Ph.D. Procedures Procedure Name Priority Date/Time Associated Diagnosis [...] HCV PCR, S Routine 03/31/2023 4:36 PM ELECTRICAL INSTRUMENT REPAIRER Multiple Sclerosis (HCC) HIV-1/-2 AG AND AB SCREEN, PLASMA Routine 03/31/2023 4:36 PM ELECTRICAL INSTRUMENT REPAIRER Multiple Sclerosis (HCC) LIPID PANEL, S Routine 03/31/2023 4:36 PM ELECTRICAL INSTRUMENT REPAIRER Multiple Sclerosis (HCC) from Last 3 Months [...] Neuroradiology [facility]ST LOS, Neuroradiology [facility] LOS, Neuroradiology [facility] N/A Magnetic Resonance Impressions 10/21/2023 10:58 [...] change from 03/25/2023. Cornelio JETT MRI PROCEDURES * MR Brain without and with IV Contrast (10/21/2023 9:35 AM CDT) Anatomical Region Laterality Modality Head, Brain, Neuroradiology RST [facility], Neuroradiology [facility], Neuroradiology [facility] N/A Magnetic Resonance Impressions 10/21/2023 10:58 [...] interval change from 03/25/2023. Cornelio Perdomo M.D. [facility] [place] PROCEDURES * HIV-1/-2 Ag and Ab Screen, Plasma (03/31/2023 4:36 PM ELECTRICAL INSTRUMENT REPAIRER) HIV-1/-2 Ag and Ab Screen, P Negative Negative 03/31/2023 8:46 PM ELECTRICAL INSTRUMENT REPAIRER [facility] Comment: Negative result does not rule out HIV infection. If exposure to HIV infection occurred <14 days ago, contact the laboratory to request addition of HIV-1/HIV-2 RNA detection, Plasma (HIP12). Blood (Blood, Venous) 03/31/2023 4:36 PM ELECTRICAL INSTRUMENT REPAIRER 03/31/2023 8:05 PM ELECTRICAL INSTRUMENT REPAIRER Norma Vu M.D., Ph.D. LAB MICROBIOL OGY - BLOOD ORDERABLES [facility] [address] [place] [address] [facility] [address] [place] [address] * (ABNORMAL) Lipid Panel (03/31/2023 4:36 PM ELECTRICAL INSTRUMENT REPAIRER) Triglycerides 447(H) mg/dL 03/31/2023 5:24 PM ELECTRICAL INSTRUMENT REPAIRER DTL Comment: ----REFERENCE VALUE---- Normal: <150 mg/dL Borderline High: 150-199 mg/dL High: 200-499 mg/dL Very High: > or =500 mg/dL Cholesterol, Total 286(H) mg/dL 2022 5:24 PM ELECTRICAL INSTRUMENT REPAIRER [facility]TL Comment: ----REFERENCE VALUE---- Desirable: < 200 mg/dL Borderline High: 200 - 239 mg/dL High: > or = 240 mg/dL Cholesterol, LDL, Calculated 148(H) mg/dL 03/31/2023 5:24 PM ELECTRICAL INSTRUMENT REPAIRER DTL Comment: ----REFERENCE VALUE---- Desirable: <100 mg/dL Above Desirable: 100-129 mg/dL Borderline High: 130-159 mg/dL High: 160-189 mg/dL Very High: >=190 mg/dL ----ADDITIONAL INFORMATION---- LDL cholesterol calculated using the Obrien/NIH equation. Cholesterol, HDL, S 55 >=50 mg/dL 03/31/2023 5:24 PM ELECTRICAL INSTRUMENT REPAIRER DTL Cholesterol, Non-HDL, Calculated 231(H) mg/dL 03/31/2023 5:24 PM ELECTRICAL INSTRUMENT REPAIRER [facility] Comment: ----REFERENCE VALUE---- Desirable: <130 mg/dL Above Desirable: 130-159 mg/dL Borderline High: 160-189 mg/dL High: 190-219 mg/dL Very High: > or =220 mg/dL Fasting (8 HR or more) No 03/31/2023 4:53 PM ELECTRICAL INSTRUMENT REPAIRER DT Blood (Blood, Venous) 03/31/2023 4:36 PM ELECTRICAL INSTRUMENT REPAIRER 03/31/2023 4:53 PM ELECTRICAL INSTRUMENT REPAIRER Norma Vu M.D., Ph.D. LAB BLOOD ADD -ON Performing Organization Address City/[facility]/ZIP Co de Phone Number [facility] [address] [place] [address], [facility] [address] [place] [address] * HCV Ab Scrn w/Reflex to HCV PCR, Serum (03/31/2023 4:36 PM ELECTRICAL INSTRUMENT REPAIRER) HCV Ab Screen, S Negative Negative 03/31/2023 10:10 PM ELECTRICAL INSTRUMENT REPAIRER [facility] Comment:[id number]-[id number] rat io is <1.00. Blood (Blood, Venous) 03/31/2023 4:36 PM ELECTRICAL INSTRUMENT REPAIRER 03/31/2023 8:05 PM ELECTRICAL INSTRUMENT REPAIRER Norma Vu M.D., Ph.D. LAB MICROBIOL OGY - BLOOD ORDERABLES Performing Organization Address City/[facility]/RUST Co de Phone Number [facility] [address] [place] [address] [facility] [address] [address] from Last 3 Months or Most Recently Relevant to Health Maintenance Additional Health Concerns Infection Onset Date Last Indicated Protective Environment 05/14/2023 Care Teams Clip Baker Relationship Specialty Start Date End Date Elsewhere, Pcp PCP - General Internal Medicine 03/30/23
--- OUTSIDE RECORDS SUMMARY | 2023-12-30 10:41 | XMS_ITS | Encounter Summary ---
Author Organization [facility] Address [address] [place] [address] Care Team Providers Care Flag Maker Name Role Phone Elsewhere, Pcp Primary Care Provider Unavailabl e Encounter Details Date Type Department Care Team (Late st Contact Info) Description 06/09/2017 Historic Ophthalmology HX ARZ NO MAPPING Jacques Alejandre M.D. [address] [place] [address] Social History Tobacco Use Types Packs/Day Years Used Date Smoking Tobacco: Never Assessed Sex and Gender Information Value Date Recorded Sex Assigned at Female 03/24/2018 11:07 AM MUSIC VIDEO DIRECTOR Gender Identity Female 05/22/2020 11:48 AM MUSIC VIDEO DIRECTOR Sexual Orientation Straight 03/24/2018 11 :07 AM MUSIC VIDEO DIRECTOR documented as of this encounter Progress [...] Examination Oph Visual Acuity Distance 09-Jun-2017 12:26 [facility] Distance Acuity Right 20/20 Distance Acuity Left 20/20 Distance Correction Right With glasses Distance Correction Left With glasses Pupil Size Right 09-Jun-2017 12:26 [facility] Pupil Size Right 4mm Pupil Reactivity Right 09-Jun-2017 12:26 [facility] Pupil Reactivity Right 2+ Pupil Size Left 09-Jun-2017 12:26 [facility] Pupil Size Left 4mm Pupil Reactivity Left 09-Jun-2017 12:26 [facility] Pupil Reactivity Left 2+ Afferent Pupil Defect Right 09-Jun-2017 12:26 [facility] APD Right No afferent defect Afferent Pupil Defect Left 09-Jun-2017 12:26 [facility] APD Left No afferent defect Motility Ocular Motility 09-Jun-2017 12:26 [facility] Ocular Motility full in both eyes and the eyes are straight Visual claros Oph Visual Field 09-Jun-2017 12:26 [facility] Visual Field Other: SEE HVF Oph Intraocular Pressure 09-Jun-2017 12:26 [facility] IOP Right 12 IOP Left 12 IOP Instrument Used Right Applanation IOP Instrument Used Left Applanation Oph Dilation 09-Jun-2017 12:26 [facility] Dilation Right Eye 1% [...] mos. This document has images extracted. Reference: [id number] VIDEO DIRECTOR documented in this encounter Plan of Treatment Upcoming Encounters Date Type Department Care Team (Late st Contact Info) Description 2024 9:30 AM MUSIC VIDEO DIRECTOR Infusion Department of Infusion Therapy in [address] [phone] Norma Vu M.D., Ph.D. documented as of this encounter Visit Diagnoses Not on filedocumented in this encounter Additional Health Concerns Infection Onset Date Last Indicated Resolved Time Protective Environment 05/14/2023 05/14/2023 documented as of this encounter Care Teams Flag Maker Relationship Specialty Start Date End Date Elsewhere, Pcp PCP - General Internal Medicine 03/30/23 documented as of this encounter
--- OUTSIDE RECORDS SUMMARY | 2023-12-30 10:41 | XMS_ITS | Encounter Summary ---
Author Organization [facility] Address [address] [place] [address] Care Team Providers Care Principle Software Engineer Name Role Phone Elsewhere, Pcp Primary Care Provider Unavailabl e Encounter Details Date Type Department Care Team (Late st Contact Info) Description 10/20/2023 Orders Only Department of Neurology in [place], [place] [address] [place] [address] Cornelio Perdomo M.D. [address] [place] [phone] Social History Tobacco Use Types Packs/Day Years [...] How often do you attend chur or sikh services? Patient declined 02/19/2022 Do you belong [...] Answer Date Recorded PHQ-2 Score 0 10/07/2023 [facility] of Occupat ional Health - Occupational Stress [...] your living situation today? I have a [facility] place to live 03/31/2023 Education Answer Date Recorded What is the highest level of school you have completed or the highest degree you have received? Associate degree: occupational, technical, or vocational program 10/01/2018 Sex and Gender Information Value Date Recorded Sex Assigned at Female 03/24/2018 11:07 AM ALGEBRAIST Gender Identity Female 05/22/2020 11:48 AM ALGEBRAIST Sexual Orientation Straight 03/24/2018 11 :07 AM ALGEBRAIST documented as of this encounter Plan of Treatment Upcoming Encounters Date Type Department Care Team (Late st Contact Info) Description 2024 9:30 AM ALGEBRAIST Infusion Department of Infusion Therapy in [address] [phone] Norma Vu M.D., Ph.D. documented as of this encounter Visit Diagnoses Not on filedocumented in this encounter Additional Health Concerns Infection Onset Date Last Indicated Resolved Time Protective Environment 05/14/2023 05/14/2023 Assessment Noted Time PHQ-9 Depression Total Score: 8 10/07/19 24 12:30 PM CDT documented as of this encounter Care Teams Principle Software Engineer Relationship Specialty Start Date End Date Elsewhere, Pcp PCP - General Internal Medicine 03/30/23 documented as of this encounter
--- OUTSIDE RECORDS SUMMARY | 2023-12-30 10:41 | XMS_ITS | Encounter Summary ---
Author Organization [facility] Address [address] [place] [address] Care Team Providers Care Rehabilitation Construction Specialist Name Role Phone Elsewhere, Pcp Primary Care Provider Unavailabl e Reason for Referral * Outpatient (Routine) - Closed Specialty Diagnoses / Procedures Referred By Suma zamora Referred To Contact Neurology Diagnoses Migraine Headache Norma Vu M.D., Ph.D. [facility] Referral ID Status Reason Start Date Expiration Date Visits Re quested Visits Authorized [id number] Closed 10/04/2023 04/04/2025 1 1 Encounter Details Date Type Department Care Team (Late st Contact Info) Description 10/04/2023 Orders Only Department of Neurology in [place], [place] [address] [place] [phone] Norma Vu M.D., Ph.D. Migraine Headache (Primary Dx) Social History Tobacco [...] How often do you attend chur or restoration services? Patient declined 02/19/2022 Do you belong to any clubs o r organizations such as congregational groups, unions, fraternal or athletic groups, or [...] and heating? Not hard at all 03/31/2023 [facility] of Occupat ional Health - [...] your living situation today? I have a [facility] place to live 03/31/2023 Education Answer Date Recorded What is the highest level of school you have completed or the highest degree you have received? Associate degree: occupational, technical, or vocational program 10/01/2018 Sex and Gender Information Value Date Recorded Sex Assigned at Female 03/24/2018 11:07 AM CHROME WORKER Gender Identity Female 05/22/2020 11:48 AM CHROME WORKER Sexual Orientation Straight 03/24/2018 11 :07 AM CHROME WORKER documented as of this encounter Plan of Treatment Upcoming Encounters Date Type Department Care Team (Late st Contact Info) Description 2024 9:30 AM CHROME WORKER Infusion Department of Infusion Therapy in [address] [phone] Norma Vu M.D., Ph.D. Scheduled Referrals Name Type Priority Associated Diagnoses Orde r Schedule Neurology - Headache consult (clinic) Outpatient Referral Routine Migraine Headache Expected: 10/04/2023, Expires: 01/03/2025 documented as of this encounter Visit Diagnoses Diagnosis Migraine Headache- Primary documented in this encounter Additional Health Concerns Infection Onset Date Last Indicated Resolved Time Protective Environment 05/14/2023 05/14/2023 documented as of this encounter Care Teams Rehabilitation Construction Specialist Relationship Specialty Start Date End Date Elsewhere, Pcp PCP - General Internal Medicine 03/30/23 documented as of this encounter
--- OUTSIDE RECORDS SUMMARY | 2023-12-30 10:41 | XMS_ITS | Encounter Summary ---
Author Organization [facility] Address [address] [place] [address] Care Team Providers Care Racehorse Trainer Name Role Phone Elsewhere, Pcp Primary Care Provider Unavailabl e Reason for Visit * Reason Comments Med Refill Encounter Details Date Type Department Care Team (Late st Contact Info) Description 09/30/2023 Refill Department of Neurology in [place], [place] [address] [place] [address] Norma Vu M.D., Ph.D. Med Refill Social History Tobacco Use Types [...] often do you attend chur ch or lutheran services? Patient declined 02/19/2022 Do you belong to any clubs o r organizations such as judaism groups, unions, fraternal or athletic groups, or [...] and heating? Not hard at all 03/31/2023 [facility] of Occupat ional Health - Occupational [...] your living situation today? I have a [facility] place to live 03/31/2023 Education Answer Date Recorded What is the highest level of school you have completed or the highest degree you have received? Associate degree: occupational, technical, or vocational program 10/01/2018 Sex and Gender Information Value Date Recorded Sex Assigned at Female 03/24/2018 11:07 AM BOX TURNER Gender Identity Female 05/22/2020 11:48 AM BOX TURNER Sexual Orientation Straight 03/24/2018 11 :07 AM BOX TURNER documented as of this encounter Plan of Treatment Upcoming Encounters Date Type Department Care Team (Late st Contact Info) Description 2024 9:30 AM BOX TURNER Infusion Department of Infusion Therapy in [address] [phone] Norma Vu M.D., Ph.D. documented as of this encounter Visit Diagnoses Diagnosis Fatigue Dizziness documented in this encounter Additional Health Concerns Infection Onset Date Last Indicated Resolved Time Protective Environment 05/14/2023 05/14/2023 documented as of this encounter Care Teams Racehorse Trainer Relationship Specialty Start Date End Date Elsewhere, Pcp PCP - General Internal Medicine 03/30/23 documented as of this encounter
--- OUTSIDE RECORDS SUMMARY | 2023-12-30 10:41 | XMS_ITS | Encounter Summary ---
Author Organization [facility] Address [address] [place] [address] Care Team Providers Care Ground Water Contractor Name Role Phone Elsewhere, Pcp Primary Care Provider Unavailabl e Reason for Visit * Reason Onset Date Comments RX APPEAL DENIAL 10/15/2023 Naratriptan Encounter Details Date Type Department Care Team (Latest Contact Info) Description 10/15/2023 Clinical Communication Department of Neurology in [place], [place] [address] [place] [address] Cornelio Perdomo M.D. [address] [place] [address] RX APPEAL DENIAL (Naratriptan ) Social History [...] often do you attend chur ch or hindu services? Patient declined 02/19/2022 Do [...] Answer Date Recorded PHQ-2 Score 0 10/07[facility]23 [facility] [...] medical appointments or from getting medications? No 0 09/2022 In the past 12 months, has [...] your living situation today? I have a [facility] place to live 03/31/2023 Education Answer Date Recorded What is the highest level of school you have completed or the highest degree you have received? Associate degree: occupational, technical, or vocational program 10/01/2018 Sex and Gender Information Value Date Recorded Sex Assigned at Female 03/24/2018 11:07 AM ROUGH RICE GRADER Gender Identity Female 05/22/2020 11:48 AM ROUGH RICE GRADER Sexual Orientation Straight 03/24/2018 11 :07 AM ROUGH RICE GRADER documented as of this encounter Plan of Treatment Upcoming Encounters Date Type Department Care Team (Late st Contact Info) Description 2024 9:30 AM ROUGH RICE GRADER Infusion Department of Infusion Therapy in [address] [phone] Norma Vu M.D., Ph.D. documented as of this encounter Visit Diagnoses Not on filedocumented in this encounter Additional Health Concerns Infection Onset Date Last Indicated Resolved Time Protective Environment 05/14/2023 05/14/2023 Assessment Noted Time PHQ-9 Depression Total Score: 8 10/07/19 24 12:30 PM CDT documented as of this encounter Care Teams Ground Water Contractor Relationship Specialty Start Date End Date Elsewhere, Pcp PCP - General Internal Medicine 03/30/23 documented as of this encounter
--- OUTSIDE RECORDS SUMMARY | 2023-12-30 10:41 | XMS_ITS | Encounter Summary ---
Author Organization [facility] Address [address] [place] [address] Care Team Providers Care Insurance Premium Auditor Name Role Phone Elsewhere, Pcp Primary Care Provider Unavailabl e Encounter Details Date Type Department Care Team (Late st Contact Info) Description 12/09/2017 Historic Ophthalmology HX ARZ NO MAPPING Meli Serrano O.D. [address] [place] [address] Social History Tobacco Use Types Packs/Day Years Used Date Smoking Tobacco: Every Day Sex and Gender Information Value Date Recorded Sex Assigned at Female 03/24/2018 11:07 AM DENTAL SPECIALIST Gender Identity Female 05/22/2020 11:48 AM DENTAL SPECIALIST Sexual Orientation Straight 03/24/2018 11 :07 AM DENTAL SPECIALIST documented as of this encounter Consult Notes [...] Medications Ordered Perform Medication Reconciliation: 1 Each, [facility], ONCE Prescriptions Prescribed Gilenya 0.5 mg oral [...] Problems High Risk Medication / SNOMED CT [id number] / Confirmed Plan Return to clinic: Gilenya Use no retinal abnormalities, normal macula on HRT today monitor for change Disc @ risk ?prior episode of neuritis OS RNFL thinning on HRT, temporal OS stable findings/vision recheck 6 mos, DFE, HRT. Refractive error: OD: [id number] OS: -[id number] . Reference: [facility]-[id number] documented in this encounter Plan of Treatment Upcoming Encounters Date Type Department Care Team (Late st Contact Info) Description 2024 9:30 AM DENTAL SPECIALIST Infusion Department of Infusion Therapy in [address] [phone] Norma Vu M.D., Ph.D. documented as of this encounter Visit Diagnoses Not on filedocumented in this encounter Additional Health Concerns Infection Onset Date Last Indicated Resolved Time Protective Environment 05/14/2023 05/14/2023 documented as of this encounter Care Teams Insurance Premium Auditor Relationship Specialty Start Date End Date Elsewhere, Pcp PCP - General Internal Medicine 03/30/23 documented as of this encounter
--- OUTSIDE RECORDS SUMMARY | 2023-12-30 10:41 | XMS_ITS | Encounter Summary ---
Author Organization [facility] Address [address] [place] [address] Care Team Providers Care Meat Products Demonstrator Name Role Phone Elsewhere, Pcp Primary Care Provider Unavailabl e Reason for Referral * Outpatient (Routine) - Authorized Specialty Diagnoses / Procedures Referred By Suma zamora Referred To Contact Diagnoses Neuralgia Procedures PM Nerve Block injection Supraorbital; Non-Guided PM Nerve Block injection Supraorbital; Non-Guided Cornelio Perdomo M.D. [address] [place] [address] [facility] Referral ID Status Reason Start Date Expiration Date V isits Requested Visits Authorized [id number] Authorized 10/07/2023 10/06/2024 1 1 * Outpatient (Routine) - Authorized Specialty Diagnoses / Procedures Referred By Suma zamora Referred To Contact Diagnoses Neuralgia Procedures PM Nerve Block injection Other; auriculotempral; Non-Guided; Left PM Nerve Block injection Other; auriculotempral; Non-Guided; Right Cornelio Perdomo M.D. [address] [place] [address] [facility] Referral ID Status Reason Start Date Expiration Date V isits Requested Visits Authorized [id number] Authorized 10/07/2023 10/06/2024 1 1 * Outpatient (Routine) - Closed Specialty Diagnoses / Procedures Referred By Contac t Referred To Contact Neurology Diagnoses Headache Unspecified Chronic Migraine Vertigo Neuralgia Migraine Headache Cornelio Perdomo M.D. [address] [place] [address] [facility] Referral ID Status Reason Start Date Expiration Date Visits Re quested Visits Authorized [id number] Closed 10/07/2023 04/07/2025 1 1 * MRI/CAT/PET Scan (Routine) - Closed Specialty Diagnoses / Procedures Referred By Contac t Referred To Contact Radiology Diagnoses Headache Unspecified Procedures MR Brain Venogram without and with IV Contrast Cornelio Perdomo M.D. [address] [place] [address] [facility] Referral ID Status Reason Start Date Expiration Date Visits Re quested Visits Authorized [id number] Closed 10/07/2023 10/06/2024 1 1 * MRI/CAT/PET Scan (Routine) - Closed Specialty Diagnoses / Procedures Referred By Contac t Referred To Contact Radiology Diagnoses Headache Unspecified Procedures MR Brain without and with IV Contrast Cornelio Perdomo M.D. [address] [place] [address] [facility] Referral ID Status Reason Start Date Expiration Date Visits Re quested Visits Authorized [id number] Closed 10/07/2023 10/06/2024 1 1 Reason for Visit * Outpatient (Routine) - Closed Specialty Diagnoses / Procedures Referred By Contac t Referred To Contact Neurology Diagnoses Migraine Headache Norma Vu M.D., Ph.D. [facility] Referral ID Status Reason Start Date Expiration Date Visits Re quested Visits Authorized [id number] Closed 10/04/2023 04/04/2025 1 1 Encounter Details Date Type Department Care Team (Latest Contact Info) Description 10/07/2023 1:00 PM CDT Comprehensive Visit Department of Neurology in [place], [place] [address] [place] [address] Norma Vu M.D., Ph.D. Cornelio Perdomo M.D. [address] [place] [address] Headache Unspecified; Chronic Migraine; Vertigo Benign Paroxysmal [...] often do you attend chur ch or jew services? Patient declined 02/19/2022 Do you belong to any clubs o r organizations such as yazdanism groups, unions, fraternal or athletic groups, or [...] Answer Date Recorded PHQ-2 Score 0 10/07/2023 [facility] - Occupational [...] Sex Assigned at Female 03/24/2018 11:07 AM INTERNET SOURCER Gender Identity Female 05/22/2020 11:48 AM INTERNET SOURCER Sexual Orientation Straight 03/24/2018 11 :07 AM INTERNET SOURCER documented as of this encounter Last Filed [...] her symptoms improved. However, since then v josh returns when she lays supine. These episodes [...] Tandem: 0 Station: Standin Romber Sittin Coordination: Hswxob-Wcpx-Ynpuom with Eyes Open: 0 on the right and 0 on the left Eigvhv-Vbaf-Zsagdu with Eyes Closed: 0 on the right [...] hemicrania continua diagnosis. 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 I have reviewed the patient's [...] is positive bilaterally. ASSESSMENT / PLAN Ms. Churchs clinical history and neurological examination today suggest [...] st Contact Info) Description 2024 9:30 AM INTERNET SOURCER Infusion Department of Infusion Therapy in [address] [phone] Norma Vu M.D., Ph.D. Scheduled Referrals Name [...] interval change from 03/25/2023. Cornelio Perdomo M.D. [facility] MRI PROCEDURES * MR Brain without and [...] Positional Bilateral Neuralgia Migraine Headache Headache Unspecified documented in this encounter Additional Health Concerns Infection Onset Date Last Indicated Resolved Time Protective Environment 05/14/2023 05/14/2023 Assessment Noted Time PHQ-9 Depression Total Score: 8 10/07/19 24 12:30 PM CDT documented as of this encounter Care Teams Meat Products Demonstrator Relationship Specialty Start Date End Date Elsewhere, Pcp PCP - General Internal Medicine 03/30/23 documented as of this encounter
--- OUTSIDE RECORDS SUMMARY | 2023-12-30 10:41 | XMS_ITS | Encounter Summary ---
Author Organization [facility] Address [address] [place] [address] Care Team Providers Care Auto Striper Name Role Phone Elsewhere, Pcp Primary Care Provider Unavailabl e Reason for Referral * Outpatient (Routine) - Closed Specialty Diagnoses / Procedures Referred By Suma zamora Referred To Contact Diagnoses Headache Chronic Procedures Headache nerve block - Neurology Manuel Alonzo M.D. [address] [place] [phone] [facility] Referral ID Status Reason Start Date Expiration Date Visits Re quested Visits Authorized [id number] Closed 10/12/2023 10/11/2024 1 1 Encounter Details Date Type Department Care Team (Late st Contact Info) Description 10/08/2023 Clinical Communication Department of Neurology in [place], [place] [address] [place] [phone] Manuel Alonzo M.D. [address] [place] [phone] Social History Tobacco Use Types Packs/Day Years [...] How often do you attend chur or yazdanism services? Patient declined 02/19/2022 Do you belong [...] Answer Date Recorded PHQ-2 Score 0 10/07/2023 [facility] of Occupat ional Health - Occupational Stress [...] your living situation today? I have a [facility] place to live 03/31/2023 Education Answer Date Recorded What is the highest level of school you have completed or the highest degree you have received? Associate degree: occupational, technical, or vocational program 10/01/2018 Sex and Gender Information Value Date Recorded Sex Assigned at Female 03/24/2018 11:07 AM INSURANCE SPECIALIST Gender Identity Female 05/22/2020 11:48 AM INSURANCE SPECIALIST Sexual Orientation Straight 03/24/2018 11 :07 AM INSURANCE SPECIALIST documented as of this encounter Plan of Treatment Upcoming Encounters Date Type Department Care Team (Late st Contact Info) Description 2024 9:30 AM INSURANCE SPECIALIST Infusion Department of Infusion Therapy in [address] [address] Norma Vu M.D., Ph.D. documented as of this encounter Visit Diagnoses Diagnosis Headache Chronic- Primary documented in this encounter Additional Health Concerns Infection Onset Date Last Indicated Resolved Time Protective Environment 05/14/2023 05/14/2023 Assessment Noted Time PHQ-9 Depression Total Score: 8 10/07/19 24 12:30 PM CDT documented as of this encounter Care Teams Auto Striper Relationship Specialty Start Date End Date Elsewhere, Pcp PCP - General Internal Medicine 03/30/23 documented as of this encounter
--- OUTSIDE RECORDS SUMMARY | 2023-12-30 10:41 | XMS_ITS | Encounter Summary ---
Author Organization [facility] Address [address] [place] [address] Care Team Providers Care Landscape And Yardwork Laborer Name Role Phone Elsewhere, Pcp Primary Care Provider Unavailabl e Reason for Visit * Reason Onset Date Comments Rx Denial 10/11/2023 NARATRIPTAN HCL 2.5MG Encounter Details Date Type Department Care Team (Latest Contact Info) Description 10/11/2023 Clinical Communication Department of Neurology in [place], [place] [address] [place] [phone] Marlon Hannah M.D. [address] [place] [address] Rx Denial (NARATRIPTAN HCL 2.5MG) Social History [...] How often do you attend chur or pentecostalism services? Patient declined 02/19/2022 Do [...] Answer Date Recorded PHQ-2 Score 0 10/07/2023 [facility] of Occupat ional Health - Occupational Stress [...] your living situation today? I have a [facility] place to live 03/31/2023 Education Answer Date Recorded What is the highest level of school you have completed or the highest degree you have received? Associate degree: occupational, technical, or vocational program 10/01/2018 Sex and Gender Information Value Date Recorded Sex Assigned at Female 03/24/2018 11:07 AM POTATO CHIP SORTER Gender Identity Female 05/22/2020 11:48 AM POTATO CHIP SORTER Sexual Orientation Straight 03/24/2018 11 :07 AM POTATO CHIP SORTER documented as of this encounter Miscellaneous Notes * Addendum Note - Marlon Hannah M.D. - 10/18/2023 10:10 AM CDTAddended by: MARLON HANNAH on: 10/18/2023 10:10 AM Modules accepted: Orders documented in this encounter Plan of Treatment Upcoming Encounters Date Type Department Care Team (Late st Contact Info) Description 2024 9:30 AM POTATO CHIP SORTER Infusion Department of Infusion Therapy in [address] [phone] Norma Vu M.D., Ph.D. documented as of this encounter Visit Diagnoses Diagnosis Chronic Migraine- Primary documented in this encounter Additional Health Concerns Infection Onset Date Last Indicated Resolved Time Protective Environment 05/14/2023 05/14/2023 Assessment Noted Time PHQ-9 Depression Total Score: 8 10/07/19 24 12:30 PM CDT documented as of this encounter Care Teams Landscape And Yardwork Laborer Relationship Specialty Start Date End Date Elsewhere, Pcp PCP - General Internal Medicine 03/30/23 documented as of this encounter
--- OUTSIDE RECORDS SUMMARY | 2023-12-30 10:41 | XMS_ITS | Encounter Summary ---
Author Organization [facility] Address [address] [place] [address] Care Team Providers Care Bead Picker Name Role Phone Elsewhere, Pcp Primary Care Provider Unavailabl e Encounter Details Date Type Department Care Team (Late st Contact Info) Description 02/05/2017 Historic Ophthalmology HX ARZ NO MAPPING Jacques Alejandre M.D. [address] [place] [address] Social History Tobacco Use Types Packs/Day Years Used Date Smoking Tobacco: Never Assessed Sex and Gender Information Value Date Recorded Sex Assigned at Female 03/24/2018 11:07 AM MANAGER OPERATIONS RESEARCH Gender Identity Female 05/22/2020 11:48 AM MANAGER OPERATIONS RESEARCH Sexual Orientation Straight 03/24/2018 11 :07 AM MANAGER OPERATIONS RESEARCH documented as of this encounter Consult Notes [...] Examination Oph Visual Acuity Distance 05-Feb-2017 13:10 [facility] Distance Acuity Right 20/20 Distance Acuity Left 20/20 Distance Correction Right With glasses Distance Correction Left With glasses Pupil Size Right 05-Feb-2017 13:10 [facility] Pupil Size Right 4mm Pupil Reactivity Right 05-Feb-2017 13:10 [facility] Pupil Reactivity Right 2+ Pupil Size Left 05-Feb-2017 13:10 [facility] Pupil Size Left 4mm Pupil Reactivity Left 05-Feb-2017 13:10 [facility] Pupil Reactivity Left 2+ Afferent Pupil Defect Right 05-Feb-2017 13:10 [facility] APD Right No afferent defect Afferent Pupil Defect Left 05-Feb-2017 13:10 [facility] APD Left No afferent defect Motility Ocular Motility 05-Feb-2017 13:10 [facility] Ocular Motility full in both eyes and the eyes are straight Visual claros Oph Visual Field 05-Feb-2017 13:10 [facility] Visual Field normal by confrontation Oph Intraocular Pressure 05-Feb-2017 13:10 [facility] IOP Right 16 IOP Left 16 IOP Instrument Used Right Applanation IOP Instrument Used Left Applanation Oph Dilation 05-Feb-2017 13:10 [facility] Dilation Right Eye 1% tropicamide, 2.5% [...] mos. This document has images extracted. Reference: [id number] documented in this encounter Plan of Treatment Upcoming Encounters Date Type Department Care Team (Late st Contact Info) Description 2024 9:30 AM MANAGER OPERATIONS RESEARCH Infusion Department of Infusion Therapy in [address] [phone] Norma Vu M.D., Ph.D. documented as of this encounter Visit Diagnoses Not on filedocumented in this encounter Additional Health Concerns Infection Onset Date Last Indicated Resolved Time Protective Environment 05/14/2023 05/14/2023 documented as of this encounter Care Teams Bead Picker Relationship Specialty Start Date End Date Elsewhere, Pcp PCP - General Internal Medicine 03/30/23 documented as of this encounter
--- OUTSIDE RECORDS SUMMARY | 2023-12-30 10:41 | XMS_ITS | Encounter Summary ---
Author Organization [facility] Address [address] [place] [address] Care Team Providers Care Salt Manager Name Role Phone Elsewhere, Pcp Primary Care Provider Unavailabl e Reason for Referral * Outpatient (Routine) - Closed Specialty Diagnoses / Procedures Referred By Contac t Referred To Contact Diagnoses Chronic Migraine Procedures Nerve Block Injection Manuel Alonzo M.D. [address] [place] [address] [facility]ly [facility] Referral ID Status Reason Start Date Expiration Date Visits Re quested Visits Authorized [id number] Closed 10/26/2023 10/25/2024 1 1 * Outpatient (Routine) - Closed Specialty Diagnoses / Procedures Referred By Contac t Referred To Contact Diagnoses Chronic Migraine Procedures Nerve Block Injection Manuel Alonzo M.D. [address] [place] [address] [facility]ly [facility] Referral ID Status Reason Start Date Expiration Date Visits Re quested Visits Authorized [id number] Closed 10/26/2023 10/25/2024 1 1 * Outpatient (Routine) - Authorized Specialty Diagnoses / Procedures Referred By Contac t Referred To Contact Diagnoses Chronic Migraine Procedures Nerve Block Injection Manuel Alonzo M.D. [address] [place] [address] [facility]ly [facility] Referral ID Status Reason Start Date Expiration Date V isits Requested Visits Authorized [id number] Authorized 10/26/2023 10/25/2024 1 1 Reason for Visit * Outpatient (Routine) - Closed Specialty Diagnoses / Procedures Referred By Suma zamora Referred To Contact Diagnoses Headache Chronic Procedures Headache nerve block - Neurology Manuel Alonzo M.D. [address] [place] [address] [facility]ly [facility] Referral ID Status Reason Start Date Expiration Date Visits Re quested Visits Authorized [id number] Closed 10/12/2023 10/11/2024 1 1 Encounter Details Date Type Department Care Team (Latest Contact Info) Description 10/26/2023 3:30 PM CDT Procedure visit Department of Neurology in [address] [address] Manuel Alonzo M.D. [address] [place] [address] Chronic Migraine (Primary Dx); Headache Chronic Discharge Disposition: Home or Self Care Social [...] often do you attend chur ch or bahai services? Patient declined 02/19/2022 Do you belong [...] Answer Date Recorded PHQ-2 Score 0 10/07/2023 [facility] - [...] your living situation today? I have a [facility] place to live 03/31/2023 Education Answer Date Recorded What is the highest level of school you have completed or the highest degree you have received? Associate degree: occupational, technical, or vocational program 10/01/2018 Sex and Gender Information Value Date Recorded Sex Assigned at Female 03/24/2018 11:07 AM CATHODE WASHER Gender Identity Female 05/22/2020 11:48 AM CATHODE WASHER Sexual Orientation Straight 03/24/2018 11 :07 AM CATHODE WASHER documented as of this encounter Procedure Notes * Manuel Alonzo M.D. - 10/26/2023 3:30 PM CDTAssociated Order(s): Nerve Block Injection; Nerve Block Injection; Nerve Block Injection Post-Procedure Diagnose(s): Chronic Migraine Nerve Block Injection Performed by: Manuel Alonzo M.D. Authorized by: Manuel Alonzo M.D. Care team members present 1. Manuel Alonzo M.D. 2. Tameka Bonilla L.P.N. PROCEDURE SUMMARY Indications: Neuralgia, migraine Body area: head/face/neck Procedure location (head/face/neck nerve): Right supraorbital Supraorbital position: supine Needle size: 30 G Needle length: other and 0.5 in Nerve block type: single injection INJECTED MEDICATIONS: Injection(s), anesthetic agent(s) and/or steroid(s): The injected medication(s) listed was divided equally between the identified injection location(s) Total volume of injectate (mL): 3 Total steroid in injectate (mg): 0 1.5 mL BUPivacaine 0.5 % (5 mg/mL) PROCEDURE DETAILS Supraorbital description: The patient was appropriate position. Prior to the procedure, the supraorbital foramen was palpated and examined to determine the location of the nerve and optimal needle path. Thereafter, a needle was advanced near the nerve and after negative aspiration, the medication was injected. Following the injection, the needle was withdrawn. The patient tolerated the procedure well and there were no apparent complications. After an appropriate amount of observation, the patient was dismissed from the clinic in good condition under their own power. Complications: no apparent complications CONSENT Consent obtained: verbal (and written) Consent given by: Patient The benefits, risks and alternatives to the procedure and the potential need for sedation or anesthesia as well as the names, roles, and responsibilities of healthcare team members performing significant interventional tasks were discussed with the patient and/or decision maker. UNIV[employer]AL [employer] All relevant documentation and testing were reviewed and available. All required blood products, implants, devices and or special equipment were made available as applicable. Pre-procedure verification was conducted and the correct site was marked if required. A fire risk assessment was done as applicable. The procedural time-out to verify correct patient, correct side/site, and procedure was conducted prior to performing the procedure and confirmed in a procedural pause. PRE-PROCEDURE DETAILS Appropriate hand hygiene, gown, cap, mask, protective eyewear, sterile gloves, skin preparation, sterile drape, and strict aseptic technique were utilized as applicable for the procedure.: yes Skin preparation: alcohol Nerve Block Injection Performed by: Manuel Alonzo M.D. Authorized by: Manuel Alonzo M.D. Care team members present 1. Manuel Alonzo M.D. 2. Tameka Bonilla L.P.N. PROCEDURE SUMMARY Indications: Occipital neuralgia Body area: head/face/neck Procedure location (head/face/neck nerve): Right greater occipital and Right lesser occipital Greater occipital position: seated Lesser occipital position: seated Needle size: 22 G Needle length: other and 1.5 in Nerve block type: single injection INJECTED MEDICATIONS: Injection(s), anesthetic agent(s) and/or steroid(s): The injected medication(s) listed was divided equally between the identified injection location(s) Total volume of injectate (mL): 10 Total steroid in injectate (mg): 10 3 mL BUPivacaine 0.5 % (5 mg/mL) 1.5 mL lidocaine 10 mg/mL (1 %) 0.5 mg dexAMETHasone 10 mg/mL PROCEDURE DETAILS Greater occipital description: The patient was placed in the appropriate position with the neck in a flexed position. Prior to the procedure, the occipital protuberance was palpated, and a point one third from the midline on a line that connects the occipital protuberance to the mastoid process was identified as the anticipated location of the greater occipital nerve. Palpation was also performedto note the location of the occipital artery. The needle was introduced in a caudal to cephalad approach at a shallow angle taking care to gently contact periosteum. After negative aspiration the medication was introduced in a fan like manner. Following the injection, the needle was withdrawn. The patient tolerated the procedure well and there were no apparent complications. After an appropriate amount of observation, the patient was dismissed from the clinic in good condition under their own power. Lesser occipital description: The patient was placed in the appropriate position with the neck in aflexed position. Prior to the procedure, the occipital protuberance was palpated and a point two thirds from the midline on a line that connects the occipital protuberance to the mastoid process was identified as the anticipated location of the lesser occipital nerve. The needle was introduced in acaudal to cephalad approach at a shallow angle taking care to gently contact periosteum with the tip of the needle at a shallow depth. After negative aspiration the medication was introduced in a fanlike manner. Following the injection, the needle was withdrawn. The patient tolerated the procedure well and there were no apparent complications. After an appropriate amount of observation, the patient was dismissed from the clinic in good condition under their own power. Complications: no apparent complications CONSENT Consent obtained: verbal (and written) Consent given by: Patient The benefits, risks and alternatives to the procedure and the potential need for sedation or anesthesia as well as the names, roles, and responsibilities of healthcare team members performing significant interventional tasks were discussed with the patient and/or decision maker. UNIV[employer]AL [employer] All relevant documentation and testing were reviewed and available. All required blood products, implants, devices and or special equipment were made available as applicable. Pre-procedure verification was conducted and the correct site was marked if required. A fire risk assessment was done as applicable. The procedural time-out to verify correct patient, correct side/site, and procedure was conducted prior to performing the procedure and confirmed in a procedural pause. PRE-PROCEDURE DETAILS Appropriate hand hygiene, gown, cap, mask, protective eyewear, sterile gloves, skin preparation, sterile drape, and strict aseptic technique were utilized as applicable for the procedure.: yes Skin preparation: alcohol Nerve Block Injection Performed by: Manuel Alonzo M.D. Authorized by: Manuel Alonzo M.D. Care team members present 1. Manuel Alonzo M.D. 2. Tameka Bonilla L.P.N. PROCEDURE SUMMARY Indications: neuralgia; headache Body area: head/face/neck Procedure location (head/face/neck nerve): other Other head/face/neck nerve: Right auriculotemporal Other head/face/neck nerve position: supine Needle size: 30 G Needle length: 0.5 in Nerve block type: single injection INJECTED MEDICATIONS: Injection(s), anesthetic agent(s) and/or steroid(s): Total volume of injectate (mL): 1 Total steroid in injectate (mg): 0 1 mL BUPivacaine 0.5 % (5 mg/mL) PROCEDURE DETAILS Other head/face nerve position description (see below): Temporal artery was palpated anterior to the tragus and injection was performed approximately 2 mm anterior to that with negative aspiration prior to injection Complications: no apparent complications Additional Procedure Comments Discussed that temporary weakness in facial nerve distribution is a potential complication. She tolerated procedure well with report of numbness in the right auriculotemporal distribution. No facial weakness or asymmetry noted immediately after procedure. CONSENT Consent obtained: written (Risks, benefits and alternatives were discussed and a written Informed Consent was obtained. Please see Informed Consent form for further details.) documented in this encounter Plan of Treatment Upcoming Encounters Date Type Department Care Team (Late st Contact Info) Description 2024 9:30 AM [facility] Infusion Department of Infusion Therapy in [address] [address] Norma Vu M.D., Ph.D. documented as of this encounter Procedures Procedure Name Priority Date/Time Associated Diagnosis Comments PM NERVE BLOCK INJECTION Routine 10/26/2023 3:30 PM CDT Chronic Migraine PM NERVE BLOCK INJECTION Routine 10/26/2023 3:30 PM CDT Chronic Migraine PM NERVE BLOCK INJECTION Routine 10/26/2023 3:30 PM CDT Chronic Migraine documented in this encounter Results * Nerve Block Injection (10/26/2023 3:30 PM CDT) Narrative Manuel Alonzo M.D. - 10/26/2023 3:30 [...] Alonzo M.D. PROCEDURE/MINOR SURG ICAL ORDERABLES * Nerve Block Injection (10/26/2023 3:30 PM CDT) Narrative Manuel Alonzo M.D. - 10/26/2023 3:30 PM CDT Manuel Alonzo M.D. ? 10/26/2023 ??3:53 PM Nerve Block Injection Performed by: Manuel Alonzo M.D. Authorized by: Manuel Alonzo M.D. ?? Care team members present 1. Manuel Alonzo M.D. 2. Tameka Bonilla L.P.N. PROCEDURE SUMMARY Indications: Occipital neuralgia ?? Body area: head/face/neck Procedure location (head/face/neck nerve): Right greater occipital and Right lesser occipital Greater occipital position: seated Lesser occipital position: seated Needle size: 22 G Needle length: other and 1.5 in Nerve block type: single injection INJECTED MEDICATIONS: Injection(s), anesthetic agent(s) and/or steroid(s): The injected medication(s) listed was divided equally between the identified injection location(s) Total volume of injectate (mL): 10 Total steroid in injectate (mg): 10 ?? 3 mL BUPivacaine 0.5 % (5 mg/mL) 1.5 mL lidocaine 10 mg/mL (1 %) 0.5 mg dexAMETHasone 10 mg/mL PROCEDURE DETAILS Greater occipital description: The patient was placed in the appropriate position with the neck in a flexed position. ??Prior to the procedure, the occipital protuberance was palpated, and a point one third from the midline on a line that connects the occipital protuberance to the mastoid process was identified as the anticipated location of the greater occipital nerve. ??Palpation was also performed to note the location of the occipital artery. The needle was introduced in a caudal to cephalad approach at a shallow angle taking care to gently contact periosteum. ?? After negative aspiration the medication was introduced in a fan like manner. Following the injection, the needle was withdrawn. ??The patient tolerated the procedure well and there were no apparent complications. ?? After an appropriate amount of observation, the patient was dismissed from the clinic in good condition under their own power. ?? Lesser occipital description: The patient was placed in the appropriate position with the neck in a flexed position. ??Prior to the procedure, the occipital protuberance was palpated and a point two thirds from the midline on a line that connects the occipital protuberance to the mastoid process was identified as the anticipated location of the lesser occipital nerve. The needle was introduced in a caudal to cephalad approach at a shallow angle taking care to gently contact periosteum with the tip of the needle at a shallow depth. ??After negative aspiration the medication was introduced in a fan like manner. Following the injection, the needle was withdrawn. ??The patient tolerated the procedure well and there were no apparent complications. ??After an appropriate amount of observation, the patient was dismissed from the clinic in good condition under their own power. ?? Complications: no apparent complications ?? CONSENT Consent obtained: verbal (and written) Consent given by: Patient The benefits, risks and alternatives to the procedure and the potential need for sedation or anesthesia as well as the names, roles, and responsibilities of healthcare team members performing significant interventional tasks were discussed with the patient and/or decision maker. [employer]AL [employer] All relevant documentation and testing were reviewed and available. All required blood products, implants, devices and or special equipment were made available as applicable. Pre-procedure verification was conducted and the correct site was marked if required. A fire risk assessment was done as applicable. The procedural time-out to verify correct patient, correct side/site, and procedure was conducted prior to performing the procedure and confirmed in a procedural pause. PRE-PROCEDURE DETAILS Appropriate hand hygiene, gown, cap, mask, protective eyewear, sterile gloves, skin preparation, sterile drape, and strict aseptic technique were utilized as applicable for the procedure.: yes ?? Skin preparation: alcohol Manuel Alonzo M.D. PROCEDURE/MINOR SURG ICAL ORDERABLES * Nerve Block Injection (10/26/2023 3:30 PM CDT) Narrative Manuel Alonzo M.D. - 10/26/2023 3:30 PM CDT Manuel Alonzo M.D. ? 10/26/2023 ??3:53 PM Nerve Block Injection Performed by: Manuel Alonzo M.D. Authorized by: Manuel Alonzo M.D. ?? Care team members present 1. Manuel Alonzo M.D. 2. Tameka Bonilla L.P.N. PROCEDURE SUMMARY Indications: Neuralgia, migraine ?? Body area: head/face/neck Procedure location (head/face/neck nerve): Right supraorbital Supraorbital position: supine Needle size: 30 G Needle length: other and 0.5 in Nerve block type: single injection INJECTED MEDICATIONS: Injection(s), anesthetic agent(s) and/or steroid(s): The injected medication(s) listed was divided equally between the identified injection location(s) Total volume of injectate (mL): 3 Total steroid in injectate (mg): 0 ?? 1.5 mL BUPivacaine 0.5 % (5 mg/mL) PROCEDURE DETAILS Supraorbital description: The patient was appropriate position. ??Prior to the procedure, the supraorbital foramen was palpated and examined to determine the location of the nerve and optimal needle path. Thereafter, a needle was advanced near the nerve and after negative aspiration, the medication was injected. Following the injection, the needle was withdrawn. ??The patient tolerated the procedure well and there were no apparent complications. ??After an appropriate amount of observation, the patient was dismissed from the clinic in good condition under their own power. ? Complications: no apparent complications ?? CONSENT Consent obtained: verbal (and written) Consent given by: Patient The benefits, risks and alternatives to the procedure and the potential need for sedation or anesthesia as well as the names, roles, and responsibilities of healthcare team members performing significant interventional tasks were discussed with the patient and/or decision maker. [employer]AL [employer] All relevant documentation and testing were reviewed and available. All required blood products, implants, devices and or special equipment were made available as applicable. Pre-procedure verification was conducted and the correct site was marked if required. A fire risk assessment was done as applicable. The procedural time-out to verify correct patient, correct side/site, and procedure was conducted prior to performing the procedure and confirmed in a procedural pause. PRE-PROCEDURE DETAILS Appropriate hand hygiene, gown, cap, mask, protective eyewear, sterile gloves, skin preparation, sterile drape, and strict aseptic technique were utilized as applicable for the procedure.: yes ?? Skin preparation: alcohol Manuel Alonzo M.D. PROCEDURE/MINOR SURG ICAL ORDERABLES documented in this encounter Visit Diagnoses Diagnosis Chronic Migraine- Primary Headache Chronic documented in this encounter Administered Medications Inactive Administered Medications - up to 3 most recent administrations Medication Order MAR Action Action Date Dose Rate Site BUPivacaine 0.5 % (5 mg/mL) injection 1 mL (Marcaine) 1 mL, injection, One-Time Injection, Starting on Wed10/26/23 at 1530, For 1 dose Given 10/26/2023 3:30 PM CDT 1 mL BUPivacaine 0.5 % (5 mg/mL) injection 1.5 mL (Marcaine) 1.5 mL, injection, One-Time Injection, Starting on Wed10/26/23 at 1530, For 1 dose Given 10/26/2023 3:30 PM CDT 1.5 mL BUPivacaine 0.5 % (5 mg/mL) injection 3 mL (Marcaine) 3 mL, injection, One-Time Injection, Starting on Wed10/26/23 at 1530, For 1 dose Given 10/26/2023 3:30 PM CDT 3 mL dexAMETHasone injection 0.5 mg (Decadron) 0.5 mg, injection, One-Time Injection, Starting on Wed10/26/23 at 1530, For 1 dose Given 10/26/2023 3:30 PM CDT 0.5 mg lidocaine 10 mg/mL (1 %) injection 1.5 mL (Xylocaine) 1.5 mL, injection, One-Time Injection, Starting on Wed10/26/23 at 1530, For 1 dose Given 10/26/2023 3:30 PM CDT 1.5 mL documented in this encounter Additional Health Concerns Infection Onset Date Last Indicated Resolved Time Protective Environment 05/14/2023 05/14/2023 Assessment Noted Time PHQ-9 Depression Total Score: 8 10/07/19 24 12:30 PM CDT documented as of this encounter Care Teams Salt Manager Relationship Specialty Start Date End Date Elsewhere, Pcp PCP - General Internal Medicine 03/30/23 documented as of this encounter
--- OUTSIDE RECORDS SUMMARY | 2023-12-30 10:41 | XMS_ITS | Encounter Summary ---
Author Organization [facility] Address [address] [place] [address] Care Team Providers Care Anodizer Name Role Phone Elsewhere, Pcp Primary Care Provider Unavailabl e Reason for Referral * MRI/CAT/PET Scan (Routine) - Closed Specialty Diagnoses / Procedures Referred By Contac t Referred To Contact Radiology Diagnoses Headache Unspecified Procedures MR Brain Venogram without and with IV Contrast Cornelio Perdomo M.D. [address] [place] [address] [facility] Referral ID Status Reason Start Date Expiration Date Visits Re quested Visits Authorized [id number] Closed 10/07/2023 10/06/2024 1 1 * MRI/CAT/PET Scan (Routine) - Closed Specialty Diagnoses / Procedures Referred By Contac t Referred To Contact Radiology Diagnoses Headache Unspecified Procedures MR Brain without and with IV Contrast Cornelio Perdomo M.D. [address] [place] [address] [facility] Referral ID Status Reason Start Date Expiration Date Visits Re quested Visits Authorized [id number] Closed 10/07/2023 10/06/2024 1 1 Reason for Visit * MRI/CAT/PET Scan (Routine) - Closed Specialty Diagnoses / Procedures Referred By Contac t Referred To Contact Radiology Diagnoses Headache Unspecified Procedures MR Brain Venogram without and with IV Contrast Cornelio Perdomo M.D. [address] [place] [address] [facility] Referral ID Status Reason Start Date Expiration Date Visits Re quested Visits Authorized [id number] Closed 10/07/2023 10/06/2024 1 1 Encounter Details Date Type Department Care Team (Latest Contact Info) Description 10/21/2023 8:39 AM CDT - 10/21/2023 11:59 PM CDT Hospital Encounter Department of Radiology in [address] [phone] Cornelio Perdomo M.D. [address] [place] [address] Headache Unspecified Discharge Disposition: Home or Self [...] declined 02/19/2022 How often do you attend up health system or oriental orthodox services? Patient declined 02/19/2022 Do you belong to any clubs o r organizations such as quaker groups, unions, fraternal or athletic groups, or [...] 10/07/2023 [facility] - Occupational Stress Questionnaire Answer [...] Sex Assigned at Female 03/24/2018 11:07 AM DOCUMENT REVIEWER Gender Identity Female 05/22/2020 11:48 AM DOCUMENT REVIEWER Sexual Orientation Straight 03/24/2018 11 :07 AM DOCUMENT REVIEWER documented as of this encounter Medications at [...] st Contact Info) Description 2024 9:30 AM DOCUMENT REVIEWER Infusion Department of Infusion Therapy in [address] [phone] Norma Vu M.D., Ph.D. documented [...] interval change from 03/25/2023. Cornelio Perdomo M.D. [facility] MRI PROCEDURES * MR Brain without and [...] this encounter Visit Diagnoses Diagnosis Headache Unspecified documented in this encounter Administered Medications Inactive [...] documented as of this encounter Care Teams Anodizer Relationship Specialty Start Date End Date Elsewhere, Pcp PCP - General Internal Medicine 03/30/23 documented as of this encounter
--- NOTE | 2023-12-30 10:45 | CRLHL7_ITS ---
For Patients: As a result of the Cures Act, medical imaging exams and procedure reports are released immediately into your electronic medical record. You may view this report before your referring provider. If you have questions, please contact your health care provider. BILATERAL DIAGNOSTIC MAMMOGRAM WITH COMPUTER-AIDED DETECTION AND TOMOSYNTHESIS LEFT BREAST ULTRASOUND CLINICAL HISTORY: LEFT breast lump. COMPARISON: 01/08/2021. TECHNIQUE: Digital BILATERAL mammogram in four projections with computer-aided detection. Tomosynthesis was used in this interpretation. Real-time ultrasound imaging of LEFT breast with imaging documentation. BREAST COMPOSITION: The breasts are heterogeneously dense, which may obscure small masses. FINDINGS: 3D CC/MLO BILATERAL mammogram images submitted. No suspicious masses or architectural distortion. Fullness of the LEFT breast tissue noted related to known fibrocystic change. Stable cyst deep within the LEFT breast tissue. No adenopathy. No suspicious calcifications. Targeted LEFT breast ultrasound performed in the area of concern at 12 o`clock 2 cm from the nipple. In this location, there is a cyst measuring 3.7 x 2.1 x 3.6 cm. Internal echoes are present with layering debris. Increased through transmission noted. No solid component or internal vascularity. IMPRESSION: Benign cyst LEFT breast 12 o`clock 2 cm from the nipple measuring 3.7 cm. No suspicious findings. RECOMMENDATIONS: Annual bilateral screening mammography. BI-RADS Category 2: Benign Results and recommendations discussed with the patient. A lay language report of this examination will be provided to the patient. Dictated by Bethel Kessler MD @ 12/30/2023 11:38:27 AM /brady/berhane SP/Dictated by: Bethel Kessler MD @ 12/30/2023 11:38:00 AM (Electronically Signed)
--- NOTE | 2023-12-30 11:15 | CRLHL7_ITS ---
For Patients: As a result of the Century Cures Act, medical imaging exams and procedure reports are released immediately into your electronic medical record. You may view this report before your referring provider. If you have questions, please contact your health care provider. PLEASE SEE BILATERAL BREAST DIAGNOSTIC MAMMOGRAM PERFORMED SAME DAY. CRL:sp SP/Dictated by: Bethel Kessler MD @ 12/30/2023 1:04:00 PM (Electronically Signed)
== END 2023-12-30 10:31 | disposition home or self-care (01) ==
LOC: MAMMO 10:30
PROVIDERS: PCP Family Medicine; Visit Provider Family Medicine
DX: N63.20 Unspecified lump in the left breast, unspecified quadrant (principal); N60.02 Solitary cyst of left breast
CPT/HCPCS: 76642; 77066; G0279

== ENCOUNTER 2024-04-08 03:35 | Outpatient (CLI) | payer BC, SELFPAY | END 2024-04-08 03:36 | disposition home or self-care (01) | LOC: AMB 04-11 03:01 | PROVIDERS: PCP Family Medicine; Visit Provider Emergency Medicine | DX: R42 Dizziness and giddiness (principal); R51.9 Headache, unspecified; R11.0 Nausea | CPT/HCPCS: A0425; A0427 ==

== ENCOUNTER 2024-04-08 04:14 | Emergency (ER) | payer BC, SELFPAY ==
[2024-04-08 04:19] VITALS: BP 122/79; PULSE 61; PULSE 62; RESP 18; RESP 20; TEMP 36.6; O2SAT 96; O2SAT 99; BMI 30.1
--- NOTE | 2024-04-08 04:35 | ED.GENADULT ---
HPI - General Adult General Date Seen: 04/08/24 Chief complaint: Weakness Stated complaint: nausea and weakness Time Seen by Provider: 04/08/24 04:27 History of Present Illness HPI narrative: 44-year-old female with a past medical history of multiple sclerosis, vestibular migraines, depression/anxiety, tobacco use, history of COVID infection in April 2023 presenting to the ER today by EMS. She is brought in from home for evaluation of an acute episode where she became very dizzy, nauseous, sweaty. History from paramedics is that she has had a cough and sore throat since Wednesday, tonight she had an episode her she became diaphoretic, sweaty, dizzy, and call 911. She was bradycardic with heart rate in the 50s on their monitor. Blood sugar was normal at 130. Blood pressure was normal. They were able to status doherty IV in her left hand. Symptoms improved in route. History from the patient is that she has MS. She follows with Neurology through [facility] for that. She started a new medication for it recently and had her 1st full dose infusion of that medication about 3 weeks ago. She receives her care at the [facility] system in [place]. For the past couple of weeks she has been feeling little bit short of breath and she thinks it might be a side effect to her infusion. She has been contacting her neurologist or mail and they say it is probably not a side effect. Since Wednesday she has had symptoms of an itchy scratchy dry sore throat and also a nonproductive cough. She had been using Mucinex. She notes that it made her very energized and actually she has been up since about 3:00 a.m. yesterday. She felt great and active and was energized. She was lying in bed tonight trying to get some sleep when she abruptly started to feel nauseous, dizzy (spinning). She became sweaty. She was not having any chest pain. No palpitations. No worsening shortness of breath. No abdominal pain. No focal numbness or weakness in her arms or legs. No swelling in her legs. No pain or body aches. She does have a mild pressure in her head has been going on since Wednesday but is worse tonight. In review of medical record and see that she was seen here in the ER on 09/25/2023 for headache and spinning dizziness. During that visit she had a normal CT scan of her brain. She also had a normal CT angiogram of her head and neck. Her dizziness was treated with Zofran, IV Valium IV fluids. She was improved and symptoms resolved. Related Data Home Medications ?Medication ?Instructions ?Recorded ?Confirmed amantadine HCl 100 mg capsule 100 mg PO QDAY 01/06/22 04/08/24 erenumab-aooe 140 mg/mL 140 mg subcut .1 01/06/22 04/08/24 subcutaneous auto-injector (Aimovig Autoinjector) ocrelizumab 30 mg/mL intravenous 600 mg IV [id number] 10/26/23 04/08/24 solution (Ocrevus) sumatriptan succinate 100 mg tablet See Rx Instructions PO .COMPLEX 10/26/23 04/08/24 Previous Rx's ?Medication ?Instructions ?Recorded fluoxetine 20 mg capsule 60 mg (3 x 20 mg) PO QDAY #270 caps 10/26/23 Allergies Allergy/AdvReac Type Severity Reaction Status Date / Time codeine Allergy Severe Anaphylaxis Verified 04/08/24 04:24 Iodinated Contrast Media Allergy Intermediate Hives Verified 04/08/24 04:24 [facility] Medical History (Updated 04/08/24 @ 06:10 by Stanley Barry MD) Allergic rhinitis ?J30.9 - Allergic rhinitis, unspecified (ICD-10) Dyslipidemia ?E78.5 - Hyperlipidemia, unspecified (ICD-10) Weight gain ?R63.5 - Abnormal weight gain (ICD-10) Tobacco abuse ?Z72.0 - Tobacco use (ICD-10) Demyelinating disease of central nervous system ?G37.9 - Demyelinating disease of central nervous system, unspecified (ICD-10) Dysfunctional uterine bleeding ?N93.8 - Other specified abnormal uterine and vaginal bleeding (ICD-10) History of CVA (cerebrovascular accident) (2017) ?Z86.73 - Personal history of transient ischemic attack (TIA), and cerebral infarction without residual deficits (ICD-10) Vestibular migraine (2020) ?G43.809 - Other migraine, not intractable, without status migrainosus (ICD-10) Depression with anxiety ?F41.8 - Other specified anxiety disorders (ICD-10) Multiple sclerosis (2018) ?G35 - Multiple sclerosis (ICD-10) Surgical History History of dilation and curettage (~03/2022) ?Z98.890 - Other specified postprocedural states (ICD-10) History of (2011) ?Z98.891 - History of uterine scar from previous surgery (ICD-10) Family History Family/Other Adopted Social History (Updated 10/26/23 @ 13:49 by Zakiya Hirsch MD) 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 hx of over 20 pack years Rare alcohol use No formal exercise. Walks a lot at work over 10,000 steps daily College degree. No alcohol use. No recreational drug use. No concerns for safety or abuse. Smoking Status: Former smoker Do you use any of these nicotine containing products: None Second hand tobacco smoke exposure: No How often do you have a drink containing alcohol: never How often do you have six or more drinks on one occasion: Never AUDIT-C Alcohol total score: 0 Non-prescribed substance use: denies use Caffeine: Yes service: No Exam Narrative: Exam Narrative: Constitutional: Appears well-developed and well-nourished. Alert. Conversant. She looks tired but not ?septic. ?. Able to sit up under her own power. HENT: Head: Atraumatic. No depressed skull fracture, Raccoon Eyes, Santiago's sign, or hemotympanum. Face normal. TMs normal Nose: Nose normal. Mouth/Throat: Oral mucosa is clear and moist. no trismus. Pharynx normal. Tonsils symmetric. No tonsillar enlargement, erythema, or exudate. Eyes: No nystagmus. Conjunctivae normal. EOM normal. Pupils equal, round, and reactive to light. No scleral icterus. Neck: Normal range of motion. Neck supple. No tracheal deviation present. Cardiovascular: Normal rate, regular rhythm. No gallop. No friction rub. No murmur heard. Symmetric radial artery pulses Pulmonary/Chest: Effort normal. No stridor. No respiratory distress. No wheezes. No rales. No rhonchi . No tenderness. Abdominal: Soft. Bowel sounds normal. No distension. No mass. No tenderness. No rebound. No guarding. Musculoskeletal: RUE: Normal range of motion. No tenderness. No deformity LUE: Normal range of motion. No tenderness. No deformity RLE: Normal range of motion. No edema. No tenderness. No deformity LLE: Normal range of motion. No edema. No tenderness. No deformity Lymph: No cervical adenopathy. Neurological: Mental status normal. Attention normal. Alert and oriented x3. GCS 15. Memory normal. Speech fluent. Cognition normal. Cranial Nerves intact II-XII except I did not formally test gag or visual acuity. EOMI. Palate elevates symmetrically and tongue protrudes in the midline. Strength: 5/5 trapezius on the right and left 5/5 deltoid on the right and left 5/5 biceps on the right and left 5/5 triceps on the right and left 5/5 depot manager on the right and left 5/5 thumb opposition on the right and left 5/5 finger abduction on the right and left 5/5 hip flexors (L3) on the right and left 5/5 quadriceps (L4) on the right and left 5/5 tibialis anterior on the right and left 5/5 EHL (L5) on the right and left 5/5 gastrocnemius (S1) on the right and left 5/5 hamstring on the right and left Sensation intact to light touch in both upper extremities (C4-T1) Sensation intact to light touch in Both lower extremities (L4-S1). Finger to nose and coordination normal. Skin: Skin is warm and dry. No rash noted. No pallor. Normal capillary refill. Psychiatric: Normal mood. Normal affect. Const: Vital Signs, click to edit/add: Vital Signs - 24 hr 04/08/24 04:19 04/08/24 04:19 04/08/24 04:46 Temperature 97.9 F Pulse Rate 61 Pulse Rate [Right Pulse Oximeter] 62 Respiratory Rate 18 20 Blood Pressure 122/79 Blood Pressure [Ri ght Upper Arm] 122/79 Pulse Oximetry 99 96 100 Oxygen Delivery Me thod Room Air 04/08/24 04:49 Temperature 97.9 F Pulse Rate Pulse Rate [Right Pulse Oximeter] Respiratory Rate Blood Pressure Blood Pressure [Ri ght Upper Arm] Pulse Oximetry Oxygen Delivery Me thod Course Course ED Course: Recheck-back from CT. IV fluids infusing Reevaluation(s) Reevaluation #1: Recheck-says she is feeling much better. Still very minimal headache but back to normal low baseline rate. Vertigo is still remains gone. She is apprised how much better she feels and does not understand why the medications we gave her her in in the ER are so effective, compared to the ibuprofen that she uses at home. Vital Signs Vital signs: Initial Vital Signs Temperature 97.9 F 04/08/24 04:19 Temperature Source Oral 04/08/24 04:19 Pulse Rate 61 04/08/24 04:19 Pulse Rhythm Regular 04/08/24 04:19 Pulse Strength 3+ Normal 04/08/24 04:19 Respiratory Rate 18 04/08/24 04:19 Blood Pressure 122/79 04/08/24 04:19 Blood Pressure Mean 93 04/08/24 04:19 Blood Pressure Position Sitting 04/08/24 04:19 Pulse Oximetry 99 04/08/24 04:19 Oxygen Delivery Method Room Air 04/08/24 04:19 Vital Signs Temperature 97.9 F 04/08/24 04:19 Pulse Rate 61 04/08/24 04:19 Respiratory Rate 18 04/08/24 04:19 Blood Pressure 122/79 04/08/24 04:19 Pulse Oximetry 99 04/08/24 04:19 Oxygen Delivery Method Room Air 04/08/24 04:19 Temperature 97.9 F 04/08/24 04:49 Pulse Rate 62 04/08/24 04:19 Respiratory Rate 20 04/08/24 04:19 Blood Pressure 122/79 04/08/24 04:19 Pulse Oximetry 100 04/08/24 04:46 Oxygen Delivery Method Room Air 04/08/24 04:19 Medications Administered Medications: Generic Name Dose Route Start Last Admin Trade Name Freq PRN Reason Stop Dose Admin Sodium Chloride 500 mls @ 500 mls/hr 04/08/24 04:40 04/08/24 05:32 0.9 % Sodium Chloride 500 Ml IV 04/08/24 05:39 Infused .Q1H ONE Infusion Ketorolac Tromethamine 15 mg 04/08/24 04:46 04/08/24 04:49 Ketorolac 15 Mg/Ml Inj IVP 04/08/24 04:47 15 mg ONCE ONE Administration Medical Decision Making MDM Narrative Medical decision making narrative: 44-year-old female with a past medical history notable for multiple sclerosis (recently started and food injectable medication, follows with [facility] Neurology) and vestibular migraines presenting to the ER today by EMS from home. She has been ill for the past 3 days with cough, mild sore throat and tonight developed acute onset of who referred ago nausea diaphoresis and unsteadiness. Upon arrival to the ER most vertigo was already resolving. Differential for her vertigo was broad. it includes common etiologies such as menieres disease, labyrinthitis, benign positional vertigo, otitis media, vestibular migraine etc. More serious etiologies considered include central etiologies such as tumor, intracerebral bleed, dissection, ischemic cerebral vascular accident. The history, physical exam including detailed neurologic exam, and workup in the emergency room suggests a benign cause of vertigo today. Neuro exam is reassuring. Vertigo resolved around the time she arrived here. She still has a headache. Suspect the headache is probably related to the illness causing her often sore throat but we did obtain head CT which is negative for intracranial bleed, tumor, mass effect, cerebral edema. Consider further imaging with MRI or CT angiogram. However MRI not available here in [facility]. At this point with results sips tubes I do think she requires hospitalization or transfer for emergent MRI. CT angiogram relatively contraindicated by reaction to CT contrast dye (patient gets bumps and hives from CT contrast). I do noted in her medical record she had a CT angiogram for an episode of vertigo that occurred about 6 months ago and at that time angiograms normal. She has also had nonproductive cough and a scratchy throat for the past 3 days. Differential for these symptoms is broad. Chest x-ray is normal . COVID, influenza, RSV PCR[]. Consider non vertiginous causes of dizziness although patient gives a good description for vertigo. EKG shows sinus bradycardia with a rate of 55 and no definite ischemia. Patient is not having any chest pain. She has had a few weeks of shortness of breath. Troponin is normal. Chest x-ray shows no evidence for CHF. CBC shows a mildly anemic hemoglobin but similar to baseline. Not in acute changed to explain dizziness tonight. Alcohol level is undetectable.. Consider possible PE, although would be very unlikely given absence of pleuritic chest pain. She is negative by PERC so would hold off on D-dimer testing or V/Q scan. CT angiogram contraindicated by contrast allergy She is feeling improved after fluids and Toradol given here in the ER. She is passing ambulation trial. She is comfortable discharging home. She called for a ride. Vertigo precautions given for home. Lab Data Labs: Lab Results 04/08/24 04/08/24 Range/Units 04:40 06:09 WBC 8.35 (4.50-11.00) K/uL RBC 4.23 (4.00-5.20) m/uL Hgb 10.8 L (12.0-16.0) gm/dL Hct 34.3 (33.0-51.0) % MCV 81 (80-100) fL MCH 26 (26-34) pg MCHC 32 (32-36) gm/dL RDW Coeff of Alfredo 15.8 H (11.5-15.5) % Plt Count 354 (140-440) K/uL Neut % (Auto) 83.3 H (42.0-72.0) % Lymph % (Auto) 6.7 L (20-44) % [place] % (Auto) 5.4 (0.0-11.0) % Eos % (Auto) 1.2 (0.0-7.0) % Baso % (Auto) 0.5 (0.0-3.0) % Neut # (Auto) 7.00 (1.7-7.0) K/uL Lymph # (Auto) 0.60 L (0.90-2.90) K/uL [place] # (Auto) 0.50 (0.00-0.90) K/UL Eos # (Auto) 0.10 (0.00-0.50) K/uL Baso # (Auto) 0.04 (0.00-0.30) K/uL Abs Immat Gran (auto) 0.24 (0.00-0.30) K/uL Imm/Tot Granulo (auto) 2.9 % Sodium 137 (135-149) mmol/L Potassium 3.2 L (3.6-5.1) mmol/L Chloride 109 (96-114) mmol/L Carbon Dioxide 21 (20-32) mmol/L Anion Gap 7 (7-15) mEq/L BUN 9 (5-24) mg/dL Creatinine 0.8 (0.5-1.5) mg/dL Estimated Creat Clear 74.23 Estimated GFR 93 ml/min Glucose 106 (60-115) mg/dL Lactate 1.8 (0.5-1.9) mmol/L Calcium 8.1 L (8.4-10.6) mg/dL Total Bilirubin 0.3 (0.1-1.5) mg/dL AST 20 (12-35) U/L ALT 15 (4-35) U/L Alkaline Phosphatase 88 (40-150) U/L Troponin I < 0.01 L (0.01-0.04) ng/mL Total Protein 6.0 (6.0-8.3) g/dL Albumin 3.4 (3.3-5.0) g/dL Ethyl Alcohol < 0.00 L (0.01-0.03) % SARS-CoV-2 (PCR) Negative SARS-CoV-2 (Negative) Influenza Type A (PCR) Negative PCR FLU A (Negative) Influenza Type B (PCR) Negative PCR FLU B (Negative) RSV (PCR) Negative PCR RSV (Negative) Imaging Data CT scan - head: Attestation: I have reviewed the pertinent imaging results. Radiologist's impression: IMPRESSION: Normal unenhanced head CT. Chest x-ray: Attestation: I have reviewed the pertinent imaging results. Radiologist's impression: IMPRESSION: No evidence of active pulmonary disease. ECG Data Attestation: I personally reviewed and interpreted this ECG as follows: Interpretation: Sinus bradycardia Rate: 55 ND: 138 QRS axis: Normal axis. Low voltage QRS ST segment/T wave: No ST segment elevation or depression. Nonspecific T-wave flattening throughout. QTc: 459 Discharge Plan Discharge Clinical Impression: Vertigo, Upper respiratory infection Patient Disposition: Home, Self-Care Condition: Stable Instructions: Vertigo (DC), Upper Respiratory Infection (DC) Additional Instructions: As we discussed, please follow-up with your neurologist in your doctors at [facility] next week. Return to the ER right away if you have any concerns; especially if you have more episodes of vertigo, new neurologic symptoms such as numbness or weakness in your arms or legs, trouble speaking, numbness in her face, or if you have other worsening infection symptoms such as fever, worsening trouble breathing, worsening cough, Prescriptions: No Action amantadine HCl 100 mg capsule 100 mg PO QDAY Aimovig Autoinjector 140 mg/mL auto-injector 140 mg subcut .1 Ocrevus 30 mg/mL solution 600 mg IV [id number] sumatriptan succinate 100 mg tablet See Rx Instructions PO .COMPLEX Rx Instructions: take 1 tab at onset of headache; if no relief, may repeat 1 tab after at least 2 hrs; max = 2 tabs/24 hrs PO fluoxetine 20 mg capsule 60 mg PO QDAY Qty: 270 3RF Rx Instructions: Patient to take 3 caps by mouth daily Follow Up/Referrals: Zakiya Hirsch MD [Primary Care Provider] - Stand Alone Forms: [employer] Info Instructions
--- NOTE | 2024-04-08 04:40 | CRLHL7_ITS ---
For Patients: As a result of the Cures Act, medical imaging exams and procedure reports are released immediately into your electronic medical record. You may view this report before your referring provider. If you have questions, please contact your health care provider. INDICATION: Cough. Dizziness. COMPARISON: None TECHNIQUE: PA and lateral views of the chest were acquired FINDINGS: TUBES AND LINES: None. HEART AND MEDIASTINUM: The heart size is normal. The mediastinal contour appears normal for patient age. LUNGS AND PLEURAL SPACES: The lungs appear normal.The pleural spaces are unremarkable. OSSEOUS STRUCTURES: Age-appropriate appearance. No acute focal finding. IMPRESSION: No evidence of active pulmonary disease. Dictated by Rhys Mcclure MD @ 04/08/2024 5:24:38 AM (Electronically Signed)
--- NOTE | 2024-04-08 04:40 | CRLHL7_ITS ---
For Patients: As a result of the Century Cures Act, medical imaging exams and procedure reports are released immediately into your electronic medical record. You may view this report before your referring provider. If you have questions, please contact your health care provider. INDICATION: Headache. Vertigo. COMPARISON: 12/07/2021 TECHNIQUE: CT examination of the head was performed as axial sections without intravenous contrast. Images were obtained from the vertex of the skull through the skull base. Please note that all CT scans at this facility use dose modulation, iterative reconstruction, and/or weight-based dosing when appropriate to reduce radiation dose to as low as reasonably achievable. FINDINGS: The brain shows no sign of mass lesion, mass effect, hemorrhage, or edema. The ventricles and sulci are normal in appearance for the patient`s age. The visualized portions of the orbits are normal in appearance. The osseous structures are normal in their appearance with no sign of abnormality in the skull base or calvarium. IMPRESSION: Normal unenhanced head CT. Please note that all CT scans at this facility use dose modulation, iterative reconstruction, and/or weight-based dosing when appropriate to reduce radiation dose to as low as reasonably achievable. Dictated by Rhys Mcclure MD @ 04/08/2024 5:26:43 AM (Electronically Signed)
[2024-04-08] MEDS: 0.9 % SODIUM CHLORIDE 500 ML 500 ML IV (04:43)
[2024-04-08 04:46] VITALS: O2SAT 100
[2024-04-08 04:49] VITALS: TEMP 36.6
[2024-04-08] MEDS: KETOROLAC 15 MG/ML inj IVP (04:49)
[2024-04-08 04:56] LABS: Lactate* 1.8 mmol/L (0.5-1.9)
[2024-04-08 05:18] LABS: Albumin* 3.4 g/dL (3.3-5.0); Chloride* 109 mmol/L (96-114); Sodium* 137 mmol/L (135-149)
[2024-04-08 05:19] LABS: Potassium* 3.2 mmol/L (3.6-5.1)
[2024-04-08 05:21] LABS: Alanine Aminotransferase* 15 U/L (4-35); Alkaline Phosphatase* 88 U/L (40-150); Anion Gap 7 mEq/L (7-15); Aspartate Amino Transferase* 20 U/L (12-35); Bilirubin Total* 0.3 mg/dL (0.1-1.5); Blood Urea Nitrogen* 9 mg/dL (5-24); Calcium* 8.1 mg/dL (8.4-10.6); Carbon Dioxide* 21 mmol/L (20-32); Creatinine* 0.8 mg/dL (0.5-1.5); Est. Creatinine Clearance* 74.23; Estimated Glomerular Filt Rate 93 ml/min; Glucose* 106 mg/dL (60-115)
[2024-04-08 05:35] LABS: Ethanol* < 0.00 % (0.01-0.03); Troponin I* < 0.01 ng/mL (0.01-0.04)
[2024-04-08 05:36] LABS: PCR FLU A Negative PCR FLU A (Negative); PCR FLU B Negative PCR FLU B (Negative); PCR RSV Negative PCR RSV (Negative); SARS PCR* Negative SARS-CoV-2 (Negative)
[2024-04-08 06:11] LABS: Basophils Absolute Auto 0.04 K/uL (0.00-0.30); Basophils Percent Auto 0.5 % (0.0-3.0); Eosinophils Percent Auto 1.2 % (0.0-7.0); Hematocrit 34.3 % (33.0-51.0); Hemoglobin* 10.8 gm/dL (12.0-16.0); Immature Granulocytes Abs Auto 0.24 K/uL (0.00-0.30); Immature Granulocytes Pct Auto 2.9 %; Lymphocytes Percent Auto 6.7 % (20-44); Mean Corpuscular HGB Conc 32 gm/dL (32-36); Mean Corpuscular Hemoglobin 26 pg (26-34); Mean Corpuscular Volume 81 fL (80-100); Monocytes Percent Auto 5.4 % (0.0-11.0); Neutrophils Percent Auto 83.3 % (42.0-72.0); Platelet Count* 354 K/uL (140-440); RDW Coefficient of Variation % 15.8 % (11.5-15.5); Red Blood Count 4.23 m/uL (4.00-5.20); White Blood Count* 8.35 K/uL (4.50-11.00)
[2024-04-08 06:20] LABS: Slide Review Reflex No
[2024-04-08 06:34] VITALS: BP 118/74; PULSE 68; RESP 20; TEMP 36.6; O2SAT 100
[2024-04-08 06:36] VITALS: BP 118/74; PULSE 68; RESP 20; TEMP 36.6
== END 2024-04-08 06:36 | disposition home or self-care (01) ==
PROVIDERS: Emergency Provider Emergency Medicine; PCP Family Medicine
DX: R42 Dizziness and giddiness (principal); J06.9 Acute upper respiratory infection, unspecified
CPT/HCPCS: 36415; 70450; 71046; 80053; 81001; 82077; 83605; 84484; 85025; 87631; 93005; 94761; 96374; 99284; 99285; J1885; J7030

== ENCOUNTER 2024-04-13 12:46 | Emergency (ER) | payer BC, SELFPAY ==
[2024-04-13 12:56] VITALS: BP 140/92; PULSE 70; RESP 16; TEMP 36.6; O2SAT 96
[2024-04-13 13:10] VITALS: BP 133/89; BP 140/92; BP 146/85; PULSE 66; PULSE 75
--- NOTE | 2024-04-13 13:14 | ED.DIZZY ---
HPI - Dizziness General Time Seen by Provider: 13:14 Date Seen: 04/13/24 Chief Complaint: Dizziness/Vertigo Stated Complaint: near syncope Time Seen by Provider: 04/13/24 12:51 Source: patient, EMS, RN notes reviewed and old records reviewed Mode of arrival: EMS Limitations: no limitations History of Present Illness HPI Narrative: This 44-year-old female was brought in by EMS from [employer] where she had vertiginous episode at work. She was just walking when she started to feel suddenly dizzy, reported as a spinning sensation. She had to sit down, became nauseated, felt like she was going to pass out. She noted no sense of arrhythmia or regular pulse, no chest pain. She has been having multiple spells like this over the last few weeks, was in just a few days ago and did have normal head CT imaging. This patient does have multiple sclerosis, has been in contact with her neurology team, has been telling them that she needs an MRI. Her nausea was improved by the 4 mg Zofran that EMS gave her IV. Her blood sugar was good at 124. She is not orthostatic, orthostatic vitals were done in triage. She notes no other changes such as visual disturbances, no numbness tingling weakness of her extremities. She is feeling better at this time. Her note from April 08 was reviewed, she was just in for vertigo. She states that she does do the exercises for ?stones?. She does not believe it is the stones in her ear. Related Data Home Medications ?Medication ?Instructions ?Recorded ?Confirmed amantadine HCl 100 mg capsule 100 mg PO QDAY 01/06/22 04/08/24 erenumab-aooe 140 mg/mL 140 mg subcut .1 01/06/22 04/08/24 subcutaneous auto-injector (Aimovig Autoinjector) ocrelizumab 30 mg/mL intravenous 600 mg IV [id number] 10/26/23 04/08/24 solution (Ocrevus) sumatriptan succinate 100 mg tablet See Rx Instructions PO .COMPLEX 10/26/23 04/08/24 Previous Rx's ?Medication ?Instructions ?Recorded fluoxetine 20 mg capsule 60 mg (3 x 20 mg) PO QDAY #270 caps 10/26/23 diazepam 5 mg tablet (Valium) 5 mg PO BID PRN #10 tabs 04/13/24 meclizine 25 mg tablet 25 mg PO TID PRN #30 tabs 04/13/24 Allergies Allergy/AdvReac Type Severity Reaction Status Date / Time codeine Allergy Severe Anaphylaxis Verified 04/08/24 04:24 Iodinated Contrast Media Allergy Intermediate Hives Verified 04/08/24 04:24 Review of Systems Status of ROS: Reports: 6 or more systems reviewed and unremarkable except as noted in History and below PFSH FOR[facility]LY [facility], [facility] Medical History Allergic rhinitis ?J30.9 - Allergic rhinitis, unspecified (ICD-10) Dyslipidemia ?E78.5 - Hyperlipidemia, unspecified (ICD-10) Weight gain ?R63.5 - Abnormal weight gain (ICD-10) Tobacco abuse ?Z72.0 - Tobacco use (ICD-10) Demyelinating disease of central nervous system ?G37.9 - Demyelinating disease of central nervous system, unspecified (ICD-10) Dysfunctional uterine bleeding ?N93.8 - Other specified abnormal uterine and vaginal bleeding (ICD-10) History of CVA (cerebrovascular accident) (2017) ?Z86.73 - Personal history of transient ischemic attack (TIA), and cerebral infarction without residual deficits (ICD-10) Vestibular migraine (2020) ?G43.809 - Other migraine, not intractable, without status migrainosus (ICD-10) Depression with anxiety ?F41.8 - Other specified anxiety disorders (ICD-10) Multiple sclerosis (2018) ?G35 - Multiple sclerosis (ICD-10) Surgical History History of dilation and curettage (~03/2022) ?Z98.890 - Other specified postprocedural states (ICD-10) History of (2011) ?Z98.891 - History of uterine scar from previous surgery (ICD-10) Family History Family/Other Adopted Social History 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 hx of over 20 pack years Rare alcohol use No formal exercise. Walks a lot at work over 10,000 steps daily College degree. No alcohol use. No recreational drug use. No concerns for safety or abuse. Smoking Status: Former smoker Do you use any of these nicotine containing products: None Second hand tobacco smoke exposure: No How often do you have a drink containing alcohol: never How often do you have six or more drinks on one occasion: Never AUDIT-C Alcohol total score: 0 Non-prescribed substance use: denies use Caffeine: Yes service: No Exam Const: Vital Signs, click to edit/add: Vital Signs - 24 hr 04/13/24 12:56 04/13/24 13:10 04/13/24 16:57 Temperature 97.9 F Pulse Rate [Pulse Oximeter] 70 61 Pulse Rate [orthos tatic lying] 66 Pulse Rate [orthos tatic sitting] 66 Pulse Rate [orthos tatic standing] 75 Respiratory Rate 16 18 Blood Pressure [Le ft Upper Arm] 140/92 H 129/79 Blood Pressure [or thostatic lying] 140/92 H Blood Pressure [or thostatic sitting] 146/85 H Blood Pressure [or thostatic standing ] 133/89 Pulse Oximetry 96 98 Oxygen Delivery Me thod Room Air Room Air This 44-year-old female is lying in the bed in exam room 7, she is alert, interactive, no apparent distress. Speech is normal, symmetrical facial function. Pupils are equal round reactive. Extraocular muscles intact, there is left horizontal beating nystagmus. When I do the [place]-Hallpike maneuver, with head rotated to the left, does not reproduce her symptoms at this time. Neck supple, no adenopathy, lungs clear, good air entry, wheezing or crackles, no tachypnea. CV regular rate and rhythm, no murmur, normal S1-S2, no S3-S4. Abdomen is soft, no rebound or guarding, no organomegaly. Strength is 5/5 and symmetric through hands arms, feet, legs. There is no tremors, no dysmetria. She has normal sensation. Documenting provider has reviewed patient's vital signs: yes Course Course ED Course: Have reviewed with Adia that with recurrent symptoms, this certainly could be MS which is nothing she was not aware of. She states she keeps missing work. She has put in multiple notes to her team, she believes she needs an MRI as do I at this time. Will give her 5 mg oral Valium to help with some of her symptoms, has worked for her well before. Kristiefran from EMS has controlled her nausea. She is improved at this time but with movement still has some symptoms. This does not seem to be cardiogenic in nature from her history and current presentation. She just had normal head CT imaging when she was in last a few days ago. Do not think that needs to be repeated. I will try to contact Neurology at [facility] to discuss MRI imaging. She was mildly anemic on her CBC on April 08, potassium was mildly low at 3.2. Last time she had a TSH drawn was in December of 2022, will update some labs just to ensure no worsening of any electrolytes, no development of thyroid issues. Reevaluation(s) Time of Reevaluation #1: 17:48 Reevaluation #1: Have reviewed patient's MRI with her. We did push images to [place]. [facility] did not have any of her old MRIs to compare to. There are not apparently any acute demyelinating lesions at this time. She will talk to her neurology service. She is worried it is actually the new medicine that they switched her to an maybe she is having side effects from this. I really cannot comment on this as I do not know this medicine or multiple sclerosis treatment well enough to be versus an it. She will need to talk to Neurology. She is feeling better, she has been having symptoms for couple weeks, I think she is safe to discharge to home with prescription for meclizine and a few tablets of Valium. We went over concerns for addiction with Valium. It certainly works for vertiginous symptoms but it should not be used chronically. I had reviewed this with Neurology earlier, they did agree with sending her home with meclizine and potentially few tablets of Valium. Consultations Consultation #1: Did call [facility], spoke with Damaris HARDY in the transfer center. She will reach out to the EMS service, see if they would like us to do MRI imaging here and exactly what they would like. 13:[address] Ruiz. Agreed with proceeding with MR imaging, will need with and without due to MS history. Will push images to [facility] for her neurology team to have as well. Time: 13:33 Vital Signs Vital signs: Initial Vital Signs Temperature 97.9 F 04/13/24 12:56 Temperature Source Temporal Artery Scan 04/13/24 12:56 Pulse Rate 70 04/13/24 12:56 Respiratory Rate 16 04/13/24 12:56 Blood Pressure 140/92 H 04/13/24 12:56 Blood Pressure Mean 108 H 04/13/24 12:56 Blood Pressure Position Supine 04/13/24 12:56 Pulse Oximetry 96 04/13/24 12:56 Oxygen Delivery Method Room Air 04/13/24 12:56 Vital Signs Temperature 97.9 F 04/13/24 12:56 Pulse Rate 70 04/13/24 12:56 Respiratory Rate 16 04/13/24 12:56 Blood Pressure 140/92 H 04/13/24 12:56 Pulse Oximetry 96 04/13/24 12:56 Oxygen Delivery Method Room Air 04/13/24 12:56 Temperature 97.9 F 04/13/24 12:56 Pulse Rate 61 04/13/24 16:57 Respiratory Rate 18 04/13/24 16:57 Blood Pressure 129/79 04/13/24 16:57 Pulse Oximetry 98 04/13/24 16:57 Oxygen Delivery Method Room Air 04/13/24 16:57 Medications Administered Medications: Discontinued Medications Generic Name Dose Route Start Last Admin Trade Name Freq PRN Reason Stop Dose Admin Diazepam 5 mg 04/13/24 13:31 04/13/24 13:46 Diazepam 5 Mg Tablet PO 04/13/24 13:32 5 mg ONCE ONE Administration MDM - Dizziness Lab Data Attestation: I reviewed the patient's lab results. Labs: Lab Results 04/13/24 Range/Units 13:57 WBC 8.27 (4.50-11.00) K/uL RBC 4.55 (4.00-5.20) m/uL Hgb 11.4 L (12.0-16.0) gm/dL Hct 36.6 (33.0-51.0) % MCV 80 (80-100) fL MCH 25 L (26-34) pg MCHC 31 L (32-36) gm/dL RDW Coeff of Alfredo 15.9 H (11.5-15.5) % Plt Count 350 (140-440) K/uL Neut % (Auto) 84.1 H (42.0-72.0) % Lymph % (Auto) 7.6 L (20-44) % [place] % (Auto) 4.8 (0.0-11.0) % Eos % (Auto) 1.2 (0.0-7.0) % Baso % (Auto) 0.5 (0.0-3.0) % Neut # (Auto) 7.00 (1.7-7.0) K/uL Lymph # (Auto) 0.60 L (0.90-2.90) K/uL Candler # (Auto) 0.40 (0.00-0.90) K/UL Eos # (Auto) 0.10 (0.00-0.50) K/uL Baso # (Auto) 0.04 (0.00-0.30) K/uL Abs Immat Gran (auto) 0.15 (0.00-0.30) K/uL Imm/Tot Granulo (auto) 1.8 % Sodium 136 (135-149) mmol/L Potassium 4.3 (3.6-5.1) mmol/L Chloride 106 (96-114) mmol/L Carbon Dioxide 22 (20-32) mmol/L Anion Gap 8 (7-15) mEq/L BUN 11 (5-24) mg/dL Creatinine 0.9 (0.5-1.5) mg/dL Estimated GFR 81 ml/min Glucose 92 (60-115) mg/dL Calcium 9.1 (8.4-10.6) mg/dL Magnesium 2.5 (1.5-2.6) mg/dL TSH 1.590 (0.270-4.200) uIU/mL Imaging Data MR Brain: Attestation: I have reviewed the pertinent imaging results. Radiologist's impression: Patient: ADIA ALVAREZ Facility:?[facility] Patient ID:?[id number] Site Patient ID:?[id number]. Site :?[id number] Study:?MRI-Head W/ and W/O Cont 15 CC DOTAREM MS-04/13/2024 5:25:57 PM Ordering Physician:?Spenser Scott Final Report: Indication: Vertigo. History of multiple sclerosis. Technique: Multiplanar, multisequence MRI of the brain was performed without and with intravenous contrast. Contrast: 15 cc Dotarem. Comparison: CT head 04/08/2024. Findings: The pituitary gland, clivus and craniocervical junction appear unremarkable. There is no restricted diffusion. No intracranial hemorrhage. The ventricles are proportionate to the cerebral sulci. The 4th ventricle appears midline. The basal cisterns appear patent. No abnormal extra-axial fluid collection identified. There is a gkle-kn-mchjswzn burden of periventricular and juxtacortical T2 FLAIR hyperintense white matter lesions supratentorially. Mild white matter disease infratentorially. Mild T1 hypointense lesion load. There is no intracranial mass, abnormal mass-effect or midline shift identified. No abnormal enhancement. Major intracranial vascular flow voids appear grossly intact. Both globes are preserved. Impression: 1. No acute intracranial process. 2. Mild to moderate supratentorial and mild infratentorial white matter disease compatible with chronic demyelinating plaques. 3. No abnormal enhancement to suggest active demyelination. 4. Mild T1 hypointense lesion burden. Dictated by Javi Tamez MD @ 04/13/2024 5:43:03 PM (Electronic Signature) Discharge Plan Discharge Clinical Impression: Multiple sclerosis, Vertigo Patient Disposition: Home, Self-Care Condition: Stable Instructions: Vertigo (ED) Additional Instructions: If you are having recurrent episodes, try using meclizine scheduled for about 5-7 days to see if it helps. For severe spells, have written for few Valium. As we reviewed, you can become addicted to Valium. He should not drive or operate machinery while on Valium. If the meclizine makes you too sedated, would not recommend driving on this either. Please contact your neurologist tomorrow, have them review the MRI that we did today to ensure no new concerning lesions that could be responsible for vertigo. You will have to talk to them about your concerned that this could be a side effect of your new medicine, I really do not have the expertise to given opinion on that. Activity Level: Activity as Tolerated Prescriptions: New meclizine 25 mg tablet 25 mg PO TID PRNQty: 30 0RF diazepam [Valium] 5 mg tablet 5 mg PO BID PRNQty: 10 0RF No Action amantadine HCl 100 mg capsule 100 mg PO QDAY Aimovig Autoinjector 140 mg/mL auto-injector 140 mg subcut .1 Ocrevus 30 mg/mL solution 600 mg IV [id number] sumatriptan succinate 100 mg tablet See Rx Instructions PO .COMPLEX Rx Instructions: take 1 tab at onset of headache; if no relief, may repeat 1 tab after at least 2 hrs; max = 2 tabs/24 hrs PO fluoxetine 20 mg capsule 60 mg PO QDAY Qty: 270 3RF Rx Instructions: Patient to take 3 caps by mouth daily Follow Up/Referrals: Zakiya Hirsch MD [Primary Care Provider] - Stand Alone Forms: [facility]
[2024-04-13] MEDS: diazePAM 5 MG TABLET PO (13:46)
--- NOTE | 2024-04-13 13:54 | CRLHL7_ITS ---
For Patients: As a result of the Century Cures Act, medical imaging exams and procedure reports are released immediately into your electronic medical record. You may view this report before your referring provider. If you have questions, please contact your health care provider. Indication: Vertigo. History of multiple sclerosis. Technique: Multiplanar, multisequence MRI of the brain was performed without and with intravenous contrast. Contrast: 15 cc Dotarem. Comparison: CT head 04/08/2024. Findings: The pituitary gland, clivus and craniocervical junction appear unremarkable. There is no restricted diffusion. No intracranial hemorrhage. The ventricles are proportionate to the cerebral sulci. The 4th ventricle appears midline. The basal cisterns appear patent. No abnormal extra-axial fluid collection identified. There is a [id number] burden of periventricular and juxtacortical T2 FLAIR hyperintense white matter lesions supratentorially. Mild white matter disease infratentorially. Mild T1 hypointense lesion load. There is no intracranial mass, abnormal mass-effect or midline shift identified. No abnormal enhancement. Major intracranial vascular flow voids appear grossly intact. Both globes are preserved. Impression: 1. No acute intracranial process. 2. Mild to moderate supratentorial and mild infratentorial white matter disease compatible with chronic demyelinating plaques. 3. No abnormal enhancement to suggest active demyelination. 4. Mild T1 hypointense lesion burden. Dictated by Javi Tamez MD @ 04/13/2024 5:43:03 PM (Electronically Signed)
[2024-04-13 14:11] LABS: Basophils Absolute Auto 0.04 K/uL (0.00-0.30); Basophils Percent Auto 0.5 % (0.0-3.0); Eosinophils Percent Auto 1.2 % (0.0-7.0); Hematocrit 36.6 % (33.0-51.0); Hemoglobin* 11.4 gm/dL (12.0-16.0); Immature Granulocytes Abs Auto 0.15 K/uL (0.00-0.30); Immature Granulocytes Pct Auto 1.8 %; Lymphocytes Percent Auto 7.6 % (20-44); Mean Corpuscular HGB Conc 31 gm/dL (32-36); Mean Corpuscular Hemoglobin 25 pg (26-34); Mean Corpuscular Volume 80 fL (80-100); Monocytes Percent Auto 4.8 % (0.0-11.0); Neutrophils Percent Auto 84.1 % (42.0-72.0); Platelet Count* 350 K/uL (140-440); RDW Coefficient of Variation % 15.9 % (11.5-15.5); Red Blood Count 4.55 m/uL (4.00-5.20); White Blood Count* 8.27 K/uL (4.50-11.00)
[2024-04-13 14:15] LABS: Slide Review Reflex No
[2024-04-13 14:17] LABS: Chloride* 106 mmol/L (96-114); Potassium* 4.3 mmol/L (3.6-5.1); Sodium* 136 mmol/L (135-149)
[2024-04-13 14:19] LABS: Creatinine* 0.9 mg/dL (0.5-1.5); Estimated Glomerular Filt Rate 81 ml/min
[2024-04-13 14:20] LABS: Anion Gap 8 mEq/L (7-15); Blood Urea Nitrogen* 11 mg/dL (5-24); Calcium* 9.1 mg/dL (8.4-10.6); Carbon Dioxide* 22 mmol/L (20-32); Glucose* 92 mg/dL (60-115)
[2024-04-13 14:27] LABS: Magnesium* 2.5 mg/dL (1.5-2.6)
[2024-04-13 16:57] VITALS: BP 129/79; PULSE 61; RESP 18; O2SAT 98
== END 2024-04-13 18:09 | disposition home or self-care (01) ==
PROVIDERS: Emergency Provider Family Medicine; PCP Family Medicine
DX: R42 Dizziness and giddiness (principal); G35 Multiple sclerosis
CPT/HCPCS: 36415; 70553; 80048; 83735; 84443; 85025; 99284; A9575